=== PATIENT | female | born 1945 | race Caucasian/White ===

== ENCOUNTER 2017-09-22 06:55 | Emergency (ER) | payer MEDICARE, SELFPAY ==
[2017-09-22 07:08] VITALS: BP 182/54; PULSE 64; RESP 15; TEMP 37; O2SAT 100; BMI 32.9
--- NOTE | 2017-09-22 07:48 | DI.CT.S_ITS ---
PROCEDURE: CT HEAD/BRAIN WO CON INDICATIONS: confusion. on coumadin TECHNIQUE: Noncontrast 4.5 mm thick angled axial sections acquired from the foramen magnum to the vertex, with coronal and sagittal reformats. For radiation dose reduction, the following was used: automated exposure control, adjustment of mA and/or kV according to patient size. COMPARISON: [facility], CT, HEAD WITHOUT CONTRAST, 06/21/2017, 12:20. FINDINGS: Image quality: Excellent. CSF spaces: Basal cisterns are patent. No extra-axial fluid collections. The ventricles are symmetric in size and shape. There is mild cerebral volume loss, with resultant ventricular and sulcal prominence. Brain: No intracranial hemorrhage, mass, or mass effect. There are subcortical, periventricular and deep white matter hypodensities consistent with [id number] chronic small vessel ischemic changes. There is intracranial internal carotid artery atherosclerosis. Skull and face: Calvarium and visualized facial bones appear intact, without suspicious lesions. Sinuses: Visualized sinuses and mastoids are clear. IMPRESSION: 1. No acute intracranial abnormality. 2. Mild to moderate chronic white matter small vessel ischemic changes and mild cerebral volume loss. Dictated by: aMck Bravo M.D. on 09/22/2017 at 8:21 Approved by: Mack Bravo M.D. on 09/22/2017 at 8:22
[2017-09-22 07:55] LABS: Add Manual Diff / Slide Review NO; Basophils Percent Auto 0.7 % (0-2); Eosinophils Percent Auto 3.3 % (2-4); Hematocrit 35.2 % (36-46); Lymphocytes Percent Auto 17.1 % (25-40); Mean Corpuscular HGB Conc 34.1 % (30-36); Mean Corpuscular Hemoglobin 30.7 PG (26-34); Mean Corpuscular Volume 90.1 fL (80-100); Monocytes Percent Auto 11.6 % (3-14); Neutrophils Absolute Auto 4300 /uL (3000-5900); Neutrophils Percent Auto 67.3 % (50-75); Platelet Count 143 X10^3/uL (150-400); Red Blood Cell Count 3.91 X10^6/uL (4.0-5.2); White Blood Cell Count 6.3 X10^3/uL (4.5-11.0)
[2017-09-22 07:56] LABS: INR 2.3 (0.9-1.3)
[2017-09-22 07:59] LABS: PTT Partial Thromboplastin Tim 46 SECONDS (26.4-36.2)
[2017-09-22 08:05] LABS: Alanine Aminotransferase 35 IU/L (9-52); Albumin 4.3 g/dL (3.5-5.0); Albumin Globulin Ratio 1.3 (1.0-2.8); Alkaline Phosphatase 77 U/L (38-126); Aspartate Aminotransferase 41 IU/L (14-36); Bilirubin Total 0.5 mg/dL (0.2-1.3); Calcium 9.1 mg/dL (8.4-10.2); Estimated Glomerular Filt Rate 29.5 mL/min (>60); Ethanol (ETOH) < 10 mg/dL; Globulin 3.2 g/dL (1.7-4.1); Glucose 101 mg/dL (80-110); HEMOLYSIS 23 (0-50); Potassium 3.7 mmol/L (3.4-5.1); Sodium 141 mmol/L (137-145); Total Protein 7.5 g/dL (6.3-8.2)
[2017-09-22 08:07] LABS: Salicylate < 1.0 mg/dL (<20)
[2017-09-22 08:08] VITALS: BP 156/44; PULSE 62; RESP 14; O2SAT 97
[2017-09-22 08:12] LABS: Appearance Urine UA CLEAR; Bacteria Urine None Seen; Bilirubin Urine UA NEGATIVE (NEGATIVE); Color Urine UA YELLOW; Glucose Urine UA NEGATIVE (Negative); Ketones Urine UA NEGATIVE (NEGATIVE); Leukocyte Esterase Urine UA NEGATIVE (NEGATIVE); Nitrite Urine UA Negative (Negative); Occult Blood Urine UA NEGATIVE (Negative); Protein Urine UA NEGATIVE (Negative); RBC Urine None Seen (0-5/HPF); Urobilinogen Urine UA 0.2 E.U./dL (0.2); pH Urine UA 6.5 (4.5-8.0)
--- NOTE | 2017-09-22 08:13 | ED.AMS ---
HPI - Altered Mental Status General Chief Complaint: Altered Mental Status Stated Complaint: CONFUSION Time Seen by Provider: 09/22/17 07:09 Source: family and old records reviewed Mode of arrival: ambulatory Limitations: altered mental status History of Present Illness HPI narrative: Patient is a 72-year-old female presents with altered mental status. Her states that she has episodes that last for 3-4 days. They come sporadically. During this time she does not sleep much. She is confused. Last night this started. He said they were on their way to the ER when she became more awake and alert with a cold breathes on the window open in the car. He turned around home. However now she is back to the same. Previously she was doing well. No fever cough nausea vomiting diarrhea or other infectious like symptoms. Has a complicated history she pre of multiple GI bleeds and atrial fibrillation. She currently has a watchman patch on her heart, she is supposed to be off Coumadin with this how ever there have been some complications she is still on Coumadin. states that she has not had any bleeding no. MD complaint: altered mental status Related Data Home Medications Medication Instructions Recorded Confirmed oxybutynin chloride [Ditropan XL] 10 mg PO BID #0 02/03/16 baclofen 20 mg PO BID #10 04/26/16 vitamin B complex [B 1 tab PO QDAY #0 04/26/16 Complex-Vitamin B12] amiodarone 200 mg PO QDAY #0 05/22/16 ferrous sulfate [Iron (ferrous 325 mg PO BID #0 05/22/16 sulfate)] fluticasone 1 spray INTRANASAL BID #0 05/22/16 hydrocodone-acetaminophen [Lawler] 1 PO PRN #0 05/22/16 atorvastatin 40 mg PO HS #0 11/08/16 calcium carbonate-vitamin D3 1 cap PO BID #0 11/08/16 [Calcium 600 with Vitamin D3] carvedilol [Coreg] 12.5 mg PO BID #0 11/08/16 ondansetron HCl [Zofran] 4 mg PO Q4HP PRN #0 11/08/16 pantoprazole [Protonix] 40 mg PO BID #0 11/08/16 potassium chloride 20 meq PO BID #0 11/08/16 prochlorperazine maleate 10 mg PO PRN PRN #0 12/31/16 [Compazine] isosorbide mononitrate 30 mg PO QAM #0 01/27/17 losartan 25 mg PO SEE INSTRUCTIONS #0 01/27/17 omega-3 fatty [id number]-axh-[id number] 1 cap PO BID #0 01/27/17 [Ovega-3] diphenhydramine HCl 25 mg PO Q6HPRN PRN #0 06/21/17 hydrochlorothiazide 25 mg PO BID #0 06/21/17 warfarin [Coumadin] 2 mg PO SEE INSTRUCTIONS #0 06/21/17 levothyroxine [Synthroid] 125 mcg PO QWEEKSU #0 06/25/17 torsemide 20 mg PO QDAYP PRN #0 06/25/17 vitamin E 400 unit PO QDAY #0 07/04/17 warfarin [Coumadin] 1 mg PO QWEEKSU #0 07/04/17 Previous Rx's Medication Instructions Recorded polyethylene glycol 3350 [Miralax] 17 gm PO QDAY 30 Days #0 dose 02/05/16 insulin NPH and regular human 80 units SQ BIDAC #3 ml 01/01/17 [Humulin 70/30 U-100 Insulin] insulin lispro [Humalog U-100 2 - 10 unit SQ TIDAC #1 vial 02/20/17 Insulin] Allergies Allergy/AdvReac Type Severity Reaction Status Date / Time meperidine [From DEMEROL] Allergy Severe NAUSEA/VOMI Verified 09/22/17 07:21 TTING Review of Systems Review of Systems All systems reviewed & are unremarkable except as noted in HPI and below Constitutional Denies fatigue, Denies fever(s), Denies frequent falls and Denies headache(s) ENT Ears, Nose, Mouth, and Throat: Denies headache(s) Cardiovascular Denies chest pain, Denies syncope, Denies irregular heart rhythm, Denies lightheadedness, Denies palpitations, Denies dyspnea, Denies dyspnea on exertion and Denies orthopnea Respiratory Denies cough, Denies dyspnea, Denies dyspnea on exertion and Denies wheezing Gastrointestinal Gastrointestinal: Denies abdominal pain, Denies fecal incontinence, Denies diarrhea and Denies vomiting Genitourinary Denies hematuria, Denies flank pain, Denies urinary incontinence and Denies urinary urgency Integumentary/Breasts Denies pruritus, Denies erythema, Denies rash and Denies wounds Neurologic Reports system reviewed and no additional complaints, except as docu, Denies syncope, Denies frequent falls and Denies headache(s) Endocrine Denies fatigue and Denies palpitations Allergic/Immunologic Denies wheezing Exam Initial Vital Signs Initial Vital Signs: Vital Signs Temperature 98.6 F 09/22/17 07:08 Pulse Rate 64 09/22/17 07:08 Respiratory Rate 15 09/22/17 07:08 Blood Pressure 182/54 H 09/22/17 07:08 Pulse Oximetry 100 09/22/17 07:08 Const General: cooperative, healthy appearing and comfortable [facility] Head: normal to inspection and normocephalic Eyes General: appearance normal, both eyes and all related structures Eyelids: eyelids normal Pupils: PERRL EOM: EOM intact bilaterally Resp Effort & Inspection: normal respiratory effort, able to speak in complete sentences, no respiratory distress and no use of accessory muscles Auscultation: clear to auscultation bilaterally, no rales, no rhonchi and no wheezes Cardio Rate: regular rate Rhythm: regular rhythm Heart Sounds: no click, no gallops, no murmurs and no rubs Pulses: normal peripheral pulses Skin General: no rashes or lesions noted, No jaundice and No petechiae Neuro General: alert, awake and oriented x3 Cranial Nerves: CN's II-XI intact bilaterally Cognition: abnormal cognition (Slightly confused) Speech: speech normal Motor: muscle tone normal throughout and strength 5/5 throughout Coordination: [id number] test normal Extrem General: full ROM, no clubbing, cyanosis or edema, no pedal edema and no calf tenderness Course Orders Ordered: ED Orders 09/22/17 07:10 Complete Blood Count AUTO DIFF Stat Comprehensive Metabolic Panel Stat Ethanol (ETOH) Stat Partial Thromboplastin Time Stat Prolactin Stat Prothrombin Time INR Stat Salicylate Stat Thyroid Stimulating Hormone Stat Troponin I Stat 09/22/17 07:43 Rapid Drug Screen, Urine Stat Urinalysis and Microscopic Stat 09/22/17 07:46 EKG-12 Lead Stat 09/22/17 07:48 CT head/brain wo con Stat 09/22/17 08:05 Lactate (Lactic Acid) Stat Discontinued Medications Sodium Chloride (Normal Saline 0.9%) 1,000 mls @ 150 mls/hr IV CONT REJI Last Infusion: 09/22/17 09:24 Dose: 0 mls/hr Admin: 09/22/17 08:33 Dose: 150 mls/hr Vital Signs - 8 hr 09/22/17 07:08 09/22/17 08:08 09/22/17 08:38 Temperature 98.6 F Pulse Rate 64 62 62 Respiratory Rate 15 14 13 Blood Pressure 182/54 H Blood Pressure [Left Arm] 156/44 H 135/42 H Pulse Oximetry 100 97 97 09/22/17 09:17 09/22/17 09:30 09/22/17 09:50 Temperature Pulse Rate 66 64 Respiratory Rate 15 14 Blood Pressure Blood Pressure [Left Arm] 163/46 H 165/50 H Pulse Oximetry 98 98 MDM - Altered Mental Status Lab Data Result diagrams: 09/22/17 07:10 09/22/17 07:10 Lab Results 09/22/17 09/22/17 09/22/17 Range/Units 07:10 07:10 07:10 WBC 6.3 (4.5-11.0) X10^3/uL RBC 3.91 L (4.0-5.2) X10^6/uL Hgb 12.0 (12.0-16.0) g/dL Hct 35.2 L (36-46) % MCV 90.1 (80-100) fL MCH 30.7 (26-34) PG MCHC 34.1 (30-36) % RDW 15.0 H (11.6-14.8) % Plt Count 143 L (150-400) X10^3/uL Neut % (Auto) 67.3 (50-75) % Lymph % (Auto) 17.1 L (25-40) % Williamson % (Auto) 11.6 (3-14) % Eos % (Auto) 3.3 (2-4) % Baso % (Auto) 0.7 (0-2) % Neut # (Auto) 4300 (1468-6755) /uL PT 25.0 H (10.1-12.7) SECONDS INR 2.3 H (0.9-1.3) APTT 46 H (26.4-36.2) SECONDS Sodium 141 (137-145) mmol/L Potassium 3.7 (3.4-5.1) mmol/L Chloride 98.0 (98-107) mmol/L Carbon Dioxide 31.0 (22-32) mmol/L BUN 85.0 H (7-17) mg/dL Creatinine 1.70 H (0.52-1.04) mg/dL Estimated GFR 29.5 L (>60) mL/min BUN/Creatinine Ratio 50.0 H (6-22) Glucose 101 (80-110) mg/dL Lactate (0.7-2.1) mmol/L Calcium 9.1 (8.4-10.2) mg/dL Total Bilirubin 0.5 (0.2-1.3) mg/dL AST 41 H (14-36) IU/L ALT 35 (9-52) IU/L Alkaline Phosphatase 77 (38-126) U/L Troponin I < 0.012 (0.01-0.034) ng/mL Total Protein 7.5 (6.3-8.2) g/dL Albumin 4.3 (3.5-5.0) g/dL Globulin 3.2 (1.7-4.1) g/dL Albumin/Globulin Ratio 1.3 (1.0-2.8) TSH (0.47-4.68) uIU/mL Prolactin 18.6 (3.0-18.6) ng/mL Urine Color Urine Appearance Urine pH (4.5-8.0) Ur Specific [place] (1.000-1.035) Urine Protein (Negative) Urine Glucose (UA) (Negative) g/dL Urine Ketones (NEGATIVE) Urine Occult Blood (Negative) Urine Nitrate (Negative) Urine Bilirubin (NEGATIVE) Urine Urobilinogen (0.2) E.U./dL Ur Leukocyte Esterase (NEGATIVE) Urine RBC (0-5/HPF) Urine WBC (0-5/HPF) Ur Squamous Epith Cells Urine Bacteria (None) Ur Culture Indicated? Micro UA Comment Salicylates < 1.0 (<20) mg/dL Urine Opiates Screen (Negative) Ur Oxycodone Screen (Negative) Urine Methadone Screen (Negative) Ur Barbiturates Screen (Negative) U Tricyclic Antidepress (Negative) Ur Phencyclidine Scrn (Negative) Ur Amphetamines Screen (Negative) U Methamphetamines Scrn (Negative) Ur MDMA Scrn (Ecstasy) (Negative) U Benzodiazepines Scrn (Negative) Urine Cocaine Screen (Negative) U Marijuana (THC) Screen (Negative) Ethyl Alcohol < 10 mg/dL 09/22/17 09/22/17 09/22/17 Range/Units 07:10 07:43 07:43 WBC (4.5-11.0) X10^3/uL RBC (4.0-5.2) X10^6/uL Hgb (12.0-16.0) g/dL Hct (36-46) % MCV (80-100) fL MCH (26-34) PG MCHC (30-36) % RDW (11.6-14.8) % Plt Count (150-400) X10^3/uL Neut % (Auto) (50-75) % Lymph % (Auto) (25-40) % Williamson % (Auto) (3-14) % Eos % (Auto) (2-4) % Baso % (Auto) (0-2) % Neut # (Auto) (6255-4461) /uL PT (10.1-12.7) SECONDS INR (0.9-1.3) APTT (26.4-36.2) SECONDS Sodium (137-145) mmol/L Potassium (3.4-5.1) mmol/L Chloride (98-107) mmol/L Carbon Dioxide (22-32) mmol/L BUN (7-17) mg/dL Creatinine (0.52-1.04) mg/dL Estimated GFR (>60) mL/min BUN/Creatinine Ratio (6-22) Glucose (80-110) mg/dL Lactate (0.7-2.1) mmol/L Calcium (8.4-10.2) mg/dL Total Bilirubin (0.2-1.3) mg/dL AST (14-36) IU/L ALT (9-52) IU/L Alkaline Phosphatase (38-126) U/L Troponin I (0.01-0.034) ng/mL Total Protein (6.3-8.2) g/dL Albumin (3.5-5.0) g/dL Globulin (1.7-4.1) g/dL Albumin/Globulin Ratio (1.0-2.8) TSH 5.78 H (0.47-4.68) uIU/mL Prolactin (3.0-18.6) ng/mL Urine Color Yellow Urine Appearance Clear Urine pH 6.5 (4.5-8.0) Ur Specific [place] 1.010 (1.000-1.035) Urine Protein Negative (Negative) Urine Glucose (UA) Negative (Negative) g/dL Urine Ketones Negative (NEGATIVE) Urine Occult Blood Negative (Negative) Urine Nitrate Negative (Negative) Urine Bilirubin Negative (NEGATIVE) Urine Urobilinogen 0.2 (0.2) E.U./dL Ur Leukocyte Esterase Negative (NEGATIVE) Urine RBC None seen (0-5/HPF) Urine WBC 1-5/hpf (0-5/HPF) Ur Squamous Epith Cells 1-5 /hpf Urine Bacteria None seen (None) Ur Culture Indicated? Cult not indicated Micro UA Comment Microscopic normal Salicylates (<20) mg/dL Urine Opiates Screen Positive H (Negative) Ur Oxycodone Screen Negative (Negative) Urine Methadone Screen Negative (Negative) Ur Barbiturates Screen Negative (Negative) U Tricyclic Antidepress Negative (Negative) Ur Phencyclidine Scrn Negative (Negative) Ur Amphetamines Screen Negative (Negative) U Methamphetamines Scrn Negative (Negative) Ur MDMA Scrn (Ecstasy) Negative (Negative) U Benzodiazepines Scrn Negative (Negative) Urine Cocaine Screen Negative (Negative) U Marijuana (THC) Screen Negative (Negative) Ethyl Alcohol mg/dL 09/22/17 Range/Units 08:05 WBC (4.5-11.0) X10^3/uL RBC (4.0-5.2) X10^6/uL Hgb (12.0-16.0) g/dL Hct (36-46) % MCV (80-100) fL MCH (26-34) PG MCHC (30-36) % RDW (11.6-14.8) % Plt Count (150-400) X10^3/uL Neut % (Auto) (50-75) % Lymph % (Auto) (25-40) % Williamson % (Auto) (3-14) % Eos % (Auto) (2-4) % Baso % (Auto) (0-2) % Neut # (Auto) (6611-3055) /uL PT (10.1-12.7) SECONDS INR (0.9-1.3) APTT (26.4-36.2) SECONDS Sodium (137-145) mmol/L Potassium (3.4-5.1) mmol/L Chloride (98-107) mmol/L Carbon Dioxide (22-32) mmol/L BUN (7-17) mg/dL Creatinine (0.52-1.04) mg/dL Estimated GFR (>60) mL/min BUN/Creatinine Ratio (6-22) Glucose (80-110) mg/dL Lactate 0.6 L (0.7-2.1) mmol/L Calcium (8.4-10.2) mg/dL Total Bilirubin (0.2-1.3) mg/dL AST (14-36) IU/L ALT (9-52) IU/L Alkaline Phosphatase (38-126) U/L Troponin I (0.01-0.034) ng/mL Total Protein (6.3-8.2) g/dL Albumin (3.5-5.0) g/dL Globulin (1.7-4.1) g/dL Albumin/Globulin Ratio (1.0-2.8) TSH (0.47-4.68) uIU/mL Prolactin (3.0-18.6) ng/mL Urine Color Urine Appearance Urine pH (4.5-8.0) Ur Specific [place] (1.000-1.035) Urine Protein (Negative) Urine Glucose (UA) (Negative) g/dL Urine Ketones (NEGATIVE) Urine Occult Blood (Negative) Urine Nitrate (Negative) Urine Bilirubin (NEGATIVE) Urine Urobilinogen (0.2) E.U./dL Ur Leukocyte Esterase (NEGATIVE) Urine RBC (0-5/HPF) Urine WBC (0-5/HPF) Ur Squamous Epith Cells Urine Bacteria (None) Ur Culture Indicated? Micro UA Comment Salicylates (<20) mg/dL Urine Opiates Screen (Negative) Ur Oxycodone Screen (Negative) Urine Methadone Screen (Negative) Ur Barbiturates Screen (Negative) U Tricyclic Antidepress (Negative) Ur Phencyclidine Scrn (Negative) Ur Amphetamines Screen (Negative) U Methamphetamines Scrn (Negative) Ur MDMA Scrn (Ecstasy) (Negative) U Benzodiazepines Scrn (Negative) Urine Cocaine Screen (Negative) U Marijuana (THC) Screen (Negative) Ethyl Alcohol mg/dL Imaging Data CT scan - head: Radiologist's impression: PROCEDURE: CT HEAD/BRAIN WO CON INDICATIONS: confusion. on coumadin TECHNIQUE: Noncontrast 4.5 mm thick angled axial sections acquired from the foramen magnum to the vertex, with coronal and sagittal reformats. For radiation dose reduction, the following was used: automated exposure control, adjustment of mA and/or kV according to patient size. COMPARISON: [facility], CT, HEAD WITHOUT CONTRAST, 06/21/2017, 12:20. FINDINGS: Image quality: Excellent. CSF spaces: Basal cisterns are patent. No extra-axial fluid collections. The ventricles are symmetric in size and shape. There is mild cerebral volume loss, with resultant ventricular and sulcal prominence. Brain: No intracranial hemorrhage, mass, or mass effect. There are subcortical, periventricular and deep white matter hypodensities consistent with [id number] chronic small vessel ischemic changes. There is intracranial internal carotid artery atherosclerosis. Skull and face: Calvarium and visualized facial bones appear intact, without suspicious lesions. Sinuses: Visualized sinuses and mastoids are clear. IMPRESSION: 1. No acute intracranial abnormality. 2. Mild to moderate chronic white matter small vessel ischemic changes and mild cerebral volume loss. Dictated by: Mack Bravo M.D. on 09/22/2017 at 8:21 ECG Data Attestation: I personally reviewed and interpreted this ECG as follows: Prior ECG tracings: available for review Interpretation: Normal sinus rhythm rate 61 no ischemia normal intervals MDM Narrative Medical decision making narrative: No sign of infection, blood work within normal limits. Discussed this with . Possible related to medication possible related to age. He does not think that she has dementia. When she does not have these episodes she to be quite clear and present. However these episodes are becoming more frequent. feels comfortable going home. No need for admission. She is slightly more dehydrated a BUN of 87 and creatinine of 1.7 today. She is given fluids he is tolerating oral fluids. Discharge Plan Departure Patient Disposition: Home, Self-Care Clinical Impression: Encephalopathy Discharge Date/Time: 09/22/17 10:25 Interventions: ED Discharge Assessment Last Done: 09/22/17 10:20 Instructions: DI for Encephalopathy Activity Restrictions/Additional Instructions: *You have been diagnosed with encephalopathy *What to do: unclear what the exact cause is. May require further testing. Talk with your primary care provider *Take medications as directed *Follow up with your primary care provider in 2-3 days *Return to ER if you should have fever, weakness, worsening confusionany new, worsening or concerning symptoms Prescriptions: No Action oxybutynin chloride [Ditropan XL] 10 MG tablet extended release 24hr 10 mg PO BID Qty: 0 RF: 0 polyethylene glycol 3350 [Miralax] 17 GM powder in packet 17 gm PO QDAY 30 Days Qty: 0 RF: 0 baclofen 20 MG tablet 20 mg PO BID Qty: 10 RF: 0 vitamin B complex [B Complex-Vitamin B12] 1 EACH tablet 1 tab PO QDAY Qty: 0 RF: 0 hydrocodone-acetaminophen [Lawler] 10 MG/325 MG tablet 1 PO PRNQty: 0 RF: 0 fluticasone 16 GM spray,suspension 1 spray Intranasal BID Qty: 0 RF: 0 ferrous sulfate [Iron (ferrous sulfate)] 325 MG tablet 325 mg PO BID Qty: 0 RF: 0 amiodarone 200 MG tablet 200 mg PO QDAY Qty: 0 RF: 0 atorvastatin 40 MG tablet 40 mg PO HS Qty: 0 RF: 0 calcium carbonate-vitamin D3 [Calcium 600 with Vitamin D3] 600 MG/200 IU capsule 1 cap PO BID Qty: 0 RF: 0 potassium chloride 10 MEQ capsule, extended release 20 meq PO BID Qty: 0 RF: 0 pantoprazole [Protonix] 40 MG tablet,delayed release (DR/EC) 40 mg PO BID Qty: 0 RF: 0 carvedilol [Coreg] 12.5 MG tablet 12.5 mg PO BID Qty: 0 RF: 0 ondansetron HCl [Zofran] 4 MG tablet 4 mg PO Q4HP PRNQty: 0 RF: 0 prochlorperazine maleate [Compazine] 10 MG tablet 10 mg PO PRN PRNQty: 0 RF: 0 insulin NPH and regular human [Humulin 70/30 U-100 Insulin] 100 UNIT/1 ML suspension 80 units SQ BIDAC Qty: 3 RF: 0 isosorbide mononitrate 30 MG tablet extended release 24 hr 30 mg PO QAM Qty: 0 RF: 0 losartan 25 MG tablet 25 mg PO SEE INSTRUCTIONS Qty: 0 RF: 0 omega-3 fatty [id number] [Ovega-3] 1 EACH capsule 1 cap PO BID Qty: 0 RF: 0 insulin lispro [Humalog U-100 Insulin] 100 UNIT/1 ML solution 2 - 10 unit SQ TIDAC Qty: 1 RF: 0 warfarin [Coumadin] 2 MG tablet 2 mg PO SEE INSTRUCTIONS Qty: 0 RF: 0 hydrochlorothiazide 25 MG tablet 25 mg PO BID Qty: 0 RF: 0 diphenhydramine HCl 50 MG capsule 25 mg PO Q6HPRN PRNQty: 0 RF: 0 levothyroxine [Synthroid] 125 MCG tablet 125 mcg PO QWEEKSU Qty: 0 RF: 0 torsemide 20 MG tablet 20 mg PO QDAYP PRNQty: 0 RF: 0 warfarin [Coumadin] 2 MG tablet 1 mg PO QWEEKSU Qty: 0 RF: 0 vitamin E 400 UNIT capsule 400 unit PO QDAY Qty: 0 RF: 0
[2017-09-22 08:18] LABS: Troponin I < 0.012 ng/mL (0.01-0.034)
[2017-09-22 08:18] LABS: Urine Amphetamines Negative (Negative); Urine Barbiturates Negative (Negative); Urine Benzodiazepines Negative (Negative); Urine Cocaine Negative (Negative); Urine MDMA Negative (Negative); Urine Methadone Negative (Negative); Urine Methamphetamines Negative (Negative); Urine Morphine/Opi cutoff 2000 Positive (Negative); Urine Oxycodone Negative (Negative); Urine Phencyclidine Negative (Negative); Urine Tetrahydrocannabinol Negative (Negative); Urine Tricyclic Antidepressant Negative (Negative)
[2017-09-22 08:22] LABS: Prolactin 18.6 ng/mL (3.0-18.6)
[2017-09-22 08:26] LABS: Lactate (Lactic Acid) 0.6 mmol/L (0.7-2.1)
[2017-09-22 08:28] LABS: Squamous Epithelial Cell Urine 1-5 /HPF; Urine Comments Microscopic Normal; WBC Urine 1-5/HPF (0-5/HPF)
[2017-09-22 08:29] LABS: Culture Indicated Urine Cult Not Indicated
[2017-09-22] MEDS: SODIUM CHLORIDE 0.9% 1,000 ML 150 ML IV (08:33)
[2017-09-22 08:37] LABS: Thyroid Stimulating Hormone 5.78 uIU/mL (0.47-4.68)
[2017-09-22 08:38] VITALS: BP 135/42; PULSE 62; RESP 13; O2SAT 97
--- NOTE | 2017-09-22 08:42 | ED_ITS ---
HPI - Altered Mental Status General Chief Complaint: Altered Mental Status Stated Complaint: CONFUSION Time Seen by Provider: 09/22/17 07:09 Source: family and old records reviewed Mode of arrival: ambulatory Limitations: altered mental status History of Present Illness HPI narrative: Patient is a 72-year-old female presents with altered mental status. Her states that she has episodes that last for 3-4 days. They come sporadically. During this time she does not sleep much. She is confused. Last night this started. He said they were on their way to the ER when she became more awake and alert with a cold breathes on the window open in the car. He turned around home. However now she is back to the same. Previously she was doing well. No fever cough nausea vomiting diarrhea or other infectious like symptoms. Has a complicated history she pre of multiple GI bleeds and atrial fibrillation. She currently has a watchman patch on her heart, she is supposed to be off Coumadin with this how ever there have been some complications she is still on Coumadin. states that she has not had any bleeding no. MD complaint: altered mental status Related Data Home Medications Medication Instructions Recorded Confirmed oxybutynin chloride [Ditropan XL] 10 mg PO BID #0 02/03/16 baclofen 20 mg PO BID #10 04/26/16 vitamin B complex [B 1 tab PO QDAY #0 04/26/16 Complex-Vitamin B12] amiodarone 200 mg PO QDAY #0 05/22/16 ferrous sulfate [Iron (ferrous 325 mg PO BID #0 05/22/16 sulfate)] fluticasone 1 spray INTRANASAL BID #0 05/22/16 hydrocodone-acetaminophen [[place]] 1 PO PRN #0 05/22/16 atorvastatin 40 mg PO HS #0 11/08/16 calcium carbonate-vitamin D3 1 cap PO BID #0 11/08/16 [Calcium 600 with Vitamin D3] carvedilol [Coreg] 12.5 mg PO BID #0 11/08/16 ondansetron HCl [Zofran] 4 mg PO Q4HP PRN #0 11/08/16 pantoprazole [Protonix] 40 mg PO BID #0 11/08/16 potassium chloride 20 meq PO BID #0 11/08/16 prochlorperazine maleate 10 mg PO PRN PRN #0 12/31/16 [Compazine] isosorbide mononitrate 30 mg PO QAM #0 01/27/17 losartan 25 mg PO SEE INSTRUCTIONS #0 01/27/17 omega-3 fatty [id number] 1 cap PO BID #0 01/27/17 [Ovega-3] diphenhydramine HCl 25 mg PO Q6HPRN PRN #0 06/21/17 hydrochlorothiazide 25 mg PO BID #0 06/21/17 warfarin [Coumadin] 2 mg PO SEE INSTRUCTIONS #0 06/21/17 levothyroxine [Synthroid] 125 mcg PO QWEEKSU #0 06/25/17 torsemide 20 mg PO QDAYP PRN #0 06/25/17 vitamin E 400 unit PO QDAY #0 07/04/17 warfarin [Coumadin] 1 mg PO QWEEKSU #0 07/04/17 Previous Rx's Medication Instructions Recorded polyethylene glycol 3350 [Miralax] 17 gm PO QDAY 30 Days #0 dose 02/05/16 insulin NPH and regular human 80 units SQ BIDAC #3 ml 01/01/17 [Humulin 70/30 U-100 Insulin] insulin lispro [Humalog U-100 2 - 10 unit SQ TIDAC #1 vial 02/20/17 Insulin] Allergies Allergy/AdvReac Type Severity Reaction Status Date / Time meperidine [From DEMEROL] Allergy Severe NAUSEA/VOMI Verified 09/22/17 07:21 TTING Review of Systems Review of Systems All systems reviewed & are unremarkable except as noted in HPI and below Constitutional Denies fatigue, Denies fever(s), Denies frequent falls and Denies headache(s) ENT Ears, Nose, Mouth, and Throat: Denies headache(s) Cardiovascular Denies chest pain, Denies syncope, Denies irregular heart rhythm, Denies lightheadedness, Denies palpitations, Denies dyspnea, Denies dyspnea on exertion and Denies orthopnea Respiratory Denies cough, Denies dyspnea, Denies dyspnea on exertion and Denies wheezing Gastrointestinal Gastrointestinal: Denies abdominal pain, Denies fecal incontinence, Denies diarrhea and Denies vomiting Genitourinary Denies hematuria, Denies flank pain, Denies urinary incontinence and Denies urinary urgency Integumentary/Breasts Denies pruritus, Denies erythema, Denies rash and Denies wounds Neurologic Reports system reviewed and no additional complaints, except as docu, Denies syncope, Denies frequent falls and Denies headache(s) Endocrine Denies fatigue and Denies palpitations Allergic/Immunologic Denies wheezing Exam Initial Vital Signs Initial Vital Signs: Vital Signs Temperature 98.6 F 09/22/17 07:08 Pulse Rate 64 09/22/17 07:08 Respiratory Rate 15 09/22/17 07:08 Blood Pressure 182/54 H 09/22/17 07:08 Pulse Oximetry 100 09/22/17 07:08 Const General: cooperative, healthy appearing and comfortable [facility] Head: normal to inspection and normocephalic Eyes General: appearance normal, both eyes and all related structures Eyelids: eyelids normal Pupils: PERRL EOM: EOM intact bilaterally Resp Effort & Inspection: normal respiratory effort, able to speak in complete sentences, no respiratory distress and no use of accessory muscles Auscultation: clear to auscultation bilaterally, no rales, no rhonchi and no wheezes Cardio Rate: regular rate Rhythm: regular rhythm Heart Sounds: no click, no gallops, no murmurs and no rubs Pulses: normal peripheral pulses Skin General: no rashes or lesions noted, No jaundice and No petechiae Neuro General: alert, awake and oriented x3 Cranial Nerves: CN's II-XI intact bilaterally Cognition: abnormal cognition (Slightly confused) Speech: speech normal Motor: muscle tone normal throughout and strength 5/5 throughout Coordination: [id number] test normal Extrem General: full ROM, no clubbing, cyanosis or edema, no pedal edema and no calf tenderness Course Orders Ordered: ED Orders 09/22/17 07:10 Complete Blood Count AUTO DIFF Stat Comprehensive Metabolic Panel Stat Ethanol (ETOH) Stat Partial Thromboplastin Time Stat Prolactin Stat Prothrombin Time INR Stat Salicylate Stat Thyroid Stimulating Hormone Stat Troponin I Stat 09/22/17 07:43 Rapid Drug Screen, Urine Stat Urinalysis and Microscopic Stat 09/22/17 07:46 EKG-12 Lead Stat 09/22/17 07:48 CT head/brain wo con Stat 09/22/17 08:05 Lactate (Lactic Acid) Stat Discontinued Medications Sodium Chloride (Normal Saline 0.9%) 1,000 mls @ 150 mls/hr IV CONT REJI Last Infusion: 09/22/17 09:24 Dose: 0 mls/hr Admin: 09/22/17 08:33 Dose: 150 mls/hr Vital Signs - 8 hr 09/22/17 07:08 09/22/17 08:08 09/22/17 08:38 Temperature 98.6 F Pulse Rate 64 62 62 Respiratory Rate 15 14 13 Blood Pressure 182/54 H Blood Pressure [Left Arm] 156/44 H 135/42 H Pulse Oximetry 100 97 97 09/22/17 09:17 09/22/17 09:30 09/22/17 09:50 Temperature Pulse Rate 66 64 Respiratory Rate 15 14 Blood Pressure Blood Pressure [Left Arm] 163/46 H 165/50 H Pulse Oximetry 98 98 MDM - Altered Mental Status Lab Data Result diagrams: 09/22/17 07:10 09/22/17 07:10 Lab Results 09/22/17 09/22/17 09/22/17 Range/Units 07:10 07:10 07:10 WBC 6.3 (4.5-11.0) X10^3/uL RBC 3.91 L (4.0-5.2) X10^6/uL Hgb 12.0 (12.0-16.0) g/dL Hct 35.2 L (36-46) % MCV 90.1 (80-100) fL MCH 30.7 (26-34) PG MCHC 34.1 (30-36) % RDW 15.0 H (11.6-14.8) % Plt Count 143 L (150-400) X10^3/uL Neut % (Auto) 67.3 (50-75) % Lymph % (Auto) 17.1 L (25-40) % [place] % (Auto) 11.6 (3-14) % Eos % (Auto) 3.3 (2-4) % Baso % (Auto) 0.7 (0-2) % Neut # (Auto) 4300 (4280-5231) /uL PT 25.0 H (10.1-12.7) SECONDS INR 2.3 H (0.9-1.3) APTT 46 H (26.4-36.2) SECONDS Sodium 141 (137-145) mmol/L Potassium 3.7 (3.4-5.1) mmol/L Chloride 98.0 (98-107) mmol/L Carbon Dioxide 31.0 (22-32) mmol/L BUN 85.0 H (7-17) mg/dL Creatinine 1.70 H (0.52-1.04) mg/dL Estimated GFR 29.5 L (>60) mL/min BUN/Creatinine Ratio 50.0 H (6-22) Glucose 101 (80-110) mg/dL Lactate (0.7-2.1) mmol/L Calcium 9.1 (8.4-10.2) mg/dL Total Bilirubin 0.5 (0.2-1.3) mg/dL AST 41 H (14-36) IU/L ALT 35 (9-52) IU/L Alkaline Phosphatase 77 (38-126) U/L Troponin I < 0.012 (0.01-0.034) ng/mL Total Protein 7.5 (6.3-8.2) g/dL Albumin 4.3 (3.5-5.0) g/dL Globulin 3.2 (1.7-4.1) g/dL Albumin/Globulin Ratio 1.3 (1.0-2.8) TSH (0.47-4.68) uIU/mL Prolactin 18.6 (3.0-18.6) ng/mL Urine Color Urine Appearance Urine pH (4.5-8.0) Ur Specific [place] (1.000-1.035) Urine Protein (Negative) Urine Glucose (UA) (Negative) g/dL Urine Ketones (NEGATIVE) Urine Occult Blood (Negative) Urine Nitrate (Negative) Urine Bilirubin (NEGATIVE) Urine Urobilinogen (0.2) E.U./dL Ur Leukocyte Esterase (NEGATIVE) Urine RBC (0-5/HPF) Urine WBC (0-5/HPF) Ur Squamous Epith Cells Urine Bacteria (None) Ur Culture Indicated? Micro UA Comment Salicylates < 1.0 (<20) mg/dL Urine Opiates Screen (Negative) Ur Oxycodone Screen (Negative) Urine Methadone Screen (Negative) Ur Barbiturates Screen (Negative) U Tricyclic Antidepress (Negative) Ur Phencyclidine Scrn (Negative) Ur Amphetamines Screen (Negative) U Methamphetamines Scrn (Negative) Ur MDMA Scrn (Ecstasy) (Negative) U Benzodiazepines Scrn (Negative) Urine Cocaine Screen (Negative) U Marijuana (THC) Screen (Negative) Ethyl Alcohol < 10 mg/dL 09/22/17 09/22/17 09/22/17 Range/Units 07:10 07:43 07:43 WBC (4.5-11.0) X10^3/uL RBC (4.0-5.2) X10^6/uL Hgb (12.0-16.0) g/dL Hct (36-46) % MCV (80-100) fL MCH (26-34) PG MCHC (30-36) % RDW (11.6-14.8) % Plt Count (150-400) X10^3/uL Neut % (Auto) (50-75) % Lymph % (Auto) (25-40) % [place] % (Auto) (3-14) % Eos % (Auto) (2-4) % Baso % (Auto) (0-2) % Neut # (Auto) (2601-2097) /uL PT (10.1-12.7) SECONDS INR (0.9-1.3) APTT (26.4-36.2) SECONDS Sodium (137-145) mmol/L Potassium (3.4-5.1) mmol/L Chloride (98-107) mmol/L Carbon Dioxide (22-32) mmol/L BUN (7-17) mg/dL Creatinine (0.52-1.04) mg/dL Estimated GFR (>60) mL/min BUN/Creatinine Ratio (6-22) Glucose (80-110) mg/dL Lactate (0.7-2.1) mmol/L Calcium (8.4-10.2) mg/dL Total Bilirubin (0.2-1.3) mg/dL AST (14-36) IU/L ALT (9-52) IU/L Alkaline Phosphatase (38-126) U/L Troponin I (0.01-0.034) ng/mL Total Protein (6.3-8.2) g/dL Albumin (3.5-5.0) g/dL Globulin (1.7-4.1) g/dL Albumin/Globulin Ratio (1.0-2.8) TSH 5.78 H (0.47-4.68) uIU/mL Prolactin (3.0-18.6) ng/mL Urine Color Yellow Urine Appearance Clear Urine pH 6.5 (4.5-8.0) Ur Specific [place] 1.010 (1.000-1.035) Urine Protein Negative (Negative) Urine Glucose (UA) Negative (Negative) g/dL Urine Ketones Negative (NEGATIVE) Urine Occult Blood Negative (Negative) Urine Nitrate Negative (Negative) Urine Bilirubin Negative (NEGATIVE) Urine Urobilinogen 0.2 (0.2) E.U./dL Ur Leukocyte Esterase Negative (NEGATIVE) Urine RBC None seen (0-5/HPF) Urine WBC 1-5/hpf (0-5/HPF) Ur Squamous Epith Cells 1-5 /hpf Urine Bacteria None seen (None) Ur Culture Indicated? Cult not indicated Micro UA Comment Microscopic normal Salicylates (<20) mg/dL Urine Opiates Screen Positive H (Negative) Ur Oxycodone Screen Negative (Negative) Urine Methadone Screen Negative (Negative) Ur Barbiturates Screen Negative (Negative) U Tricyclic Antidepress Negative (Negative) Ur Phencyclidine Scrn Negative (Negative) Ur Amphetamines Screen Negative (Negative) U Methamphetamines Scrn Negative (Negative) Ur MDMA Scrn (Ecstasy) Negative (Negative) U Benzodiazepines Scrn Negative (Negative) Urine Cocaine Screen Negative (Negative) U Marijuana (THC) Screen Negative (Negative) Ethyl Alcohol mg/dL 09/22/17 Range/Units 08:05 WBC (4.5-11.0) X10^3/uL RBC (4.0-5.2) X10^6/uL Hgb (12.0-16.0) g/dL Hct (36-46) % MCV (80-100) fL MCH (26-34) PG MCHC (30-36) % RDW (11.6-14.8) % Plt Count (150-400) X10^3/uL Neut % (Auto) (50-75) % Lymph % (Auto) (25-40) % [place] % (Auto) (3-14) % Eos % (Auto) (2-4) % Baso % (Auto) (0-2) % Neut # (Auto) (3641-6866) /uL PT (10.1-12.7) SECONDS INR (0.9-1.3) APTT (26.4-36.2) SECONDS Sodium (137-145) mmol/L Potassium (3.4-5.1) mmol/L Chloride (98-107) mmol/L Carbon Dioxide (22-32) mmol/L BUN (7-17) mg/dL Creatinine (0.52-1.04) mg/dL Estimated GFR (>60) mL/min BUN/Creatinine Ratio (6-22) Glucose (80-110) mg/dL Lactate 0.6 L (0.7-2.1) mmol/L Calcium (8.4-10.2) mg/dL Total Bilirubin (0.2-1.3) mg/dL AST (14-36) IU/L ALT (9-52) IU/L Alkaline Phosphatase (38-126) U/L Troponin I (0.01-0.034) ng/mL Total Protein (6.3-8.2) g/dL Albumin (3.5-5.0) g/dL Globulin (1.7-4.1) g/dL Albumin/Globulin Ratio (1.0-2.8) TSH (0.47-4.68) uIU/mL Prolactin (3.0-18.6) ng/mL Urine Color Urine Appearance Urine pH (4.5-8.0) Ur Specific [place] (1.000-1.035) Urine Protein (Negative) Urine Glucose (UA) (Negative) g/dL Urine Ketones (NEGATIVE) Urine Occult Blood (Negative) Urine Nitrate (Negative) Urine Bilirubin (NEGATIVE) Urine Urobilinogen (0.2) E.U./dL Ur Leukocyte Esterase (NEGATIVE) Urine RBC (0-5/HPF) Urine WBC (0-5/HPF) Ur Squamous Epith Cells Urine Bacteria (None) Ur Culture Indicated? Micro UA Comment Salicylates (<20) mg/dL Urine Opiates Screen (Negative) Ur Oxycodone Screen (Negative) Urine Methadone Screen (Negative) Ur Barbiturates Screen (Negative) U Tricyclic Antidepress (Negative) Ur Phencyclidine Scrn (Negative) Ur Amphetamines Screen (Negative) U Methamphetamines Scrn (Negative) Ur MDMA Scrn (Ecstasy) (Negative) U Benzodiazepines Scrn (Negative) Urine Cocaine Screen (Negative) U Marijuana (THC) Screen (Negative) Ethyl Alcohol mg/dL Imaging Data CT scan - head: Radiologist's impression: PROCEDURE: CT HEAD/BRAIN WO CON INDICATIONS: confusion. on coumadin TECHNIQUE: Noncontrast 4.5 mm thick angled axial sections acquired from the foramen magnum to the vertex, with coronal and sagittal reformats. For radiation dose reduction, the following was used: automated exposure control, adjustment of mA and/or kV according to patient size. COMPARISON: [facility], CT, HEAD WITHOUT CONTRAST, 06/21/2017, 12:20. FINDINGS: Image quality: Excellent. CSF spaces: Basal cisterns are patent. No extra-axial fluid collections. The ventricles are symmetric in size and shape. There is mild cerebral volume loss , with resultant ventricular and sulcal prominence. Brain: No intracranial hemorrhage, mass, or mass effect. There are subcortical , periventricular and deep white matter hypodensities consistent with mild-to- moderate chronic small vessel ischemic changes. There is intracranial internal carotid artery atherosclerosis. Skull and face: Calvarium and visualized facial bones appear intact, without suspicious lesions. Sinuses: Visualized sinuses and mastoids are clear. IMPRESSION: 1. No acute intracranial abnormality. 2. Mild to moderate chronic white matter small vessel ischemic changes and mild cerebral volume loss. Dictated by: Mack Bravo M.D. on 09/22/2017 at 8:21 ECG Data Attestation: I personally reviewed and interpreted this ECG as follows: Prior ECG tracings: available for review Interpretation: Normal sinus rhythm rate 61 no ischemia normal intervals MDM Narrative Medical decision making narrative: No sign of infection, blood work within normal limits. Discussed this with . Possible related to medication possible related to age. He does not think that she has dementia. When she does not have these episodes she to be quite clear and present. However these episodes are becoming more frequent. feels comfortable going home. No need for admission. She is slightly more dehydrated a BUN of 87 and creatinine of 1.7 today. She is given fluids he is tolerating oral fluids. Discharge Plan Departure Patient Disposition: Home, Self-Care Clinical Impression: Encephalopathy Discharge Date/Time: 09/22/17 10:25 Interventions: ED Discharge Assessment Last Done: 09/22/17 10:20 Instructions: DI for Encephalopathy Activity Restrictions/Additional Instructions: *You have been diagnosed with encephalopathy *What to do: unclear what the exact cause is. May require further testing. Talk with your primary care provider *Take medications as directed *Follow up with your primary care provider in 2-3 days *Return to ER if you should have fever, weakness, worsening confusionany new, worsening or concerning symptoms Prescriptions: No Action oxybutynin chloride [Ditropan XL] 10 MG tablet extended release 24hr 10 mg PO BID Qty: 0 RF: 0 polyethylene glycol 3350 [Miralax] 17 GM powder in packet 17 gm PO QDAY 30 Days Qty: 0 RF: 0 baclofen 20 MG tablet 20 mg PO BID Qty: 10 RF: 0 vitamin B complex [B Complex-Vitamin B12] 1 EACH tablet 1 tab PO QDAY Qty: 0 RF: 0 hydrocodone-acetaminophen [[place]] 10 MG/325 MG tablet 1 PO PRNQty: 0 RF: 0 fluticasone 16 GM spray,suspension 1 spray Intranasal BID Qty: 0 RF: 0 ferrous sulfate [Iron (ferrous sulfate)] 325 MG tablet 325 mg PO BID Qty: 0 RF: 0 amiodarone 200 MG tablet 200 mg PO QDAY Qty: 0 RF: 0 atorvastatin 40 MG tablet 40 mg PO HS Qty: 0 RF: 0 calcium carbonate-vitamin D3 [Calcium 600 with Vitamin D3] 600 MG/200 IU capsule 1 cap PO BID Qty: 0 RF: 0 potassium chloride 10 MEQ capsule, extended release 20 meq PO BID Qty: 0 RF: 0 pantoprazole [Protonix] 40 MG tablet,delayed release (DR/EC) 40 mg PO BID Qty: 0 RF: 0 carvedilol [Coreg] 12.5 MG tablet 12.5 mg PO BID Qty: 0 RF: 0 ondansetron HCl [Zofran] 4 MG tablet 4 mg PO Q4HP PRNQty: 0 RF: 0 prochlorperazine maleate [Compazine] 10 MG tablet 10 mg PO PRN PRNQty: 0 RF: 0 insulin NPH and regular human [Humulin 70/30 U-100 Insulin] 100 UNIT/1 ML suspension 80 units SQ BIDAC Qty: 3 RF: 0 isosorbide mononitrate 30 MG tablet extended release 24 hr 30 mg PO QAM Qty: 0 RF: 0 losartan 25 MG tablet 25 mg PO SEE INSTRUCTIONS Qty: 0 RF: 0 omega-3 fatty [id number] [Ovega-3] 1 EACH capsule 1 cap PO BID Qty: 0 RF: 0 insulin lispro [Humalog U-100 Insulin] 100 UNIT/1 ML solution 2 - 10 unit SQ TIDAC Qty: 1 RF: 0 warfarin [Coumadin] 2 MG tablet 2 mg PO SEE INSTRUCTIONS Qty: 0 RF: 0 hydrochlorothiazide 25 MG tablet 25 mg PO BID Qty: 0 RF: 0 diphenhydramine HCl 50 MG capsule 25 mg PO Q6HPRN PRNQty: 0 RF: 0 levothyroxine [Synthroid] 125 MCG tablet 125 mcg PO QWEEKSU Qty: 0 RF: 0 torsemide 20 MG tablet 20 mg PO QDAYP PRNQty: 0 RF: 0 warfarin [Coumadin] 2 MG tablet 1 mg PO QWEEKSU Qty: 0 RF: 0 vitamin E 400 UNIT capsule 400 unit PO QDAY Qty: 0 RF: 0
[2017-09-22 09:17] VITALS: BP 163/46
[2017-09-22 09:30] VITALS: BP 165/50; PULSE 66; RESP 15; O2SAT 98
[2017-09-22 09:50] VITALS: PULSE 64; RESP 14; O2SAT 98
--- NOTE | 2017-09-22 09:58 | PC.NURSE ---
got pt up to wheelchair with husbands assist, she is more alert and the thought is she is more hydrated now. gave her some ice water with instructions to drink so she can be discharged. unhooked from monitor.
== END 2017-09-22 10:25 | disposition home or self-care (01) ==
PROVIDERS: Emergency Provider Emergency Medicine; Family Provider Internal Medicine; PCP Internal Medicine
DX: G93.40 Encephalopathy, unspecified (principal)
CPT/HCPCS: 36591; 70450; 80053; 80305; 80320; 80329; 81001; 83605; 84146; 84443; 84484; 85025; 85610; 85730; 93005; 96360; 99284; 99285; G0480

== ENCOUNTER 2017-10-16 22:31 | Emergency (ER) | payer MEDICARE, SELFPAY ==
[2017-10-16 22:48] VITALS: BMI 35.6
[2017-10-16 22:50] VITALS: BP 175/62; PULSE 66; RESP 18; TEMP 36.6; O2SAT 100; BMI 35.6
[2017-10-16 23:30] VITALS: BP 161/55; PULSE 68; RESP 23; O2SAT 99
[2017-10-16 23:37] LABS: Add Manual Diff / Slide Review NO; Basophils Percent Auto 0.8 % (0-2); Eosinophils Percent Auto 1.5 % (2-4); Hematocrit 35.8 % (36-46); Hemoglobin 12.1 g/dL (12.0-16.0); Lymphocytes Percent Auto 19.4 % (25-40); Mean Corpuscular HGB Conc 33.9 % (30-36); Mean Corpuscular Volume 91.6 fL (80-100); Monocytes Percent Auto 11.8 % (3-14); Neutrophils Absolute Auto 4300 /uL (3000-5900); Neutrophils Percent Auto 66.5 % (50-75); Platelet Count 170 X10^3/uL (150-400); Red Blood Cell Count 3.91 X10^6/uL (4.0-5.2); Red Cell Distribution Width 15.4 % (11.6-14.8); White Blood Cell Count 6.5 X10^3/uL (4.5-11.0)
[2017-10-16 23:43] LABS: Alanine Aminotransferase 30 IU/L (9-52); Albumin 4.1 g/dL (3.5-5.0); Albumin Globulin Ratio 1.4 (1.0-2.8); Alkaline Phosphatase 73 U/L (38-126); Aspartate Aminotransferase 23 IU/L (14-36); BUN Creatinine Ratio 37.3 (6-22); Bilirubin Total 0.4 mg/dL (0.2-1.3); Blood Urea Nitrogen 41 mg/dL (7-17); Calcium 9.3 mg/dL (8.4-10.2); Carbon Dioxide 32 mmol/L (22-32); Chloride 97 mmol/L (98-107); Estimated Glomerular Filt Rate 48.7 mL/min (>60); Glucose 214 mg/dL (80-110); HEMOLYSIS < 15 (0-50); Sodium 140 mmol/L (137-145); Total Protein 7.1 g/dL (6.3-8.2)
--- NOTE | 2017-10-17 00:35 | ED_ITS ---
HPI - General Adult General Chief complaint: Diabetic Problem Stated complaint: STATES POSSIBLE GLUCOSE PROBLEM Time Seen by Provider: 10/16/17 23:39 Source: patient and family Mode of arrival: ambulatory Limitations: no limitations History of Present Illness HPI narrative: Patient is a 72-year-old female who presents with diabetic problem. She is insulin-dependent diabetic. Glucose on earlier in the day was about 200 which is normal for her. On she says for lunch she had p.m. butter and jelly sandwich she possibly had an orange afterwards. However when her checked her glucose it read high on all 3 monitors. She was given at least 58 units of regular insulin between 730 and 9:30 p.m.. It was still reading high so they came to the ED. It now says 350. This is also checked with his monitor was also says 350. Patient is awake alert talking denies eating anything she was not supposed to. She overall feels fine and looks much better than I have ever seen her in the past. MD complaint: Glucose problem Related Data Home Medications Medication Instructions Recorded Confirmed oxybutynin chloride [Ditropan XL] 10 mg PO BID #0 02/03/16 baclofen 20 mg PO BID #10 04/26/16 vitamin B complex [B 1 tab PO QDAY #0 04/26/16 Complex-Vitamin B12] amiodarone 200 mg PO QDAY #0 05/22/16 ferrous sulfate [Iron (ferrous 325 mg PO BID #0 05/22/16 sulfate)] fluticasone 1 spray INTRANASAL BID #0 05/22/16 hydrocodone-acetaminophen [[place]] 1 PO PRN #0 05/22/16 atorvastatin 40 mg PO HS #0 11/08/16 calcium carbonate-vitamin D3 1 cap PO BID #0 11/08/16 [Calcium 600 with Vitamin D3] carvedilol [Coreg] 12.5 mg PO BID #0 11/08/16 ondansetron HCl [Zofran] 4 mg PO Q4HP PRN #0 11/08/16 pantoprazole [Protonix] 40 mg PO BID #0 11/08/16 potassium chloride 20 meq PO BID #0 11/08/16 prochlorperazine maleate 10 mg PO PRN PRN #0 12/31/16 [Compazine] isosorbide mononitrate 30 mg PO QAM #0 01/27/17 losartan 25 mg PO SEE INSTRUCTIONS #0 01/27/17 omega-3 fatty [id number] 1 cap PO BID #0 01/27/17 [Ovega-3] diphenhydramine HCl 25 mg PO Q6HPRN PRN #0 06/21/17 hydrochlorothiazide 25 mg PO BID #0 06/21/17 warfarin [Coumadin] 2 mg PO SEE INSTRUCTIONS #0 06/21/17 levothyroxine [Synthroid] 125 mcg PO QWEEKSU #0 06/25/17 torsemide 20 mg PO QDAYP PRN #0 06/25/17 vitamin E 400 unit PO QDAY #0 07/04/17 warfarin [Coumadin] 1 mg PO QWEEKSU #0 07/04/17 Previous Rx's Medication Instructions Recorded polyethylene glycol 3350 [Miralax] 17 gm PO QDAY 30 Days #0 dose 02/05/16 insulin NPH and regular human 80 units SQ BIDAC #3 ml 01/01/17 [Humulin 70/30 U-100 Insulin] insulin lispro [Humalog U-100 2 - 10 unit SQ TIDAC #1 vial 02/20/17 Insulin] Allergies Allergy/AdvReac Type Severity Reaction Status Date / Time meperidine [From DEMEROL] Allergy Severe NAUSEA/VOMI Verified 09/22/17 07:21 TTING Review of Systems Review of Systems All systems reviewed & are unremarkable except as noted in HPI and below Constitutional Denies chills, Denies fever(s), Denies lethargy and Denies weakness Cardiovascular Denies chest pain, Denies irregular heart rhythm, Denies lightheadedness, Denies palpitations, Denies dyspnea, Denies dyspnea on exertion and Denies orthopnea Respiratory Denies cough, Denies dyspnea, Denies dyspnea on exertion and Denies wheezing Musculoskeletal Denies back pain, Denies muscle weakness, Denies numbness and Denies tingling Integumentary/Breasts Denies pruritus, Denies erythema, Denies rash and Denies wounds Neurologic Denies numbness, Denies tingling and Denies weakness Endocrine Denies palpitations Allergic/Immunologic Denies wheezing PFSH Medical History Anemia (Acute) Atrial fibrillation (Acute) CHF (congestive heart failure) (Acute) Diabetes (Acute) History of GI bleed (Acute) History of hysterectomy (Acute) Surgical History History of cholecystectomy (Acute) S/P CABG x 3 (Acute) Social History Smoking Status: Never smoker alcohol intake: never substance use type: does not use Exam Initial Vital Signs Initial Vital Signs: Vital Signs Temperature 97.9 F 10/16/17 22:50 Pulse Rate 66 10/16/17 22:50 Respiratory Rate 18 10/16/17 22:50 Blood Pressure 175/62 H 10/16/17 22:50 Pulse Oximetry 100 10/16/17 22:50 Const General: cooperative, healthy appearing and comfortable Resp Effort & Inspection: normal respiratory effort, able to speak in complete sentences, no respiratory distress and no use of accessory muscles Auscultation: clear to auscultation bilaterally, no rales, no rhonchi and no wheezes Cardio Rate: regular rate Rhythm: regular rhythm Heart Sounds: no click, no gallops, no murmurs and no rubs Pulses: normal peripheral pulses GI Inspection: non-distended Palpation: soft, no hepatosplenomegaly, No guarding, No pulsatile mass and No tender Auscultation: normal bowel sounds Skin General: no rashes or lesions noted, No jaundice and No petechiae Neuro General: alert, awake and oriented x3 Cranial Nerves: CN's II-XI intact bilaterally Cognition: normal cognition Speech: speech normal Gait: normal gait Course Orders Ordered: ED Orders 10/16/17 23:19 Complete Blood Count AUTO DIFF Stat Comprehensive Metabolic Panel Stat Reevaluation(s) Reevaluation #1: Eating food sitting in recliner Time: 00:33 Vital Signs - 8 hr 10/16/17 22:50 10/16/17 23:30 Temperature 97.9 F Pulse Rate 66 68 Respiratory Rate 18 23 Blood Pressure 175/62 H Blood Pressure [Left Arm] 161/55 H Pulse Oximetry 100 99 Medical Decision Making MDM Narrative Medical decision making narrative: Patient is monitored in the ED in frequent glucose checks. Her glucose is falling initially 350. However it does fall to 184. At which point she is given off to sandwich and others. She eats it. She remained awake alert appropriate. She is ambulatory in the ED ED. On Accu- Chek 117 and repeat 109. It seems to be stabilizing out. On family and has been extremely comfortable going home on rechecking it once home. I know that patient does have some dementia. I suspect that she ate some thing she knew she was not supposed to under glucose probably was over 600. However they gave a large amount of insulin and seems to be returning back to normal. Lab Data Result diagrams: 10/16/17 23:19 10/16/17 23:19 Lab Results 10/16/17 10/16/17 Range/Units 23:19 23:19 WBC 6.5 (4.5-11.0) X10^3/uL RBC 3.91 L (4.0-5.2) X10^6/uL Hgb 12.1 (12.0-16.0) g/dL Hct 35.8 L (36-46) % MCV 91.6 (80-100) fL MCH 31.0 (26-34) PG MCHC 33.9 (30-36) % RDW 15.4 H (11.6-14.8) % Plt Count 170 (150-400) X10^3/uL Neut % (Auto) 66.5 (50-75) % Lymph % (Auto) 19.4 L (25-40) % [place] % (Auto) 11.8 (3-14) % Eos % (Auto) 1.5 L (2-4) % Baso % (Auto) 0.8 (0-2) % Neut # (Auto) 4300 (6641-8736) /uL Sodium 140 (137-145) mmol/L Potassium 4.0 (3.4-5.1) mmol/L Chloride 97 L (98-107) mmol/L Carbon Dioxide 32 (22-32) mmol/L BUN 41 H (7-17) mg/dL Creatinine 1.10 H (0.52-1.04) mg/dL Estimated GFR 48.7 L (>60) mL/min BUN/Creatinine Ratio 37.3 H (6-22) Glucose 214 H (80-110) mg/dL Calcium 9.3 (8.4-10.2) mg/dL Total Bilirubin 0.4 (0.2-1.3) mg/dL AST 23 (14-36) IU/L ALT 30 (9-52) IU/L Alkaline Phosphatase 73 (38-126) U/L Total Protein 7.1 (6.3-8.2) g/dL Albumin 4.1 (3.5-5.0) g/dL Globulin 3.0 (1.7-4.1) g/dL Albumin/Globulin Ratio 1.4 (1.0-2.8) Discharge Plan Departure Patient Disposition: Home, Self-Care Clinical Impression: Acute hyperglycemia Instructions: DI for Hypoglycemia Activity Restrictions/Additional Instructions: *You have been diagnosed with glucose problem *What to do: Check glucose when you get home, if 100 or lower eat a meal with protein and carbohydrates and recheck glucose 1 hr after that. *Continue to take medications as directed *Follow up with your primary care provider in 2-3 days *Return to ER if you should have any new, worsening or concerning symptoms Prescriptions: No Action oxybutynin chloride [Ditropan XL] 10 MG tablet extended release 24hr 10 mg PO BID Qty: 0 RF: 0 polyethylene glycol 3350 [Miralax] 17 GM powder in packet 17 gm PO QDAY 30 Days Qty: 0 RF: 0 baclofen 20 MG tablet 20 mg PO BID Qty: 10 RF: 0 vitamin B complex [B Complex-Vitamin B12] 1 EACH tablet 1 tab PO QDAY Qty: 0 RF: 0 hydrocodone-acetaminophen [[place]] 10 MG/325 MG tablet 1 PO PRNQty: 0 RF: 0 fluticasone 16 GM spray,suspension 1 spray Intranasal BID Qty: 0 RF: 0 ferrous sulfate [Iron (ferrous sulfate)] 325 MG tablet 325 mg PO BID Qty: 0 RF: 0 amiodarone 200 MG tablet 200 mg PO QDAY Qty: 0 RF: 0 atorvastatin 40 MG tablet 40 mg PO HS Qty: 0 RF: 0 calcium carbonate-vitamin D3 [Calcium 600 with Vitamin D3] 600 MG/200 IU capsule 1 cap PO BID Qty: 0 RF: 0 potassium chloride 10 MEQ capsule, extended release 20 meq PO BID Qty: 0 RF: 0 pantoprazole [Protonix] 40 MG tablet,delayed release (DR/EC) 40 mg PO BID Qty: 0 RF: 0 carvedilol [Coreg] 12.5 MG tablet 12.5 mg PO BID Qty: 0 RF: 0 ondansetron HCl [Zofran] 4 MG tablet 4 mg PO Q4HP PRNQty: 0 RF: 0 prochlorperazine maleate [Compazine] 10 MG tablet 10 mg PO PRN PRNQty: 0 RF: 0 insulin NPH and regular human [Humulin 70/30 U-100 Insulin] 100 UNIT/1 ML suspension 80 units SQ BIDAC Qty: 3 RF: 0 isosorbide mononitrate 30 MG tablet extended release 24 hr 30 mg PO QAM Qty: 0 RF: 0 losartan 25 MG tablet 25 mg PO SEE INSTRUCTIONS Qty: 0 RF: 0 omega-3 fatty [id number]-[id number]-jus [Ovega-3] 1 EACH capsule 1 cap PO BID Qty: 0 RF: 0 insulin lispro [Humalog U-100 Insulin] 100 UNIT/1 ML solution 2 - 10 unit SQ TIDAC Qty: 1 RF: 0 warfarin [Coumadin] 2 MG tablet 2 mg PO SEE INSTRUCTIONS Qty: 0 RF: 0 hydrochlorothiazide 25 MG tablet 25 mg PO BID Qty: 0 RF: 0 diphenhydramine HCl 50 MG capsule 25 mg PO Q6HPRN PRNQty: 0 RF: 0 levothyroxine [Synthroid] 125 MCG tablet 125 mcg PO QWEEKSU Qty: 0 RF: 0 torsemide 20 MG tablet 20 mg PO QDAYP PRNQty: 0 RF: 0 warfarin [Coumadin] 2 MG tablet 1 mg PO QWEEKSU Qty: 0 RF: 0 vitamin E 400 UNIT capsule 400 unit PO QDAY Qty: 0 RF: 0 Referrals: Ad Colunga MD [Primary Care Provider] -
--- NOTE | 2017-10-17 00:55 | PC.NURSE ---
PT states sugar readings have been running high since this morning. Denies any other symptoms and states took 70 units of insulin today. Pt is AAO x 3 and appears in NAD.
[2017-10-17 01:41] VITALS: BP 175/62; PULSE 68; RESP 23; TEMP 36.6; O2SAT 99; BMI 35.6
[2017-10-17 01:46] VITALS: BP 154/60; PULSE 72; RESP 18; O2SAT 100
== END 2017-10-17 01:47 | disposition home or self-care (01) ==
PROVIDERS: Emergency Provider Emergency Medicine; Family Provider Internal Medicine; PCP Internal Medicine
DX: E11.65 Type 2 diabetes mellitus with hyperglycemia (principal); Z79.4 Long term (current) use of insulin
CPT/HCPCS: 36415; 80053; 82962; 85025; 99282; 99283

== ENCOUNTER 2018-04-09 01:39 | Inpatient (IN) | payer MEDICARE, SELFPAY ==
[2018-04-09] VITALS (12 sets, daily range): BP systolic 111–149; BP diastolic 41–98; PULSE 54–67; RESP 12–22; TEMP 36.4–37.2; O2SAT 96–99; BMI 36.8; BMI 36.3
--- NOTE | 2018-04-09 | DI.RAD.S_ITS ---
PROCEDURE: XR CHEST 1V INDICATIONS: elevated white blood cells TECHNIQUE: One view of the chest was acquired. COMPARISON: [facility], , CHEST 1 VIEW, 02/19/2017, 23:23. FINDINGS: Surgical changes and devices: Median sternotomy wires and prosthetic heart valve are seen. Lungs and pleura: There is pulmonary vascular congestion. No significant pleural effusion no gross pneumothorax. Mild pulmonary edema is seen. Biperihilar infiltrate cannot be excluded. Mediastinum: Mediastinal contours appear normal. Heart size is enlarged. Bones and chest wall: No suspicious bony lesions. Overlying soft tissues appear unremarkable. IMPRESSION: Congestive changes and pulmonary edema. Cannot rule out underlying right perihilar infiltrate. No gross pneumothorax. Dictated by: Ronald Davies M.D. on 04/09/2018 at 12:30 Approved by: Ronadl Davies M.D. on 04/09/2018 at 12:30
--- NOTE | 2018-04-09 01:45 | ED_ITS ---
HPI - General Adult General Chief complaint: Altered Mental Status Stated complaint: weakness, can't stand, is in a daze Time Seen by Provider: 04/09/18 01:41 Source: family Mode of arrival: wheelchair Limitations: altered mental status History of Present Illness HPI narrative: 72-year-old female with a history of insulin-dependent diabetes here with her for concerns of weakness and altered mental status. Patient's reports that at 0915 last night she received 60 units of 70 30 insulin 30 units of regular insulin for a blood glucose of 251. Patient then went to bed. Patient's states that they have had a very difficult time controlling the patient's blood sugars. They normally are very elevated. He states that they have a difficult time controlling them because the patient ? grazes ?throughout the day and does not eat specific meals. Patient's also reports that she has been on risperidone provided by her primary doctor. He states that the patient has not slept well the past several weeks. Has been very uneasy. Has had restless legs. Upon arrival patient is blood glucose at bedside was 25. Related Data Home Medications Medication Instructions Recorded Confirmed oxybutynin chloride [Ditropan XL] 10 mg PO BID #0 02/03/16 baclofen 20 mg PO BID #10 04/26/16 vitamin B complex [B 1 tab PO QDAY #0 04/26/16 Complex-Vitamin B12] amiodarone 200 mg PO QDAY #0 05/22/16 ferrous sulfate [Iron (ferrous 325 mg PO BID #0 05/22/16 sulfate)] fluticasone 1 spray INTRANASAL BID #0 05/22/16 hydrocodone-acetaminophen [[place]] 1 PO PRN #0 05/22/16 atorvastatin 40 mg PO HS #0 11/08/16 calcium carbonate-vitamin D3 1 cap PO BID #0 11/08/16 [Calcium 600 with Vitamin D3] carvedilol [Coreg] 12.5 mg PO BID #0 11/08/16 ondansetron HCl [Zofran] 4 mg PO Q4HP PRN #0 11/08/16 pantoprazole [Protonix] 40 mg PO BID #0 11/08/16 potassium chloride 20 meq PO BID #0 11/08/16 prochlorperazine maleate 10 mg PO PRN PRN #0 12/31/16 [Compazine] isosorbide mononitrate 30 mg PO QAM #0 01/27/17 losartan 25 mg PO SEE INSTRUCTIONS #0 01/27/17 omega-3 fatty [id number]-stt-[id number] 1 cap PO BID #0 01/27/17 [Ovega-3] diphenhydramine HCl 25 mg PO Q6HPRN PRN #0 06/21/17 hydrochlorothiazide 25 mg PO BID #0 06/21/17 warfarin [Coumadin] 2 mg PO SEE INSTRUCTIONS #0 06/21/17 levothyroxine [Synthroid] 125 mcg PO QWEEKSU #0 06/25/17 torsemide 20 mg PO QDAYP PRN #0 06/25/17 vitamin E 400 unit PO QDAY #0 07/04/17 warfarin [Coumadin] 1 mg PO QWEEKSU #0 07/04/17 Previous Rx's Medication Instructions Recorded polyethylene glycol 3350 [Miralax] 17 gm PO QDAY 30 Days #0 dose 02/05/16 insulin NPH and regular human 80 units SQ BIDAC #3 ml 01/01/17 [Humulin 70/30 U-100 Insulin] insulin lispro [Humalog U-100 2 - 10 unit SQ TIDAC #1 vial 02/20/17 Insulin] Allergies Allergy/AdvReac Type Severity Reaction Status Date / Time meperidine [From DEMEROL] Allergy Severe NAUSEA/VOMI Verified 09/22/17 07:21 TTING Review of Systems Review of Systems unobtainable due to mental status PFSH Medical History Anemia (Acute) Atrial fibrillation (Acute) CHF (congestive heart failure) (Acute) Diabetes (Acute) History of GI bleed (Acute) History of hysterectomy (Acute) Surgical History History of cholecystectomy (Acute) S/P CABG x 3 (Acute) Social History Smoking Status: Never smoker alcohol intake: never substance use type: does not use Exam Initial Vital Signs Initial Vital Signs: Vital Signs Pulse Rate 62 04/09/18 01:59 Respiratory Rate 12 04/09/18 01:59 Blood Pressure 141/98 H 04/09/18 01:59 Pulse Oximetry 96 04/09/18 01:59 Const General: well developed, well groomed and No acute distress Orientation: awake and confused Limitations: altered mental status HENAL Head: normal to inspection and normocephalic Resp Effort & Inspection: normal respiratory effort Auscultation: clear to auscultation bilaterally Cardio Rate: regular rate Rhythm: regular rhythm Pulses: radial pulses present GI Inspection: non-distended Palpation: soft Skin Lesions: no lesions Rashes: no rashes Neuro General: awake Cognition: abnormal cognition Gait: other (Patient unable to walk) Extrem General: normal to inspection and capillary refill normal Psych Appearance: grossly normal and well kempt Course Orders Ordered: ED Orders 04/09/18 01:46 Complete Blood Count AUTO DIFF Stat Comprehensive Metabolic Panel Stat Ethanol (ETOH) Stat Lipase Stat Partial Thromboplastin Time Stat Prothrombin Time INR Stat 04/09/18 02:19 Ammonia (NH3) Stat Discontinued Medications Dextrose (D50w) 25 gm IV NOW ONE Stop: 04/09/18 01:47 Last Admin: 04/09/18 01:50 Dose: 25 gm Sodium Chloride (Normal Saline 0.9%) 1,000 mls @ 125 mls/hr IV CONT REJI Last Infusion: 04/09/18 04:26 Dose: 125 mls/hr Admin: 04/09/18 04:14 Dose: 125 mls/hr Vital Signs - 8 hr 04/09/18 01:59 04/09/18 02:08 04/09/18 02:16 Pulse Rate 62 62 62 Respiratory Rate 12 12 12 Blood Pressure [Left Arm] 141/98 H Pulse Oximetry 96 96 96 04/09/18 03:30 Pulse Rate 54 L Respiratory Rate 14 Blood Pressure [Left Arm] 111/41 L Pulse Oximetry 96 Medical Decision Making Medical Records Medical records reviewed: Yes I reviewed the patient's medical records. Lab Data Lab results reviewed: Yes I reviewed the patient's lab results. Result diagrams: 04/09/18 01:46 04/09/18 01:46 Lab Results 04/09/18 04/09/18 04/09/18 Range/Units 01:46 01:46 01:46 WBC 11.6 H (4.5-11.0) X10^3/uL RBC 3.84 L (4.0-5.2) X10^6/uL Hgb 11.1 L (12.0-16.0) g/dL Hct 33.8 L (36-46) % MCV 88.0 (80-100) fL MCH 28.9 (26-34) PG MCHC 32.8 (30-36) % RDW 15.4 H (11.6-14.8) % Plt Count 257 (150-400) X10^3/uL Neut % (Auto) 79.2 H (50-75) % Lymph % (Auto) 7.5 L (25-40) % [place] % (Auto) 10.7 (3-14) % Eos % (Auto) 2.0 (2-4) % Baso % (Auto) 0.6 (0-2) % Neut # (Auto) 9200 H (4873-3102) /uL PT 11.9 (10.1-12.7) SECONDS INR 1.0 (0.9-1.3) APTT 35 D (26.4-36.2) SECONDS Sodium 142 (137-145) mmol/L Potassium 3.8 (3.4-5.1) mmol/L Chloride 101 (98-107) mmol/L Carbon Dioxide 25 (22-32) mmol/L BUN 83 H (7-17) mg/dL Creatinine 2.40 H (0.52-1.04) mg/dL Estimated GFR 19.8 L (>60) mL/min BUN/Creatinine Ratio 34.6 H (6-22) Glucose 41 L* (80-110) mg/dL Calcium 9.4 (8.4-10.2) mg/dL Total Bilirubin 0.5 (0.2-1.3) mg/dL AST 30 (14-36) IU/L ALT 31 (9-52) IU/L Alkaline Phosphatase 97 (38-126) U/L Ammonia (9-30) umol/L Total Protein 8.3 H (6.3-8.2) g/dL Albumin 4.9 (3.5-5.0) g/dL Globulin 3.4 (1.7-4.1) g/dL Albumin/Globulin Ratio 1.4 (1.0-2.8) Lipase 40 (23-300) U/L Ethyl Alcohol < 10 mg/dL 04/09/18 Range/Units 02:19 WBC (4.5-11.0) X10^3/uL RBC (4.0-5.2) X10^6/uL Hgb (12.0-16.0) g/dL Hct (36-46) % MCV (80-100) fL MCH (26-34) PG MCHC (30-36) % RDW (11.6-14.8) % Plt Count (150-400) X10^3/uL Neut % (Auto) (50-75) % Lymph % (Auto) (25-40) % [place] % (Auto) (3-14) % Eos % (Auto) (2-4) % Baso % (Auto) (0-2) % Neut # (Auto) (6520-3579) /uL PT (10.1-12.7) SECONDS INR (0.9-1.3) APTT (26.4-36.2) SECONDS Sodium (137-145) mmol/L Potassium (3.4-5.1) mmol/L Chloride (98-107) mmol/L Carbon Dioxide (22-32) mmol/L BUN (7-17) mg/dL Creatinine (0.52-1.04) mg/dL Estimated GFR (>60) mL/min BUN/Creatinine Ratio (6-22) Glucose (80-110) mg/dL Calcium (8.4-10.2) mg/dL Total Bilirubin (0.2-1.3) mg/dL AST (14-36) IU/L ALT (9-52) IU/L Alkaline Phosphatase (38-126) U/L Ammonia 14.0 (9-30) umol/L Total Protein (6.3-8.2) g/dL Albumin (3.5-5.0) g/dL Globulin (1.7-4.1) g/dL Albumin/Globulin Ratio (1.0-2.8) Lipase (23-300) U/L Ethyl Alcohol mg/dL Point of Care Testing Glucose POC 102 Point of care testing: Point of Care Testing Glucose POC 102 MDM Narrative Medical decision making narrative: Patient received orange juice and 25 of D50 here in the emergency department. This did improve her blood glucose to 125. It did improve her symptoms somewhat however she reports still not feeling very well. Patient also with a acute kidney injury today compared with a creatinine earlier this year. Patient is also on risperidone in the setting of the acute kidney injury she potentially could not be metabolized this medication which could be causing the rest of her symptoms. Patient did eat crackers here in the emergency department. I discussed the case with the [facility] hospitalist who accepts the patient for admission. I discussed the admission with the patient and her or bedside expressed understanding and agreement. Discharge Plan Departure Patient Disposition: Admitted As Inpatient Clinical Impression: Hypoglycemia, Altered mental status, Acute kidney injury Discharge Date/Time: 04/09/18 04:25 Interventions: ED Discharge Assessment Last Done: 04/09/18 04:24
[2018-04-09] MEDS: DEXTROSE 50 % IN WATER 25 GM/50 ML SYRINGE IV (01:50)
[2018-04-09 02:12] LABS: Add Manual Diff / Slide Review NO; Basophils Percent Auto 0.6 % (0-2); Hematocrit 33.8 % (36-46); Hemoglobin 11.1 g/dL (12.0-16.0); Lymphocytes Percent Auto 7.5 % (25-40); Mean Corpuscular HGB Conc 32.8 % (30-36); Mean Corpuscular Hemoglobin 28.9 PG (26-34); Monocytes Percent Auto 10.7 % (3-14); Neutrophils Absolute Auto 9200 /uL (3000-5900); Neutrophils Percent Auto 79.2 % (50-75); Platelet Count 257 X10^3/uL (150-400); Red Blood Cell Count 3.84 X10^6/uL (4.0-5.2); Red Cell Distribution Width 15.4 % (11.6-14.8); White Blood Cell Count 11.6 X10^3/uL (4.5-11.0)
[2018-04-09 02:15] LABS: Prothrombin Time 11.9 SECONDS (10.1-12.7)
[2018-04-09 02:18] LABS: PTT Partial Thromboplastin Tim 35 SECONDS (26.4-36.2)
[2018-04-09 02:19] LABS: Alanine Aminotransferase 31 IU/L (9-52); Albumin 4.9 g/dL (3.5-5.0); Albumin Globulin Ratio 1.4 (1.0-2.8); Alkaline Phosphatase 97 U/L (38-126); Aspartate Aminotransferase 30 IU/L (14-36); BUN Creatinine Ratio 34.6 (6-22); Bilirubin Total 0.5 mg/dL (0.2-1.3); Blood Urea Nitrogen 83 mg/dL (7-17); Calcium 9.4 mg/dL (8.4-10.2); Carbon Dioxide 25 mmol/L (22-32); Chloride 101 mmol/L (98-107); Estimated Glomerular Filt Rate 19.8 mL/min (>60); Globulin 3.4 g/dL (1.7-4.1); HEMOLYSIS < 15 (0-50); Lipase 40 U/L (23-300); Potassium 3.8 mmol/L (3.4-5.1); Total Protein 8.3 g/dL (6.3-8.2)
[2018-04-09 02:32] LABS: Ethanol (ETOH) < 10 mg/dL
[2018-04-09 02:33] LABS: Glucose 41 mg/dL (80-110)
[2018-04-09 02:34] LABS: Sodium 142 mmol/L (137-145)
--- NOTE | 2018-04-09 03:24 | PC.NURSE ---
PT states pt weakness increasing and loc decreasing for past couple of weeks since starting risperadone. Pt appears lethargic, is alert and able to obey commands. Pt is diabetic and given orange juice upon arrival after initial CBG of 25 was obtained.
[2018-04-09] MEDS: SODIUM CHLORIDE 0.9% 1,000 ML 125 ML IV (04:14)
--- NOTE | 2018-04-09 05:13 | PM.HP.1 ---
History of Present Illness Chief complaint: weakness, can't stand, is in a daze Narrative: The patient is a 72-year-old female with PMH significant for DM 2T, HTN, CAD (h/o [place], s/p 3v-CABG), AFIB, s/p watchman procedure, CHF, iron deficiency anemia, prior h/o GIB, CKD, depression, h/o breast cancer (in remission, s/p chemotherapy), and overactive bladder. Patient brought to the ED on 04/09/2018 at 1:56 a.m. by spouse out of concern for altered mental status. Initial assessment revealed hypoglycemia with glucose POC of 25. Associated symptoms include generalized progressive weakness. Patient has a 30 year history of DM 2T, currently insulin dependent. Patient is reported to have poor adherence in regard to management of her diabetic disease, per 's report. She has a long-standing pattern of labile blood sugars. Reported readings typically in the 200-300 range. Patient's describes her as a grazer. Typically she does not have hypoglycemic episodes. Patient has been weak for approximately 1 month, however she noted to have profound weakness in the past week. Patient does have occasional UTIs, recently urine with an unpleasant odor. She has not experienced fever or chills. Patient was placed on risperidone 0.5 mg at bedtime 1 month ago. Her believes that initiation of the risperidone has kept patient extremely sedated and he cut down her dose to 0.25 mg 2 weeks ago. Patient reports patient as restless in the past 2 weeks, which he attributes to reduction in the risperdone dose. Denies overt tardive dyskinesia symptoms. She is being prescribed risperdone for treatment of depression. Prior to being placed on risperidone patient is noted to have memory problems. also notes narcoleptic features. Patient is known to have atrial fibrillation with controlled ventricular rate by reports. She is intolerant to anticoagulation agents due to recurrent history of GI bleeds. Instead, she is on ASA and has had left atrial appendage closure to reduce cardioembolic risks. Patient's home BP is mildly elevated, SBP 150s range. In the past several months experiencing progressive upward trend in weight and more recently a degree of peripheral edema. Denies dyspnea at rest or with exertion, CP, palpitations, dizziness, lightheadedness, or syncopal events. Patient History Medical History Anemia (Acute) Atrial fibrillation (Acute) CHF (congestive heart failure) (Acute) Diabetes (Acute) History of GI bleed (Acute) History of hysterectomy (Acute) Surgical History History of cholecystectomy (Acute) S/P CABG x 3 (Acute) Family & Social History Family History: Reviewed 04/09/18 by ALEX Mccormack Tobacco & Substance use: Smoking Status Never smoker alcohol intake never Substance Use Type does not use Meds Home Medications Medication Instructions Recorded Confirmed Type oxybutynin chloride [Ditropan XL] 10 mg PO BID #0 02/03/16 History polyethylene glycol 3350 [Miralax] 17 gm PO QDAY 30 Days #0 dose 02/05/16 Rx baclofen 20 mg PO BID #10 04/26/16 History vitamin B complex [B 1 tab PO QDAY #0 04/26/16 History Complex-Vitamin B12] amiodarone 200 mg PO QDAY #0 05/22/16 History ferrous sulfate [Iron (ferrous 325 mg PO BID #0 05/22/16 History sulfate)] fluticasone 1 spray INTRANASAL BID #0 05/22/16 History hydrocodone-acetaminophen [[place]] 1 PO PRN #0 05/22/16 History atorvastatin 40 mg PO HS #0 11/08/16 History calcium carbonate-vitamin D3 1 cap PO BID #0 11/08/16 History [Calcium 600 with Vitamin D3] carvedilol [Coreg] 12.5 mg PO BID #0 11/08/16 History ondansetron HCl [Zofran] 4 mg PO Q4HP PRN #0 11/08/16 History pantoprazole [Protonix] 40 mg PO BID #0 11/08/16 History potassium chloride 20 meq PO BID #0 11/08/16 History prochlorperazine maleate 10 mg PO PRN PRN #0 12/31/16 History [Compazine] insulin NPH and regular human 80 units SQ BIDAC #3 ml 01/01/17 Rx [Humulin 70/30 U-100 Insulin] isosorbide mononitrate 30 mg PO QAM #0 01/27/17 History losartan 25 mg PO SEE INSTRUCTIONS #0 01/27/17 History omega-3 fatty [id number] 1 cap PO BID #0 01/27/17 History [Ovega-3] insulin lispro [Humalog U-100 2 - 10 unit SQ TIDAC #1 vial 02/20/17 Rx Insulin] diphenhydramine HCl 25 mg PO Q6HPRN PRN #0 06/21/17 History hydrochlorothiazide 25 mg PO BID #0 06/21/17 History warfarin [Coumadin] 2 mg PO SEE INSTRUCTIONS #0 06/21/17 History levothyroxine [Synthroid] 125 mcg PO QWEEKSU #0 06/25/17 History torsemide 20 mg PO QDAYP PRN #0 06/25/17 History vitamin E 400 unit PO QDAY #0 07/04/17 History warfarin [Coumadin] 1 mg PO QWEEKSU #0 07/04/17 History Allergies Allergy/AdvReac Type Severity Reaction Status Date / Time meperidine [From DEMEROL] Allergy Severe NAUSEA/VOMI Verified 09/22/17 07:21 TTING Review of Systems Review of Systems All systems reviewed & are unremarkable except as noted in HPI and below Exam Vital Signs (past 8 hours): - 04/09/18 01:59 04/09/18 02:08 04/09/18 02:16 Pulse Rate 62 62 62 Respiratory Rate 12 12 12 Blood Pressure [Left Arm] 141/98 H Pulse Oximetry 96 96 96 04/09/18 03:30 Pulse Rate 54 L Respiratory Rate 14 Blood Pressure [Left Arm] 111/41 L Pulse Oximetry 96 Oxygen Delivery Method Nasal Cannula Oxygen Flow Rate 2 Narrative Exam Narrative: Constitutional: NAD, Neurologic: somnolent, however arosable, no focal deficits, follows commands Head: NC, AT Eyes: PERRL, EOMI, Ears: external ears normal, no otorrhea Nose: external nose normal, no rhinorrhea or epistaxis Throat: dry MM, oropharynx w/o exudate Neck: no masses, lymphadenopathy, or JVD Chest / Respiratory: equal chest rise, unlabored respiratory effort, no tachypnea Heart / CV: S1S2, no murmur Abdomen / GI: central obesity, NT, ND, + BS, no organomegaly : no suprapubic tenderness Peripheral / Vascular: warm to touch, distal pulses palpable, BLE edema 1-2+, vascular changes Musc: diminished ROM of BLE, strength intact Skin: no ecchymosis or suspicious lesions / ulcers Objective Labs Result Diagrams: 04/09/18 01:46 04/09/18 01:46 Labs: Laboratory Results - last 24 hr 04/09/18 04/09/18 04/09/18 01:46 01:46 01:46 WBC 11.6 H RBC 3.84 L Hgb 11.1 L Hct 33.8 L MCV 88.0 MCH 28.9 MCHC 32.8 RDW 15.4 H Plt Count 257 Neut % (Auto) 79.2 H Lymph % (Auto) 7.5 L [place] % (Auto) 10.7 Eos % (Auto) 2.0 Baso % (Auto) 0.6 Neut # (Auto) 9200 H PT 11.9 INR 1.0 APTT 35 D Sodium 142 Potassium 3.8 Chloride 101 Carbon Dioxide 25 BUN 83 H Creatinine 2.40 H Estimated GFR 19.8 L BUN/Creatinine Ratio 34.6 H Glucose 41 L* Calcium 9.4 Total Bilirubin 0.5 AST 30 ALT 31 Alkaline Phosphatase 97 Ammonia Total Protein 8.3 H Albumin 4.9 Globulin 3.4 Albumin/Globulin Ratio 1.4 Lipase 40 Ethyl Alcohol < 10 04/09/18 02:19 WBC RBC Hgb Hct MCV MCH MCHC RDW Plt Count Neut % (Auto) Lymph % (Auto) Mason % (Auto) Eos % (Auto) Baso % (Auto) Neut # (Auto) PT INR APTT Sodium Potassium Chloride Carbon Dioxide BUN Creatinine Estimated GFR BUN/Creatinine Ratio Glucose Calcium Total Bilirubin AST ALT Alkaline Phosphatase Ammonia 14.0 Total Protein Albumin Globulin Albumin/Globulin Ratio Lipase Ethyl Alcohol Assessment & Plan Plan: Assessment/Plan Narrative: Hypoglycemia - Glucose POC Q2H - Trend glucose level, resume insulin level accordingly - A1C - Diabetic diet - Diabetic education Acute encephalopathy in the form of somnolence, lethargy Multifactorial? SAMRA vs uremia, obesity hypoventilation syndrome, UTI, drug induced toxicity Ammonia level WNL. WBC 11.6, - Blood cx, UA, and CXR - Start empiric therapy w/ levofloxacin (renally dose) - D/C risperdone, not having overt tardive dyskinesia sx, if she is they are mild in the form of ataxia - D/C benadryl and baclofen SAMRA on CKD (baseline sCr 1.5), potentially w/ symptoms of uremia sCr 2.4 on presentation. - UA - D/C nephrotoxic agents, avoid hypotension - hold [employer] HCTZ, torsemide and losartan x24 hrs, re-evaluate renal fx - gentle hydration Sepsis Tachycardic. Leukocytosis. Organ failure - encephalopathy and SAMRA - blood cx, urine cx, CXR, PCT, lactate - Will start on levofloxacin AFIB, rate controlled - on amiodarone and coreg for rate / rhythm control - s/o watchman device procedure, ASA for prevention of cardioembolic events HFpEF, no overt s/s of volume excess - consider echo Hypothyroidism, labile - continue levothyroxine at current dose / regimen - Check TSH, on amiodarone which can predispose to altered TSH levels CAD w/ 3v-CABG, no s/s of angina or sx of ACS - Resume [employer] regimen of ASA, Plavix, statin, BB, imdur Iron deficiency anemia, mild, stable, no active s/s of blood loss - resume [employer] FeSO4 Polypharmacy, at a high risk of [id number] interactions and medication side effects - to follow up outpatient Full code. DPOA is
--- NOTE | 2018-04-09 05:16 | P.HP_ITS ---
History of Present Illness Chief complaint: weakness, can't stand, is in a daze Narrative: The patient is a 72-year-old female with PMH significant for DM 2T, HTN, CAD (h/o [place], s/p 3v-CABG), AFIB, s/p watchman procedure, CHF, iron deficiency anemia, prior h/o GIB, CKD, depression, h/o breast cancer (in remission, s/p chemotherapy), and overactive bladder. Patient brought to the ED on 04/09/2018 at 1:56 a.m. by spouse out of concern for altered mental status. Initial assessment revealed hypoglycemia with glucose POC of 25. Associated symptoms include generalized progressive weakness. Patient has a 30 year history of DM 2T, currently insulin dependent. Patient is reported to have poor adherence in regard to management of her diabetic disease, per 's report. She has a long-standing pattern of labile blood sugars. Reported readings typically in the 200-300 range. Patient 's describes her as a grazer. Typically she does not have hypoglycemic episodes. Patient has been weak for approximately 1 month, however she noted to have profound weakness in the past week. Patient does have occasional UTIs, recently urine with an unpleasant odor. She has not experienced fever or chills. Patient was placed on risperidone 0.5 mg at bedtime 1 month ago. Her believes that initiation of the risperidone has kept patient extremely sedated and he cut down her dose to 0.25 mg 2 weeks ago. Patient reports patient as restless in the past 2 weeks, which he attributes to reduction in the risperdone dose. Denies overt tardive dyskinesia symptoms. She is being prescribed risperdone for treatment of depression. Prior to being placed on risperidone patient is noted to have memory problems. also notes narcoleptic features. Patient is known to have atrial fibrillation with controlled ventricular rate by reports. She is intolerant to anticoagulation agents due to recurrent history of GI bleeds. Instead, she is on ASA and has had left atrial appendage closure to reduce cardioembolic risks. Patient's home BP is mildly elevated, SBP 150s range. In the past several months experiencing progressive upward trend in weight and more recently a degree of peripheral edema. Denies dyspnea at rest or with exertion, CP, palpitations, dizziness, lightheadedness, or syncopal events. Patient History Medical History Anemia (Acute) Atrial fibrillation (Acute) CHF (congestive heart failure) (Acute) Diabetes (Acute) History of GI bleed (Acute) History of hysterectomy (Acute) Surgical History History of cholecystectomy (Acute) S/P CABG x 3 (Acute) Family & Social History Family History: Reviewed 04/09/18 by ALEX Mccormack Tobacco & Substance use: Smoking Status Never smoker alcohol intake never Substance Use Type does not use Meds Home Medications Medication Instructions Recorded Confirmed Type oxybutynin chloride [Ditropan XL] 10 mg PO BID #0 02/03/16 History polyethylene glycol 3350 [Miralax] 17 gm PO QDAY 30 Days #0 dose 02/05/16 Rx baclofen 20 mg PO BID #10 04/26/16 History vitamin B complex [B 1 tab PO QDAY #0 04/26/16 History Complex-Vitamin B12] amiodarone 200 mg PO QDAY #0 05/22/16 History ferrous sulfate [Iron (ferrous 325 mg PO BID #0 05/22/16 History sulfate)] fluticasone 1 spray INTRANASAL BID #0 05/22/16 History hydrocodone-acetaminophen [[place]] 1 PO PRN #0 05/22/16 History atorvastatin 40 mg PO HS #0 11/08/16 History calcium carbonate-vitamin D3 1 cap PO BID #0 11/08/16 History [Calcium 600 with Vitamin D3] carvedilol [Coreg] 12.5 mg PO BID #0 11/08/16 History ondansetron HCl [Zofran] 4 mg PO Q4HP PRN #0 11/08/16 History pantoprazole [Protonix] 40 mg PO BID #0 11/08/16 History potassium chloride 20 meq PO BID #0 11/08/16 History prochlorperazine maleate 10 mg PO PRN PRN #0 12/31/16 History [Compazine] insulin NPH and regular human 80 units SQ BIDAC #3 ml 01/01/17 Rx [Humulin 70/30 U-100 Insulin] isosorbide mononitrate 30 mg PO QAM #0 01/27/17 History losartan 25 mg PO SEE INSTRUCTIONS #0 01/27/17 History omega-3 fatty [place]-fiq-bza 1 cap PO BID #0 01/27/17 History [Ovega-3] insulin lispro [Humalog U-100 2 - 10 unit SQ TIDAC #1 vial 02/20/17 Rx Insulin] diphenhydramine HCl 25 mg PO Q6HPRN PRN #0 06/21/17 History hydrochlorothiazide 25 mg PO BID #0 06/21/17 History warfarin [Coumadin] 2 mg PO SEE INSTRUCTIONS #0 06/21/17 History levothyroxine [Synthroid] 125 mcg PO QWEEKSU #0 06/25/17 History torsemide 20 mg PO QDAYP PRN #0 06/25/17 History vitamin E 400 unit PO QDAY #0 07/04/17 History warfarin [Coumadin] 1 mg PO QWEEKSU #0 07/04/17 History Allergies Allergy/AdvReac Type Severity Reaction Status Date / Time meperidine [From DEMEROL] Allergy Severe NAUSEA/VOMI Verified 09/22/17 07:21 TTING Review of Systems Review of Systems All systems reviewed & are unremarkable except as noted in HPI and below Exam Vital Signs (past 8 hours): - 04/09/18 01:59 04/09/18 02:08 04/09/18 02:16 Pulse Rate 62 62 62 Respiratory Rate 12 12 12 Blood Pressure [Left Arm] 141/98 H Pulse Oximetry 96 96 96 04/09/18 03:30 Pulse Rate 54 L Respiratory Rate 14 Blood Pressure [Left Arm] 111/41 L Pulse Oximetry 96 Oxygen Delivery Method Nasal Cannula Oxygen Flow Rate 2 Narrative Exam Narrative: Constitutional: NAD, Neurologic: somnolent, however arosable, no focal deficits, follows commands Head: NC, AT Eyes: PERRL, EOMI, Ears: external ears normal, no otorrhea Nose: external nose normal, no rhinorrhea or epistaxis Throat: dry MM, oropharynx w/o exudate Neck: no masses, lymphadenopathy, or JVD Chest / Respiratory: equal chest rise, unlabored respiratory effort, no tachypnea Heart / CV: S1S2, no murmur Abdomen / GI: central obesity, NT, ND, + BS, no organomegaly : no suprapubic tenderness Peripheral / Vascular: warm to touch, distal pulses palpable, BLE edema 1-2+, vascular changes Musc: diminished ROM of BLE, strength intact Skin: no ecchymosis or suspicious lesions / ulcers Objective Labs Result Diagrams: 04/09/18 01:46 04/09/18 01:46 Labs: Laboratory Results - last 24 hr 04/09/18 04/09/18 04/09/18 01:46 01:46 01:46 WBC 11.6 H RBC 3.84 L Hgb 11.1 L Hct 33.8 L MCV 88.0 MCH 28.9 MCHC 32.8 RDW 15.4 H Plt Count 257 Neut % (Auto) 79.2 H Lymph % (Auto) 7.5 L [place] % (Auto) 10.7 Eos % (Auto) 2.0 Baso % (Auto) 0.6 Neut # (Auto) 9200 H PT 11.9 INR 1.0 APTT 35 D Sodium 142 Potassium 3.8 Chloride 101 Carbon Dioxide 25 BUN 83 H Creatinine 2.40 H Estimated GFR 19.8 L BUN/Creatinine Ratio 34.6 H Glucose 41 L* Calcium 9.4 Total Bilirubin 0.5 AST 30 ALT 31 Alkaline Phosphatase 97 Ammonia Total Protein 8.3 H Albumin 4.9 Globulin 3.4 Albumin/Globulin Ratio 1.4 Lipase 40 Ethyl Alcohol < 10 04/09/18 02:19 WBC RBC Hgb Hct MCV MCH MCHC RDW Plt Count Neut % (Auto) Lymph % (Auto) [place] % (Auto) Eos % (Auto) Baso % (Auto) Neut # (Auto) PT INR APTT Sodium Potassium Chloride Carbon Dioxide BUN Creatinine Estimated GFR BUN/Creatinine Ratio Glucose Calcium Total Bilirubin AST ALT Alkaline Phosphatase Ammonia 14.0 Total Protein Albumin Globulin Albumin/Globulin Ratio Lipase Ethyl Alcohol Assessment & Plan Plan: Assessment/Plan Narrative: Hypoglycemia - Glucose POC Q2H - Trend glucose level, resume insulin level accordingly - A1C - Diabetic diet - Diabetic education Acute encephalopathy in the form of somnolence, lethargy Multifactorial? SAMRA vs uremia, obesity hypoventilation syndrome, UTI, drug induced toxicity Ammonia level WNL. WBC 11.6, - Blood cx, UA, and CXR - Start empiric therapy w/ levofloxacin (renally dose) - D/C risperdone, not having overt tardive dyskinesia sx, if she is they are mild in the form of ataxia - D/C benadryl and baclofen SAMRA on CKD (baseline sCr 1.5), potentially w/ symptoms of uremia sCr 2.4 on presentation. - UA - D/C nephrotoxic agents, avoid hypotension - hold [employer] HCTZ, torsemide and losartan x24 hrs, re-evaluate renal fx - gentle hydration Sepsis Tachycardic. Leukocytosis. Organ failure - encephalopathy and SAMRA - blood cx, urine cx, CXR, PCT, lactate - Will start on levofloxacin AFIB, rate controlled - on amiodarone and coreg for rate / rhythm control - s/o watchman device procedure, ASA for prevention of cardioembolic events HFpEF, no overt s/s of volume excess - consider echo Hypothyroidism, labile - continue levothyroxine at current dose / regimen - Check TSH, on amiodarone which can predispose to altered TSH levels CAD w/ 3v-CABG, no s/s of angina or sx of ACS - Resume [employer] regimen of ASA, Plavix, statin, BB, imdur Iron deficiency anemia, mild, stable, no active s/s of blood loss - resume [employer] FeSO4 Polypharmacy, at a high risk of [id number] interactions and medication side effects - to follow up outpatient Full code. DPOA is
--- NOTE | 2018-04-09 06:41 | PC.NURSE ---
0411 pt arrived via stretch and was able to ambulate with 1pa. pt A&Ox1, follows commands, able to make needs known. pt had some snacks in the ED, BG 114 @0515. at bedside. pt denied pain. cont telemetry. IVF infusing. call light in reach. safety checks on.
[2018-04-09 08:15] LABS: Lactate 2HR (Lactic Acid Rflx) 0.7 mmol/L (0.7-2.1)
[2018-04-09 08:20] LABS: Hemoglobin A1C% w Est Avg Glu 7.6 % (4.0-6.0)
[2018-04-09 08:22] LABS: B Type Natriuretic Peptide < 100.0 (<100)
[2018-04-09 08:30] LABS: Procalcitonin 0.06 ng/mL (<0.5)
[2018-04-09 08:46] LABS: Thyroid Stimulating Hormone 8.31 uIU/mL (0.47-4.68)
[2018-04-09] MEDS: AMIODARONE 200 MG TABLET PO (09:09)
[2018-04-09] MEDS: PANTOPRAZOLE 40 MG TABLET PO ×2 (09:09→22:09)
[2018-04-09] MEDS: ENOXAPARIN 30 MG/0.3 ML SYRINGE SUBCUT (09:09)
[2018-04-09] MEDS: CARVEDILOL 12.5 MG TABLET PO ×2 (09:09→22:09)
[2018-04-09] MEDS: CLOPIDOGREL 75 MG TABLET PO ×2 (09:09→17:17)
[2018-04-09] MEDS: levoFLOXacin 500 MG/100 ML PIGGYBACK 100 MG IV (09:09)
[2018-04-09] MEDS: ASPIRIN 81 MG TAB PO (09:09)
[2018-04-09] MEDS: FERROUS SULFATE 325 MG TABLET PO ×2 (09:09→22:10)
[2018-04-09] MEDS: ISOSORBIDE MONONITRATE ER 30 MG TABLET PO (09:09)
--- NOTE | 2018-04-09 09:09 | CM.DANOTE ---
DCP: Case received, EMR reviewed and met with patient and in room. Introduced self and role. DCP template completed with information currently available. Patient is a 72 year old female who admitted early this morning to the care of the hospitalist team. PCP: Dr. Colunga. Payer: confirmed: Medicare/[employer]. Patient came to hospital due to weakness and altered mental status. Patient has history of UTIs, as well as A-Fib, Hypoglycemia and Depression. Spoke to in room, Sg. Stated He has been concerned about the amount of Risperdal given. Her care is managed by Dr. Colunga, unknown on clear diagnosis as to why this medication is ordered. stated that if she's not on the medication, she gets anxious. Let him know that medications would be reviewed here at the hospital. Discussed current care needs. stated that he works post partum nurse, and sometimes patient is home alone. Discussed home health, and he said this would be a good idea. He does not want [facility], stated that they have used [facility] before, and liked them. He is also requesting a bath aide. They also have a daughter named Brittani, who lives across the street from them. P: DCP to follow closely. At this time, home health is requested, but will continue to monitor progress while here in hospital. Haylee August RN/[facility] Blower
--- NOTE | 2018-04-09 11:07 | PT.IPTN ---
Current Diagnoses Type 2 diabetes mellitus with hypoglycemia without coma (04/09/18) Physical Therapy Treatment Note M3 PT-IP Subjective Start: 04/09/18 10:26 Freq: NEEDED Status: Active Protocol: Document 04/09/18 11:07 DLM (Rec: 04/09/18 11:13 DLM [id number]) Subjective Physical Therapy Visit Type Type Patient Unavailable Notes Pt sleepy and just back from x -ray. She has been up to bedside commode with nursing earlier today. Will try back later when pt more alert. Spouse is requesting home health services at discharge to help pt with ADL's and therapy.
[2018-04-09 12:26] LABS: Appearance Urine UA CLEAR; Bacteria Urine None Seen; Bilirubin Urine UA NEGATIVE (NEGATIVE); Color Urine UA YELLOW; Glucose Urine UA NEGATIVE (Normal); Ketones Urine UA NEGATIVE (NEGATIVE); Leukocyte Esterase Urine UA NEGATIVE (NEGATIVE); Nitrite Urine UA NEGATIVE (Negative); Occult Blood Urine UA NEGATIVE (Negative); Protein Urine UA NEGATIVE (Negative); RBC Urine None Seen (0-5/HPF); Urobilinogen Urine UA 0.2 E.U./dL (0.2)
[2018-04-09 12:43] LABS: Culture Indicated Urine Cult Not Indicated; Squamous Epithelial Cell Urine 5-10 /HPF; WBC Urine 0-1/HPF (0-5/HPF)
--- NOTE | 2018-04-09 13:55 | PT.IIE ---
Addendum entered and electronically signed by Dana Quiñones PT 04/09/18 16:51: This is to certify that I have reviewed this documentation and POC Original Note: Current Diagnoses Type 2 diabetes mellitus with hypoglycemia without coma (04/09/18) Surgical History (Last Reviewed 04/09/18 @ 06:23 by ALEX Mccormack) History of cholecystectomy (Acute) S/P CABG x 3 (Acute) Medical History (Last Reviewed 04/09/18 @ 06:23 by ALEX Mccormack) Anemia (Acute) Atrial fibrillation (Acute) CHF (congestive heart failure) (Acute) Diabetes (Acute) History of GI bleed (Acute) History of hysterectomy (Acute) Physical Therapy Inpatient Evaluation/Re-Eval M1 PT/OT-IP Prior Functional Status Start: 04/09/18 10:26 Freq: NEEDED Status: Active Protocol: Document 04/09/18 13:55 (Rec: 04/09/18 14:45 [email or web address]) Medical Review Prior Functional Status Medical History Reviewed Yes Communication No deficits noted. Wears glasses. Mobility and Gait Modified independent with fww for very short distances, for example one room to another. < 5mins ambulation tolerances . Activities of Daily Living and IADL's Usually able to shower and toilet independently unless having a bad day. Her helps her dress. Prior Functional Level (Other details) Pt has history of falls. Pt's states he assists with several tasks at home, but is able to leave her home alone when he goes to work. Social History Household Members spouse Living Arrangements House Number of Floors (Floors) One Floor Number of Stairs To Enter/Railing? 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 Spouse works part-time and pt is home alone when he works. Spouse plans to take time off at discharge to care for her. Pt also owns [facility] bed. M2 PT-IP Current Condition Start: 04/09/18 10:26 Freq: NEEDED Status: Active Protocol: Document 04/09/18 13:55 (Rec: 04/09/18 14:45 [email or web address]) Physical Therapy Current Condition Current Condition Evaluation Date 04/09/18 Treatment Diagnosis Encephalopathy and sepsis; Generalized weakness M3 PT-IP Subjective Start: 04/09/18 10:26 Freq: NEEDED Status: Active Protocol: Document 04/09/18 13:55 (Rec: 04/09/18 14:45 [email or web address]) Subjective Physical Therapy Visit Type Type Initial Evaluation Visit Start Time 13:55 Visit Stop Time 14:24 Total Visit Minutes 29 Number of CLOCKSMITH Visits 0 Physical Therapy Visit Comments Patient Comments Pt drowsy and difficult to enriqueta initially. However she is agreeable to mobilize with PT. Her is present and assists with PLOF and home environment details. Patient Goals Caregiver/ wanting pt to d/c home with HH M4 PT-IP Mobility and Gait Start: 04/09/18 10:26 Freq: NEEDED Status: Active Protocol: Document 04/09/18 13:55 (Rec: 04/09/18 14:45 [email or web address]) PT-Bed Mobility Assessment Supine to Sit Supine to Sit Minimal Assistance 1 Person Assistance Head of Bed Elevated Sit to Supine Sit to Supine Contact Guard Assistance Head of Bed Elevated Scooting Scooting to Edge of Bed Standby Assistance Scooting Up and Down in Bed Standby Assistance PT-Transfer Assessment Sit to and From Stand Sit to and from Stand Minimal Assistance 1 Person Assistance Equipment Transfer Assistive Device Gait Belt Front Wheeled Walker Orthotic/Prosthetic Devices or Brace: No Transfers Transfer Destination Bed Transfer Technique Ambulates between surfaces Comments Mobility Comments Resting/Supine/HOB elevated BP 137/66, HR 62. Supine > sit is completed with HOB elevated and minAx1 to assist trunk upright. Sit <> stand is completed minAx1 with fww, min cues for hand placement. Pt ambulates (see below) then returns to bed. Sit > supine is completed with CGA. PT able to scoot up/down/ laterally in bed SBA with slow , coordinated movements. Gait Assessment Gait Gait Assistance Required: Minimum Assistance 1 Person Assist Distance (Feet) 30 Able to Maintain Weight Bearing Status Yes During Gait Assistive Devices Assistive Device Gait Belt Front Wheeled Walker Orthotic/Prosthetic Devices or Brace: No Gait Deviations General Gait Pattern Decreased Stride Length Decreased Feet Clearance Flexed Trunk Factors Limiting Gait Function Factors Limiting Gait Function Decreased Activity Tolerance Decreased Strength Limited Range of Motion Poor Balance Comments Gait Comments Pt ambulates 30 ft in room with minAx1 to assist management of fww. Gait is notable for decreased speed, low foot clearance, decreased stride length bilaterally and forward flexed trunk. Pt also noted to rely heavily with BUE on fww. No LOB noted. PT-Balance Assessment Sitting Balance and Reactions Static Sitting Balance Ability Good Dynamic Sitting Balance Ability Good Standing Balance and Reactions Static Standing Balance Ability Good Dynamic Standing Balance Ability Fair Device Used fww M5 PT-IP Objective Assessments Start: 04/09/18 10:26 Freq: NEEDED Status: Active Protocol: Document 04/09/18 13:55 (Rec: 04/09/18 14:45 [email or web address]) Orientation Orientation/Cognition Level of Alertness Lethargic Orientation Name Birthday Comments Pt drowsy with decreased response time. Gross Range of Motion Lower Extremity ROM Assessment Bilaterally Impaired Impairments Functional hip extension lacking B. Strength Lower Extremity Strength Assessment Bilaterally Impaired Comments Strength Comments BUE strength 4-/5 or greater as noted with functional sit < > stand. M6 PT-IP Treatment Start: 04/09/18 10:26 Freq: NEEDED Status: Active Protocol: Document 04/09/18 13:55 (Rec: 04/09/18 14:45 [email or web address]) Physical Therapy Treatment Education Education Provided Safety M7 PT-IP Assessment and Plan Start: 04/09/18 10:26 Freq: NEEDED Status: Active Protocol: Document 04/09/18 13:55 (Rec: 04/09/18 14:45 [email or web address]) PT Summary Assessment and Plan Potential Rehabilitation Potential Good Status of Condition at Evaluation Evolving Summary Impairments Pain ROM Strength Balance Bed Mobility Transfers Activity Tolerance Assessment Summary Pt with generalized weakness and decreased activity tolerance. She requires 1p assist with all mobilities and was very fatigued during session. I expect pt mobilities will improve. Pt's states he has taken care of his after several past hospital visits and is comfortable with how to assist his . Additional need for caregiver training will be assessed and conducted as needed prior to d/c. At that time, recommend d/c home with assist and HH. Goals Bed Mobility Goal Standby Assistance Transfer Goal Standby Assistance Front Wheeled Walker Four Wheeled Walker Gait Goal Standby Assistance Front Wheel Walker Four Wheel Walker Gait Distance 50 Other Goals Ambulation 50 ft with least restrictive AD (pt has trialed fww, usually using 4ww). Caregiver training as appropriate. Pts will be staying with her and will be in room at least until late morning. Days to Meet Goals 3 Frequency of Treatment Frequency Of Treatment Once a Day Treatment Plan Physical Therapy Treatment Plan Bed Mobility Training Transfer Training Gait Training Therapeutic Exercise Balance Retraining Discharge Planning Hot or Cold Pack Neuromuscular Re-ed Coordination Retraining Manual Therapy Other Recommendations and Next Treatment Progress ambulation. Focus Recommendations To Nursing Amount of Assist Needed 1 Person Assist Discharge Recommendations PT Discharge Recommendations Home with Assistance Home Health Equipment Needed for Home Before fww pending pt status at d/c Discharge
[2018-04-09] MEDS: INSULIN ASPART 100 UNIT/ML INSULN PEN SUBCUT ×2 (17:18→22:11)
[2018-04-09] MEDS: ASPIRIN EC 81 MG TABLET PO (17:18)
[2018-04-09] MEDS: DULOXETINE 30 MG CAPSULE PO (17:18)
[2018-04-09] MEDS: LOSARTAN 25 MG TABLET PO (17:18)
[2018-04-09] MEDS: OXYBUTYNIN 5 MG TABLET PO (22:09)
[2018-04-09] MEDS: ATORVASTATIN 20 MG TABLET 40 MG PO (22:09)
[2018-04-09] MEDS: CALCIUM CARB/VIT D3 500/200 TABLET 1 EACH PO (22:10)
[2018-04-09] MEDS: POTASSIUM CHLORIDE 10 MEQ TAB PO (22:10)
[2018-04-09] MEDS: INSULIN NPH/REG 70-30 100 UNIT/ML 3ML VIAL 64 UNIT SUBCUT (22:17)
[2018-04-10] MEDS: ACETAMINOPHEN 325 MG TABLET 650 MG PO (00:20)
[2018-04-10 02:51] VITALS: O2SAT 96
[2018-04-10 04:20] VITALS: BP 121/45; PULSE 55; RESP 16; TEMP 37; O2SAT 95
[2018-04-10 05:49] LABS: Add Manual Diff / Slide Review NO; Basophils Percent Auto 0.7 % (0-2); Eosinophils Percent Auto 2.6 % (2-4); Hematocrit 27.8 % (36-46); Hemoglobin 9.5 g/dL (12.0-16.0); Lymphocytes Percent Auto 17.8 % (25-40); Mean Corpuscular HGB Conc 34.1 % (30-36); Mean Corpuscular Hemoglobin 30.1 PG (26-34); Mean Corpuscular Volume 88.3 fL (80-100); Monocytes Percent Auto 16.6 % (3-14); Neutrophils Absolute Auto 3900 /uL (1500-7000); Neutrophils Percent Auto 62.3 % (50-75); Platelet Count 188 X10^3/uL (150-400); Red Blood Cell Count 3.15 X10^6/uL (4.0-5.2); Red Cell Distribution Width 15.5 % (11.6-14.8); White Blood Cell Count 6.2 X10^3/uL (4.5-11.0)
[2018-04-10 05:57] LABS: Alanine Aminotransferase 32 IU/L (9-52); Albumin 3.9 g/dL (3.5-5.0); Albumin Globulin Ratio 1.4 (1.0-2.8); Alkaline Phosphatase 79 U/L (38-126); Aspartate Aminotransferase 25 IU/L (14-36); BUN Creatinine Ratio 42.6 (6-22); Bilirubin Total 0.4 mg/dL (0.2-1.3); Blood Urea Nitrogen 81 mg/dL (7-17); Carbon Dioxide 26 mmol/L (22-32); Chloride 102 mmol/L (98-107); Estimated Glomerular Filt Rate 25.9 mL/min (>60); Globulin 2.8 g/dL (1.7-4.1); Glucose 216 mg/dL (80-110); HEMOLYSIS < 15 (0-50); Magnesium 2.8 mg/dL (1.6-2.3); Phosphorous 3.8 mg/dL (2.8-4.1); Potassium 4.2 mmol/L (3.4-5.1); Sodium 142 mmol/L (137-145); Total Protein 6.7 g/dL (6.3-8.2)
[2018-04-10] MEDS: LEVOTHYROXINE 125 MCG TABLET 250 MCG PO (05:57)
[2018-04-10 07:40] VITALS: BP 142/51; PULSE 56; RESP 18; TEMP 36.5; O2SAT 97
[2018-04-10] MEDS: FERROUS SULFATE 325 MG TABLET PO (08:29)
[2018-04-10] MEDS: levoFLOXacin 250 MG/50 ML PIGGYBACK 100 MG IV (08:29)
[2018-04-10] MEDS: ENOXAPARIN 30 MG/0.3 ML SYRINGE SUBCUT (08:29)
[2018-04-10] MEDS: CALCIUM CARB/VIT D3 500/200 TABLET 1 EACH PO (08:29)
[2018-04-10] MEDS: VITAMIN B COMPLEX 1 CAPSULE 1 CAP PO (08:29)
[2018-04-10] MEDS: POTASSIUM CHLORIDE 10 MEQ TAB PO (08:29)
[2018-04-10] MEDS: CLOPIDOGREL 75 MG TABLET PO (08:29)
[2018-04-10] MEDS: PANTOPRAZOLE 40 MG TABLET PO (08:29)
[2018-04-10] MEDS: OXYBUTYNIN 5 MG TABLET PO (08:29)
[2018-04-10] MEDS: INSULIN NPH/REG 70-30 100 UNIT/ML 3ML VIAL 64 UNIT SUBCUT (08:30)
[2018-04-10] MEDS: VITAMIN E 400 UNIT CAPSULE PO (08:30)
[2018-04-10] MEDS: FLUTICASONE 120 SPRAY/16 GM SPRAY.SUSP NASAL (08:30)
[2018-04-10] MEDS: INSULIN ASPART 100 UNIT/ML INSULN PEN SUBCUT ×2 (08:32→12:10)
[2018-04-10] MEDS: ASPIRIN 81 MG TAB PO (08:39)
--- NOTE | 2018-04-10 09:40 | PT.IPTN ---
Current Diagnoses Type 2 diabetes mellitus with hypoglycemia without coma (04/09/18) Physical Therapy Treatment Note M2 PT-IP Current Condition Start: 04/09/18 10:26 Freq: NEEDED Status: Active Protocol: Document 04/09/18 13:55 (Rec: 04/09/18 14:45 [email or web address]) Physical Therapy Current Condition Current Condition Evaluation Date 04/09/18 Treatment Diagnosis Encephalopathy and sepsis; Generalized weakness M3 PT-IP Subjective Start: 04/09/18 10:26 Freq: NEEDED Status: Active Protocol: Document 04/10/18 14:29 [facility] (Rec: 04/10/18 14:33 [facility] [email or web address]) Subjective Physical Therapy Visit Type Type Treatment Note Visit Start Time 09:10 Visit Stop Time 09:40 Total Visit Minutes 30 Physical Therapy Visit Comments Patient Comments Pt agreeable to mobilize. present and wanting to discuss HH. Therapy Pain Assessment Pain Present Pain Present Denied Pain M4 PT-IP Mobility and Gait Start: 04/09/18 10:26 Freq: NEEDED Status: Active Protocol: Document 04/10/18 14:29 [facility] (Rec: 04/10/18 14:33 [facility] [email or web address]) PT-Transfer Assessment Sit to and From Stand Sit to and from Stand Contact Guard Assistance Use of Upper Extremities Equipment Transfer Assistive Device Gait Belt Front Wheeled Walker Orthotic/Prosthetic Devices or Brace: No Gait Assessment Gait Gait Assistance Required: Contact Guard Assist Distance (Feet) 50 Assistive Devices Assistive Device Gait Belt Front Wheeled Walker Orthotic/Prosthetic Devices or Brace: No Gait Deviations General Gait Pattern Decreased Stride Length Decreased Feet Clearance Flexed Trunk Factors Limiting Gait Function Factors Limiting Gait Function Decreased Activity Tolerance Decreased Strength Limited Range of Motion Poor Balance Comments Gait Comments Pt able to amb about 50ft with FWW and CGA and did not require assistance for FWW management today. M5 PT-IP Objective Assessments Start: 04/09/18 10:26 Freq: NEEDED Status: Active Protocol: Document 04/09/18 13:55 (Rec: 04/09/18 14:45 [email or web address]) Orientation Orientation/Cognition Level of Alertness Lethargic Orientation Name Birthday Comments Pt drowsy with decreased response time. Gross Range of Motion Lower Extremity ROM Assessment Bilaterally Impaired Impairments Functional hip extension lacking B. Strength Lower Extremity Strength Assessment Bilaterally Impaired Comments Strength Comments BUE strength 4-/5 or greater as noted with functional sit < > stand. M6 PT-IP Treatment Start: 04/09/18 10:26 Freq: NEEDED Status: Active Protocol: Document 04/10/18 14:29 [facility] (Rec: 04/10/18 14:33 [facility] [email or web address]) Physical Therapy Treatment Other Treatments Other Treatment Performed Discussing with importance of HH and that HH does not have to be very difficult exercise and that they will tailor a program based on her abilities at the time. Discussed and home concerns and only concern is bathing. M7 PT-IP Assessment and Plan Start: 04/09/18 10:26 Freq: NEEDED Status: Active Protocol: Document 04/10/18 14:29 [facility] (Rec: 04/10/18 14:33 [facility] [email or web address]) PT Summary Assessment and Plan Summary Impairments Pain ROM Strength Balance Bed Mobility Transfers Activity Tolerance Assessment Summary Pt improved with gait and sit to stand today and requires edu re: importance of HH PT and they can tailor exercises as needed. Goals Bed Mobility Goal Standby Assistance Transfer Goal Standby Assistance Front Wheeled Walker Four Wheeled Walker Gait Goal Standby Assistance Front Wheel Walker Four Wheel Walker Gait Distance 50 Other Goals Ambulation 50 ft with least restrictive AD (pt has trialed fww, usually using 4ww). Caregiver training as appropriate. Pts will be staying with her and will be in room at least until late morning. Days to Meet Goals 3 Frequency of Treatment Frequency Of Treatment Once a Day Treatment Plan Physical Therapy Treatment Plan Bed Mobility Training Transfer Training Gait Training Therapeutic Exercise Balance Retraining Discharge Planning Hot or Cold Pack Neuromuscular Re-ed Coordination Retraining Manual Therapy Other Recommendations and Next Treatment Work on 4WW amb Focus Recommendations To Nursing Amount of Assist Needed 1 Person Assist Discharge Recommendations PT Discharge Recommendations Home with Assistance Home Health Equipment Needed for Home Before fww pending pt status at d/c Discharge
[2018-04-10 10:04] VITALS: O2SAT 99
[2018-04-10 11:55] VITALS: BP 139/44; PULSE 56; RESP 20; TEMP 36.6; O2SAT 99
--- NOTE | 2018-04-10 13:50 | P.DS_ITS ---
History of Present Illness Date Patient Seen: 04/10/18 Time Patient Seen: 13:41 Chief complaint: weakness, can't stand, is in a daze Narrative: Chief complaint: weakness, can't stand, is in a daze Narrative: The patient is a 72-year-old female with PMH significant for DM 2T, HTN, CAD (h/o IN, s/p 3v-CABG), AFIB, s/p watchman procedure, CHF, iron deficiency anemia, prior h/o GIB, CKD, depression, h/o breast cancer (in remission, s/p chemotherapy), and overactive bladder. Patient brought to the ED on 04/09/2018 at 1:56 a.m. by spouse out of concern for altered mental status. Initial assessment revealed hypoglycemia with glucose POC of 25. Associated symptoms include generalized progressive weakness. Patient has a 30 year history of DM 2T, currently insulin dependent. Patient is reported to have poor adherence in regard to management of her diabetic disease, per 's report. She has a long-standing pattern of labile blood sugars. Reported readings typically in the 200-300 range. Patient 's describes her as a grazer. Typically she does not have hypoglycemic episodes. Patient has been weak for approximately 1 month, however she noted to have profound weakness in the past week. Patient does have occasional UTIs, recently urine with an unpleasant odor. She has not experienced fever or chills. Patient was placed on risperidone 0.5 mg at bedtime 1 month ago. Her believes that initiation of the risperidone has kept patient extremely sedated and he cut down her dose to 0.25 mg 2 weeks ago. Patient reports patient as restless in the past 2 weeks, which he attributes to reduction in the risperdone dose. Denies overt tardive dyskinesia symptoms. She is being prescribed risperdone for treatment of depression. Prior to being placed on risperidone patient is noted to have memory problems. also notes narcoleptic features. Patient is known to have atrial fibrillation with controlled ventricular rate by reports. She is intolerant to anticoagulation agents due to recurrent history of GI bleeds. Instead, she is on ASA and has had left atrial appendage closure to reduce cardioembolic risks. Patient's home BP is mildly elevated, SBP 150s range. In the past several months experiencing progressive upward trend in weight and more recently a degree of peripheral edema. Denies dyspnea at rest or with exertion, CP, palpitations, dizziness, lightheadedness, or syncopal events. Discharge Providers Date of admission: 04/09/18 04:31 Primary care physician: Ad Colunga MD Consults: 04/09/18 09:45 Consult to Occupational Therapy Evaluate & Treat Comment: Physician Instructions: Evaluate and treat Consult to Physical Therapy Evaluate & Treat Comment: Physician Instructions: Evaluate and Treat Discharge provider: Edvin Constantino DO Discharge Date: 04/10/18 Summary Discharge Diagnosis: ACUTE HYPOGLYCEMIA; RESOLVED DM2; INSULIN DEPENDENT PER HX; OUTPATIENT MANAGEMENT POSS PNA; DC ON ABX POSS ACUTE ON CHRONIC SYST HF; DC ON BUMEX AND METOLAZONE WELL FLUID RESTRICTION LEUKOCYTOSIS; RESOLVED MORBID OBESITY; LIFESTYLE CHANGES RECOMMENDED ATRIAL FIB; RATE IS CONTROLLED POSS CHF PER HX; Hospital Course: PATIENT ADMITTED AFTER AN HYPOGLYCEMIC REACTION WHICH WE SUSPECT IS LIKELY RELATED TO OVER-MEDICATION WHICH HAPPENED PER MISTAKE PATIENT BG IS STABLE AT THIS TIME SHE HAS SOME CONGESTION NOTED ON XRAY WITH PNA NOT BEING ABLE TO BE EXCLUDED PATIENT WAS TREATED WITH ABX SHE HAD AN ELEVATED WBC SHE WAS ALSO GIVEN BUMEX AND METOLAZONE INSTRUCTED TO KEEP FLUID INTAKE TO NORE THAN 1500CC/ DAILY INCLUDING ALL FLUIDS SPOKE TO AT BEDSIDE AND INSTRUCTIONS GIVEN WELL CONCERNS AND QUESTIONS ADDRESSED HIS UNDERSTANDING Status at Discharge Cognitive/behavioral status at discharge: STABLE TO HOME WITH Functional status at discharge: independent ambulation Overall status at discharge: patient is back to baseline Time Spent with Patient Greater than 30 minutes Exam Vital Signs (past 8 hours): - 04/10/18 07:40 04/10/18 10:04 04/10/18 11:55 Temperature 97.7 F 97.9 F Pulse Rate 56 L 56 L Respiratory Rate 18 20 Blood Pressure 142/51 H 139/44 L Pulse Oximetry 97 99 99 Oxygen Delivery Method Room Air Oxygen Flow Rate 0 Narrative Exam Narrative: NO ACUTE DISTRESS. PATIENT IS ALERT ORIENTED X3. VITAL SIGNS STABLE HEAD ATRAUMATIC NORMOCEPHALIC NECK : SUPPLE WITHOUT ADENOPATHY NO CAROTID BRUITS EYE: EOMI, PERRLA, NORMAL CONJUNCTIVA; NO JAUNDICE CHEST: REGULAR RATE. NO RUBS. PMI IS NON DISPLACED. NO MURMURS; NORMAL S1- S2 PULMONARY: DECREASED BS OVER THE BASES. MILD BIBASILAR CRACKLES NOTED; NO INCREASED DULLNESS TO PERCUSSION; NO RALES/RHONCHI ABDOMEN: SOFT. NON TENDER. NON DISTENDED. BOWEL SOUNDS ARE PRESENT IN ALL 4 QUADRANTS. NO MASS. EXTREMITIES: 2+ EDEMA.. NO CYANOSIS CLUBBING NOTED. NEURO: CRANIAL NERVES 2-12 GROSSLY INTACT. NO FOCAL NEUROLOGICAL DEFICIT NOTED. MSK: NORMAL RANGE OF MOTION FOR AGE. NO JOINT EFFUSION. SKIN: NORMAL FOR ETHNICITY; NO ECCHYMOSIS. NO LESION. GOOD TURGOR.; NO RASHES : NORMAL EXTERNAL GENITALIA. PSYCH : APPROPRIATE MOOD AND AFFECT. ALERT AWAKE ORIENTED X3 Objective Labs Result Diagrams: 04/10/18 05:20 04/10/18 05:20 Labs: Laboratory Results - last 24 hr 04/10/18 04/10/18 05:20 05:20 WBC 6.2 RBC 3.15 L Hgb 9.5 L Hct 27.8 L MCV 88.3 MCH 30.1 MCHC 34.1 RDW 15.5 H Plt Count 188 Neut % (Auto) 62.3 Lymph % (Auto) 17.8 L [place] % (Auto) 16.6 H Eos % (Auto) 2.6 Baso % (Auto) 0.7 Neut # (Auto) 3900 Sodium 142 Potassium 4.2 Chloride 102 Carbon Dioxide 26 BUN 81 H Creatinine 1.90 H Estimated GFR 25.9 L BUN/Creatinine Ratio 42.6 H Glucose 216 H D Calcium 9.0 Phosphorus 3.8 Magnesium 2.8 H Total Bilirubin 0.4 AST 25 ALT 32 Alkaline Phosphatase 79 Total Protein 6.7 Albumin 3.9 Globulin 2.8 Albumin/Globulin Ratio 1.4 Discharge Plan Discharge Plan Patient Disposition: Home Health Service Discharge comment: ME HOME ACT MARY CARDIAC / DIABETIC DIET PATIENT TO RESTRICT FLUID INTAKES TO 1500CC/DAILY MAX F/U WITH PCP 3-10 DAYS FALL PRECAUTIONS AT ALL TIMES Discharge Med Rec/Prescriptions Prescriptions: New ropinirole [Requip] 0.5 mg tablet 0.5 mg PO TID Qty: 30 RF: 0 amoxicillin-pot clavulanate [Augmentin] 875-125 mg tablet 1 tab PO BID Qty: 14 RF: 0 azithromycin 500 mg tablet 500 mg PO DAILY 5 Days RF: 0 metolazone 2.5 mg tablet 2.5 mg PO DAILY Qty: 30 RF: 0 bumetanide 0.5 mg tablet 0.5 mg PO DAILY Qty: 60 RF: 0 Continue baclofen 20 MG tablet 20 mg PO BID Qty: 10 RF: 0 vitamin B complex [B Complex-Vitamin B12] 1 EACH tablet 1 tab PO DAILY Qty: 0 RF: 0 hydrocodone-acetaminophen [[place]] 10 MG/325 MG tablet 1 tab PO Q6H PRN (Reason: pain) Qty: 0 RF: 0 fluticasone 16 GM spray,suspension 1 spray Intranasal BID Qty: 0 RF: 0 amiodarone 200 MG tablet 200 mg PO DAILY Qty: 0 RF: 0 atorvastatin 40 MG tablet 40 mg PO HS Qty: 0 RF: 0 calcium carbonate-vitamin D3 [Calcium 600 with Vitamin D3] 600 MG/200 IU capsule 1 cap PO BID Qty: 0 RF: 0 potassium chloride 10 MEQ capsule, extended release 10 meq PO BID Qty: 0 RF: 0 pantoprazole [Protonix] 40 MG tablet,delayed release (DR/EC) 40 mg PO BID Qty: 0 RF: 0 carvedilol [Coreg] 12.5 MG tablet 12.5 mg PO BID Qty: 0 RF: 0 ondansetron HCl [Zofran] 4 MG tablet 4 mg PO Q8H PRN (Reason: Nausea) Qty: 0 RF: 0 isosorbide mononitrate 30 MG tablet extended release 24 hr 30 mg PO QAM Qty: 0 RF: 0 losartan 25 MG tablet 25 mg PO QPM Qty: 0 RF: 0 diphenhydramine HCl 50 MG capsule 25 mg PO Q6HPRN PRN (Reason: Itching) Qty: 0 RF: 0 torsemide 20 MG tablet 20 mg PO QDAYP PRN (Reason: Edema) Qty: 0 RF: 0 vitamin E 400 UNIT capsule 400 unit PO DAILY Qty: 0 RF: 0 clobetasol 0.05 % cream 1 applic Topical DIRECTED RF: 0 clopidogrel 75 mg tablet 75 mg PO QPM RF: 0 levothyroxine 125 mcg tablet 250 mcg PO DAILY RF: 0 insulin NPH and regular human [Novolin 70/30 U-100 Insulin] 100 unit/mL (70-30 ) Suspension 64 units subcut BID RF: 0 aspirin 81 mg Tablet,Delayed Release (Dr/Ec) 81 mg PO QPM RF: 0 insulin regular human [Novolin R Regular U-100 Insuln] 100 unit/mL Solution 1 dose subcut BID PRN (Reason: sliding scale) RF: 0 nitroglycerin [Nitrostat] 0.4 mg Tablet, Sublingual 0.4 mg SUBLINGUAL PRN PRN (Reason: Chest Pain) RF: 0 duloxetine 30 mg capsule,delayed release(DR/EC) 30 mg PO QPM RF: 0 [employer]-3 Fish Oil 500 mg capsule 500 mg PO BID RF: 0 polyethylene glycol 3350 [Miralax] 17 gram Powder In Packet 17 g PO DAILY PRN (Reason: stool softener) RF: 0 oxybutynin chloride 5 mg tablet 5 mg PO BID RF: 0 Discontinued hydrochlorothiazide 25 MG tablet 25 mg PO BID Qty: 0 RF: 0 risperidone 0.5 mg tablet 0.25 mg PO DAILY RF: 0 Follow up/Referrals: Ad Colunga MD [Primary Care Provider] - (please call & schedule a hospital follow up appointment with your primary car physcian for 3-10 days from discharge ) Provider Discharge Instructions Diet: Carb-consistent/Diabetic, Low-fat and Low-cholesterol Skin/Wound/Dressing Care Report to your healthcare provider any signs of infection, such as:: chills, fever, night sweats, increased pain, unusual drainage and unusual redness Visit Report/Discharge Packet Visit Report Forms: Stroke Signs & Symptoms Discharge Data Primary Care Provider: Ad Colunga Attending Provider: Trevor Combs Admit Date/Time: 04/09/18 04:31
--- NOTE | 2018-04-10 13:53 | OT.IP.TRT ---
Current Diagnoses Type 2 diabetes mellitus with hypoglycemia without coma (04/09/18) Occupational Therapy Treatment Note M3 OT- IP Subjective and Pain Start: 04/10/18 13:50 Freq: Status: Active Protocol: Document 04/10/18 13:50 [facility] (Rec: 04/10/18 13:53 [facility] [id number]) OT- Subjective Occupational Therapy Visit Type Type Patient Refusal Notes Pt 's states going home today and not wanting to have OT eval. Pt's states has all AEd at home. Therefore discharge OT eval orders.
[2018-04-10] MEDS: BUMETANIDE 1 MG/4 ML VIAL IV (14:24)
[2018-04-10] MEDS: metOLazone 2.5 MG TABLET PO (14:24)
--- NOTE | 2018-04-10 14:53 | CM.DPC ---
Referral faxed to [facility]
--- NOTE | 2018-04-10 15:07 | CM.DPC ---
DCP: continued: Pt now with a d/c to home order. EMR reviewed, noted that CM Martha yesterday had identified HH need and with pt's spouse identifying [facility]. Met with pt and her to followup on this (had obtained a Face/Face form signed by DR. Kiera Del Rio in prep). Art stated that we might want HH but I thought I was very clear yesterday that we do not want this until I have had a change to discuss all the issues with PCP Dr. Colunga. Art notes they have managed pt's diabetes without difficulty for some time but since the use of risperdal his 's ability to think and manage things has changed [facility] has updated [facility] re this. Pt home now with her .
== END 2018-04-10 15:20 | disposition home health service (06) | DRG 917 ==
LOC: ED 04:19 → AC 04:31
PROVIDERS: Hospitalist; Admitting Provider Nurse Practitioner Gerontology; Emergency Provider Emergency Medicine; Family Provider Internal Medicine; PCP Internal Medicine; Visit Provider Nurse Practitioner Gerontology
DX: T38.3X1A Poisoning by insulin and oral hypoglycemic [antidiabetic] drugs, accidental (unintentional), initial encounter (principal); G92 Toxic encephalopathy; J18.9 Pneumonia, unspecified organism; I50.23 Acute on chronic systolic (congestive) heart failure; N17.9 Acute kidney failure, unspecified; G93.49 Other encephalopathy; E11.649 Type 2 diabetes mellitus with hypoglycemia without coma; E11.9 Type 2 diabetes mellitus without complications; I11.0 Hypertensive heart disease with heart failure; I25.10 Atherosclerotic heart disease of native coronary artery without angina pectoris; Z95.1 Presence of aortocoronary bypass graft; I48.91 Unspecified atrial fibrillation; Z79.01 Long term (current) use of anticoagulants; E03.9 Hypothyroidism, unspecified; Z68.36 Body mass index [BMI] 36.0-36.9, adult; E66.01 Morbid (severe) obesity due to excess calories
CPT/HCPCS: 36415; 36591; 71045; 80053; 80320; 81001; 82140; 82962; 83036; 83605; 83690; 83735; 83880; 84100; 84145; 84443; 85025; 85610; 85730; 87040; 94760; 94762; 96374; 97116; 97161; 97530; 97535; 99283; 99284; J1650; J1956

== ENCOUNTER 2018-04-14 09:24 | Inpatient (IN) | payer MEDICARE, SELFPAY ==
[2018-04-09 04:10] VITALS: BMI 36.3
[2018-04-14] VITALS (13 sets, daily range): BP systolic 104–144; BP diastolic 31–85; PULSE 59–66; RESP 12–20; TEMP 36.6–37.7; O2SAT 93–100; BMI 37.9
--- NOTE | 2018-04-14 09:31 | DI.RAD.S_ITS ---
PROCEDURE: XR CHEST 1V INDICATIONS: altered mental status TECHNIQUE: One view of the chest was acquired. COMPARISON: [facility], , XR CHEST 1V, 04/09/2018, 10:48. FINDINGS: Surgical changes and devices: Postoperative changes are present related to prior median sternotomy. Lungs and pleura: There are low lung volumes. However, the aeration of the lungs appears improved in the interim. The pulmonary vasculature is mildly increased. Slight increased attenuation at the right lung base and along the inferior margin of the right upper lobe near the minor fissure is evident. No lobar consolidation is evident. There is no effusion or pneumothorax. Mediastinum: Mediastinal contours appear normal. Heart size is borderline enlarged. There is aortic atherosclerosis. Bones and chest wall: No suspicious bony lesions. Overlying soft tissues appear unremarkable. IMPRESSION: 1. Subtle area of increased attenuation at the right lung base may represent atelectasis. Superimposed pneumonia is difficult to exclude. 2. Borderline cardiomegaly. No overt heart failure. Dictated by: Hayden Houser M.D. on 04/14/2018 at 10:32 Approved by: Hayden Houser M.D. on 04/14/2018 at 10:35
--- NOTE | 2018-04-14 10:03 | PC.NURSE ---
restart, pt with right breast mastectomy and spouse requested, no bp, no iv, no labs drawn , right arm.
[2018-04-14 10:04] LABS: Add Manual Diff / Slide Review NO; Basophils Percent Auto 0.2 % (0-2); Hematocrit 28.9 % (36-46); Hemoglobin 9.6 g/dL (12.0-16.0); Mean Corpuscular HGB Conc 33.3 % (30-36); Mean Corpuscular Hemoglobin 29.7 PG (26-34); Mean Corpuscular Volume 89.3 fL (80-100); Monocytes Percent Auto 7.9 % (3-14); Neutrophils Absolute Auto 8900 /uL (1500-7000); Neutrophils Percent Auto 83.9 % (50-75); Platelet Count 206 X10^3/uL (150-400); Red Blood Cell Count 3.23 X10^6/uL (4.0-5.2); White Blood Cell Count 10.6 X10^3/uL (4.5-11.0)
[2018-04-14 10:07] LABS: INR 1.1 (0.9-1.3); Prothrombin Time 12.5 SECONDS (10.1-12.7)
[2018-04-14 10:10] LABS: PTT Partial Thromboplastin Tim 28 SECONDS (26.4-36.2)
[2018-04-14 10:13] LABS: Acetaminophen < 10 ug/mL (10-30); Alanine Aminotransferase 36 IU/L (9-52); Albumin 4.2 g/dL (3.5-5.0); Albumin Globulin Ratio 1.5 (1.0-2.8); Alkaline Phosphatase 79 U/L (38-126); Aspartate Aminotransferase 35 IU/L (14-36); BUN Creatinine Ratio 30.3 (6-22); Bilirubin Total 0.6 mg/dL (0.2-1.3); Blood Urea Nitrogen 100 mg/dL (7-17); Calcium 8.7 mg/dL (8.4-10.2); Carbon Dioxide 24 mmol/L (22-32); Chloride 100 mmol/L (98-107); Estimated Glomerular Filt Rate 13.7 mL/min (>60); Ethanol (ETOH) < 10 mg/dL; Globulin 2.8 g/dL (1.7-4.1); Glucose 127 mg/dL (80-110); HEMOLYSIS < 15 (0-50); Potassium 4.7 mmol/L (3.4-5.1); Sodium 140 mmol/L (137-145)
[2018-04-14 10:14] LABS: Creatine Kinase 173 U/L (30-135); Salicylate < 1.0 mg/dL (<20)
[2018-04-14 10:15] LABS: Lactate (Lactic Acid) 0.8 mmol/L (0.7-2.1)
[2018-04-14] MEDS: SODIUM CHLORIDE 0.9% 1,000 ML 150 ML IV ×2 (10:16→14:53)
[2018-04-14 10:23] LABS: Troponin I 0.013 ng/mL (0.01-0.034)
[2018-04-14 10:28] LABS: Prolactin 31.9 ng/mL (3.0-18.6)
[2018-04-14 10:49] LABS: CKMB % Relative Index 3.2 % (1.5-5.0); Creatine Kinase MB 5.54 ng/mL (<2.37)
--- NOTE | 2018-04-14 10:56 | ED.WEAKNESS ---
HPI - Weakness General Chief complaint: Weakness Stated complaint: Increased weakness Time Seen by Provider: 04/14/18 09:25 Source: patient, family, EMS and old records reviewed Mode of arrival: EMS History of Present Illness HPI Narrative: Patient is a 72-year-old female presenting with increasing weakness on confusion. She was discharged 4 days ago for persistent hypoglycemia. Her who is her primary caregiver says that she has been actually sleepy overall weak and lethargic. She sometimes complains of leg pain. Just overall difficult to arouse. Patient does wake up is a extremely poor historian. thinks that the risperidone may be contributing to this. Her glucose is within normal limits today. His Upon discharge she was supposed to start new medications 4 days ago however the has not yet started any of them he wanted to clear it with his PCP. MD Complaint: generalized weakness Related Data Home Medications Medication Instructions Recorded Confirmed baclofen 20 mg PO BID #10 04/26/16 04/14/18 vitamin B complex [B 1 tab PO DAILY #0 04/26/16 04/14/18 Complex-Vitamin B12] amiodarone 200 mg PO DAILY #0 05/22/16 04/14/18 fluticasone 1 spray INTRANASAL BID #0 05/22/16 04/14/18 hydrocodone-acetaminophen [[place]] 1 tab PO Q6H PRN #0 05/22/16 04/14/18 atorvastatin 40 mg PO BEDTIME #0 11/08/16 04/14/18 calcium carbonate-vitamin D3 1 cap PO BID #0 11/08/16 04/14/18 [Calcium 600 with Vitamin D3] carvedilol [Coreg] 12.5 mg PO BID #0 11/08/16 04/14/18 ondansetron HCl [Zofran] 4 mg PO Q8H PRN #0 11/08/16 04/14/18 pantoprazole [Protonix] 40 mg PO BID #0 11/08/16 04/14/18 potassium chloride 10 meq PO BID #0 11/08/16 04/14/18 isosorbide mononitrate 30 mg PO QAM #0 01/27/17 04/14/18 losartan 25 mg PO QPM #0 01/27/17 04/14/18 diphenhydramine HCl 25 mg PO Q6HPRN PRN #0 06/21/17 04/14/18 torsemide 40 mg PO QDAYP PRN #0 06/25/17 04/14/18 vitamin E 400 unit PO DAILY #0 07/04/17 04/14/18 Rhodes-3 Fish Oil 500 mg PO BID 04/09/18 04/14/18 aspirin 81 mg PO QPM 04/09/18 04/14/18 clobetasol 1 applic TOPICAL DIRECTED 04/09/18 04/14/18 clopidogrel 75 mg PO QPM 04/09/18 04/14/18 duloxetine 30 mg PO QPM 04/09/18 04/14/18 insulin NPH and regular human 64 units SUBCUT BID 04/09/18 04/14/18 [Novolin 70/30 U-100 Insulin] insulin regular human [Novolin R 1 dose SUBCUT BID PRN 04/09/18 04/14/18 Regular U-100 Insuln] levothyroxine 250 mcg PO DAILY 04/09/18 04/14/18 nitroglycerin [Nitrostat] 0.4 mg SUBLINGUAL PRN PRN 04/09/18 04/14/18 oxybutynin chloride 5 mg PO BID 04/09/18 04/14/18 polyethylene glycol 3350 [Miralax] 17 g PO DAILY PRN 04/09/18 04/14/18 ferrous sulfate [iron] 325 mg PO BID 04/14/18 04/14/18 hydrochlorothiazide 25 mg PO BID 04/14/18 04/14/18 Previous Rx's Medication Instructions Recorded amoxicillin-pot clavulanate 1 tab PO BID #14 tab 04/10/18 [Augmentin] azithromycin 500 mg PO DAILY 5 Days tab 04/10/18 bumetanide 0.5 mg PO DAILY #60 tab 04/10/18 metolazone 2.5 mg PO DAILY #30 tab 04/10/18 ropinirole [Requip] 0.5 mg PO TID #30 tab 04/10/18 Allergies Allergy/AdvReac Type Severity Reaction Status Date / Time meperidine [From DEMEROL] Allergy Severe NAUSEA/VOMI Verified 09/22/17 07:21 TTING Review of Systems Review of Systems Poor historian most history is from unobtainable due to mental status [facility] Medical History Anemia (Acute) Atrial fibrillation (Acute) CHF (congestive heart failure) (Acute) Diabetes (Acute) History of GI bleed (Acute) History of hysterectomy (Acute) Surgical History History of cholecystectomy (Acute) S/P CABG x 3 (Acute) Family History: Reviewed 04/14/18 by Rimma Herbert MD Social History household members: spouse Smoking Status: Former smoker alcohol intake: never substance use type: does not use Exam Initial Vital Signs Initial Vital Signs: Vital Signs Temperature 99.8 F H 04/14/18 09:17 Pulse Rate 60 04/14/18 09:17 Respiratory Rate 16 04/14/18 09:17 Blood Pressure 111/85 04/14/18 09:17 Pulse Oximetry 98 04/14/18 09:17 Gen.: Difficult to arouse female but does respond to painful stimuli falls back asleep quickly HEENT: Head is atraumatic face is symmetric PHUC, EOMI Neck: Neck is supple no JVD no meningeal signs trachea midline Lungs: Clear bilaterally no wheezes rales or rhonchi Cardiac: Regular rate no murmur Abdomen: Soft nontender nondistended no guarding no rebound Extremities: Moving all extremities no edema peripheral pulses intact no deformity Neurologic: Responsive to pain but difficult to arouse can follow some commands no focal deficits is moves toes and arms Scores GCS [place] coma scale eye opening: To pressure Stone coma scale verbal response: Confused [place] coma scale motor response: Obey commands [place] coma scale total score: 12 Course Orders Ordered: ED Orders 04/14/18 09:29 Urine Culture Stat Urine Drug Screen, Rapid Stat 04/14/18 09:31 XR chest 1V Stat EKG-12 Lead Stat 04/14/18 09:40 Acetaminophen Stat Complete Blood Count AUTO DIFF Stat Comprehensive Metabolic Panel Stat Ethanol (ETOH) Stat Lactate (Lactic Acid) Stat Partial Thromboplastin Time Stat Prolactin Stat Prothrombin Time INR Stat Salicylate Stat Thyroid Stimulating Hormone Stat Troponin & CK Cardiac Panel Stat 04/14/18 09:45 Cortisol Random Stat Free T4 Free Thyroxine Stat 04/14/18 10:15 Ammonia (NH3) Stat Blood Culture Stat 04/14/18 11:56 CT head/brain wo con Stat 04/14/18 14:49 Consult to Dietitian, Adult Routine 04/14/18 15:22 Education, smoking cessation ONGOING 04/14/18 15:30 Consult to Discharge Planning Routine Consult to Occupational Therapy Evaluate & Treat Consult to Physical Therapy Evaluate & Treat 04/15/18 05:00 B Type Natriuretic Peptide Routine Complete Blood Count AUTO DIFF Routine Comprehensive Metabolic Panel Routine Acetaminophen (Tylenol) 650 mg PO Q6HR REJI Hydrocodone Bitart/Acetaminophen ([place] 5/325) 1 tab PO Q4HR PRN PRN Reason: Pain, Moderate (4-6) Amiodarone HCl (Cordarone) 200 mg PO DAILY [facility] Aspirin (Aspirin Ec) 81 mg PO DAILY [facility] Atorvastatin Calcium (Lipitor) 40 mg PO BEDTIME REJI Bisacodyl (Dulcolax) 10 mg IN DAILY PRN PRN Reason: Constipation Carvedilol (Coreg) 12.5 mg PO BID [facility] Clopidogrel Bisulfate (Plavix) 75 mg PO DAILY [facility] Dextrose (D50w) 25 gm IV PRN PRN; Protocol PRN Reason: Hypoglycemia Docusate Sodium (Colace) 100 mg PO BID [facility] Fluticasone Propionate (Flonase) 1 spray NASAL BID [facility] Haloperidol (Haldol) 2 mg IV Q2HR PRN PRN Reason: Agitation Heparin Sodium (Porcine) (Heparin) 5,000 unit SUBCUT BID REJI Hydromorphone HCl (Dilaudid) 0.5 mg IV Q6HR PRN PRN Reason: Pain, Moderate (4-6) Sodium Chloride (Normal Saline 0.9%) 1,000 mls @ 150 mls/hr IV CONT REJI Last Admin: 04/14/18 14:53 Dose: 150 mls/hr Infusion: 04/14/18 14:53 Dose: 150 mls/hr Infusion: 04/14/18 13:49 Dose: 150 mls/hr Admin: 04/14/18 10:16 Dose: 150 mls/hr Insulin Aspart (Novolog Flexpen) 0 unit SUBCUT ACHS REJI; Protocol Insulin Human Isoph/Insulin Regular (Humulin 70-30 Kwikpen) 20 unit SUBCUT BIDAC REJI Levothyroxine Sodium (Synthroid) 250 mcg PO 0600 REJI Liothyronine Sodium (Cytomel) 5 mcg PO DAILY [facility] Nitroglycerin (Nitrostat) 0.4 mg SL [id number] PRN PRN Reason: Chest Pain Ondansetron HCl (Zofran) 4 mg IV Q8HR PRN PRN Reason: Nausea And Vomiting Polyethylene Glycol (Miralax) 17 gm PO BID REJI Sennosides (Senna) 17.2 mg PO BEDTIME REJI Sodium Biphosphate/Sodium Phosphate (Fleet Enema) 1 each IN PRN PRN PRN Reason: Constipation Vital Signs - 8 hr 04/14/18 10:30 04/14/18 11:00 04/14/18 11:22 Temperature Pulse Rate 59 L 64 62 Respiratory Rate 14 12 13 Blood Pressure Blood Pressure [Left Arm] 120/39 L 104/32 L 107/31 L Pulse Oximetry 95 95 93 04/14/18 12:45 04/14/18 13:04 04/14/18 13:30 Temperature Pulse Rate 66 63 64 Respiratory Rate 15 13 14 Blood Pressure Blood Pressure [Left Arm] 144/45 H 140/54 L 132/62 Pulse Oximetry 95 04/14/18 13:47 04/14/18 15:22 04/14/18 15:44 Temperature 97.8 F Pulse Rate 61 65 Respiratory Rate 18 15 Blood Pressure 137/72 Blood Pressure [Left Arm] 118/53 L Pulse Oximetry 95 100 96 MDM - Weakness Lab Data Attestation: I reviewed the patient's lab results. Result diagrams: 04/14/18 09:40 04/14/18 09:40 Lab Results 04/14/18 04/14/18 04/14/18 Range/Units 09:40 09:40 09:40 WBC 10.6 (4.5-11.0) X10^3/uL RBC 3.23 L (4.0-5.2) X10^6/uL Hgb 9.6 L (12.0-16.0) g/dL Hct 28.9 L (36-46) % MCV 89.3 (80-100) fL MCH 29.7 (26-34) PG MCHC 33.3 (30-36) % RDW 16.0 H (11.6-14.8) % Plt Count 206 (150-400) X10^3/uL Neut % (Auto) 83.9 H (50-75) % Lymph % (Auto) 7.0 L (25-40) % [place] % (Auto) 7.9 (3-14) % Eos % (Auto) 1.0 L (2-4) % Baso % (Auto) 0.2 (0-2) % Neut # (Auto) 8900 H (0629-0678) /uL PT 12.5 (10.1-12.7) SECONDS INR 1.1 (0.9-1.3) APTT 28 D (26.4-36.2) SECONDS Sodium (137-145) mmol/L Potassium (3.4-5.1) mmol/L Chloride (98-107) mmol/L Carbon Dioxide (22-32) mmol/L BUN (7-17) mg/dL Creatinine (0.52-1.04) mg/dL Estimated GFR (>60) mL/min BUN/Creatinine Ratio (6-22) Glucose (80-110) mg/dL Lactate (0.7-2.1) mmol/L Calcium (8.4-10.2) mg/dL Total Bilirubin (0.2-1.3) mg/dL AST (14-36) IU/L ALT (9-52) IU/L Alkaline Phosphatase (38-126) U/L Ammonia (9-30) umol/L Total Creatine Kinase 173 H (30-135) U/L CK-MB (CK-2) 5.54 H (<2.37) ng/mL CK-MB (CK-2) Rel Index 3.2 (1.5-5.0) % Troponin I 0.013 (0.01-0.034) ng/mL Total Protein (6.3-8.2) g/dL Albumin (3.5-5.0) g/dL Globulin (1.7-4.1) g/dL Albumin/Globulin Ratio (1.0-2.8) TSH (0.47-4.68) uIU/mL Free T4 (0.78-2.19) ng/dL Prolactin (3.0-18.6) ng/mL Random Cortisol ug/dL Salicylates (<20) mg/dL Acetaminophen (10-30) ug/mL Ethyl Alcohol mg/dL 04/14/18 04/14/18 04/14/18 Range/Units 09:40 09:40 09:40 WBC (4.5-11.0) X10^3/uL RBC (4.0-5.2) X10^6/uL Hgb (12.0-16.0) g/dL Hct (36-46) % MCV (80-100) fL MCH (26-34) PG MCHC (30-36) % RDW (11.6-14.8) % Plt Count (150-400) X10^3/uL Neut % (Auto) (50-75) % Lymph % (Auto) (25-40) % [place] % (Auto) (3-14) % Eos % (Auto) (2-4) % Baso % (Auto) (0-2) % Neut # (Auto) (4159-5284) /uL PT (10.1-12.7) SECONDS INR (0.9-1.3) APTT (26.4-36.2) SECONDS Sodium 140 (137-145) mmol/L Potassium 4.7 (3.4-5.1) mmol/L Chloride 100 (98-107) mmol/L Carbon Dioxide 24 (22-32) mmol/L BUN 100 H (7-17) mg/dL Creatinine 3.30 H (0.52-1.04) mg/dL Estimated GFR 13.7 L (>60) mL/min BUN/Creatinine Ratio 30.3 H (6-22) Glucose 127 H (80-110) mg/dL Lactate 0.8 (0.7-2.1) mmol/L Calcium 8.7 (8.4-10.2) mg/dL Total Bilirubin 0.6 (0.2-1.3) mg/dL AST 35 (14-36) IU/L ALT 36 (9-52) IU/L Alkaline Phosphatase 79 (38-126) U/L Ammonia (9-30) umol/L Total Creatine Kinase (30-135) U/L CK-MB (CK-2) (<2.37) ng/mL CK-MB (CK-2) Rel Index (1.5-5.0) % Troponin I (0.01-0.034) ng/mL Total Protein 7.0 (6.3-8.2) g/dL Albumin 4.2 (3.5-5.0) g/dL Globulin 2.8 (1.7-4.1) g/dL Albumin/Globulin Ratio 1.5 (1.0-2.8) TSH 10.10 H D (0.47-4.68) uIU/mL Free T4 (0.78-2.19) ng/dL Prolactin 31.9 H (3.0-18.6) ng/mL Random Cortisol ug/dL Salicylates < 1.0 (<20) mg/dL Acetaminophen < 10 L (10-30) ug/mL Ethyl Alcohol < 10 mg/dL 04/14/18 04/14/18 04/14/18 Range/Units 09:45 09:45 10:15 WBC (4.5-11.0) X10^3/uL RBC (4.0-5.2) X10^6/uL Hgb (12.0-16.0) g/dL Hct (36-46) % MCV (80-100) fL MCH (26-34) PG MCHC (30-36) % RDW (11.6-14.8) % Plt Count (150-400) X10^3/uL Neut % (Auto) (50-75) % Lymph % (Auto) (25-40) % [place] % (Auto) (3-14) % Eos % (Auto) (2-4) % Baso % (Auto) (0-2) % Neut # (Auto) (4218-1270) /uL PT (10.1-12.7) SECONDS INR (0.9-1.3) APTT (26.4-36.2) SECONDS Sodium (137-145) mmol/L Potassium (3.4-5.1) mmol/L Chloride (98-107) mmol/L Carbon Dioxide (22-32) mmol/L BUN (7-17) mg/dL Creatinine (0.52-1.04) mg/dL Estimated GFR (>60) mL/min BUN/Creatinine Ratio (6-22) Glucose (80-110) mg/dL Lactate (0.7-2.1) mmol/L Calcium (8.4-10.2) mg/dL Total Bilirubin (0.2-1.3) mg/dL AST (14-36) IU/L ALT (9-52) IU/L Alkaline Phosphatase (38-126) U/L Ammonia < 9.0 L (9-30) umol/L Total Creatine Kinase (30-135) U/L CK-MB (CK-2) (<2.37) ng/mL CK-MB (CK-2) Rel Index (1.5-5.0) % Troponin I (0.01-0.034) ng/mL Total Protein (6.3-8.2) g/dL Albumin (3.5-5.0) g/dL Globulin (1.7-4.1) g/dL Albumin/Globulin Ratio (1.0-2.8) TSH (0.47-4.68) uIU/mL Free T4 1.25 (0.78-2.19) ng/dL Prolactin (3.0-18.6) ng/mL Random Cortisol 33.4 ug/dL Salicylates (<20) mg/dL Acetaminophen (10-30) ug/mL Ethyl Alcohol mg/dL Point of Care Testing Glucose POC 150 Imaging Data Chest x-ray: Radiologist's impression: PROCEDURE: XR CHEST 1V INDICATIONS: altered mental status TECHNIQUE: One view of the chest was acquired. COMPARISON: [facility], , XR CHEST 1V, 04/09/2018, 10:48. FINDINGS: Surgical changes and devices: Postoperative changes are present related to prior median sternotomy. Lungs and pleura: There are low lung volumes. However, the aeration of the lungs appears improved in the interim. The pulmonary vasculature is mildly increased. Slight increased attenuation at the right lung base and along the inferior margin of the right upper lobe near the minor fissure is evident. No lobar consolidation is evident. There is no effusion or pneumothorax. Mediastinum: Mediastinal contours appear normal. Heart size is borderline enlarged. There is aortic atherosclerosis. Bones and chest wall: No suspicious bony lesions. Overlying soft tissues appear unremarkable. IMPRESSION: 1. Subtle area of increased attenuation at the right lung base may represent atelectasis. Superimposed pneumonia is difficult to exclude. 2. Borderline cardiomegaly. No overt heart failure. Dictated by: Hayden Houser M.D. on 04/14/2018 at 10:32 CT scan - head: Radiologist's impression: PROCEDURE: CT HEAD/BRAIN WO CON INDICATIONS: decreased mental status TECHNIQUE: Noncontrast 4.5 mm thick angled axial sections acquired from the foramen magnum to the vertex, with coronal and sagittal reformats. For radiation dose reduction, the following was used: automated exposure control, adjustment of mA and/or kV according to patient size. COMPARISON: [facility], CT, CT HEAD/BRAIN WO YUKI, 09/22/2017, 7:55. FINDINGS: Image quality: Artifact is present on multiple sequences, limiting areas of fine detail evaluation. CSF spaces: Basal cisterns are patent. No extra-axial fluid collections. The ventricles are symmetric in size and shape. Brain: No intracranial bleeds or masses. There is cerebral volume loss for age, with resultant ventricular and sulcal prominence. There are periventricular and deep white matter chronic small vessel ischemic changes. There is intracranial internal carotid artery atherosclerosis. Skull and face: Calvarium and visualized facial bones appear intact, without suspicious lesions. Sinuses: Visualized sinuses and mastoids are clear. IMPRESSION: 1. No acute intracranial process. 2. Moderate atrophy and chronic microvascular ischemic changes. Dictated by: Areille Olsen M.D. on 04/14/2018 at 12:20 ECG Data Attestation: I personally reviewed and interpreted this ECG as follows: Prior ECG tracings: available for review Interpretation: Normal sinus rhythm rate [address] changes IN interval 157 similar to previous EKG MDM Narrative Medical decision making narrative: ABG was attempted 2-3 times by Respiratory an unsuccessful. Patient is arousable but to painful stimuli not able to give good history. Creatinine is elevated today at 3.3 previously 2.4. Her TSH is also elevated but not enough to have myxedema coma. Possible medication induced encephalopathy. No sign of infection. Dr. Herbert accepts patient Discharge Plan Departure Patient Disposition: Admitted As Inpatient Clinical Impression: Acute metabolic encephalopathy Discharge Date/Time: 04/14/18 13:40 Interventions: ED Discharge Assessment Last Done: 04/14/18 13:38 Admit Date/Time: 04/14/18 12:17 Admit Provider: Rimma Herbert
[2018-04-14 10:59] LABS: Ammonia (NH3) < 9.0 umol/L (9-30)
--- NOTE | 2018-04-14 11:02 | ED_ITS ---
HPI - Weakness General Chief complaint: Weakness Stated complaint: Increased weakness Time Seen by Provider: 04/14/18 09:25 Source: patient, family, EMS and old records reviewed Mode of arrival: EMS History of Present Illness HPI Narrative: Patient is a 72-year-old female presenting with increasing weakness on confusion. She was discharged 4 days ago for persistent hypoglycemia. Her who is her primary caregiver says that she has been actually sleepy overall weak and lethargic. She sometimes complains of leg pain. Just overall difficult to arouse. Patient does wake up is a extremely poor historian. thinks that the risperidone may be contributing to this. Her glucose is within normal limits today. His Upon discharge she was supposed to start new medications 4 days ago however the has not yet started any of them he wanted to clear it with his PCP. MD Complaint: generalized weakness Related Data Home Medications Medication Instructions Recorded Confirmed baclofen 20 mg PO BID #10 04/26/16 04/14/18 vitamin B complex [B 1 tab PO DAILY #0 04/26/16 04/14/18 Complex-Vitamin B12] amiodarone 200 mg PO DAILY #0 05/22/16 04/14/18 fluticasone 1 spray INTRANASAL BID #0 05/22/16 04/14/18 hydrocodone-acetaminophen [Raymond] 1 tab PO Q6H PRN #0 05/22/16 04/14/18 atorvastatin 40 mg PO BEDTIME #0 11/08/16 04/14/18 calcium carbonate-vitamin D3 1 cap PO BID #0 11/08/16 04/14/18 [Calcium 600 with Vitamin D3] carvedilol [Coreg] 12.5 mg PO BID #0 11/08/16 04/14/18 ondansetron HCl [Zofran] 4 mg PO Q8H PRN #0 11/08/16 04/14/18 pantoprazole [Protonix] 40 mg PO BID #0 11/08/16 04/14/18 potassium chloride 10 meq PO BID #0 11/08/16 04/14/18 isosorbide mononitrate 30 mg PO QAM #0 01/27/17 04/14/18 losartan 25 mg PO QPM #0 01/27/17 04/14/18 diphenhydramine HCl 25 mg PO Q6HPRN PRN #0 06/21/17 04/14/18 torsemide 40 mg PO QDAYP PRN #0 06/25/17 04/14/18 vitamin E 400 unit PO DAILY #0 07/04/17 04/14/18 [place]-3 Fish Oil 500 mg PO BID 04/09/18 04/14/18 aspirin 81 mg PO QPM 04/09/18 04/14/18 clobetasol 1 applic TOPICAL DIRECTED 04/09/18 04/14/18 clopidogrel 75 mg PO QPM 04/09/18 04/14/18 duloxetine 30 mg PO QPM 04/09/18 04/14/18 insulin NPH and regular human 64 units SUBCUT BID 04/09/18 04/14/18 [Novolin 70/30 U-100 Insulin] insulin regular human [Novolin R 1 dose SUBCUT BID PRN 04/09/18 04/14/18 Regular U-100 Insuln] levothyroxine 250 mcg PO DAILY 04/09/18 04/14/18 nitroglycerin [Nitrostat] 0.4 mg SUBLINGUAL PRN PRN 04/09/18 04/14/18 oxybutynin chloride 5 mg PO BID 04/09/18 04/14/18 polyethylene glycol 3350 [Miralax] 17 g PO DAILY PRN 04/09/18 04/14/18 ferrous sulfate [iron] 325 mg PO BID 04/14/18 04/14/18 hydrochlorothiazide 25 mg PO BID 04/14/18 04/14/18 Previous Rx's Medication Instructions Recorded amoxicillin-pot clavulanate 1 tab PO BID #14 tab 04/10/18 [Augmentin] azithromycin 500 mg PO DAILY 5 Days tab 04/10/18 bumetanide 0.5 mg PO DAILY #60 tab 04/10/18 metolazone 2.5 mg PO DAILY #30 tab 04/10/18 ropinirole [Requip] 0.5 mg PO TID #30 tab 04/10/18 Allergies Allergy/AdvReac Type Severity Reaction Status Date / Time meperidine [From DEMEROL] Allergy Severe NAUSEA/VOMI Verified 09/22/17 07:21 TTING Review of Systems Review of Systems Poor historian most history is from unobtainable due to mental status [facility] Medical History Anemia (Acute) Atrial fibrillation (Acute) CHF (congestive heart failure) (Acute) Diabetes (Acute) History of GI bleed (Acute) History of hysterectomy (Acute) Surgical History History of cholecystectomy (Acute) S/P CABG x 3 (Acute) Family History: Reviewed 04/14/18 by Rimma Herbert MD Social History household members: spouse Smoking Status: Former smoker alcohol intake: never substance use type: does not use Exam Initial Vital Signs Initial Vital Signs: Vital Signs Temperature 99.8 F H 04/14/18 09:17 Pulse Rate 60 04/14/18 09:17 Respiratory Rate 16 04/14/18 09:17 Blood Pressure 111/85 04/14/18 09:17 Pulse Oximetry 98 04/14/18 09:17 Gen.: Difficult to arouse female but does respond to painful stimuli falls back asleep quickly HEENT: Head is atraumatic face is symmetric PHUC, EOMI Neck: Neck is supple no JVD no meningeal signs trachea midline Lungs: Clear bilaterally no wheezes rales or rhonchi Cardiac: Regular rate no murmur Abdomen: Soft nontender nondistended no guarding no rebound Extremities: Moving all extremities no edema peripheral pulses intact no deformity Neurologic: Responsive to pain but difficult to arouse can follow some commands no focal deficits is moves toes and arms Scores GCS Pike coma scale eye opening: To pressure Stone coma scale verbal response: Confused Pike coma scale motor response: Obey commands Pike coma scale total score: 12 Course Orders Ordered: ED Orders 04/14/18 09:29 Urine Culture Stat Urine Drug Screen, Rapid Stat 04/14/18 09:31 XR chest 1V Stat EKG-12 Lead Stat 04/14/18 09:40 Acetaminophen Stat Complete Blood Count AUTO DIFF Stat Comprehensive Metabolic Panel Stat Ethanol (ETOH) Stat Lactate (Lactic Acid) Stat Partial Thromboplastin Time Stat Prolactin Stat Prothrombin Time INR Stat Salicylate Stat Thyroid Stimulating Hormone Stat Troponin & CK Cardiac Panel Stat 04/14/18 09:45 Cortisol Random Stat Free T4 Free Thyroxine Stat 04/14/18 10:15 Ammonia (NH3) Stat Blood Culture Stat 04/14/18 11:56 CT head/brain wo con Stat 04/14/18 14:49 Consult to Dietitian, Adult Routine 04/14/18 15:22 Education, smoking cessation ONGOING 04/14/18 15:30 Consult to Discharge Planning Routine Consult to Occupational Therapy Evaluate & Treat Consult to Physical Therapy Evaluate & Treat 04/15/18 05:00 B Type Natriuretic Peptide Routine Complete Blood Count AUTO DIFF Routine Comprehensive Metabolic Panel Routine Acetaminophen (Tylenol) 650 mg PO Q6HR REJI Hydrocodone Bitart/Acetaminophen (Raymond 5/325) 1 tab PO Q4HR PRN PRN Reason: Pain, Moderate (4-6) Amiodarone HCl (Cordarone) 200 mg PO DAILY [facility] Aspirin (Aspirin Ec) 81 mg PO DAILY [facility] Atorvastatin Calcium (Lipitor) 40 mg PO BEDTIME REJI Bisacodyl (Dulcolax) [address] DAILY PRN PRN Reason: Constipation Carvedilol (Coreg) 12.5 mg PO BID [facility] Clopidogrel Bisulfate (Plavix) 75 mg PO DAILY [facility] Dextrose (D50w) 25 gm IV PRN PRN; Protocol PRN Reason: Hypoglycemia Docusate Sodium (Colace) 100 mg PO BID [facility] Fluticasone Propionate (Flonase) 1 spray NASAL BID [facility] Haloperidol (Haldol) 2 mg IV Q2HR PRN PRN Reason: Agitation Heparin Sodium (Porcine) (Heparin) 5,000 unit SUBCUT BID REJI Hydromorphone HCl (Dilaudid) 0.5 mg IV Q6HR PRN PRN Reason: Pain, Moderate (4-6) Sodium Chloride (Normal Saline 0.9%) 1,000 mls @ 150 mls/hr IV CONT REJI Last Admin: 04/14/18 14:53 Dose: 150 mls/hr Infusion: 04/14/18 14:53 Dose: 150 mls/hr Infusion: 04/14/18 13:49 Dose: 150 mls/hr Admin: 04/14/18 10:16 Dose: 150 mls/hr Insulin Aspart (Novolog Flexpen) 0 unit SUBCUT ACHS REJI; Protocol Insulin Human Isoph/Insulin Regular (Humulin 70-30 Kwikpen) 20 unit SUBCUT BIDAC REJI Levothyroxine Sodium (Synthroid) 250 mcg PO 0600 RE[facility]I Liothyronine Sodium (Cytomel) 5 mcg PO DAILY [facility] Nitroglycerin (Nitrostat) 0.4 mg SL [id number] PRN PRN Reason: Chest Pain Ondansetron HCl (Zofran) 4 mg IV Q8HR PRN PRN Reason: Nausea And Vomiting Polyethylene Glycol (Miralax) 17 gm PO BID REJI Sennosides (Senna) 17.2 mg PO BEDTIME REJI Sodium Biphosphate/Sodium Phosphate (Fleet Enema) [address] PRN PRN PRN Reason: Constipation Vital Signs - 8 hr 04/14/18 10:30 04/14/18 11:00 04/14/18 11:22 Temperature Pulse Rate 59 L 64 62 Respiratory Rate 14 12 13 Blood Pressure Blood Pressure [Left Arm] 120/39 L 104/32 L 107/31 L Pulse Oximetry 95 95 93 04/14/18 12:45 04/14/18 13:04 04/14/18 13:30 Temperature Pulse Rate 66 63 64 Respiratory Rate 15 13 14 Blood Pressure Blood Pressure [Left Arm] 144/45 H 140/54 L 132/62 Pulse Oximetry 95 04/14/18 13:47 04/14/18 15:22 04/14/18 15:44 Temperature 97.8 F Pulse Rate 61 65 Respiratory Rate 18 15 Blood Pressure 137/72 Blood Pressure [Left Arm] 118/53 L Pulse Oximetry 95 100 96 MDM - Weakness Lab Data Attestation: I reviewed the patient's lab results. Result diagrams: 04/14/18 09:40 04/14/18 09:40 Lab Results 04/14/18 04/14/18 04/14/18 Range/Units 09:40 09:40 09:40 WBC 10.6 (4.5-11.0) X10^3/uL RBC 3.23 L (4.0-5.2) X10^6/uL Hgb 9.6 L (12.0-16.0) g/dL Hct 28.9 L (36-46) % MCV 89.3 (80-100) fL MCH 29.7 (26-34) PG MCHC 33.3 (30-36) % RDW 16.0 H (11.6-14.8) % Plt Count 206 (150-400) X10^3/uL Neut % (Auto) 83.9 H (50-75) % Lymph % (Auto) 7.0 L (25-40) % Riley % (Auto) 7.9 (3-14) % Eos % (Auto) 1.0 L (2-4) % Baso % (Auto) 0.2 (0-2) % Neut # (Auto) 8900 H (4486-7787) /uL PT 12.5 (10.1-12.7) SECONDS INR 1.1 (0.9-1.3) APTT 28 D (26.4-36.2) SECONDS Sodium (137-145) mmol/L Potassium (3.4-5.1) mmol/L Chloride (98-107) mmol/L Carbon Dioxide (22-32) mmol/L BUN (7-17) mg/dL Creatinine (0.52-1.04) mg/dL Estimated GFR (>60) mL/min BUN/Creatinine Ratio (6-22) Glucose (80-110) mg/dL Lactate (0.7-2.1) mmol/L Calcium (8.4-10.2) mg/dL Total Bilirubin (0.2-1.3) mg/dL AST (14-36) IU/L ALT (9-52) IU/L Alkaline Phosphatase (38-126) U/L Ammonia (9-30) umol/L Total Creatine Kinase 173 H (30-135) U/L CK-MB (CK-2) 5.54 H (<2.37) ng/mL CK-MB (CK-2) Rel Index 3.2 (1.5-5.0) % Troponin I 0.013 (0.01-0.034) ng/mL Total Protein (6.3-8.2) g/dL Albumin (3.5-5.0) g/dL Globulin (1.7-4.1) g/dL Albumin/Globulin Ratio (1.0-2.8) TSH (0.47-4.68) uIU/mL Free T4 (0.78-2.19) ng/dL Prolactin (3.0-18.6) ng/mL Random Cortisol ug/dL Salicylates (<20) mg/dL Acetaminophen (10-30) ug/mL Ethyl Alcohol mg/dL 04/14/18 04/14/18 04/14/18 Range/Units 09:40 09:40 09:40 WBC (4.5-11.0) X10^3/uL RBC (4.0-5.2) X10^6/uL Hgb (12.0-16.0) g/dL Hct (36-46) % MCV (80-100) fL MCH (26-34) PG MCHC (30-36) % RDW (11.6-14.8) % Plt Count (150-400) X10^3/uL Neut % (Auto) (50-75) % Lymph % (Auto) (25-40) % Riley % (Auto) (3-14) % Eos % (Auto) (2-4) % Baso % (Auto) (0-2) % Neut # (Auto) (8055-0572) /uL PT (10.1-12.7) SECONDS INR (0.9-1.3) APTT (26.4-36.2) SECONDS Sodium 140 (137-145) mmol/L Potassium 4.7 (3.4-5.1) mmol/L Chloride 100 (98-107) mmol/L Carbon Dioxide 24 (22-32) mmol/L BUN 100 H (7-17) mg/dL Creatinine 3.30 H (0.52-1.04) mg/dL Estimated GFR 13.7 L (>60) mL/min BUN/Creatinine Ratio 30.3 H (6-22) Glucose 127 H (80-110) mg/dL Lactate 0.8 (0.7-2.1) mmol/L Calcium 8.7 (8.4-10.2) mg/dL Total Bilirubin 0.6 (0.2-1.3) mg/dL AST 35 (14-36) IU/L ALT 36 (9-52) IU/L Alkaline Phosphatase 79 (38-126) U/L Ammonia (9-30) umol/L Total Creatine Kinase (30-135) U/L CK-MB (CK-2) (<2.37) ng/mL CK-MB (CK-2) Rel Index (1.5-5.0) % Troponin I (0.01-0.034) ng/mL Total Protein 7.0 (6.3-8.2) g/dL Albumin 4.2 (3.5-5.0) g/dL Globulin 2.8 (1.7-4.1) g/dL Albumin/Globulin Ratio 1.5 (1.0-2.8) TSH 10.10 H D (0.47-4.68) uIU/mL Free T4 (0.78-2.19) ng/dL Prolactin 31.9 H (3.0-18.6) ng/mL Random Cortisol ug/dL Salicylates < 1.0 (<20) mg/dL Acetaminophen < 10 L (10-30) ug/mL Ethyl Alcohol < 10 mg/dL 04/14/18 04/14/18 04/14/18 Range/Units 09:45 09:45 10:15 WBC (4.5-11.0) X10^3/uL RBC (4.0-5.2) X10^6/uL Hgb (12.0-16.0) g/dL Hct (36-46) % MCV (80-100) fL MCH (26-34) PG MCHC (30-36) % RDW (11.6-14.8) % Plt Count (150-400) X10^3/uL Neut % (Auto) (50-75) % Lymph % (Auto) (25-40) % Riley % (Auto) (3-14) % Eos % (Auto) (2-4) % Baso % (Auto) (0-2) % Neut # (Auto) (6644-5417) /uL PT (10.1-12.7) SECONDS INR (0.9-1.3) APTT (26.4-36.2) SECONDS Sodium (137-145) mmol/L Potassium (3.4-5.1) mmol/L Chloride (98-107) mmol/L Carbon Dioxide (22-32) mmol/L BUN (7-17) mg/dL Creatinine (0.52-1.04) mg/dL Estimated GFR (>60) mL/min BUN/Creatinine Ratio (6-22) Glucose (80-110) mg/dL Lactate (0.7-2.1) mmol/L Calcium (8.4-10.2) mg/dL Total Bilirubin (0.2-1.3) mg/dL AST (14-36) IU/L ALT (9-52) IU/L Alkaline Phosphatase (38-126) U/L Ammonia < 9.0 L (9-30) umol/L Total Creatine Kinase (30-135) U/L CK-MB (CK-2) (<2.37) ng/mL CK-MB (CK-2) Rel Index (1.5-5.0) % Troponin I (0.01-0.034) ng/mL Total Protein (6.3-8.2) g/dL Albumin (3.5-5.0) g/dL Globulin (1.7-4.1) g/dL Albumin/Globulin Ratio (1.0-2.8) TSH (0.47-4.68) uIU/mL Free T4 1.25 (0.78-2.19) ng/dL Prolactin (3.0-18.6) ng/mL Random Cortisol 33.4 ug/dL Salicylates (<20) mg/dL Acetaminophen (10-30) ug/mL Ethyl Alcohol mg/dL Point of Care Testing Glucose POC 150 Imaging Data Chest x-ray: Radiologist's impression: PROCEDURE: XR CHEST 1V INDICATIONS: altered mental status TECHNIQUE: One view of the chest was acquired. COMPARISON: [facility], , XR CHEST 1V, 04/09/2018, 10:48. FINDINGS: Surgical changes and devices: Postoperative changes are present related to prior median sternotomy. Lungs and pleura: There are low lung volumes. However, the aeration of the lungs appears improved in the interim. The pulmonary vasculature is mildly increased. Slight increased attenuation at the right lung base and along the inferior margin of the right upper lobe near the minor fissure is evident. No lobar consolidation is evident. There is no effusion or pneumothorax. Mediastinum: Mediastinal contours appear normal. Heart size is borderline enlarged. There is aortic atherosclerosis. Bones and chest wall: No suspicious bony lesions. Overlying soft tissues appear unremarkable. IMPRESSION: 1. Subtle area of increased attenuation at the right lung base may represent atelectasis. Superimposed pneumonia is difficult to exclude. 2. Borderline cardiomegaly. No overt heart failure. Dictated by: Hayden Houser M.D. on 04/14/2018 at 10:32 CT scan - head: Radiologist's impression: PROCEDURE: CT HEAD/BRAIN WO CON INDICATIONS: decreased mental status TECHNIQUE: Noncontrast 4.5 mm thick angled axial sections acquired from the foramen magnum to the vertex, with coronal and sagittal reformats. For radiation dose reduction, the following was used: automated exposure control, adjustment of mA and/or kV according to patient size. COMPARISON: [facility], CT, CT HEAD/BRAIN WO YUKI, 09/22/2017, 7:55. FINDINGS: Image quality: Artifact is present on multiple sequences, limiting areas of fine detail evaluation. CSF spaces: Basal cisterns are patent. No extra-axial fluid collections. The ventricles are symmetric in size and shape. Brain: No intracranial bleeds or masses. There is cerebral volume loss for age , with resultant ventricular and sulcal prominence. There are periventricular and deep white matter chronic small vessel ischemic changes. There is intracranial internal carotid artery atherosclerosis. Skull and face: Calvarium and visualized facial bones appear intact, without suspicious lesions. Sinuses: Visualized sinuses and mastoids are clear. IMPRESSION: 1. No acute intracranial process. 2. Moderate atrophy and chronic microvascular ischemic changes. Dictated by: Arielle Olsen M.D. on 04/14/2018 at 12:20 ECG Data Attestation: I personally reviewed and interpreted this ECG as follows: Prior ECG tracings: available for review Interpretation: Normal sinus rhythm rate [address] CT interval 157 similar to previous EKG MDM Narrative Medical decision making narrative: ABG was attempted 2-3 times by Respiratory an unsuccessful. Patient is arousable but to painful stimuli not able to give good history. Creatinine is elevated today at 3.3 previously 2.4. Her TSH is also elevated but not enough to have myxedema coma. Possible medication induced encephalopathy. No sign of infection. Dr. Herbert accepts patient Discharge Plan Departure Patient Disposition: Admitted As Inpatient Clinical Impression: Acute metabolic encephalopathy Discharge Date/Time: 04/14/18 13:40 Interventions: ED Discharge Assessment Last Done: 04/14/18 13:38 Admit Date/Time: 04/14/18 12:17 Admit Provider: Rimma Herbert
--- NOTE | 2018-04-14 11:56 | DI.CT.S_ITS ---
PROCEDURE: CT HEAD/BRAIN WO CON INDICATIONS: decreased mental status TECHNIQUE: Noncontrast 4.5 mm thick angled axial sections acquired from the foramen magnum to the vertex, with coronal and sagittal reformats. For radiation dose reduction, the following was used: automated exposure control, adjustment of mA and/or kV according to patient size. COMPARISON: [facility], CT, CT HEAD/BRAIN WO CON, 09/22/2017, 7:55. FINDINGS: Image quality: Artifact is present on multiple sequences, limiting areas of fine detail evaluation. CSF spaces: Basal cisterns are patent. No extra-axial fluid collections. The ventricles are symmetric in size and shape. Brain: No intracranial bleeds or masses. There is cerebral volume loss for age, with resultant ventricular and sulcal prominence. There are periventricular and deep white matter chronic small vessel ischemic changes. There is intracranial internal carotid artery atherosclerosis. Skull and face: Calvarium and visualized facial bones appear intact, without suspicious lesions. Sinuses: Visualized sinuses and mastoids are clear. IMPRESSION: 1. No acute intracranial process. 2. Moderate atrophy and chronic microvascular ischemic changes. Dictated by: Arielle Olsen M.D. on 04/14/2018 at 12:20 Approved by: Arielle Olsen M.D. on 04/14/2018 at 12:21
[2018-04-14 12:13] LABS: Free T4, Direct Thyroxine 1.25 ng/dL (0.78-2.19)
[2018-04-14 12:28] LABS: Cortisol Random 33.4 ug/dL
--- NOTE | 2018-04-14 15:16 | PC.NURSE ---
Admit: Arrived to room 206 at 1355. Transferred to bed via slider board. Patient drowsy, lethargic. Awakens to touch/voice. Oriented to self, able to follow commands, not currently oriented to date/place/situation. RAFAELA, 3mm. at bedside and answered admission questions. Patient very weak, 2 person assist in bed. Incontinent, brief changed upon arrival. See skin assessment for details. CBG check at admit was 138. VSS. SpO2 on RA 96%. Lungs CTAS, dim bases. HRR. Oriented to room and call light, will need repeat education. Call light in reach, fall precautions in place.
--- NOTE | 2018-04-14 16:15 | P.HP_ITS ---
History of Present Illness Date Patient Seen: 04/14/18 Chief complaint: Increased weakness Narrative: The patient is a 72-year-old female who was discharged from the hospital 4 days prior to this admission following an episode of hypoglycemia. Patient's provides a history and reports that she was started on risperidone about 2 weeks ago. Initially 0.5 mg and then decreased to .25 mg. He states that since starting on the risperidone he has noticed that she has been more confused. She had decreased mental status on admission 4 days ago. She was found to be markedly hypoglycemic with a blood sugar of 25. The patient states that he gave her her usual insulin and believes that she gave herself inadvertently a 2nd dose of insulin. She was discharged home 4 days ago. Patient according to her became more and more lethargic and less responsive. She was taking her usual medications. She did not get metolazone or Bumex as prescribed. She continued to take her hydrochlorothiazide that she was previously on. In addition the patient was on losartan as well. Upon arrival to the hospital today the patient was markedly unresponsive. She was essentially obtunded and minimally arousable. She was found to be in acute renal failure with a creatinine of 3.3. Last creatinine was 2.4. Of note the patient has been taking baclofen 20 mg twice daily. It is recommended that her baclofen dose be decreased to about 2.5 per day given her worsening renal insufficiency. The patient is admitted to the hospital at this time for further evaluation. She is a bit more alert however she quickly falls back to sleep. She is unable to answer any questions. Her has provided most of the history as have review of her prior medical records. Review of systems and family history is unobtainable as the patient is obtunded and unable to provide this information. Patient History Medical History Anemia (Acute) Atrial fibrillation (Acute) CHF (congestive heart failure) (Acute) Diabetes (Acute) History of GI bleed (Acute) History of hysterectomy (Acute) Surgical History History of cholecystectomy (Acute) S/P CABG x 3 (Acute) Family & Social History Family History: Reviewed 04/14/18 by Rimma Herbert MD Social History: household members spouse Prior Living Arrangements House Safety & Behavioral: Feels Safe in Current Yes Environment Been Physically Hurt or No Threatened By a Person Suicidal Ideation Description None Suicide Plan Description No Plan Tobacco & Substance use: Tobacco type cigarettes Smoking Status Former smoker alcohol intake never Substance Use Type does not use Meds Home Medications Medication Instructions Recorded Confirmed Type baclofen 20 mg PO BID #10 04/26/16 04/14/18 History vitamin B complex [B 1 tab PO DAILY #0 04/26/16 04/14/18 History Complex-Vitamin B12] amiodarone 200 mg PO DAILY #0 05/22/16 04/14/18 History fluticasone 1 spray INTRANASAL BID #0 05/22/16 04/14/18 History hydrocodone-acetaminophen [[place]] 1 tab PO Q6H PRN #0 05/22/16 04/14/18 History atorvastatin 40 mg PO BEDTIME #0 11/08/16 04/14/18 History calcium carbonate-vitamin D3 1 cap PO BID #0 11/08/16 04/14/18 History [Calcium 600 with Vitamin D3] carvedilol [Coreg] 12.5 mg PO BID #0 11/08/16 04/14/18 History ondansetron HCl [Zofran] 4 mg PO Q8H PRN #0 11/08/16 04/14/18 History pantoprazole [Protonix] 40 mg PO BID #0 11/08/16 04/14/18 History potassium chloride 10 meq PO BID #0 11/08/16 04/14/18 History isosorbide mononitrate 30 mg PO QAM #0 01/27/17 04/14/18 History losartan 25 mg PO QPM #0 01/27/17 04/14/18 History diphenhydramine HCl 25 mg PO Q6HPRN PRN #0 06/21/17 04/14/18 History torsemide 40 mg PO QDAYP PRN #0 06/25/17 04/14/18 History vitamin E 400 unit PO DAILY #0 07/04/17 04/14/18 History [place]-3 Fish Oil 500 mg PO BID 04/09/18 04/14/18 History aspirin 81 mg PO QPM 04/09/18 04/14/18 History clobetasol 1 applic TOPICAL DIRECTED 04/09/18 04/14/18 History clopidogrel 75 mg PO QPM 04/09/18 04/14/18 History duloxetine 30 mg PO QPM 04/09/18 04/14/18 History insulin NPH and regular human 64 units SUBCUT BID 04/09/18 04/14/18 History [Novolin 70/30 U-100 Insulin] insulin regular human [Novolin R 1 dose SUBCUT BID PRN 04/09/18 04/14/18 History Regular U-100 Insuln] levothyroxine 250 mcg PO DAILY 04/09/18 04/14/18 History nitroglycerin [Nitrostat] 0.4 mg SUBLINGUAL PRN PRN 04/09/18 04/14/18 History oxybutynin chloride 5 mg PO BID 04/09/18 04/14/18 History polyethylene glycol 3350 [Miralax] 17 g PO DAILY PRN 04/09/18 04/14/18 History amoxicillin-pot clavulanate 1 tab PO BID #14 tab 04/10/18 04/14/18 Rx [Augmentin] azithromycin 500 mg PO DAILY 5 Days tab 04/10/18 04/14/18 Rx bumetanide 0.5 mg PO DAILY #60 tab 04/10/18 04/14/18 Rx metolazone 2.5 mg PO DAILY #30 tab 04/10/18 04/14/18 Rx ropinirole [Requip] 0.5 mg PO TID #30 tab 04/10/18 04/14/18 Rx ferrous sulfate [iron] 325 mg PO BID 04/14/18 04/14/18 History hydrochlorothiazide 25 mg PO BID 04/14/18 04/14/18 History Allergies Allergy/AdvReac Type Severity Reaction Status Date / Time meperidine [From DEMEROL] Allergy Severe NAUSEA/VOMI Verified 09/22/17 07:21 TTING Review of Systems Review of Systems unobtainable due to mental status Exam Vital Signs (past 8 hours): - 04/14/18 09:17 04/14/18 11:22 04/14/18 13:04 Temperature 99.8 F H Pulse Rate 61 62 63 Respiratory Rate 18 13 13 Blood Pressure 111/85 Blood Pressure [Left Arm] 107/31 L 140/54 L Pulse Oximetry 95 93 04/14/18 13:47 04/14/18 15:44 Temperature Pulse Rate 61 Respiratory Rate 18 Blood Pressure Blood Pressure [Left Arm] 118/53 L Pulse Oximetry 95 96 Oxygen Delivery Method Room Air Oxygen Flow Rate 0 Narrative Exam Narrative: Minimally arousable female. She will arouse to stimuli but quickly falls back to sleep. HEENT: Normocephalic atraumatic, sclerae anicteric, oropharynx reveals dry mucous membranes Lungs: Decreased but clear to auscultation Cardiac exam: Regular rate and rhythm normal S1 and S2 with a 2/6 systolic ejection murmur Abdomen: Obese soft and nontender no hepatosplenomegaly noted Extremities: Trace edema Neuro exam: The patient is minimally responsive. She will open her eyes and quickly falls back to sleep. She does withdraw to painful stimuli in her upper and lower extremities Objective Labs Result Diagrams: 04/14/18 09:40 04/14/18 09:40 Labs: Laboratory Results - last 24 hr 04/14/18 04/14/18 04/14/18 09:40 09:40 09:40 WBC 10.6 RBC 3.23 L Hgb 9.6 L Hct 28.9 L MCV 89.3 MCH 29.7 MCHC 33.3 RDW 16.0 H Plt Count 206 Neut % (Auto) 83.9 H Lymph % (Auto) 7.0 L Mclennan % (Auto) 7.9 Eos % (Auto) 1.0 L Baso % (Auto) 0.2 Neut # (Auto) 8900 H PT 12.5 INR 1.1 APTT 28 D Sodium Potassium Chloride Carbon Dioxide BUN Creatinine Estimated GFR BUN/Creatinine Ratio Glucose Lactate Calcium Total Bilirubin AST ALT Alkaline Phosphatase Ammonia Total Creatine Kinase 173 H CK-MB (CK-2) 5.54 H CK-MB (CK-2) Rel Index 3.2 Troponin I 0.013 Total Protein Albumin Globulin Albumin/Globulin Ratio TSH Free T4 Prolactin Random Cortisol Salicylates Acetaminophen Ethyl Alcohol 04/14/18 04/14/18 04/14/18 09:40 09:40 09:40 WBC RBC Hgb Hct MCV MCH MCHC RDW Plt Count Neut % (Auto) Lymph % (Auto) Mclennan % (Auto) Eos % (Auto) Baso % (Auto) Neut # (Auto) PT INR APTT Sodium 140 Potassium 4.7 Chloride 100 Carbon Dioxide 24 BUN 100 H Creatinine 3.30 H Estimated GFR 13.7 L BUN/Creatinine Ratio 30.3 H Glucose 127 H Lactate 0.8 Calcium 8.7 Total Bilirubin 0.6 AST 35 ALT 36 Alkaline Phosphatase 79 Ammonia Total Creatine Kinase CK-MB (CK-2) CK-MB (CK-2) Rel Index Troponin I Total Protein 7.0 Albumin 4.2 Globulin 2.8 Albumin/Globulin Ratio 1.5 TSH 10.10 H D Free T4 Prolactin 31.9 H Random Cortisol Salicylates < 1.0 Acetaminophen < 10 L Ethyl Alcohol < 10 04/14/18 04/14/18 04/14/18 09:45 09:45 10:15 WBC RBC Hgb Hct MCV MCH MCHC RDW Plt Count Neut % (Auto) Lymph % (Auto) Mclennan % (Auto) Eos % (Auto) Baso % (Auto) Neut # (Auto) PT INR APTT Sodium Potassium Chloride Carbon Dioxide BUN Creatinine Estimated GFR BUN/Creatinine Ratio Glucose Lactate Calcium Total Bilirubin AST ALT Alkaline Phosphatase Ammonia < 9.0 L Total Creatine Kinase CK-MB (CK-2) CK-MB (CK-2) Rel Index Troponin I Total Protein Albumin Globulin Albumin/Globulin Ratio TSH Free T4 1.25 Prolactin Random Cortisol 33.4 Salicylates Acetaminophen Ethyl Alcohol Assessment & Plan (1) Acute metabolic encephalopathy: Problem details: Patient has obtundation which I suspect is related to medications in the setting of worsening renal insufficiency. Specifically baclofen is noted to cause confusion and is recommended to have a lower dose given her creatinine clearance. Will hold the baclofen at this time Current visit: Yes Status: Acute (2) Acute renal failure: Problem details: Will continue with IV hydration. Will hold her diuretics. Will hold her losartan. Will recheck labs in the morning. Current visit: No Status: Acute (3) Dehydration: Problem details: IV hydration as above Current visit: No Status: Acute (4) Diabetes: Problem details: Will continue insulin at half her usual home dose Current visit: No Status: Acute (5) Chronic anemia: Problem details: Will continue to follow. Patient has been chronically on iron. Current visit: No Status: Acute (6) Hypothyroidism: Problem details: Will continue her on her usual levothyroxine. Will add Cytomel given her elevated TSH. Current visit: Yes Status: Acute (7) Morbid obesity: Problem details: Nutrition consult. Current visit: Yes Status: Acute (8) Chronic congestive heart failure with left ventricular diastolic dysfunction : Problem details: Will hold patient's GEREMIAS inhibitor and diuretics at this time. Will check her BNP and resume medications once her creatinine and renal function has improved Current visit: Yes Status: Acute Plan: Assessment/Plan Narrative: Patient has had a Watchman procedure given her inability to tolerate anticoagulation. Will continue her on her usual Plavix and aspirin. No evidence of bleeding at this time. Hold her Protonix and resume when she is able to take p.o.. The patient is a full code and will note that in her record accordingly. Quality VTE Deep Vein Thrombosis/Pulmonary Embolism Present on Admission: No
[2018-04-14] MEDS: INSULIN 70-30 KwikPen 100 UNIT/ML INSULN.PEN 20 UNIT SUBCUT (19:05)
[2018-04-14] MEDS: INSULIN ASPART 100 UNIT/ML INSULN PEN SUBCUT (19:06)
[2018-04-14] MEDS: ACETAMINOPHEN 325 MG TABLET 650 MG PO (19:06)
[2018-04-14] MEDS: ATORVASTATIN 20 MG TABLET 40 MG PO (20:49)
[2018-04-14] MEDS: CARVEDILOL 12.5 MG TABLET PO (20:50)
[2018-04-14] MEDS: SENNOSIDES 8.6 MG TABLET 17.2 MG PO (20:50)
[2018-04-14] MEDS: FLUTICASONE 120 SPRAY/16 GM SPRAY.SUSP NASAL (20:50)
[2018-04-14] MEDS: DOCUSATE 100 MG CAPSULE PO (20:50)
[2018-04-14] MEDS: POLYETHYLENE GLYCOL 3350 17 GM POWD.PACK PO (20:51)
[2018-04-14] MEDS: HEPARIN 5,000 UNIT/ML VIAL 5000 UNIT SUBCUT (20:51)
[2018-04-15] VITALS (9 sets, daily range): BP systolic 129–166; BP diastolic 47–61; PULSE 53–65; RESP 15–18; TEMP 36–37.7; O2SAT 95–100
[2018-04-15] MEDS: ACETAMINOPHEN 325 MG TABLET 650 MG PO ×3 (00:02→17:16)
[2018-04-15 00:59] LABS: Urine Amphetamines Negative (Negative); Urine Barbiturates Negative (Negative); Urine Benzodiazepines Negative (Negative); Urine Cocaine Negative (Negative); Urine MDMA Negative (Negative); Urine Methadone Negative (Negative); Urine Methamphetamines Negative (Negative); Urine Morphine/Opi cutoff 2000 Positive (Negative); Urine Oxycodone Negative (Negative); Urine Phencyclidine Negative (Negative); Urine THC Negative (Negative); Urine Tricyclic Antidepressant Negative (Negative)
[2018-04-15] MEDS: SODIUM CHLORIDE 0.9% 1,000 ML 150 ML IV (03:40)
[2018-04-15] MEDS: LEVOTHYROXINE 125 MCG TABLET 250 MCG PO (05:56)
[2018-04-15 06:04] LABS: Add Manual Diff / Slide Review NO; Basophils Percent Auto 0.9 % (0-2); Eosinophils Percent Auto 2.2 % (2-4); Hematocrit 27.2 % (36-46); Lymphocytes Percent Auto 13.6 % (25-40); Mean Corpuscular Hemoglobin 29.7 PG (26-34); Mean Corpuscular Volume 90.1 fL (80-100); Monocytes Percent Auto 12.5 % (3-14); Neutrophils Absolute Auto 4900 /uL (1500-7000); Neutrophils Percent Auto 70.8 % (50-75); Platelet Count 160 X10^3/uL (150-400); Red Blood Cell Count 3.02 X10^6/uL (4.0-5.2); Red Cell Distribution Width 16.4 % (11.6-14.8); White Blood Cell Count 6.9 X10^3/uL (4.5-11.0)
[2018-04-15 06:15] LABS: Alanine Aminotransferase 35 IU/L (9-52); Albumin 3.5 g/dL (3.5-5.0); Albumin Globulin Ratio 1.3 (1.0-2.8); Alkaline Phosphatase 72 U/L (38-126); Aspartate Aminotransferase 39 IU/L (14-36); BUN Creatinine Ratio 35.9 (6-22); Bilirubin Total 0.4 mg/dL (0.2-1.3); Blood Urea Nitrogen 79 mg/dL (7-17); Calcium 8.3 mg/dL (8.4-10.2); Carbon Dioxide 26 mmol/L (22-32); Chloride 107 mmol/L (98-107); Estimated Glomerular Filt Rate 21.9 mL/min (>60); Globulin 2.6 g/dL (1.7-4.1); Glucose 148 mg/dL (80-110); HEMOLYSIS < 15 (0-50); Potassium 4.5 mmol/L (3.4-5.1); Sodium 145 mmol/L (137-145); Total Protein 6.1 g/dL (6.3-8.2)
--- NOTE | 2018-04-15 11:40 | OT.IP.EVAL ---
Current Diagnoses Anemia, unspecified (04/14/18) Hypothyroidism, unspecified (04/14/18) Type 2 diabetes mellitus without complications (04/14/18) Morbid (severe) obesity due to excess calories (04/14/18) Dehydration (04/14/18) Metabolic encephalopathy (04/14/18) Chronic diastolic (congestive) heart failure (04/14/18) Acute kidney failure, unspecified (04/14/18) Past Medical History (Last Reviewed 04/14/18 @ 16:20 by Rimma Herbert MD) Anemia (Acute) Atrial fibrillation (Acute) CHF (congestive heart failure) (Acute) Diabetes (Acute) History of GI bleed (Acute) History of hysterectomy (Acute) Surgical History (Last Reviewed 04/14/18 @ 16:20 by Rimma Herbert MD) History of cholecystectomy (Acute) S/P CABG x 3 (Acute) Occupational Therapy Inpatient Evaluation/Re-Eval M1 PT/OT-IP Prior Functional Status Start: 04/15/18 11:47 Freq: NEEDED Status: Active Protocol: Document 04/15/18 11:40 MONSERRAT (Rec: 04/15/18 16:04 [facility] [id number]) Medical Review Prior Functional Status Medical History Reviewed Yes Diet/Fluid Consistency Regular NPO Communication Pt has been lethargic and confused for the past week based on pt's report. Mobility and Gait Pt was able to ambulate 30 feet on 04/09/18 with FWW during last hospital stay. Activities of Daily Living and IADL's Pt is an independent ambulator with her 4WW at home before her onset of progressive weakness 2 months ago. Pt's reports she was able to ambulate at home from chair to commode, feed her dogs and do some light meal prep. She uses power chair for community mobility. Her states he had to assist for most ADLs and all IADLs lately due to her weakness and constant lethargic status who could fall asleep anytime during the day. Prior Functional Level (Other details) Pt sleeps in her power lift recliner at home. Social History Household Members spouse Living Arrangements House Number of Floors (Floors) One Floor Number of Stairs To Enter/Railing? ramp to enter Home Environment Standard Height Toilet Walk in Shower Ramp Home Equipment Front Wheel Walker Four Wheel Walker Quad Cane Straight Cane Power Wheelchair/Scooter Raised Toilet Seat Without Armrests Shower Seat with Backrest Grab Bars Near Toilet Grab Bars In Shower Employment Status Retired Additional Social History Comment works 30 hrs/week; daughter can stay with pt while at work or calls in sick if daughter unavailable M2 OT-IP Current Condition Start: 04/15/18 15:41 Freq: Status: Active Protocol: Document 04/15/18 11:40 PJM (Rec: 04/15/18 16:04 PJ [id number]) Occupational Therapy Current Condition Current Condition Evaluation Date 04/15/18 Treatment Diagnosis metabolic encephalopathy (likely medication related) acute renal failure Diagnosis Onset Date 04/14/18 Post Operative Precautions Other Precautions lethargy, fall risk, bed/chair alarm Weight Bearing Status Weight Bearing Status Full Weight Bearing M3 OT- IP Subjective and Pain Start: 04/15/18 15:41 Freq: Status: Active Protocol: Document 04/15/18 11:40 PJM (Rec: 04/15/18 16:04 PJ [id number]) OT- Subjective Occupational Therapy Visit Type Type Initial Evaluation Visit Start Time 10:55 Visit Stop Time 11:40 Total Visit Minutes 45 Notes observing today's session; co-eval with P.T. due to pt's decreased activity tolerance Occupational Therapy Visit Comments Patient/Caregiver Goals to go home and see her dog OT Pain Assessment Pain When Pain Assessed After Treatment Pain Present Pain Present Denied Pain M4 OT- IP ADL's Start: 04/15/18 15:41 Freq: Status: Active Protocol: Document 04/15/18 11:40 PJM (Rec: 04/15/18 16:04 PJ [id number]) OT [id number] Comments OT Self-Feeding Comments pt NPO at present OT ADL-Grooming General Evaluation Grooming Ability Contact Guard Assistance Minimal Assistance Areas Needing Assistance Retrieving/Set-up of Grooming Items Face Washing Comments OT Grooming Comments pt needs verbal cues due to poor thoroughness OT ADL-Oral Care Comments Oral Care Comments pt declined any oral care; states she has no teeth OT ADL-Dressing General Eval Upper Body Dressing Ability Moderate Assistance Lower Body Dressing Ability Moderate Assistance Total Assistance Areas Needing Assistance Underpants/Brief Socks Comments OT Dressing Comments pt needed mod assist with gown change due to IV and unfamiliar garment pt total assist with socks; mod assist with brief change to get them started over feet OT ADL-Toileting General Evaluation Toileting Ability Moderate Assistance Areas Needing Assistance Manage Clothing Perform Perineal Hygiene Comments OT Toileting Comments pt needed brief change due to incontinence of large amount of urine OT ADL-Bathing Comments OT Bathing Comments to be assessed as activity tolerance improves M5 OT- IP IADL's Start: 04/15/18 15:41 Freq: Status: Active Protocol: Document 04/15/18 11:40 PJM (Rec: 04/15/18 16:04 PJ [id number]) OT-Instrumental Activities of Daily Living Deficits IADL Deficits Identified Deficits Home Safety Awareness Awareness of Need for Assistance at Home Decreased Awareness Ability to Problem Solve Emergency Unable to Problem Solve Situations Medication Management Medication Management Caregiver Administers Medication Management Comments administers meds Money Management Money Management Caregiver Provides Assistance Money Management Comments manages finances Meal Preparation Meal Preparation Caregiver Provides Assist Meal Preparation Comments does all meal prep at present Conversion Worker Conversion Worker Caregiver Provides Assist Conversion Worker Comments does all IADLS Driving Driving Caregiver Provides Assist M6 OT- IP Functional Cognition Start: 04/15/18 15:41 Freq: Status: Active Protocol: Document 04/15/18 11:40 PJM (Rec: 04/15/18 16:04 PJ [id number]) Cognitive Factors Limiting Selfcare Function Cognitive Ability Level of Alertness Drowsy Lethargic Patient Orientation Name Month Place Attention Span Ability Capable of Focused Attention Unable to Sustain Attention Ability to Follow Commands Able to Follow One Step Commands Memory Description Short Term Impaired Safety Awareness Underestimates Need for Assistance Problem Solving Ability Unable to Identify Errors Needs Assist to Identify Solutions Executive Function Ability Unable to Make Plans Unable to Organize Plans Unable to Remember Details Cognitive Comments Cognitive Assessment Comments Pt presents with flat affect and slowed speed of processing ; poor initiation and thoroughness with self care tasks. OT- Vision and Hearing OT- Hearing Assessment OT- Hearing Assessment WFL OT- Vision Assessment Visual Acuity Glasses All The Time Vision Assessment Comments pt denies any recent vision changes M7 OT- IP Mobility and Balance Start: 04/15/18 15:41 Freq: Status: Active Protocol: Document 04/15/18 11:40 PJM (Rec: 04/15/18 16:04 [facility] [id number]) OT- Bed Mobility Assessment Rolling Type of Rolling Roll to Left Level of Assistance Minimal Assistance 1 Person Assistance Head of Bed Elevated Bedrails Supine to Sit Supine to Sit Assist Minimal Assistance 1 Person Assistance Scooting Scooting to Edge of Bed Contact Guard Assistance OT-Transfer Assessment Sit to and From Stand Sit to and from Stand Contact Guard Assistance 1 Person Assistance Transfers Transfer Ability Contact Guard Assistance 1 Person Assistance Technique Transfer Destination Chair Transfer Technique Stand Step Pivot Devices Transfer Assistive Devices Gait Belt Front Wheeled Walker OT- Gait Assessment Gait Gait Assistance Required: Contact Guard Assist Distance (Feet) 10 Assistive Devices Assistive Device Gait Belt Front Wheeled Walker Comments Gait Ability Comments Pt walked to sink, stood 3-4 min then sat to rest on BSC before walking back to chair. OT- Balance Assessment Sitting Balance and Reactions Static Sitting Balance Ability Good Dynamic Sitting Balance Ability Fair Standing Balance and Reactions Static Standing Balance Ability Good Dynamic Standing Balance Ability Fair Comments Other Balance Tests/Deviations/Treatment with FWW : M8 OT- IP Objective Assessments Start: 04/15/18 15:41 Freq: Status: Active Protocol: Document 04/15/18 11:40 PJM (Rec: 04/15/18 16:04 PJM [id number]) OT Gross Range of Motion Upper Extremity Range of Motion Assessment Within Functional Limits OT Strength Upper Extremity Strength Assessment Within Functional Limits Hand Fuel Cell Engineer Strength Hand Dominance Right OT- Coordination Assessment Comments Coordination Comments BUE WFL OT-Muscle Tone Assessment Muscle Tone WNL Yes OT Sensation Assessment Comments Summary Comments Pt denies sensory deficits in BUE's M9 OT- IP Assessment and Plan Start: 04/15/18 15:41 Freq: Status: Active Protocol: Document 04/15/18 11:40 PJM (Rec: 04/15/18 16:04 PJM [id number]) OT Summary Assessment and Plan Potential Analytic Complexity at Evaluation Low Summary OT Impairments Strength Balance Functional Cognition Functional Mobility Grooming Dressing Toileting Bathing Toilet Transfers Shower Transfers Assessment Summary Low complexity OT assessment completed with emphasis on self care skills. Pt currently has performance deficits in level of alertness, speed of processing, initiation, and sustained attention. She appears oversedated. Pt also has decreased activity tolerance, decreased independence in all functional mobility/transfers, standing grooming, dressing, bathing and toileting. Pt will benefit from OT services here to address the goals below. Recommend SNF at present as pt has had a significant decline in functional abilites in over past several weeks with repeat hospital admission after only 4 days at home. Pt would prefer home d/c if possible to be near her dog. Will provide further recommendations as medication adjustments made and pt progresses. Goals Grooming Goal Standby Assistance Dressing Goal Minimal Assistance Toileting Goal Minimal Assistance Bathing Goal Minimal Assistance Toilet Transfer Goal Contact Guard Assistance Shower Transfer Goal Contact Guard Assistance Patient/Caregiver Education Goal Demonstrate Energy Conservation and Pacing Caregiver Independent Assisting Patient OT-Other Goals Grooming to be done standing at sink for 5+ min with no LOB and good thoroughness. Days to Meet Goals 5 Frequency of Treatment Frequency Of Treatment Once a Day Treatment Plan OT Treatment Plan ADL Training Functional Mobility Patient/Family Education Discharge Planning Discharge Recommendations OT Discharge Recommendations SNF Rehab vs home with HH OT/PT pending progress
[2018-04-15] MEDS: AMIODARONE 200 MG TABLET PO (11:51)
[2018-04-15] MEDS: ASPIRIN EC 81 MG TABLET PO (11:51)
[2018-04-15] MEDS: CARVEDILOL 12.5 MG TABLET PO ×2 (11:51→20:44)
[2018-04-15] MEDS: DOCUSATE 100 MG CAPSULE PO ×2 (11:55→20:36)
[2018-04-15] MEDS: CLOPIDOGREL 75 MG TABLET PO (11:55)
[2018-04-15] MEDS: HEPARIN 5,000 UNIT/ML VIAL 5000 UNIT SUBCUT ×2 (11:56→20:35)
[2018-04-15] MEDS: LIOTHYRONINE 5 MCG TABLET PO (11:56)
--- NOTE | 2018-04-15 12:48 | PT.IIE ---
Current Diagnoses Anemia, unspecified (04/14/18) Hypothyroidism, unspecified (04/14/18) Type 2 diabetes mellitus without complications (04/14/18) Morbid (severe) obesity due to excess calories (04/14/18) Dehydration (04/14/18) Metabolic encephalopathy (04/14/18) Chronic diastolic (congestive) heart failure (04/14/18) Acute kidney failure, unspecified (04/14/18) Surgical History (Last Reviewed 04/14/18 @ 16:20 by Rimma Herbert MD) History of cholecystectomy (Acute) S/P CABG x 3 (Acute) Medical History (Last Reviewed 04/14/18 @ 16:20 by Rimma Herbert MD) Anemia (Acute) Atrial fibrillation (Acute) CHF (congestive heart failure) (Acute) Diabetes (Acute) History of GI bleed (Acute) History of hysterectomy (Acute) Physical Therapy Inpatient Evaluation/Re-Eval M1 PT/OT-IP Prior Functional Status Start: 04/15/18 11:47 Freq: NEEDED Status: Active Protocol: Document 04/15/18 11:00 (Rec: 04/15/18 12:37 [id number]) Medical Review Prior Functional Status Medical History Reviewed Yes Diet/Fluid Consistency NPO Communication Pt has been lethargic and confused for the past week based on pt's report. Pt was unable to recall date and year. Mobility and Gait Pt was able to amb 30 feet with FWW last week before d/c to home. Activities of Daily Living and IADL's Pt is an independent ambulator with her 4WW at home before her onset of progressive weakness since 2 months ago. Pt's reports she was able to amb at home from chair to commode, feeding her dogs and slight cooking normally. She uses power chair for community mobility. Her states he had to assist for most ADLs and all IADLs lately due to her weakness and constant lethargic status who could fall asleep anytime during the day. Prior Functional Level (Other details) Pt sleeps in her reclining chair everyday due to her restless leg syndrome. Social History Household Members spouse Living Arrangements House Number of Floors (Floors) One Floor Number of Stairs To Enter/Railing? Ramp to enter for power w/c access Home Environment High Toilet Walk in Shower Ramp Home Equipment Four Wheel Walker Straight Cane Power Wheelchair/Scooter Bedside Commode Raised Toilet Seat w/Armrests Shower Seat with Backrest Lift [facility] Bed Grab Bars Near Toilet Grab Bars In Shower Employment Status Retired Additional Social History Comment Pt lives with her in a one story house with many safety features for fall prevention. Pt currently works 30 hours a week and he is able to assist patient as a CG when he is at home. Pt also has 2 dogs who prefers to be d/c to home because of them. However, pt has been requiring extensive assistance from her for most ADLs such as toileting, changing diapers, hair brushing since her onset of progressive weakness. M2 PT-IP Current Condition Start: 04/15/18 11:47 Freq: NEEDED Status: Active Protocol: Document 04/15/18 11:00 (Rec: 04/15/18 12:37 [id number]) Physical Therapy Current Condition Current Condition Evaluation Date 04/15/18 Treatment Diagnosis acute metabolic encephalopathy , difficulty in walking, increased weakness Onset Date 04/10/18 Weight Bearing Status Weight Bearing Status Full Weight Bearing M3 PT-IP Subjective Start: 04/15/18 11:47 Freq: NEEDED Status: Active Protocol: Document 04/15/18 11:00 (Rec: 04/15/18 12:37 [id number]) Subjective Physical Therapy Visit Type Type Initial Evaluation Visit Start Time 11:00 Visit Stop Time 11:45 Total Visit Minutes 45 Notes Pt readmitted to yesterday due to increased weakness, confusion and difficulty in overall mobility at home per report after she was d /c from last Friday. He suspects increased barclofen medication could be the cause. Number of OFFSET PRINTER Visits 0 Physical Therapy Visit Comments Patient Comments Pt reports She has been very lethargic and confused lately and she will fall asleep during ambulation. However, she did stand at bedside last night multuple times because the urge from sleepless leg syndrome. Patient Goals states he wants pt to be d/c to home; amb 50 feet with FWW independently; toilet transfer with FWW independently; slight cooking; maintain static standing >5 mins. Therapy Pain Assessment Pain Present Pain Present Denied Pain M4 PT-IP Mobility and Gait Start: 04/15/18 11:47 Freq: NEEDED Status: Active Protocol: Document 04/15/18 11:00 HH (Rec: 04/15/18 12:37 HH [id number]) PT-Bed Mobility Assessment Supine to Sit Supine to Sit Contact Guard Assistance 1 Person Assistance Head of Bed Elevated Bedrails Sit to Supine Sit to Supine Contact Guard Assistance 1 Person Assistance Head of Bed Elevated Bedrails Scooting Scooting to Edge of Bed Contact Guard Assistance Scooting Up and Down in Bed Contact Guard Assistance PT-Transfer Assessment Sit to and From Stand Sit to and from Stand Contact Guard Assistance 1 Person Assistance Use of Upper Extremities Equipment Transfer Assistive Device Bed Rail Gait Belt Front Wheeled Walker Transfers Transfer Destination Bed Chair Bedside Commode Transfer Technique Stand Step Pivot Transfer Ability Level of Assist Standby Assistance Contact Guard Assistance 1 Person Assistance Use of Upper Extremities Comments Mobility Comments supine BP 126/56 HR 53 post transfer BP 166/60 HR 53 Pt performs supine to sit from EOB 40 degrees with CGA and bedrails for push off; maintain static sitting x 5 mins without UE support; sit to stand CGA with FWW x 5; stand step pivot transfer from bed to bedside chair, commode transfer. Pt demonstrates safe transfer techniques with proper approach, turn and hand placements. Gait Assessment Gait Gait Assistance Required: Contact Guard Assist Distance (Feet) 10 Assistive Devices Assistive Device Gait Belt Front Wheeled Walker Gait Deviations General Gait Pattern Decreased Stride Length Decreased Feet Clearance Flexed Trunk Factors Limiting Gait Function Factors Limiting Gait Function Decreased Activity Tolerance Decreased Strength Limited Range of Motion Comments Gait Comments Pt amb 5 feet from bedside chair to sink and back to chair with CGA x 1p. Pt presents increased thoracic flexion and decreased feet clearance and stride length during amb. However, pt does not show any acute distress and signs of LOB. She dose presents tendency to fall asleep during mobility who requires constant cues to keep her alerted. Pt goes back to sleep once she sat down on bedside chair. call light within reach. PT-Balance Assessment Sitting Balance and Reactions Static Sitting Balance Ability Normal Dynamic Sitting Balance Ability Good Standing Balance and Reactions Static Standing Balance Ability Good Dynamic Standing Balance Ability Good M5 PT-IP Objective Assessments Start: 04/15/18 11:47 Freq: NEEDED Status: Active Protocol: Document 04/15/18 11:00 HH (Rec: 04/15/18 12:37 [id number]) Orientation Orientation/Cognition Level of Alertness Confusional State Orientation Month Safety Awareness Decreased Safety Awareness Memory Description Short Term Impaired Comments Pt is able to follow simple command but she requires constant cues to keep her alerted. Gross Range of Motion Upper Extremity ROM Assessment Within Functional Limits Lower Extremity ROM Assessment Within Functional Limits Strength Upper Extremity Strength Assessment Within Functional Limits Lower Extremity Strength Assessment Within Functional Limits Comments Strength Comments CGA for overall transfer mobility and amb Coordination Assessment Gross Coordination Gross Coordination WNL Sensation Assessment Sensation Gross Sensation WNL M6 PT-IP Treatment Start: 04/15/18 11:47 Freq: NEEDED Status: Active Protocol: Document 04/15/18 11:00 HH (Rec: 04/15/18 12:37 HH [id number]) Physical Therapy Treatment Exercises Exercises Gluteal Sets Quad Sets Education Education Provided Safety M7 PT-IP Assessment and Plan Start: 04/15/18 11:47 Freq: NEEDED Status: Active Protocol: Document 04/15/18 11:00 HH (Rec: 04/15/18 12:37 [id number]) PT Summary Assessment and Plan Potential Rehabilitation Potential Good Status of Condition at Evaluation Evolving Summary Impairments Strength Balance Bed Mobility Transfers Gait Activity Tolerance Assessment Summary Pt is a 72 yo patient who was d/c from last Friday but presents increased confusion, weakness over the weekend possibly due to increase dosage of barclofen. Pt was readmitted yesterday and she is currently under medication mangement to see if pt progress. Pt was asleep with her at bedside upon assessment. Pt was able to respond and follow simple command with constant cues. Pt requires overall CGA for transfers and gait training without signs of LOB and acute distress. Pt also seemed to adapt to her 's assistance for ADLs and IADLs who constantly asked for help during eval session. Pt does present she has WFLs strength and mobility for reaching activities and dressing. In my professional opinion, Pt will be benefited to d/c to SNF in order to increase her overall ambulation distance, reduce her needs for assistance for ADLs and IADLs before d/c to home. (pt's also works 30 hours a week) However, Pt reports pt and him prefer to be d/c to home because of her dogs. Pt will need to reach all her goals for ADLs and amb distance prior to d/c home. Will recommend SNF again at the afternoon PT session when pt is awake again. Goals Bed Mobility Goal Standby Assistance Transfer Goal Standby Assistance Gait Goal Standby Assistance Gait Distance 100 Days to Meet Goals 3 Frequency of Treatment Frequency Of Treatment Twice a Day Treatment Plan Physical Therapy Treatment Plan Bed Mobility Training Transfer Training Gait Training Therapeutic Exercise Balance Retraining Other Recommendations and Next Treatment recommend d/c to SNF to pt Focus during mobility amb as suzan with FWW toilet transfer hip hinge to pull pants up Recommendations To Nursing Amount of Assist Needed 1 Person Assist Discharge Recommendations PT Discharge Recommendations Home Home Health SNF Rehab
--- NOTE | 2018-04-15 14:32 | CM.DANOTE ---
DCP/Assessment: Reviewed chart. Patient is a 72yr old female admitted to .. with increased weakness. Inpatient status confirmed with [facility]. PCP is Dr. Colunga. Primary payor is 1)Medicare 2)[facility]. Patient recently discharged from .. within the last 30dys. At time of last d/c patient went home with spouse. At that time spouse requested to coordinate HH through [facility] with PCP. Met with patient and spouse/Art at bedside explained role. Spouse reports that they never did get HH but reports that he did not want any agency coming immediately (within 48hrs) of patient's discharge. Patient with PT/OT evaluations pending. Spouse believes that patient's current confusion and weakness is related to new medications. Spouse spoke with Dr. Herbert this AM and she is planning to discontinue some of the medications and/or adjust. Patient groggy at time of visit. Spouse open to discuss d/c planning. Spouse aware that SNF may be recommended at time of d/c. Spouse open to the idea of a short SNF stay if needed but would prefer patient go home. Contracted SNF/HH list provided to spouse for review. Spouse reports that at baseline patient uses a walker all the time. Patient also has motorized scooter when she goes out. Lately patient has been primarily in bed and not using either. Discussed HH with spouse as well. He reports that if HH recommended that he would like [facility]. Spouse remains concerned about if HH recommended that they will come too soon from the time the patient leaves the hospital (within 48hrs) notified spouse that this is Medicare requirement. Ultimately, spouse would love for patient to come home and be able to go to outpatient therapy at [facility]. However, he is aware that this is unrealistic at this time. Notified spouse that CM steaming machine operator Georgie Maldonado would be following up. Name/number placed on white board. P: Anticipate SNF when medically stable if patient qualifies. SNF list provided and spouse open to option. Will need to f/u once patient less groggy and therapy evaluations completed. MADDY Martinez Discharge Planning/Care Management CM Discharge Assessment Start: 04/15/18 14:26 Freq: Status: Active Protocol: Document 04/15/18 14:26 KJS (Rec: 04/15/18 14:32 KJS [id number]) Discharge Planning Assessment Assigned Trailhead Maintenance Worker MADDY Martinez Contact Information Sg Jacobsen (spouse) cell# [phone] Advance Directives? No Advance Directives on File No History Provided By Patient Family Member Medical Record Has Patient been admitted in last 30 Yes days? Prior Living Arrangements House Household Members spouse Type of transporation used prior to Relies on Others admit Independent with ADL's No Is patient alert and oriented? No Needs Assistance With Grooming Meal Prep Managing Medications Home Chores / Shopping Caregiver for Another No DME Already Rented / Owned FWW / Walker Cane Other Comment electric scooter Patient/Family Preference [facility] Home with Home Health OP PT Therapy Barriers to Discharge No Discharge Plan [facility] Transportation Arrangement Spouse to provide transportation if patient discharges home when medically stable. Referrals Initiated Other Additional Comment Pending on how patient does in the hospital. If patient plan is home with home health Not yet, will discuss at team : Has signed face to face form been completed? Inpatient Status as of 04/14/18 Medicare Choice List Provided Yes Whiteboard Updated in Patient Room with Yes name and ext. # of Trailhead Maintenance Worker Comment TAMIKA/Georgie phone# [phone] Review Status In Process Please Provide Date Initial DC 04/15/18 Assessment Was Performed Next Review Type Continued Stay Review
--- NOTE | 2018-04-15 14:40 | PT.IPTN ---
Current Diagnoses Anemia, unspecified (04/14/18) Hypothyroidism, unspecified (04/14/18) Type 2 diabetes mellitus without complications (04/14/18) Morbid (severe) obesity due to excess calories (04/14/18) Dehydration (04/14/18) Metabolic encephalopathy (04/14/18) Chronic diastolic (congestive) heart failure (04/14/18) Acute kidney failure, unspecified (04/14/18) Physical Therapy Treatment Note M2 PT-IP Current Condition Start: 04/15/18 11:47 Freq: NEEDED Status: Active Protocol: Document 04/15/18 11:00 HH (Rec: 04/15/18 12:37 HH [id number]) Physical Therapy Current Condition Current Condition Evaluation Date 04/15/18 Treatment Diagnosis acute metabolic encephalopathy , difficulty in walking, increased weakness Onset Date 04/10/18 Weight Bearing Status Weight Bearing Status Full Weight Bearing M3 PT-IP Subjective Start: 04/15/18 11:47 Freq: NEEDED Status: Active Protocol: Document 04/15/18 14:40 AB (Rec: 04/15/18 15:35 AB [id number]) Subjective Physical Therapy Visit Type Type Treatment Note Visit Start Time 14:40 Visit Stop Time 15:03 Total Visit Minutes 23 Number of TRACE EVIDENCE TECHNICIAN Visits 0 Physical Therapy Visit Comments Patient Comments pt willing to ambulate; spouse present during tx session M4 PT-IP Mobility and Gait Start: 04/15/18 11:47 Freq: NEEDED Status: Active Protocol: Document 04/15/18 14:40 AB (Rec: 04/15/18 15:36 AB [id number]) PT-Transfer Assessment Sit to and From Stand Sit to and from Stand Moderate Assistance 1 Person Assistance Use of Upper Extremities Equipment Transfer Assistive Device Gait Belt Front Wheeled Walker Orthotic/Prosthetic Devices or Brace: No Gait Assessment Gait Gait Assistance Required: Standby Assistance Contact Guard Assist Distance (Feet) 80 Able to Maintain Weight Bearing Status Yes During Gait Assistive Devices Assistive Device Gait Belt Front Wheeled Walker Orthotic/Prosthetic Devices or Brace: No Gait Deviations General Gait Pattern Decreased Stride Length Decreased Feet Clearance Factors Limiting Gait Function Factors Limiting Gait Function Decreased Activity Tolerance Decreased Strength Difficulty Following Directions Limited Range of Motion Poor Balance Poor Safety Awareness M5 PT-IP Objective Assessments Start: 04/15/18 11:47 Freq: NEEDED Status: Active Protocol: Document 04/15/18 11:00 (Rec: 04/15/18 12:37 [id number]) Orientation Orientation/Cognition Level of Alertness Confusional State Orientation Month Safety Awareness Decreased Safety Awareness Memory Description Short Term Impaired Comments Pt is able to follow simple command but she requires constant cues to keep her alerted. Gross Range of Motion Upper Extremity ROM Assessment Within Functional Limits Lower Extremity ROM Assessment Within Functional Limits Strength Upper Extremity Strength Assessment Within Functional Limits Lower Extremity Strength Assessment Within Functional Limits Comments Strength Comments CGA for overall transfer mobility and amb Coordination Assessment Gross Coordination Gross Coordination WNL Sensation Assessment Sensation Gross Sensation WNL M6 PT-IP Treatment Start: 04/15/18 11:47 Freq: NEEDED Status: Active Protocol: Document 04/15/18 11:00 HH (Rec: 04/15/18 12:37 [id number]) Physical Therapy Treatment Exercises Exercises Gluteal Sets Quad Sets Education Education Provided Safety M7 PT-IP Assessment and Plan Start: 04/15/18 11:47 Freq: NEEDED Status: Active Protocol: Document 04/15/18 14:40 AB (Rec: 04/15/18 15:35 AB [id number]) PT Summary Assessment and Plan Potential Rehabilitation Potential Fair Summary Impairments Pain Strength Balance Cognition Bed Mobility Transfers Gait Activity Tolerance Progress Towards Goals Slow Progress due to Medical Issues Assessment Summary pt requiring CGA to SBA with ambulation using FWW but continues to appear somnolent but able to follow directions. pt was able to ambulate farther this afternoon. d/c plan depending on progress. spouse expresses desire for pt to go home when appropriate but also open to SNF if needed . will continue to assess Goals Bed Mobility Goal Standby Assistance Transfer Goal Standby Assistance Four Wheeled Walker Gait Goal Standby Assistance Four Wheel Walker Gait Distance 100 Days to Meet Goals 5 Frequency of Treatment Frequency Of Treatment Twice a Day Treatment Plan Physical Therapy Treatment Plan Bed Mobility Training Transfer Training Gait Training Therapeutic Exercise Balance Retraining Other Recommendations and Next Treatment ambulation using 4WW when Focus appropriate Recommendations To Nursing Amount of Assist Needed 1 Person Assist Discharge Recommendations PT Discharge Recommendations Home with 24/7 Assist Home Health SNF Rehab Other Discharge Recommendations SNF vs home with 24/7 and homehealth PT Equipment Needed for Home Before FWW if not safe with 4WW Discharge
--- NOTE | 2018-04-15 15:58 | P.PN_ITS ---
Subjective Date Patient Seen: 04/15/18 Interval history: Patient is still very sedated. Her is at the bedside. Patient is sitting in a chair but minimally arousable. She is ticklish and will move when her feet are touched. She has not been eating. Exam Vital Signs (past 8 hours): - 04/15/18 11:45 04/15/18 15:29 Temperature 97.7 F 97.9 F Pulse Rate 53 L 57 L Respiratory Rate 16 17 Blood Pressure 166/60 H 138/47 L Pulse Oximetry 100 99 Oxygen Delivery Method Room Air Oxygen Flow Rate 0 Narrative Exam Narrative: Obese female, lethargic but arousable Lungs: decreased breath sounds with scattered crackles CV: RRR nl Sl S2 2/6 ELVIS ABd: obese/ soft/ non tender/non distended Ext: 2+ edema Objective Labs Result Diagrams: 04/15/18 05:47 04/15/18 05:47 Labs: Laboratory Results - last 24 hr 04/14/18 04/15/18 04/15/18 23:15 05:47 05:47 WBC 6.9 RBC 3.02 L Hgb 9.0 L Hct 27.2 L MCV 90.1 MCH 29.7 MCHC 33.0 RDW 16.4 H Plt Count 160 Neut % (Auto) 70.8 Lymph % (Auto) 13.6 L [place] % (Auto) 12.5 Eos % (Auto) 2.2 Baso % (Auto) 0.9 Neut # (Auto) 4900 Sodium 145 Potassium 4.5 Chloride 107 Carbon Dioxide 26 BUN 79 H Creatinine 2.20 H Estimated GFR 21.9 L BUN/Creatinine Ratio 35.9 H Glucose 148 H Calcium 8.3 L Total Bilirubin 0.4 AST 39 H ALT 35 Alkaline Phosphatase 72 B-Natriuretic Peptide 176.0 H Total Protein 6.1 L Albumin 3.5 Globulin 2.6 Albumin/Globulin Ratio 1.3 Urine Opiates Screen Positive H Ur Oxycodone Screen Negative Urine Methadone Screen Negative Ur Barbiturates Screen Negative U Tricyclic Antidepress Negative Ur Phencyclidine Scrn Negative Ur Amphetamines Screen Negative U Methamphetamines Scrn Negative Ur MDMA Scrn (Ecstasy) Negative U Benzodiazepines Scrn Negative Urine Cocaine Screen Negative U Marijuana (THC) Screen Negative Assessment & Plan (1) Morbid obesity: Problem details: Nutrition consult. Current visit: Yes Status: Acute (2) Hypothyroidism: Problem details: Will continue her on her usual levothyroxine. Will add Cytomel given her elevated TSH. Current visit: Yes Status: Acute (3) Acute metabolic encephalopathy: Problem details: Patient has obtundation which I suspect is related to medications in the setting of worsening renal insufficiency. Specifically baclofen is noted to cause confusion and is recommended to have a lower dose given her creatinine clearance. Will hold the baclofen at this time Current visit: Yes Status: Acute (4) Acute renal failure: Problem details: Will continue with IV hydration. Will hold her diuretics. Will hold her losartan. Will recheck labs in the morning. Decrease IV hydration, and follow up labs in AM Current visit: No Status: Acute (5) Diabetes: Problem details: Will hold 70/30 continue sliding scale Current visit: No Status: Acute Quality VTE Deep Vein Thrombosis/Pulmonary Embolism Present on Admission: No
[2018-04-15] MEDS: SODIUM CHLORIDE 0.9% 1,000 ML 84 ML IV (17:14)
[2018-04-15] MEDS: ATORVASTATIN 20 MG TABLET 40 MG PO (20:35)
[2018-04-15] MEDS: FLUTICASONE 120 SPRAY/16 GM SPRAY.SUSP NASAL (20:35)
[2018-04-15] MEDS: POLYETHYLENE GLYCOL 3350 17 GM POWD.PACK PO (20:36)
[2018-04-15] MEDS: SENNOSIDES 8.6 MG TABLET 17.2 MG PO (20:37)
[2018-04-15] MEDS: INSULIN ASPART 100 UNIT/ML INSULN PEN SUBCUT (20:45)
[2018-04-16] VITALS (12 sets, daily range): BP systolic 131–168; BP diastolic 49–59; PULSE 58–63; RESP 16–18; TEMP 36.6–37.5; O2SAT 94–98
[2018-04-16] MEDS: ACETAMINOPHEN 325 MG TABLET 650 MG PO ×2 (00:19→05:34)
[2018-04-16] MEDS: SODIUM CHLORIDE 0.9% 1,000 ML 84 ML IV (05:05)
[2018-04-16] MEDS: LEVOTHYROXINE 125 MCG TABLET 250 MCG PO (05:34)
[2018-04-16 06:00] LABS: Add Manual Diff / Slide Review NO; Basophils Percent Auto 0.8 % (0-2); Eosinophils Percent Auto 2.8 % (2-4); Hematocrit 27.7 % (36-46); Hemoglobin 9.1 g/dL (12.0-16.0); Lymphocytes Percent Auto 19.8 % (25-40); Mean Corpuscular Hemoglobin 29.7 PG (26-34); Mean Corpuscular Volume 90.1 fL (80-100); Monocytes Percent Auto 12.4 % (3-14); Neutrophils Absolute Auto 3200 /uL (1500-7000); Neutrophils Percent Auto 64.2 % (50-75); Platelet Count 157 X10^3/uL (150-400); Red Blood Cell Count 3.07 X10^6/uL (4.0-5.2); Red Cell Distribution Width 15.6 % (11.6-14.8)
[2018-04-16 06:07] LABS: Alanine Aminotransferase 32 IU/L (9-52); Albumin 3.4 g/dL (3.5-5.0); Albumin Globulin Ratio 1.4 (1.0-2.8); Alkaline Phosphatase 71 U/L (38-126); Aspartate Aminotransferase 32 IU/L (14-36); BUN Creatinine Ratio 32.9 (6-22); Bilirubin Total 0.3 mg/dL (0.2-1.3); Blood Urea Nitrogen 46 mg/dL (7-17); Calcium 8.1 mg/dL (8.4-10.2); Carbon Dioxide 23 mmol/L (22-32); Chloride 110 mmol/L (98-107); Estimated Glomerular Filt Rate 36.9 mL/min (>60); Globulin 2.5 g/dL (1.7-4.1); Glucose 220 mg/dL (80-110); HEMOLYSIS < 15 (0-50); Potassium 4.4 mmol/L (3.4-5.1); Sodium 143 mmol/L (137-145); Total Protein 5.9 g/dL (6.3-8.2)
[2018-04-16] MEDS: POLYETHYLENE GLYCOL 3350 17 GM POWD.PACK PO ×2 (09:20→20:27)
[2018-04-16] MEDS: DOCUSATE 100 MG CAPSULE PO ×2 (09:20→20:28)
[2018-04-16] MEDS: LIOTHYRONINE 5 MCG TABLET PO (09:20)
[2018-04-16] MEDS: FLUTICASONE 120 SPRAY/16 GM SPRAY.SUSP NASAL ×2 (09:20→20:27)
[2018-04-16] MEDS: CARVEDILOL 12.5 MG TABLET PO ×2 (09:21→20:28)
[2018-04-16] MEDS: ASPIRIN EC 81 MG TABLET PO (09:23)
[2018-04-16] MEDS: HEPARIN 5,000 UNIT/ML VIAL 5000 UNIT SUBCUT ×2 (09:23→20:28)
[2018-04-16] MEDS: CLOPIDOGREL 75 MG TABLET PO (09:23)
[2018-04-16] MEDS: INSULIN ASPART 100 UNIT/ML INSULN PEN SUBCUT ×4 (09:24→20:26)
[2018-04-16] MEDS: AMIODARONE 200 MG TABLET PO (09:24)
[2018-04-16] MEDS: BISACODYL 10 MG SUPP PR (09:33)
[2018-04-16] MEDS: ROPINIROLE 0.25 MG TABLET 0.5 MG PO ×3 (09:46→20:27)
[2018-04-16] MEDS: DULOXETINE 30 MG CAPSULE PO (09:46)
[2018-04-16] MEDS: AMOXICILLIN/CLAV 875/125 MG 1 TAB PO ×2 (09:46→20:27)
--- NOTE | 2018-04-16 10:28 | PT.IPTN ---
Current Diagnoses Anemia, unspecified (04/14/18) Hypothyroidism, unspecified (04/14/18) Type 2 diabetes mellitus without complications (04/14/18) Morbid (severe) obesity due to excess calories (04/14/18) Dehydration (04/14/18) Metabolic encephalopathy (04/14/18) Chronic diastolic (congestive) heart failure (04/14/18) Acute kidney failure, unspecified (04/14/18) Physical Therapy Treatment Note M2 PT-IP Current Condition Start: 04/15/18 11:47 Freq: NEEDED Status: Active Protocol: Document 04/15/18 11:00 HH (Rec: 04/15/18 12:37 HH [id number]) Physical Therapy Current Condition Current Condition Evaluation Date 04/15/18 Treatment Diagnosis acute metabolic encephalopathy , difficulty in walking, increased weakness Onset Date 04/10/18 Weight Bearing Status Weight Bearing Status Full Weight Bearing M3 PT-IP Subjective Start: 04/15/18 11:47 Freq: NEEDED Status: Active Protocol: Document 04/16/18 10:15 SA (Rec: 04/16/18 10:28 SA [id number]) Subjective Physical Therapy Visit Type Type Treatment Note Visit Start Time 09:45 Visit Stop Time 10:09 Total Visit Minutes 24 Notes Pt appears more alert today, asks to use bathroom. Number of OB SCRUB TECH Visits 1 Physical Therapy Visit Comments Patient Comments Pt very reliant on for support and asks him to help her with bed mobility. He declined and offered her encourgement to try and move herself. Therapy Pain Assessment Pain When Pain Assessed During Mobility Pain Present Pain Present Denied Pain M4 PT-IP Mobility and Gait Start: 04/15/18 11:47 Freq: NEEDED Status: Active Protocol: Document 04/16/18 10:15 SA (Rec: 04/16/18 10:28 SA [id number]) PT-Bed Mobility Assessment Rolling Type of Rolling Roll to Right Level of Assist Contact Guard Assistance Supine to Sit Supine to Sit Contact Guard Assistance 1 Person Assistance Head of Bed Elevated Bedrails Scooting Scooting to Edge of Bed Minimal Assistance Scooting Up and Down in Bed Minimal Assistance PT-Transfer Assessment Sit to and From Stand Sit to and from Stand Contact Guard Assistance 1 Person Assistance Use of Upper Extremities Equipment Transfer Assistive Device Gait Belt Front Wheeled Walker Orthotic/Prosthetic Devices or Brace: No Transfers Transfer Destination Chair Toilet Transfer Technique Stand Step Pivot Transfer Ability Level of Assist Contact Guard Assistance 1 Person Assistance Use of Upper Extremities Comments Mobility Comments Pt completed stand pivot tx to /from toilet with CGA and min cues, was able to manage brief with cues but refused to attempt personal hygiene. Pt self limiting with mobility tasks. left room during treatment to encourage pateint to perform tasks with less assistance rather than asking him for help. Gait Assessment Gait Gait Assistance Required: Standby Assistance Contact Guard Assist Distance (Feet) 75 Able to Maintain Weight Bearing Status Yes During Gait Assistive Devices Assistive Device Gait Belt Front Wheeled Walker Orthotic/Prosthetic Devices or Brace: No Gait Deviations General Gait Pattern Decreased Stride Length Decreased Feet Clearance Factors Limiting Gait Function Factors Limiting Gait Function Decreased Activity Tolerance Decreased Strength Difficulty Following Directions Limited Range of Motion Poor Balance Poor Safety Awareness Comments Gait Comments Pt amb 8 feet from EOB to toilet in bathroom and back with FWW and CGA, then again out in the [place] with FWW/CGA and cues for posture and BLE foot elevation. Cues for safety and to encourage pt to progress. Stair Climbing Assessment Comments Stair Climbing Comments PT states they have ramp at home. M5 PT-IP Objective Assessments Start: 04/15/18 11:47 Freq: NEEDED Status: Active Protocol: Document 04/15/18 11:00 HH (Rec: 04/15/18 12:37 HH [id number]) Orientation Orientation/Cognition Level of Alertness Confusional State Orientation Month Safety Awareness Decreased Safety Awareness Memory Description Short Term Impaired Comments Pt is able to follow simple command but she requires constant cues to keep her alerted. Gross Range of Motion Upper Extremity ROM Assessment Within Functional Limits Lower Extremity ROM Assessment Within Functional Limits Strength Upper Extremity Strength Assessment Within Functional Limits Lower Extremity Strength Assessment Within Functional Limits Comments Strength Comments CGA for overall transfer mobility and amb Coordination Assessment Gross Coordination Gross Coordination WNL Sensation Assessment Sensation Gross Sensation WNL M6 PT-IP Treatment Start: 04/15/18 11:47 Freq: NEEDED Status: Active Protocol: Document 04/16/18 10:15 SA (Rec: 04/16/18 10:28 SA [id number]) Physical Therapy Treatment Exercises Exercises Ankle Pumps Supine Hip Abduction Seated Knee Flexion/Extension Education Education Provided Safety M7 PT-IP Assessment and Plan Start: 04/15/18 11:47 Freq: NEEDED Status: Active Protocol: Document 04/16/18 10:15 (Rec: 04/16/18 10:28 [id number]) PT Summary Assessment and Plan Potential Rehabilitation Potential Good Status of Condition at Evaluation Stable Summary Assessment Summary Pt with increased alertness today but demonstrates self limiting behaviors. Education provided on importance of daily activity. Frequency of Treatment Frequency Of Treatment Twice a Day Recommendations To Nursing Amount of Assist Needed 1 Person Assist Discharge Recommendations PT Discharge Recommendations Home with 24/7 Assist Home Health SNF Rehab Other Discharge Recommendations SNF vs home with 24/7 and homehealth PT Equipment Needed for Home Before FWW if not safe with 4WW Discharge
--- NOTE | 2018-04-16 10:37 | OT.IP.TRT ---
Current Diagnoses Anemia, unspecified (04/14/18) Hypothyroidism, unspecified (04/14/18) Type 2 diabetes mellitus without complications (04/14/18) Morbid (severe) obesity due to excess calories (04/14/18) Dehydration (04/14/18) Metabolic encephalopathy (04/14/18) Chronic diastolic (congestive) heart failure (04/14/18) Acute kidney failure, unspecified (04/14/18) Occupational Therapy Treatment Note M2 OT-IP Current Condition Start: 04/15/18 15:41 Freq: Status: Active Protocol: Document 04/15/18 11:40 PJM (Rec: 04/15/18 16:04 PJM [id number]) Occupational Therapy Current Condition Current Condition Evaluation Date 04/15/18 Treatment Diagnosis metabolic encephalopathy ( likely medication related) acute renal failure Diagnosis Onset Date 04/14/18 Post Operative Precautions Other Precautions lethargy, fall risk, bed/chair alarm Weight Bearing Status Weight Bearing Status Full Weight Bearing M3 OT- IP Subjective and Pain Start: 04/15/18 15:41 Freq: Status: Active Protocol: Document 04/16/18 10:37 PJM (Rec: 04/16/18 14:44 PJM [id number]) OT- Subjective Occupational Therapy Visit Type Type Treatment Note Visit Start Time 10:00 Visit Stop Time 10:37 Total Visit Minutes 37 Occupational Therapy Visit Comments Patient Comments Can you put my feet up? My helps me with all this at home. Patient/Caregiver Goals To go home to see her dog OT Pain Assessment Pain When Pain Assessed After Treatment Pain Present Pain Present Denied Pain M4 OT- IP ADL's Start: 04/15/18 15:41 Freq: Status: Active Protocol: Document 04/16/18 10:37 PJM (Rec: 04/16/18 14:44 PJM [id number]) OT ADL-Grooming Comments OT Grooming Comments Pt declined this session stating I already did all that. Pt declined to wash hands at sink afer using bathroom with P.T. so hand animal trapper provided. OT ADL-Dressing General Eval Lower Body Dressing Ability Moderate Assistance Areas Needing Assistance Socks Assistive Devices Dressing Assistive Devices Risk Control Representative Sock Aid Comments OT Dressing Comments Began education with pt/ re: use of brushing machine operator to doff socks and hard sock aid to don socks. These 2 pieces of equipment were provided at 's request. Provided education re: dressing stick and plans to make one for pt. OT ADL-Toileting Devices Toileting Assistive Devices Toilet Paper Aid Comments OT Toileting Comments Provided education and resources for obtaining various types of toilet paper aids as pt cannot reach for isidro care. to order obtain one for pt. OT ADL-Bathing Comments OT Bathing Comments long bath sponge provided to pt M6 OT- IP Functional Cognition Start: 04/15/18 15:41 Freq: Status: Active Protocol: Document 04/16/18 10:37 PJM (Rec: 04/16/18 14:44 PJM [id number]) Cognitive Factors Limiting Selfcare Function Cognitive Ability Level of Alertness Drowsy Attention Span Ability Capable of Focused Attention Ability to Follow Commands Able to Follow One Step Commands Memory Description Short Term Impaired Safety Awareness Underestimates Need for Assistance Problem Solving Ability Needs Assist to Identify Solutions Cognitive Comments Cognitive Assessment Comments Pt more alert today, but with flat affect noted. Pt needs much encouragement to initiate/ engage in self care tasks and tends to just ask for assistance instead of attempting task herself. M7 OT- IP Mobility and Balance Start: 04/15/18 15:41 Freq: Status: Active Protocol: Document 04/16/18 10:37 PJM (Rec: 04/16/18 14:44 PJM [id number]) OT-Transfer Assessment Comments Mobility Comments Pt declined up to sink due to fatigue from just completing P.T. OT- Gait Assessment Comments Gait Ability Comments see P.T. notes OT- Balance Assessment Sitting Balance and Reactions Static Sitting Balance Ability Good Dynamic Sitting Balance Ability Fair Comments Other Balance Tests/Deviations/Treatment Pt able to bend forward to : pull up on cuff of socks with mod verbal cues M9 OT- IP Assessment and Plan Start: 04/15/18 15:41 Freq: Status: Active Protocol: Document 04/16/18 10:37 PJM (Rec: 04/16/18 14:44 PJM [id number]) OT Summary Assessment and Plan Summary Progress Towards Goals Slow Progress due to Activity Tolerance Slow Progress due to Cognition Assessment Summary Pt more alert today with increased participation in self care tasks after much encouragement. very supportive and encouraging pt to be more independent. Pt has potential to be more independent with lower body dressing and toileting with use of adaptive equipment. Pt/ still prefer home d/c with HH OT/PT. Pt will need assist during all waking hours as she is not yet independent with ambulation or toileting. states he can take time off work or daughter can stay with pt while works. Goals Grooming Goal Standby Assistance Dressing Goal Minimal Assistance Toileting Goal Minimal Assistance Bathing Goal Minimal Assistance Toilet Transfer Goal Contact Guard Assistance Shower Transfer Goal Contact Guard Assistance Patient/Caregiver Education Goal Demonstrate Energy Conservation and Pacing Caregiver Independent Assisting Patient OT-Other Goals Grooming to be done standing at sink for 5+ min with no LOB and good thoroughness. Days to Meet Goals 5 Frequency of Treatment Frequency Of Treatment Once a Day Treatment Plan OT Treatment Plan ADL Training Functional Mobility Patient/Family Education Discharge Planning Discharge Recommendations OT Discharge Recommendations Home with 18/11 Assist Home Health Other Discharge Recommendations pt/ prefer home d/c Home Equipment Needs brushing machine operator, sock aid and long bath sponge provided; to obtain toilet paper aid for pt
--- NOTE | 2018-04-16 15:12 | PT.IPTN ---
Current Diagnoses Anemia, unspecified (04/14/18) Hypothyroidism, unspecified (04/14/18) Type 2 diabetes mellitus without complications (04/14/18) Morbid (severe) obesity due to excess calories (04/14/18) Dehydration (04/14/18) Metabolic encephalopathy (04/14/18) Chronic diastolic (congestive) heart failure (04/14/18) Acute kidney failure, unspecified (04/14/18) Physical Therapy Treatment Note M2 PT-IP Current Condition Start: 04/15/18 11:47 Freq: NEEDED Status: Active Protocol: Document 04/15/18 11:00 (Rec: 04/15/18 12:37 [id number]) Physical Therapy Current Condition Current Condition Evaluation Date 04/15/18 Treatment Diagnosis acute metabolic encephalopathy , difficulty in walking, increased weakness Onset Date 04/10/18 Weight Bearing Status Weight Bearing Status Full Weight Bearing M3 PT-IP Subjective Start: 04/15/18 11:47 Freq: NEEDED Status: Active Protocol: Document 04/16/18 15:03 (Rec: 04/16/18 15:11 [id number]) Subjective Physical Therapy Visit Type Type Treatment Note Visit Start Time 13:43 Visit Stop Time 14:07 Total Visit Minutes 24 Notes Pt seated up in chair, agreeable to PT, not present. Number of SHEET METAL FORMER Visits 2 Physical Therapy Visit Comments Patient Comments Pt states she is very tired but willing to get up. Therapy Pain Assessment Pain When Pain Assessed During Mobility Pain Present Pain Present Denied Pain M4 PT-IP Mobility and Gait Start: 04/15/18 11:47 Freq: NEEDED Status: Active Protocol: Document 04/16/18 15:03 (Rec: 04/16/18 15:11 [id number]) PT-Transfer Assessment Sit to and From Stand Sit to and from Stand Contact Guard Assistance Minimal Assistance 1 Person Assistance Equipment Transfer Assistive Device Gait Belt Front Wheeled Walker Orthotic/Prosthetic Devices or Brace: No Transfers Transfer Destination Chair Transfer Technique Stand Step Pivot Transfer Ability Level of Assist Contact Guard Assistance 1 Person Assistance Use of Upper Extremities Comments Mobility Comments Pt with difficulty standing from bedside chair. Completed sit to stands 5x with Mod cues for technique and CGA-Min A. Pt states she has a lift chair at home that she uses mostly. Gait Assessment Gait Gait Assistance Required: Standby Assistance Contact Guard Assist Distance (Feet) 150 Able to Maintain Weight Bearing Status Yes During Gait Assistive Devices Assistive Device Gait Belt Front Wheeled Walker Orthotic/Prosthetic Devices or Brace: No Gait Deviations General Gait Pattern Decreased Stride Length Decreased Feet Clearance Factors Limiting Gait Function Factors Limiting Gait Function Decreased Activity Tolerance Decreased Strength Difficulty Following Directions Limited Range of Motion Poor Balance Poor Safety Awareness Comments Gait Comments Pt compelted 2 separate walks in hallway 75-80 feet each with Mod cues for upright posture and safe use of FWW, CGA. M5 PT-IP Objective Assessments Start: 04/15/18 11:47 Freq: NEEDED Status: Active Protocol: Document 04/15/18 11:00 HH (Rec: 04/15/18 12:37 HH [id number]) Orientation Orientation/Cognition Level of Alertness Confusional State Orientation Month Safety Awareness Decreased Safety Awareness Memory Description Short Term Impaired Comments Pt is able to follow simple command but she requires constant cues to keep her alerted. Gross Range of Motion Upper Extremity ROM Assessment Within Functional Limits Lower Extremity ROM Assessment Within Functional Limits Strength Upper Extremity Strength Assessment Within Functional Limits Lower Extremity Strength Assessment Within Functional Limits Comments Strength Comments CGA for overall transfer mobility and amb Coordination Assessment Gross Coordination Gross Coordination WNL Sensation Assessment Sensation Gross Sensation WNL M6 PT-IP Treatment Start: 04/15/18 11:47 Freq: NEEDED Status: Active Protocol: Document 04/16/18 15:03 SA (Rec: 04/16/18 15:11 [id number]) Physical Therapy Treatment Exercises Exercises Ankle Pumps Supine Hip Abduction Seated Knee Flexion/Extension Education Education Provided Safety Other Treatments Other Treatment Performed Pt needs cues to care for herself rather than relying on staff for example asking you to put tissue in trash when she is capable of leaning over and doing this herself. Repeated cues for performing tasks herself. M7 PT-IP Assessment and Plan Start: 04/15/18 11:47 Freq: NEEDED Status: Active Protocol: Document 04/16/18 15:03 SA (Rec: 04/16/18 15:11 [id number]) PT Summary Assessment and Plan Potential Rehabilitation Potential Good Status of Condition at Evaluation Stable Summary Progress Towards Goals Progressing Toward Goals Assessment Summary Pt needs encouragement for optimal participation, progressing well with transfer and gait ability. Frequency of Treatment Frequency Of Treatment Twice a Day Recommendations To Nursing Amount of Assist Needed 1 Person Assist Discharge Recommendations PT Discharge Recommendations Home with 24/7 Assist Home Health SNF Rehab Other Discharge Recommendations SNF vs home with 24/7 and homehealth PT Equipment Needed for Home Before FWW if not safe with 4WW Discharge
[2018-04-16] MEDS: INSULIN 70-30 KwikPen 100 UNIT/ML INSULN.PEN 30 UNIT SUBCUT (16:35)
[2018-04-16] MEDS: INSULIN 70-30 KwikPen 100 UNIT/ML INSULN.PEN 34 UNIT SUBCUT (18:44)
[2018-04-16] MEDS: SODIUM CHLORIDE 0.9% FLUSH 10 ML IV (20:26)
[2018-04-16] MEDS: SENNOSIDES 8.6 MG TABLET 17.2 MG PO (20:27)
[2018-04-16] MEDS: ATORVASTATIN 20 MG TABLET 40 MG PO (20:27)
[2018-04-17] VITALS (10 sets, daily range): BP systolic 142–178; BP diastolic 56–71; PULSE 56–69; RESP 16–20; TEMP 36.6–37.2; O2SAT 99–100
[2018-04-17] MEDS: LEVOTHYROXINE 125 MCG TABLET 250 MCG PO (06:33)
[2018-04-17] MEDS: LIOTHYRONINE 5 MCG TABLET PO (06:33)
[2018-04-17 06:52] LABS: Add Manual Diff / Slide Review NO; Basophils Percent Auto 0.7 % (0-2); Eosinophils Percent Auto 3.2 % (2-4); Hematocrit 32.1 % (36-46); Hemoglobin 10.6 g/dL (12.0-16.0); Lymphocytes Percent Auto 16.8 % (25-40); Mean Corpuscular HGB Conc 33.1 % (30-36); Mean Corpuscular Hemoglobin 29.8 PG (26-34); Monocytes Percent Auto 11.6 % (3-14); Neutrophils Absolute Auto 4900 /uL (1500-7000); Neutrophils Percent Auto 67.7 % (50-75); Platelet Count 186 X10^3/uL (150-400); Red Blood Cell Count 3.57 X10^6/uL (4.0-5.2); Red Cell Distribution Width 16.1 % (11.6-14.8); White Blood Cell Count 7.3 X10^3/uL (4.5-11.0)
[2018-04-17 06:59] LABS: BUN Creatinine Ratio 21.7 (6-22); Blood Urea Nitrogen 26 mg/dL (7-17); Carbon Dioxide 26 mmol/L (22-32); Chloride 109 mmol/L (98-107); Glucose 125 mg/dL (80-110); HEMOLYSIS < 15 (0-50); Potassium 4.1 mmol/L (3.4-5.1); Sodium 144 mmol/L (137-145)
[2018-04-17 07:12] LABS: B Type Natriuretic Peptide 391 (<100)
[2018-04-17] MEDS: FLUTICASONE 120 SPRAY/16 GM SPRAY.SUSP NASAL ×2 (08:32→20:16)
[2018-04-17] MEDS: HEPARIN 5,000 UNIT/ML VIAL 5000 UNIT SUBCUT ×2 (08:33→20:18)
[2018-04-17] MEDS: INSULIN ASPART 100 UNIT/ML INSULN PEN SUBCUT ×2 (08:34→17:02)
[2018-04-17] MEDS: INSULIN 70-30 KwikPen 100 UNIT/ML INSULN.PEN 64 UNIT SUBCUT ×2 (08:36→20:21)
[2018-04-17] MEDS: CARVEDILOL 12.5 MG TABLET PO ×2 (08:37→20:19)
[2018-04-17] MEDS: AMOXICILLIN/CLAV 875/125 MG 1 TAB PO ×2 (08:37→20:18)
[2018-04-17] MEDS: DOCUSATE 100 MG CAPSULE PO ×2 (08:38→20:19)
[2018-04-17] MEDS: ROPINIROLE 0.25 MG TABLET 0.5 MG PO ×3 (08:38→20:20)
[2018-04-17] MEDS: DULOXETINE 30 MG CAPSULE PO (08:38)
[2018-04-17] MEDS: CLOPIDOGREL 75 MG TABLET PO (08:38)
[2018-04-17] MEDS: ASPIRIN EC 81 MG TABLET PO (08:38)
[2018-04-17] MEDS: SODIUM CHLORIDE 0.9% FLUSH 10 ML IV ×2 (08:39→20:18)
[2018-04-17] MEDS: AMIODARONE 200 MG TABLET PO (08:53)
--- NOTE | 2018-04-17 09:35 | OT.IP.TRT ---
Current Diagnoses Anemia, unspecified (04/14/18) Hypothyroidism, unspecified (04/14/18) Type 2 diabetes mellitus without complications (04/14/18) Morbid (severe) obesity due to excess calories (04/14/18) Dehydration (04/14/18) Metabolic encephalopathy (04/14/18) Chronic diastolic (congestive) heart failure (04/14/18) Acute kidney failure, unspecified (04/14/18) Occupational Therapy Treatment Note M2 OT-IP Current Condition Start: 04/15/18 15:41 Freq: Status: Active Protocol: Document 04/15/18 11:40 PJM (Rec: 04/15/18 16:04 PJM [id number]) Occupational Therapy Current Condition Current Condition Evaluation Date 04/15/18 Treatment Diagnosis metabolic encephalopathy ( likely medication related) acute renal failure Diagnosis Onset Date 04/14/18 Post Operative Precautions Other Precautions lethargy, fall risk, bed/chair alarm Weight Bearing Status Weight Bearing Status Full Weight Bearing M3 OT- IP Subjective and Pain Start: 04/15/18 15:41 Freq: Status: Active Protocol: Document 04/17/18 09:35 PJM (Rec: 04/17/18 14:38 PJM [id number]) OT- Subjective Occupational Therapy Visit Type Type Treatment Note Visit Start Time 09:07 Visit Stop Time 09:35 Total Visit Minutes 28 Notes Pt's here at start of session but went home to set up generators as power is out at their home on [address] [facility] [address]. Occupational Therapy Visit Comments Patient Comments I haven't slept for 24 hrs. Patient/Caregiver Goals to go home today and sleep OT Pain Assessment Pain When Pain Assessed After Treatment Pain Present Pain Present Denied Pain M4 OT- IP ADL's Start: 04/15/18 15:41 Freq: Status: Active Protocol: Document 04/17/18 09:35 PJM (Rec: 04/17/18 14:38 PJM [id number]) OT ADL-Grooming General Evaluation Grooming Ability Standby Assistance Areas Needing Assistance Face Washing Comments OT Grooming Comments standing at sink, declines to brush hair My does that for me because I have bad shoulders. OT ADL-Oral Care Comments Oral Care Comments Pt declined I don't have any teeth. OT ADL-Dressing General Eval Lower Body Dressing Ability Minimal Assistance Areas Needing Assistance Socks Shoes Assistive Devices Dressing Assistive Devices Bottle Packer Sock Aid Comments OT Dressing Comments Practiced use of casino operations supervisor to doff socks and sock aid to don them. Pt needs encouragement to try new equipment. OT ADL-Toileting General Evaluation Toileting Ability Moderate Assistance Areas Needing Assistance Perform Perineal Hygiene Comments OT Toileting Comments Pt can complete hygiene after urination with SBA seated. Pt needs total assist with isidro care after BM. is obtaining toilet paper aid for pt. M6 OT- IP Functional Cognition Start: 04/15/18 15:41 Freq: Status: Active Protocol: Document 04/17/18 09:35 PJM (Rec: 04/17/18 14:38 PJ [id number]) Cognitive Factors Limiting Selfcare Function Cognitive Ability Level of Alertness Alert Patient Orientation Name Place Situation Attention Span Ability Capable of Focused Attention Ability to Follow Commands Able to Follow One Step Commands Cognitive Comments Cognitive Assessment Comments Pt more alert with brighter affect than yesterday. She appears to recall events from yesterday. OT- Vision and Hearing OT- Vision Assessment Visual Acuity Glasses All The Time M7 OT- IP Mobility and Balance Start: 04/15/18 15:41 Freq: Status: Active Protocol: Document 04/17/18 09:35 PJM (Rec: 04/17/18 14:38 PJ [id number]) OT- Bed Mobility Assessment Rolling Type of Rolling Roll to Left Level of Assistance Contact Guard Assistance 1 Person Assistance Head of Bed Elevated Supine to Sit Supine to Sit Assist Standby Assistance 1 Person Assistance Sit to Supine Sit to Supine Assist Standby Assistance 1 Person Assistance Head of Bed Elevated Scooting Scooting to Edge of Bed Standby Assistance 1 Person Assistance OT-Transfer Assessment Sit to and From Stand Sit to and from Stand Contact Guard Assistance 1 Person Assistance Transfers Transfer Ability Standby Assistance 1 Person Assistance Technique Transfer Destination Chair Toilet Transfer Technique Stand Step Pivot Devices Transfer Assistive Devices Gait Belt Front Wheeled Walker Comments Mobility Comments Pt needs min verbal cues to keep FWW close; she tends to leave it behind in small spaces OT- Gait Assessment Gait Gait Assistance Required: Contact Guard Assist Distance (Feet) 25 Assistive Devices Assistive Device Gait Belt Front Wheeled Walker Comments Gait Ability Comments No LOB noted with FWW this session OT- Balance Assessment Sitting Balance and Reactions Static Sitting Balance Ability Good Dynamic Sitting Balance Ability Good Standing Balance and Reactions Static Standing Balance Ability Good Dynamic Standing Balance Ability Good Comments Other Balance Tests/Deviations/Treatment during grooming at sink and : lower body clothing management for toileting M8 OT- IP Objective Assessments Start: 04/15/18 15:41 Freq: Status: Active Protocol: Document 04/15/18 11:40 PJM (Rec: 04/15/18 16:04 PJM [id number]) OT Gross Range of Motion Upper Extremity Range of Motion Assessment Within Functional Limits OT Strength Upper Extremity Strength Assessment Within Functional Limits Hand Twenty One Dealer Strength Hand Dominance Right OT- Coordination Assessment Comments Coordination Comments BUE WFL OT-Muscle Tone Assessment Muscle Tone WNL Yes OT Sensation Assessment Comments Summary Comments Pt denies sensory deficits in BUE's M9 OT- IP Assessment and Plan Start: 04/15/18 15:41 Freq: Status: Active Protocol: Document 04/17/18 09:35 PJM (Rec: 04/17/18 14:38 PJM [id number]) OT Summary Assessment and Plan Potential Rehabilitation Potential Good Summary Assessment Summary Pt even more alert today with brighter affect, but still needs encouragement to increase participation in self care tasks and increase functional mobility as noted above. Capable and daughter will provide 24 hr assist to pt at d/c. Recommend HH OT services to increase independence, safety, endurance in self care tasks in home setting and progress to light ADLS such as meal preparation. Goals Grooming Goal Independent Dressing Goal Minimal Assistance Toileting Goal Minimal Assistance Bathing Goal Minimal Assistance Toilet Transfer Goal Independent Shower Transfer Goal Contact Guard Assistance Patient/Caregiver Education Goal Demonstrate Energy Conservation and Pacing Caregiver Independent Assisting Patient Days to Meet Goals 5 Frequency of Treatment Frequency Of Treatment Once a Day Treatment Plan OT Treatment Plan ADL Training Functional Mobility Patient/Family Education Discharge Planning Discharge Recommendations OT Discharge Recommendations Home with 24/7 Assist Home Health Home Equipment Needs casino operations supervisor, sock aid and long bath sponge provided; to obtain toilet paper aid for pt
[2018-04-17] MEDS: HYDROCODONE/ACET 10/325 TABLET 1 TAB PO (10:45)
[2018-04-17] MEDS: ISOSORBIDE MONONITRATE 20 MG TABLET 30 MG PO (10:57)
--- NOTE | 2018-04-17 12:20 | PT.IPTN ---
Current Diagnoses Anemia, unspecified (04/14/18) Hypothyroidism, unspecified (04/14/18) Type 2 diabetes mellitus without complications (04/14/18) Morbid (severe) obesity due to excess calories (04/14/18) Dehydration (04/14/18) Metabolic encephalopathy (04/14/18) Chronic diastolic (congestive) heart failure (04/14/18) Acute kidney failure, unspecified (04/14/18) Physical Therapy Treatment Note M2 PT-IP Current Condition Start: 04/15/18 11:47 Freq: NEEDED Status: Active Protocol: Document 04/15/18 11:00 HH (Rec: 04/15/18 12:37 HH [id number]) Physical Therapy Current Condition Current Condition Evaluation Date 04/15/18 Treatment Diagnosis acute metabolic encephalopathy , difficulty in walking, increased weakness Onset Date 04/10/18 Weight Bearing Status Weight Bearing Status Full Weight Bearing M3 PT-IP Subjective Start: 04/15/18 11:47 Freq: NEEDED Status: Active Protocol: Document 04/17/18 10:40 GGD (Rec: 04/17/18 12:20 GGD [email or web address]) Subjective Physical Therapy Visit Type Type Treatment Note Visit Start Time 10:10 Visit Stop Time 10:40 Total Visit Minutes 30 Number of [employer] 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 M4 PT-IP Mobility and Gait Start: 04/15/18 11:47 Freq: NEEDED Status: Active Protocol: Document 04/17/18 10:40 GGD (Rec: 04/17/18 12:20 GGD [id number]) PT-Bed Mobility Assessment Supine to Sit Supine to Sit Contact Guard Assistance 1 Person Assistance Head of Bed Elevated Bedrails Sit to Supine Sit to Supine Contact Guard Assistance Scooting Scooting to Edge of Bed Standby Assistance PT-Transfer Assessment Sit to and From Stand Sit to and from Stand Contact Guard Assistance 1 Person Assistance Use of Upper Extremities Equipment Transfer Assistive Device Gait Belt Front Wheeled Walker Orthotic/Prosthetic Devices or Brace: No Transfers Transfer Destination Bed Toilet Transfer Ability Level of Assist Contact Guard Assistance 1 Person Assistance Use of Upper Extremities Gait Assessment Gait Gait Assistance Required: Standby Assistance Distance (Feet) 120 Able to Maintain Weight Bearing Status Yes During Gait Assistive Devices Assistive Device Gait Belt Front Wheeled Walker Orthotic/Prosthetic Devices or Brace: No Gait Deviations General Gait Pattern Decreased Stride Length Decreased Feet Clearance Factors Limiting Gait Function Factors Limiting Gait Function Decreased Activity Tolerance Decreased Strength M5 PT-IP Objective Assessments Start: 04/15/18 11:47 Freq: NEEDED Status: Active Protocol: Document 04/15/18 11:00 HH (Rec: 04/15/18 12:37 HH [id number]) Orientation Orientation/Cognition Level of Alertness Confusional State Orientation Month Safety Awareness Decreased Safety Awareness Memory Description Short Term Impaired Comments Pt is able to follow simple command but she requires constant cues to keep her alerted. Gross Range of Motion Upper Extremity ROM Assessment Within Functional Limits Lower Extremity ROM Assessment Within Functional Limits Strength Upper Extremity Strength Assessment Within Functional Limits Lower Extremity Strength Assessment Within Functional Limits Comments Strength Comments CGA for overall transfer mobility and amb Coordination Assessment Gross Coordination Gross Coordination WNL Sensation Assessment Sensation Gross Sensation WNL M6 PT-IP Treatment Start: 04/15/18 11:47 Freq: NEEDED Status: Active Protocol: Document 04/16/18 15:03 SA (Rec: 04/16/18 15:11 SA [id number]) Physical Therapy Treatment Exercises Exercises Ankle Pumps Supine Hip Abduction Seated Knee Flexion/Extension Education Education Provided Safety Other Treatments Other Treatment Performed Pt needs cues to care for herself rather than relying on staff for example asking you to put tissue in trash when she is capable of leaning over and doing this herself. Repeated cues for performing tasks herself. M7 PT-IP Assessment and Plan Start: 04/15/18 11:47 Freq: NEEDED Status: Active Protocol: Document 04/17/18 10:40 GGD (Rec: 04/17/18 12:20 GGD [email or web address]) PT Summary Assessment and Plan Summary Assessment Summary Pt able to progress gait and bed mobility. She did fatigue with activity. She was able do self care for toileting. Frequency of Treatment Frequency Of Treatment Twice a Day Treatment Plan Physical Therapy Treatment Plan Bed Mobility Training Transfer Training Gait Training Therapeutic Exercise Balance Retraining Other Recommendations and Next Treatment ambulation using 4WW when Focus appropriate Recommendations To Nursing Amount of Assist Needed 1 Person Assist Discharge Recommendations PT Discharge Recommendations Home with 18/11 Assist Home Health
--- NOTE | 2018-04-17 12:36 | PC.NURSE ---
AM shift pt AOx4, pleasant, and receptive to care. +1-2 pitting edema BLE. VS WNL. Mixed incontinence, up 1PA FWW to BR for a void and BM. No pain medications ordered, Dr. Szymanski ordered 10mg [place] for back pain, administered at 1044, pain decreased from 6/10 to 3/10. CBG were 135 (2units administered), and 116 (no units). Possible DC today. pt reported weakness with ambulation after PT worked with her, but is still wanting to go home today if possible. restarted pt's Isosorbide Mononitrate this AM. at bedside and active in pt care. Dietary came by to chat with pt and , but stepped away for a bit, dietary said she will be back.
--- NOTE | 2018-04-17 13:57 | DIET.PN ---
Met w/pt and spouse. Report problem with high bg was not giving enough insulin when admitted - needs more of a mid-high algorithm - and getting diet that was very high in carbs with cookies, ice cream, etc. Assisted pt in ordering next 2 meals. REquested very high carb items - mac & cheese for dinner; strata for breakfast and wanting to order several other high carb foods. DX: hypoglycemia HX: DM, CHF, morbid obesity Cbgs: Admit (04/14): 25, increasing to 130-170's (04/16); upper 200s, highest-431 Today: 95-109 with higher SSI Diet: CCD large (4 CHO servs/60g per meal) Assessment: Knowledge of carb control for DM appears limited. They do avoid sugar sweetened foods, but ordering a lot of pasta, breads, etc. Intervention; Provided brief ed on carbs in foods; using our menus for carb counting and carb goal according to current diet order. Suggested that 4 carb servings/meal is on high side, considering level of activity. Encouraged more protein foods/less carbs. Plan: May benefit from more formal DM ed; do not appear receptive at this time.
--- NOTE | 2018-04-17 15:10 | PT.IPTN ---
Current Diagnoses Anemia, unspecified (04/14/18) Hypothyroidism, unspecified (04/14/18) Type 2 diabetes mellitus without complications (04/14/18) Morbid (severe) obesity due to excess calories (04/14/18) Dehydration (04/14/18) Metabolic encephalopathy (04/14/18) Chronic diastolic (congestive) heart failure (04/14/18) Acute kidney failure, unspecified (04/14/18) Physical Therapy Treatment Note M2 PT-IP Current Condition Start: 04/15/18 11:47 Freq: NEEDED Status: Active Protocol: Document 04/15/18 11:00 HH (Rec: 04/15/18 12:37 HH [id number]) Physical Therapy Current Condition Current Condition Evaluation Date 04/15/18 Treatment Diagnosis acute metabolic encephalopathy , difficulty in walking, increased weakness Onset Date 04/10/18 Weight Bearing Status Weight Bearing Status Full Weight Bearing M3 PT-IP Subjective Start: 04/15/18 11:47 Freq: NEEDED Status: Active Protocol: Document 04/17/18 15:10 GGD (Rec: 04/17/18 16:08 GGD [id number]) Subjective Physical Therapy Visit Type Type Treatment Note Visit Start Time 14:45 Visit Stop Time 15:10 Total Visit Minutes 25 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 M4 PT-IP Mobility and Gait Start: 04/15/18 11:47 Freq: NEEDED Status: Active Protocol: Document 04/17/18 15:10 GGD (Rec: 04/17/18 16:08 GGD [id number]) PT-Bed Mobility Assessment Supine to Sit Supine to Sit Contact Guard Assistance 1 Person Assistance Head of Bed Elevated Bedrails Sit to Supine Sit to Supine Contact Guard Assistance Scooting Scooting to Edge of Bed Standby Assistance PT-Transfer Assessment Sit to and From Stand Sit to and from Stand Contact Guard Assistance 1 Person Assistance Use of Upper Extremities Equipment Transfer Assistive Device Gait Belt Front Wheeled Walker Orthotic/Prosthetic Devices or Brace: No Transfers Transfer Destination Bed Toilet Transfer Ability Level of Assist Contact Guard Assistance 1 Person Assistance Use of Upper Extremities Gait Assessment Gait Gait Assistance Required: Standby Assistance Distance (Feet) 120 Able to Maintain Weight Bearing Status Yes During Gait Assistive Devices Assistive Device Gait Belt Front Wheeled Walker Orthotic/Prosthetic Devices or Brace: No Gait Deviations General Gait Pattern Decreased Stride Length Decreased Feet Clearance Factors Limiting Gait Function Factors Limiting Gait Function Decreased Activity Tolerance Decreased Strength M5 PT-IP Objective Assessments Start: 04/15/18 11:47 Freq: NEEDED Status: Active Protocol: Document 04/15/18 11:00 HH (Rec: 04/15/18 12:37 HH [id number]) Orientation Orientation/Cognition Level of Alertness Confusional State Orientation Month Safety Awareness Decreased Safety Awareness Memory Description Short Term Impaired Comments Pt is able to follow simple command but she requires constant cues to keep her alerted. Gross Range of Motion Upper Extremity ROM Assessment Within Functional Limits Lower Extremity ROM Assessment Within Functional Limits Strength Upper Extremity Strength Assessment Within Functional Limits Lower Extremity Strength Assessment Within Functional Limits Comments Strength Comments CGA for overall transfer mobility and amb Coordination Assessment Gross Coordination Gross Coordination WNL Sensation Assessment Sensation Gross Sensation WNL M6 PT-IP Treatment Start: 04/15/18 11:47 Freq: NEEDED Status: Active Protocol: Document 04/16/18 15:03 SA (Rec: 04/16/18 15:11 SA [id number]) Physical Therapy Treatment Exercises Exercises Ankle Pumps Supine Hip Abduction Seated Knee Flexion/Extension Education Education Provided Safety Other Treatments Other Treatment Performed Pt needs cues to care for herself rather than relying on staff for example asking you to put tissue in trash when she is capable of leaning over and doing this herself. Repeated cues for performing tasks herself. M7 PT-IP Assessment and Plan Start: 04/15/18 11:47 Freq: NEEDED Status: Active Protocol: Document 04/17/18 15:10 GGD (Rec: 04/17/18 16:08 GGD [id number]) PT Summary Assessment and Plan Summary Assessment Summary Pt needing less assist with bed mobility. She did need assist to don shoes. She fatigued with gait, but no LOB . Frequency of Treatment Frequency Of Treatment Twice a Day Treatment Plan Physical Therapy Treatment Plan Bed Mobility Training Transfer Training Gait Training Therapeutic Exercise Balance Retraining Other Recommendations and Next Treatment ambulation using 4WW when Focus appropriate Recommendations To Nursing Amount of Assist Needed 1 Person Assist Discharge Recommendations PT Discharge Recommendations Home with 24/7 Assist Home Health
--- NOTE | 2018-04-17 16:16 | CM.DANOTE ---
DCP: continued: Case received, discussed in Team Rounds and plan for home with [facility]HS discussed. Therapy team as well as Dr. Szymanski, who had spoken with pt and her prior to rounds agreed plan appropriate. Dr. Szymanski planned to watch pt for a while today as she restarted a medication and then planned to send pt home late this afternoon. Met then with pt and her . Both said they were looking forward to getting home. Agreed with HH plan and identified: [facility] from the agency choice list. Referral called to [facility] who did accept and said they expected to see pt sometime this weekend. Face/Face completed and orders obtained. At this time Dr. Szymanski is still planning a d/c today but pt may still be here tomorrow. DCPlanner will be following prn. Clinical/FF and orders are faxed to [facility] now.
--- NOTE | 2018-04-17 16:31 | PM.PN.1 ---
Subjective Date Patient Seen: 04/17/18 Interval history: Vicenta Jacobsen a 72-year-old female with a past medical history significant for diabetes mellitus type 2, insulin using, hypertension, CHF, anemia and atrial fibrillation who was admitted for acute metabolic encephalopathy secondary to multifactorial acute kidney injury. The patient is resting in bed comfortably and in no acute distress. She has returned to her baseline cognition. She reports that she is somewhat weaker than she was yesterday. She continues to work with physical therapy and is ambulating with a 4 wheeled walker. She endorses mild shortness of breath that comes and goes. She denies headache, chest pain, abdominal pain, nausea, vomiting, fever, chills, flank pain, dysuria, diarrhea or constipation. She has a healthy appetite. She is voiding and eliminating without difficulty. Exam Vital Signs (past 8 hours): - 04/17/18 11:20 04/17/18 11:35 04/17/18 15:47 Temperature 98.0 F 98.8 F Pulse Rate 68 58 L Respiratory Rate 18 18 Blood Pressure 170/58 H 170/58 H 149/71 H Pulse Oximetry 100 99 Oxygen Delivery Method Room Air Oxygen Flow Rate 0 Narrative Exam Narrative: General: Elderly female lying in bed in no acute distress, well-developed, well-nourished, appropriately interactive. HEENT: Normocephalic, atraumatic. External ears without defect. Pupils equal, round, and reactive to light and accommodation. Anicteric sclerae, moist conjunctivae, and no lid lag. Oropharynx free of erythema and cobble stoning with moist mucosa. Neck: Supple with full range of motion. No jugular venous distension. No bruits. No lymphadenopathy or thyromegaly. Cardiovascular: Regular rate and rhythm without murmurs, rubs, or gallops appreciated Pulmonary: Clear to auscultation bilaterally with scattered crackles. No wheezes, or rhonchi. Normal respiratory effort with no use of accessory muscles. Abdomen: Bowel tones present. Soft, obese, nontender, nondistended. No hepatosplenomegaly or masses appreciated. Extremities: No clubbing or cyanosis. Mild pitting edema lower extremities bilaterally at ankle. Skin: Normal temperature, turgor, and texture; no rash, ulcers, or subcutaneous nodules appreciated. Neurological: Cranial nerves grossly intact. Psychiatric: Normal mood and affect. Alert and oriented to person, place, and time. Objective Labs Result Diagrams: 04/17/18 06:41 04/17/18 06:41 Labs: Laboratory Results - last 24 hr 04/17/18 04/17/18 06:41 06:41 WBC 7.3 RBC 3.57 L Hgb 10.6 L Hct 32.1 L MCV 90.0 MCH 29.8 MCHC 33.1 RDW 16.1 H Plt Count 186 Neut % (Auto) 67.7 Lymph % (Auto) 16.8 L [place] % (Auto) 11.6 Eos % (Auto) 3.2 Baso % (Auto) 0.7 Neut # (Auto) 4900 Sodium 144 Potassium 4.1 Chloride 109 H Carbon Dioxide 26 BUN 26 H Creatinine 1.20 H Estimated GFR 44.0 L BUN/Creatinine Ratio 21.7 Glucose 125 H Calcium 9.0 B-Natriuretic Peptide 391 H Assessment & Plan Plan: Assessment/Plan Narrative: 1. Acute metabolic encephalopathy, present on admission. Resolved. -Likely secondary to acute kidney injury. 2. Acute kidney injury, present on admission. Resolving. -Likely multifactorial secondary to medications including baclofen, losartan, hydrochlorothiazide, and torsemide, as well as, poor p.o. intake of fluids. -continue to monitor renal function daily. -avoid nephrotoxic agents 3. Diabetes mellitus type 2, insulin using, present on admission. Stable. -Restarted home insulin regimen of 70/30 64 units b.i.d. discussed insulin regimen with patient and her spouse and provided education. -Continue to monitor blood glucose ACHS. 4. Hypothyroidism, chronic, present on admission. Stable. -Continue home levothyroxine and Cytomel. 5. Recent pneumonia treated as an outpatient, present on admission. Resolving. -Continue course of amoxicillin x 7 days. 6. History of atrial fibrillation, CHF and coronary artery disease. Stable. -Continue current cardiac medications. Restarted isosorbide mononitrate and hydrochlorothiazide. DVT prophylaxis: SubQ heparin. Disposition: Depending on improvement and mobility with physical therapy and stability of kidney function with restarting medications will likely discharge home with home health in the next 1-2 days. Quality VTE Deep Vein Thrombosis/Pulmonary Embolism Present on Admission: No
--- NOTE | 2018-04-17 16:39 | PC.NURSE ---
Addendum entered by Cecilia Alcazar R.N. 04/17/18 21:59: Pt's evening blood glucose 125. States will accept 32 units of 70/30 insulin and not 64 as ordered. This was given. HS meds without difficulty. One assist to bathroom to toilet. Milk at hs per request. Original Note: Pt awake, alert and oriented x 3 resting quietly in bed. Informs this adjusto writer operator desires to discharge to home, but states weaker today when up with P.T. than yesterday. Also admits to shortness of breath with activity. Dr. Szymanski was made aware of these things and in to see patient and pt's spouse. Decision made by physician and pt and spouse to keep pt overnight while home meds continue to be restarted and P.T. can evaluate again in a.m.
--- NOTE | 2018-04-17 16:54 | PT.IPTN ---
Current Diagnoses Anemia, unspecified (04/14/18) Hypothyroidism, unspecified (04/14/18) Type 2 diabetes mellitus without complications (04/14/18) Morbid (severe) obesity due to excess calories (04/14/18) Dehydration (04/14/18) Metabolic encephalopathy (04/14/18) Chronic diastolic (congestive) heart failure (04/14/18) Acute kidney failure, unspecified (04/14/18) Physical Therapy Treatment Note M2 PT-IP Current Condition Start: 04/15/18 11:47 Freq: NEEDED Status: Active Protocol: Document 04/15/18 11:00 HH (Rec: 04/15/18 12:37 HH [id number]) Physical Therapy Current Condition Current Condition Evaluation Date 04/15/18 Treatment Diagnosis acute metabolic encephalopathy , difficulty in walking, increased weakness Onset Date 04/10/18 Weight Bearing Status Weight Bearing Status Full Weight Bearing M3 PT-IP Subjective Start: 04/15/18 11:47 Freq: NEEDED Status: Active Protocol: Document 04/17/18 16:18 LJ (Rec: 04/17/18 16:53 LJ [id number]) Subjective Physical Therapy Visit Type Type Treatment Note Visit Start Time 16:18 Visit Stop Time 16:44 Total Visit Minutes 26 Physical Therapy Visit Comments Patient Comments willing to ambulate around the room. Therapy Pain Assessment Pain When Pain Assessed During Mobility Pain Present Pain Present Pain Reported M4 PT-IP Mobility and Gait Start: 04/15/18 11:47 Freq: NEEDED Status: Active Protocol: Document 04/17/18 16:18 LJ (Rec: 04/17/18 16:53 LJ [id number]) PT-Bed Mobility Assessment Sit to Supine Sit to Supine Minimal Assistance Scooting Scooting to Edge of Bed Standby Assistance PT-Transfer Assessment Sit to and From Stand Sit to and from Stand Contact Guard Assistance 1 Person Assistance Use of Upper Extremities Equipment Transfer Assistive Device Gait Belt Front Wheeled Walker Orthotic/Prosthetic Devices or Brace: No Transfers Transfer Destination Bed Transfer Technique Forward/Backward Scoot Transfer Ability Level of Assist Contact Guard Assistance 1 Person Assistance Use of Upper Extremities Comments Mobility Comments Pt CGA for sit<>stand. Mod assist for LLE in return to bed. made 2 attempts before able to stand. Gait Assessment Gait Gait Assistance Required: Contact Guard Assist Distance (Feet) 20 Able to Maintain Weight Bearing Status Yes During Gait Assistive Devices Assistive Device Gait Belt Front Wheeled Walker Orthotic/Prosthetic Devices or Brace: No Gait Deviations General Gait Pattern Decreased Stride Length Decreased Feet Clearance Factors Limiting Gait Function Factors Limiting Gait Function Decreased Activity Tolerance Decreased Strength Comments Gait Comments Pt wanted to ambulate in room only. CGA with cues for increasing flexion of RLE for foot clearance. Currently drags right foot in ER. M5 PT-IP Objective Assessments Start: 04/15/18 11:47 Freq: NEEDED Status: Active Protocol: Document 04/15/18 11:00 HH (Rec: 04/15/18 12:37 HH [id number]) Orientation Orientation/Cognition Level of Alertness Confusional State Orientation Month Safety Awareness Decreased Safety Awareness Memory Description Short Term Impaired Comments Pt is able to follow simple command but she requires constant cues to keep her alerted. Gross Range of Motion Upper Extremity ROM Assessment Within Functional Limits Lower Extremity ROM Assessment Within Functional Limits Strength Upper Extremity Strength Assessment Within Functional Limits Lower Extremity Strength Assessment Within Functional Limits Comments Strength Comments CGA for overall transfer mobility and amb Coordination Assessment Gross Coordination Gross Coordination WNL Sensation Assessment Sensation Gross Sensation WNL M6 PT-IP Treatment Start: 04/15/18 11:47 Freq: NEEDED Status: Active Protocol: Document 04/17/18 16:18 LJ (Rec: 04/17/18 16:53 LJ [id number]) Physical Therapy Treatment Exercises Exercises Ankle Pumps Gluteal Sets Seated Knee Flexion/Extension Other Treatments Other Treatment Performed Ice and warm blanket provided. M7 PT-IP Assessment and Plan Start: 04/15/18 11:47 Freq: NEEDED Status: Active Protocol: Document 04/17/18 16:18 ANDREW (Rec: 04/17/18 16:53 [id number]) PT Summary Assessment and Plan Summary Assessment Summary Pt slow in ambulation stating she has low blood pressure and doesn't want to chance it. Ambulated from chair, around room to other side of bed. Needed assist for lifting RLE into bed. Pt positions herself in bed with cues. Frequency of Treatment Frequency Of Treatment Twice a Day Treatment Plan Physical Therapy Treatment Plan Bed Mobility Training Transfer Training Gait Training Therapeutic Exercise Balance Retraining Other Recommendations and Next Treatment ambulation using 4WW when Focus appropriate Recommendations To Nursing Amount of Assist Needed 1 Person Assist Discharge Recommendations PT Discharge Recommendations Home with 18/11 Assist Home Health
[2018-04-17] MEDS: ATORVASTATIN 20 MG TABLET 40 MG PO (20:18)
[2018-04-17] MEDS: hydroCHLOROthiazide 25 MG TABLET PO (20:19)
[2018-04-17] MEDS: SENNOSIDES 8.6 MG TABLET 17.2 MG PO (20:20)
[2018-04-18 00:40] VITALS: O2SAT 97
[2018-04-18 00:50] VITALS: BP 169/77; PULSE 70; RESP 19; TEMP 36.5; O2SAT 98
[2018-04-18 03:41] VITALS: BP 140/56; PULSE 63; RESP 16; TEMP 36.8; O2SAT 99
[2018-04-18] MEDS: LEVOTHYROXINE 125 MCG TABLET 250 MCG PO (06:19)
[2018-04-18] MEDS: ISOSORBIDE MONONITRATE 20 MG TABLET 30 MG PO (06:19)
[2018-04-18] MEDS: LIOTHYRONINE 5 MCG TABLET PO (06:20)
--- NOTE | 2018-04-18 06:30 | PM.DS.1 ---
History of Present Illness Chief complaint: Increased weakness Discharge Providers Date of admission: 04/14/18 12:17 Primary care physician: Ad Colunga MD Consults: 04/14/18 14:49 Consult to Dietitian, Adult Routine Comment: Reason For Exam: diabetic, issues with hyper and hypoglycemia 04/14/18 15:30 Consult to Discharge Planning Routine Comment: Consult to Occupational Therapy Evaluate & Treat Comment: Physician Instructions: Evaluate and treat Consult to Physical Therapy Evaluate & Treat Comment: Physician Instructions: Evaluate and Treat 04/17/18 16:14 Consult to Home Health Routine Comment: Will d/c later tonight or tomorrow. Reason For Exam: home health RN/PT at d/c. Discharge provider: Anne Szymanski DO Discharge Date: 04/18/18 Summary Discharge Diagnosis: 1. Acute metabolic encephalopathy, present on admission. Resolved. 2. Acute kidney injury, with chronic kidney disease stage 3 present on admission. Resolved. 3. Diabetes mellitus type 2, insulin using, present on admission. Stable. 4. Hypothyroidism, chronic, present on admission. Stable. 5. Recent pneumonia treated as an outpatient, present on admission. Resolved. 6. History of atrial fibrillation, CHF and coronary artery disease. Stable. Hospital Course: Vicenta Jacobsen a 72-year-old female with a past medical history significant for diabetes mellitus type 2, insulin using, hypertension, CHF, anemia and atrial fibrillation who was admitted for acute metabolic encephalopathy secondary to multifactorial acute kidney injury. The patient was recently seen as an outpatient for URI symptoms and treated for pneumonia with amoxicillin and azithromycin. She then became dehydrated due to poor oral intake and is on many medications that are renally metabolized which in turn caused acute kidney injury in the setting of chronic kidney disease stage 3. She was IV fluid hydrated and her acute kidney injury resolved over the course of her hospitalization. Several of her medications were stopped initially including: Baclofen, hydrochlorothiazide, isosorbide mononitrate, losartan, and torsemide. Her isosorbide mononitrate and hydrochlorothiazide were restarted at half her normal dose for hypertension and history of CHF. Her losartan has been held until she follows up with her PCP. It was recommended that she stop baclofen altogether and her torsemide was restarted at half the normal dose and only as needed for symptoms of CHF. During her hospitalization she has worked with physical therapy and slowly is improving in mobility and strength. The patient was discharged home with home health for physical therapy, occupational therapy, and possible nursing needs. She was discharged in stable condition. Status at Discharge Functional status at discharge: uses cane/walker Overall status at discharge: patient is back to baseline Exam Vital Signs (past 8 hours): - 04/18/18 00:40 04/18/18 00:50 04/18/18 03:41 Temperature 97.7 F 98.2 F Pulse Rate 70 63 Respiratory Rate 19 16 Blood Pressure 169/77 H 140/56 L Pulse Oximetry 97 98 99 Oxygen Delivery Method Room Air Oxygen Flow Rate 0 Narrative Exam Narrative: General: Elderly female sitting in bedside chair in no acute distress, well-developed, well-nourished, appropriately interactive. HEENT: Normocephalic, atraumatic. External ears without defect. Pupils equal, round, and reactive to light and accommodation. Anicteric sclerae, moist conjunctivae, and no lid lag. Oropharynx free of erythema and cobble stoning with moist mucosa. Neck: Supple with full range of motion. No jugular venous distension. No bruits. No lymphadenopathy or thyromegaly. Cardiovascular: Regular rate and rhythm without murmurs, rubs, or gallops appreciated. Pulmonary: Clear to auscultation bilaterally with scattered crackles. No wheezes, or rhonchi. Normal respiratory effort with no use of accessory muscles. Abdomen: Bowel tones present. Soft, obese, nontender, nondistended. No hepatosplenomegaly or masses appreciated. Extremities: No clubbing or cyanosis. Mild pitting edema lower extremities bilaterally at ankle that is improved. Skin: Normal temperature, turgor, and texture; no rash, ulcers, or subcutaneous nodules appreciated. Neurological: Cranial nerves grossly intact. Psychiatric: Normal mood and affect. Alert and oriented to person, place, and time. Objective Labs Result Diagrams: 04/17/18 06:41 04/18/18 06:25 Labs: Laboratory Results - last 24 hr 04/17/18 04/17/18 06:41 06:41 WBC 7.3 RBC 3.57 L Hgb 10.6 L Hct 32.1 L MCV 90.0 MCH 29.8 MCHC 33.1 RDW 16.1 H Plt Count 186 Neut % (Auto) 67.7 Lymph % (Auto) 16.8 L [place] % (Auto) 11.6 Eos % (Auto) 3.2 Baso % (Auto) 0.7 Neut # (Auto) 4900 Sodium 144 Potassium 4.1 Chloride 109 H Carbon Dioxide 26 BUN 26 H Creatinine 1.20 H Estimated GFR 44.0 L BUN/Creatinine Ratio 21.7 Glucose 125 H Calcium 9.0 B-Natriuretic Peptide 391 H Discharge Plan Discharge Plan Patient Disposition: Home Health Service Transfer to: [facility] Discharge comment: Follow-up with PCP, Dr. Elmore, within the next 1-2 weeks for follow-up blood work to check your renal function and to decide whether or not to restart your losartan and increase your hydrochlorothiazide to twice daily. You may also want to discuss a muscle relaxer in place of baclofen. You will need a follow-up chest x-ray in 6 weeks to make sure that your pneumonia has resolved. Discharge Med Rec/Prescriptions Prescriptions: Continue vitamin B complex [B Complex-Vitamin B12] 1 EACH tablet 1 tab PO DAILY Qty: 0 RF: 0 hydrocodone-acetaminophen [[place]] 10 MG/325 MG tablet 1 tab PO Q6H PRN (Reason: pain) Qty: 0 RF: 0 fluticasone 16 GM spray,suspension 1 spray Intranasal BID Qty: 0 RF: 0 amiodarone 200 MG tablet 200 mg PO DAILY Qty: 0 RF: 0 atorvastatin 40 MG tablet 40 mg PO BEDTIME Qty: 0 RF: 0 calcium carbonate-vitamin D3 [Calcium 600 with Vitamin D3] 600 MG/200 IU capsule 1 cap PO BID Qty: 0 RF: 0 potassium chloride 10 MEQ capsule, extended release 10 meq PO BID Qty: 0 RF: 0 pantoprazole [Protonix] 40 MG tablet,delayed release (DR/EC) 40 mg PO BID Qty: 0 RF: 0 carvedilol [Coreg] 12.5 MG tablet 12.5 mg PO BID Qty: 0 RF: 0 ondansetron HCl [Zofran] 4 MG tablet 4 mg PO Q8H PRN (Reason: Nausea) Qty: 0 RF: 0 isosorbide mononitrate 30 MG tablet extended release 24 hr 30 mg PO QAM Qty: 0 RF: 0 diphenhydramine HCl 50 MG capsule 25 mg PO Q6HPRN PRN (Reason: Itching) Qty: 0 RF: 0 vitamin E 400 UNIT capsule 400 unit PO DAILY Qty: 0 RF: 0 clobetasol 0.05 % cream 1 applic Topical DIRECTED RF: 0 clopidogrel 75 mg tablet 75 mg PO QPM RF: 0 levothyroxine 125 mcg tablet 250 mcg PO DAILY RF: 0 insulin NPH and regular human [Novolin 70/30 U-100 Insulin] 100 unit/mL (70-30) Suspension 64 units subcut BID RF: 0 aspirin 81 mg Tablet,Delayed Release (Dr/Ec) 81 mg PO QPM RF: 0 insulin regular human [Novolin R Regular U-100 Insuln] 100 unit/mL Solution 1 dose subcut BID PRN (Reason: sliding scale) RF: 0 nitroglycerin [Nitrostat] 0.4 mg Tablet, Sublingual 0.4 mg SUBLINGUAL PRN PRN (Reason: Chest Pain) RF: 0 duloxetine 30 mg capsule,delayed release(DR/EC) 30 mg PO QPM RF: 0 [facility]-3 Fish Oil 500 mg capsule 500 mg PO BID RF: 0 polyethylene glycol 3350 [Miralax] 17 gram Powder In Packet 17 g PO DAILY PRN (Reason: stool softener) RF: 0 oxybutynin chloride 5 mg tablet 5 mg PO BID RF: 0 ropinirole [Requip] 0.5 mg tablet 0.5 mg PO TID Qty: 30 RF: 0 ferrous sulfate [iron] 325 mg (65 mg iron) Tablet 325 mg PO BID RF: 0 nystatin 100,000 unit/gram Powder 1 applic TOPICAL BID RF: 0 Changed torsemide 20 MG tablet 20 mg PO QDAYP PRN (Reason: Edema) Qty: 0 RF: 0 hydrochlorothiazide 25 mg tablet 25 mg PO DAILY Qty: 0 RF: 0 Discontinued baclofen 20 MG tablet 20 mg PO BID Qty: 10 RF: 0 losartan 25 MG tablet 25 mg PO QPM Qty: 0 RF: 0 amoxicillin-pot clavulanate [Augmentin] 875-125 mg tablet 1 tab PO BID Qty: 14 RF: 0 metolazone 2.5 mg tablet 2.5 mg PO DAILY Qty: 30 RF: 0 bumetanide 0.5 mg tablet 0.5 mg PO DAILY Qty: 60 RF: 0 Follow up/Referrals: Ad Colunga MD [Primary Care Provider] - 04/24/18 8:00 am Provider Discharge Instructions Diet: Carb-consistent/Diabetic, Low-sodium and Low-protein/Renal Activity: Activity as tolerated with forward wheeled walker. Skin/Wound/Dressing Care Report to your healthcare provider any signs of infection, such as:: chills, fever Visit Report/Discharge Packet Instructions: What Can I Do About Kidney Disease? Discharge Data Primary Care Provider: Ad Colunga Attending Provider: Rimma Herbert Admit Date/Time: 04/14/18 12:17 Quality VTE Deep Vein Thrombosis/Pulmonary Embolism Present on Admission: No
[2018-04-18 07:00] VITALS: BP 178/68; PULSE 63; RESP 16; TEMP 36.9; O2SAT 99
[2018-04-18 07:27] LABS: Alanine Aminotransferase 43 IU/L (9-52); Albumin Globulin Ratio 1.4 (1.0-2.8); Alkaline Phosphatase 76 U/L (38-126); Aspartate Aminotransferase 45 IU/L (14-36); Bilirubin Total 0.5 mg/dL (0.2-1.3); Blood Urea Nitrogen 18 mg/dL (7-17); Calcium 9.2 mg/dL (8.4-10.2); Carbon Dioxide 25 mmol/L (22-32); Chloride 104 mmol/L (98-107); Globulin 2.8 g/dL (1.7-4.1); Glucose 147 mg/dL (80-110); HEMOLYSIS < 15 (0-50); Potassium 4.5 mmol/L (3.4-5.1); Sodium 143 mmol/L (137-145); Total Protein 6.8 g/dL (6.3-8.2)
[2018-04-18] MEDS: AMOXICILLIN/CLAV 875/125 MG 1 TAB PO (08:41)
[2018-04-18] MEDS: CLOPIDOGREL 75 MG TABLET PO (08:41)
[2018-04-18] MEDS: ASPIRIN EC 81 MG TABLET PO (08:41)
[2018-04-18] MEDS: ROPINIROLE 0.25 MG TABLET 0.5 MG PO (08:41)
[2018-04-18 08:42] VITALS: BP 178/68; PULSE 63
[2018-04-18] MEDS: CARVEDILOL 12.5 MG TABLET PO (08:42)
[2018-04-18] MEDS: DOCUSATE 100 MG CAPSULE PO (08:43)
[2018-04-18] MEDS: HEPARIN 5,000 UNIT/ML VIAL 5000 UNIT SUBCUT (08:43)
[2018-04-18] MEDS: hydroCHLOROthiazide 25 MG TABLET PO (08:43)
[2018-04-18] MEDS: FLUTICASONE 120 SPRAY/16 GM SPRAY.SUSP NASAL (08:44)
[2018-04-18] MEDS: INSULIN ASPART 100 UNIT/ML INSULN PEN SUBCUT ×2 (08:45→12:06)
[2018-04-18] MEDS: INSULIN 70-30 KwikPen 100 UNIT/ML INSULN.PEN 64 UNIT SUBCUT (08:46)
[2018-04-18] MEDS: SODIUM CHLORIDE 0.9% FLUSH 10 ML IV (08:51)
[2018-04-18] MEDS: DULOXETINE 30 MG CAPSULE PO (08:51)
[2018-04-18] MEDS: TORSEMIDE 10 MG TABLET 20 MG PO (09:01)
--- NOTE | 2018-04-18 10:09 | PC.NURSE ---
Addendum entered by Cornelio Dunham R.N. 04/18/18 14:29: D/c instructions completed and discussed with Pt and . Both understand instructions.Iv d/c'd intact Original Note: Pt a&o asking about going home. attentive at bedside. Pt offers no overt c/o presently. Meds adjusted d.t. Vital signs. M.D. aware.
--- NOTE | 2018-04-18 10:35 | PT.IPTN ---
Current Diagnoses Anemia, unspecified (04/14/18) Hypothyroidism, unspecified (04/14/18) Type 2 diabetes mellitus without complications (04/14/18) Morbid (severe) obesity due to excess calories (04/14/18) Dehydration (04/14/18) Metabolic encephalopathy (04/14/18) Chronic diastolic (congestive) heart failure (04/14/18) Acute kidney failure, unspecified (04/14/18) Physical Therapy Treatment Note M2 PT-IP Current Condition Start: 04/15/18 11:47 Freq: NEEDED Status: Active Protocol: Document 04/15/18 11:00 HH (Rec: 04/15/18 12:37 HH [id number]) Physical Therapy Current Condition Current Condition Evaluation Date 04/15/18 Treatment Diagnosis acute metabolic encephalopathy , difficulty in walking, increased weakness Onset Date 04/10/18 Weight Bearing Status Weight Bearing Status Full Weight Bearing M3 PT-IP Subjective Start: 04/15/18 11:47 Freq: NEEDED Status: Active Protocol: Document 04/18/18 12:08 GGD (Rec: 04/18/18 12:12 GGD [id number]) Subjective Physical Therapy Visit Type Type Treatment Note Visit Start Time 10:10 Visit Stop Time 10:35 Total Visit Minutes 25 Number of BILINGUAL RECRUITER Visits 5 Physical Therapy Visit Comments Patient Comments Pt hopes to go home today. M4 PT-IP Mobility and Gait Start: 04/15/18 11:47 Freq: NEEDED Status: Active Protocol: Document 04/18/18 12:08 GGD (Rec: 04/18/18 12:12 GGD [id number]) PT-Bed Mobility Assessment Supine to Sit Supine to Sit Contact Guard Assistance 1 Person Assistance Head of Bed Elevated Bedrails Sit to Supine Sit to Supine Standby Assistance Scooting Scooting to Edge of Bed Standby Assistance PT-Transfer Assessment Sit to and From Stand Sit to and from Stand Contact Guard Assistance 1 Person Assistance Use of Upper Extremities Equipment Transfer Assistive Device Gait Belt Front Wheeled Walker Orthotic/Prosthetic Devices or Brace: No Transfers Transfer Destination Bed Transfer Ability Level of Assist Contact Guard Assistance 1 Person Assistance Use of Upper Extremities Gait Assessment Gait Gait Assistance Required: Standby Assistance Distance (Feet) 150 Able to Maintain Weight Bearing Status Yes During Gait Assistive Devices Assistive Device Gait Belt Front Wheeled Walker Orthotic/Prosthetic Devices or Brace: No Gait Deviations General Gait Pattern Decreased Stride Length Decreased Feet Clearance Factors Limiting Gait Function Factors Limiting Gait Function Decreased Activity Tolerance Decreased Strength M5 PT-IP Objective Assessments Start: 04/15/18 11:47 Freq: NEEDED Status: Active Protocol: Document 04/15/18 11:00 HH (Rec: 04/15/18 12:37 HH [id number]) Orientation Orientation/Cognition Level of Alertness Confusional State Orientation Month Safety Awareness Decreased Safety Awareness Memory Description Short Term Impaired Comments Pt is able to follow simple command but she requires constant cues to keep her alerted. Gross Range of Motion Upper Extremity ROM Assessment Within Functional Limits Lower Extremity ROM Assessment Within Functional Limits Strength Upper Extremity Strength Assessment Within Functional Limits Lower Extremity Strength Assessment Within Functional Limits Comments Strength Comments CGA for overall transfer mobility and amb Coordination Assessment Gross Coordination Gross Coordination WNL Sensation Assessment Sensation Gross Sensation WNL M6 PT-IP Treatment Start: 04/15/18 11:47 Freq: NEEDED Status: Active Protocol: Document 04/17/18 16:18 LJ (Rec: 04/17/18 16:53 LJ [id number]) Physical Therapy Treatment Exercises Exercises Ankle Pumps Gluteal Sets Seated Knee Flexion/Extension Other Treatments Other Treatment Performed Ice and warm blanket provided. M7 PT-IP Assessment and Plan Start: 04/15/18 11:47 Freq: NEEDED Status: Active Protocol: Document 04/18/18 12:08 GGD (Rec: 04/18/18 12:12 GGD [id number]) PT Summary Assessment and Plan Summary Assessment Summary Pt improving with mobility. She was able to progress her gait distance and stability. She did need assist with bed mobility, but normally sleeps in chair. She safe for home D/ C when medically stable. Frequency of Treatment Frequency Of Treatment Twice a Day Treatment Plan Physical Therapy Treatment Plan Bed Mobility Training Transfer Training Gait Training Therapeutic Exercise Balance Retraining Recommendations To Nursing Amount of Assist Needed 1 Person Assist Discharge Recommendations PT Discharge Recommendations Home with 18/11 Assist Home Health
[2018-04-18 11:00] VITALS: BP 145/68; PULSE 83; RESP 20; TEMP 36.6; O2SAT 95
[2018-04-18] MEDS: HYDROCODONE/ACET 10/325 TABLET 1 TAB PO (11:13)
[2018-04-18] MEDS: AMIODARONE 200 MG TABLET PO (11:15)
--- NOTE | 2018-04-18 13:44 | CM.DPC ---
DCP Cont: Patient is to be discharged home today. Went ahead and reached out to Eula at [facility]. Faxed over discharge summary and face to face, along with orders. They will attempt to see her on the if possible, otherwise, will be the . Faxed over information. P: Patient is to be discharged home with home health services today. Haylee August RN/Assistant Strength Coach
== END 2018-04-18 14:05 | disposition home health service (06) | DRG 91 ==
LOC: ED 11:52 → AC 12:18
PROVIDERS: Internal Medicine; Admitting Provider Internal Medicine; Emergency Provider Emergency Medicine; Family Provider Internal Medicine; PCP Internal Medicine; Visit Provider Internal Medicine
DX: G92 Toxic encephalopathy (principal); R40.2122 Coma scale, eyes open, to pain, at arrival to emergency department; J18.9 Pneumonia, unspecified organism; N17.9 Acute kidney failure, unspecified; I50.32 Chronic diastolic (congestive) heart failure; E86.0 Dehydration; R40.2362 Coma scale, best motor response, obeys commands, at arrival to emergency department; R40.2242 Coma scale, best verbal response, confused conversation, at arrival to emergency department; T42.8X5A Adverse effect of antiparkinsonism drugs and other central muscle-tone depressants, initial encounter; Z95.1 Presence of aortocoronary bypass graft; Z87.891 Personal history of nicotine dependence; E11.9 Type 2 diabetes mellitus without complications; Z79.4 Long term (current) use of insulin; E66.01 Morbid (severe) obesity due to excess calories; Z68.36 Body mass index [BMI] 36.0-36.9, adult; I48.91 Unspecified atrial fibrillation
CPT/HCPCS: 36415; 36591; 70450; 71045; 80048; 80053; 80305; 80320; 80329; 82140; 82533; 82550; 82553; 82962; 83605; 83880; 84146; 84439; 84443; 84484; 85025; 85610; 85730; 87040; 87086; 93005; 96360; 96361; 97116; 97162; 97165; 97530; 97535; 99283; 99285; G0480; J1644; J1815

== ENCOUNTER → 2018-10-02 16:50 | Outpatient (CLI) | payer MEDICARE, SELFPAY ==
[2018-04-14 14:38] VITALS: BMI 37.9
--- NOTE | 2018-10-09 15:45 | PM.PFT.1 ---
Pulmonary Function Test Referral & Results Date Patient Seen: 10/02/18 Requesting provider: Ad Colunga Results: The spirometry demonstrates an FVC of 2.52 L which is 81% of predicted. The FEV1 was measured at 2.08 L which is 89% of predicted. The FEV1/FVC ratio was 82 which is 109% of predicted. Following the administration of bronchodilator there was no appreciable change. Lung volumes show an SVC of 2.46 L which is 82% of predicted. The diffusing capacity was measured at 15.02 which is 55% of predicted. No hemoglobin value was provided, so no correction for potential anemia could be made, if appropriate. The maximum voluntary ventilation was reduced Interpretation: This study demonstrates perhaps very mild obstructive lung disease based on slight or minimal reduction in FEV1. No evidence of benefit following bronchodilator There is also a slight or minimal reduction in lung volumes suggesting minimal restrictive lung disease There is more significant reduction in diffusing capacity suggesting more significant disease at capillary other level Correlation suggested
== END ==
PROVIDERS: Family Provider Internal Medicine; PCP Internal Medicine; Visit Provider Internal Medicine
DX: I50.32 Chronic diastolic (congestive) heart failure (principal); Z79.899 Other long term (current) drug therapy
CPT/HCPCS: 94060; 94726; 94729

== ENCOUNTER → 2020-08-23 15:49 | Outpatient (CLI) | payer MEDICARE, SELFPAY ==
[2018-04-14 14:38] VITALS: BMI 37.9
== END ==
PROVIDERS: Family Provider Internal Medicine; PCP Internal Medicine; Referring Provider Podiatrist; Visit Provider Internal Medicine
DX: E11.621 Type 2 diabetes mellitus with foot ulcer (principal); L97.521 Non-pressure chronic ulcer of other part of left foot limited to breakdown of skin; E11.51 Type 2 diabetes mellitus with diabetic peripheral angiopathy without gangrene; E11.40 Type 2 diabetes mellitus with diabetic neuropathy, unspecified; R60.0 Localized edema; Z87.891 Personal history of nicotine dependence
CPT/HCPCS: 99204; 99213

== ENCOUNTER → 2020-08-28 11:12 | Outpatient (CLI) | payer MEDICARE, SELFPAY ==
[2018-04-14 14:38] VITALS: BMI 37.9
== END ==
PROVIDERS: Family Provider Internal Medicine; PCP Internal Medicine; Referring Provider Internal Medicine; Visit Provider Family Medicine
DX: E11.621 Type 2 diabetes mellitus with foot ulcer (principal); L97.521 Non-pressure chronic ulcer of other part of left foot limited to breakdown of skin
CPT/HCPCS: 99212

== ENCOUNTER → 2020-09-04 09:19 | Outpatient (CLI) | payer MEDICARE, SELFPAY ==
[2018-04-14 14:38] VITALS: BMI 37.9
== END ==
PROVIDERS: Family Provider Internal Medicine; PCP Internal Medicine; Referring Provider Internal Medicine; Visit Provider Family Medicine
DX: E11.621 Type 2 diabetes mellitus with foot ulcer (principal); L97.521 Non-pressure chronic ulcer of other part of left foot limited to breakdown of skin; E11.51 Type 2 diabetes mellitus with diabetic peripheral angiopathy without gangrene; E11.40 Type 2 diabetes mellitus with diabetic neuropathy, unspecified
CPT/HCPCS: 93923; 99213

== ENCOUNTER → 2020-09-11 09:46 | Outpatient (CLI) | payer MEDICARE, SELFPAY ==
[2018-04-14 14:38] VITALS: BMI 37.9
== END ==
PROVIDERS: Family Provider Internal Medicine; PCP Internal Medicine; Referring Provider Internal Medicine; Visit Provider Family Medicine
DX: E11.621 Type 2 diabetes mellitus with foot ulcer (principal); L97.521 Non-pressure chronic ulcer of other part of left foot limited to breakdown of skin; E11.40 Type 2 diabetes mellitus with diabetic neuropathy, unspecified; E11.51 Type 2 diabetes mellitus with diabetic peripheral angiopathy without gangrene
CPT/HCPCS: 99213

== ENCOUNTER → 2020-09-18 09:37 | Outpatient (CLI) | payer MEDICARE, SELFPAY ==
[2018-04-14 14:38] VITALS: BMI 37.9
== END ==
PROVIDERS: Family Provider Internal Medicine; PCP Internal Medicine; Referring Provider Internal Medicine; Visit Provider Family Medicine
DX: E11.621 Type 2 diabetes mellitus with foot ulcer (principal); L97.521 Non-pressure chronic ulcer of other part of left foot limited to breakdown of skin; E11.51 Type 2 diabetes mellitus with diabetic peripheral angiopathy without gangrene; E11.40 Type 2 diabetes mellitus with diabetic neuropathy, unspecified
CPT/HCPCS: 99213

== ENCOUNTER → 2020-10-02 11:03 | Outpatient (CLI) | payer MEDICARE, SELFPAY ==
[2018-04-14 14:38] VITALS: BMI 37.9
== END ==
PROVIDERS: Family Provider Internal Medicine; PCP Internal Medicine; Referring Provider Internal Medicine; Visit Provider Family Medicine
DX: E11.621 Type 2 diabetes mellitus with foot ulcer (principal); L97.521 Non-pressure chronic ulcer of other part of left foot limited to breakdown of skin; E11.51 Type 2 diabetes mellitus with diabetic peripheral angiopathy without gangrene; E11.40 Type 2 diabetes mellitus with diabetic neuropathy, unspecified
CPT/HCPCS: 99213

== ENCOUNTER → 2020-10-16 09:42 | Outpatient (CLI) | payer MEDICARE, SELFPAY ==
[2018-04-14 14:38] VITALS: BMI 37.9
== END ==
PROVIDERS: Family Provider Internal Medicine; PCP Internal Medicine; Referring Provider Internal Medicine; Visit Provider Family Medicine
DX: E11.621 Type 2 diabetes mellitus with foot ulcer (principal); L97.521 Non-pressure chronic ulcer of other part of left foot limited to breakdown of skin
CPT/HCPCS: 99213

== ENCOUNTER → 2020-11-07 14:02 | Outpatient (CLI) | payer MEDICARE, SELFPAY ==
[2018-04-14 14:38] VITALS: BMI 37.9
== END ==
PROVIDERS: Family Provider Internal Medicine; PCP Internal Medicine; Referring Provider Internal Medicine; Visit Provider Family Medicine
DX: E11.40 Type 2 diabetes mellitus with diabetic neuropathy, unspecified (principal); E11.51 Type 2 diabetes mellitus with diabetic peripheral angiopathy without gangrene; Z95.820 Peripheral vascular angioplasty status with implants and grafts
CPT/HCPCS: 99213

== ENCOUNTER 2021-05-09 12:23 | Inpatient (IN) | payer OTHER, SELFPAY ==
[2018-04-14 14:38] VITALS: BMI 37.9
[2021-05-09] VITALS (20 sets, daily range): BP systolic 117–200; BP diastolic 58–86; PULSE 69–80; RESP 18–25; TEMP 36.3–37.7; O2SAT 92–99; BMI 36.3
--- NOTE | 2021-05-09 12:48 | DI.RAD.S_ITS ---
PROCEDURE: XR CHEST 1V INDICATIONS: altered mental status TECHNIQUE: One view of the chest was acquired. COMPARISON: [facility], CR, XR CHEST 1V, 04/14/2018, 9:54. FINDINGS: Surgical changes and devices: Redemonstrated sternotomy wires. Lungs and pleura: Reduced lung volumes with prominence of the bronchovascular markings. No consolidation, pleural effusions or pneumothorax. Mediastinum: Mediastinal contours appear normal. Enlargement of cardiac silhouette, partially exaggerated by technique. Bones and chest wall: No suspicious bony lesions. Overlying soft tissues appear unremarkable. IMPRESSION: No acute cardiopulmonary abnormality. Dictated by: Jah Godinez M.D. on 05/09/2021 at 13:07 Approved by: Jah Godinez M.D. on 05/09/2021 at 13:08
[2021-05-09 12:58] LABS: Add Manual Diff / Slide Review NO; Basophils Absolute Auto 100 /uL (0-100); Basophils Percent Auto 0.9 % (0-2); Eosinophils Absolute Auto 300 /uL (0-450); Eosinophils Percent Auto 3.8 % (2-4); Hematocrit 34.1 % (36-46); Hemoglobin 11.4 g/dL (12.0-16.0); Lymphocytes Absolute Auto 800 /uL (1100-4500); Lymphocytes Percent Auto 9.8 % (25-40); Mean Corpuscular HGB Conc 33.4 % (30-36); Mean Corpuscular Hemoglobin 31.1 PG (26-34); Mean Corpuscular Volume 93.1 fL (80-100); Monocytes Absolute Auto 400 /uL (0-900); Monocytes Percent Auto 5.6 % (3-14); Neutrophils Absolute Auto 6200 /uL (1500-7000); Neutrophils Percent Auto 79.9 % (50-75); Platelet Count 174 X10^3/uL (150-400); Red Blood Cell Count 3.67 X10^6/uL (4.0-5.2); Red Cell Distribution Width 13.8 % (11.6-14.8); White Blood Cell Count 7.8 X10^3/uL (4.5-11.0)
[2021-05-09 13:03] LABS: Alanine Aminotransferase 18 IU/L (<35); Albumin 3.6 g/dL (3.5-5.0); Albumin Globulin Ratio 1.3 (1.0-2.8); Alkaline Phosphatase 82 U/L (38-126); Aspartate Aminotransferase 44 IU/L (14-36); BUN Creatinine Ratio 26.7 (6-22); Bilirubin Total 0.4 mg/dL (0.2-1.3); Blood Urea Nitrogen 64 mg/dL (7-17); Calcium 8.5 mg/dL (8.4-10.2); Carbon Dioxide 15 mmol/L (22-32); Chloride 114 mmol/L (98-107); Estimated Glomerular Filt Rate 19.6 mL/min (>60); Globulin 2.8 g/dL (1.7-4.1); Glucose 203 mg/dL (80-110); HEMOLYSIS < 15 (0-50); Potassium 4.3 mmol/L (3.4-5.1); Sodium 141 mmol/L (137-145); Total Protein 6.4 g/dL (6.3-8.2)
--- NOTE | 2021-05-09 13:06 | DI.CT.S_ITS ---
PROCEDURE: CT HEAD/BRAIN WO CON INDICATIONS: Seizure TECHNIQUE: Noncontrast 4.5 mm thick angled axial sections acquired from the foramen magnum to the vertex, with coronal and sagittal reformats. For radiation dose reduction, the following was used: automated exposure control, adjustment of mA and/or kV according to patient size. COMPARISON: [facility], CT, CT HEAD/BRAIN WO CON, 04/14/2018, 11:48. FINDINGS: Image quality: Excellent. CSF spaces: Basal cisterns are patent. No extra-axial fluid collections. The ventricles are symmetric in size and shape. Brain: No intracranial bleeds or masses. There is cerebral volume loss for age, with resultant ventricular and sulcal prominence. Small lacunar infarct in the left caudate head. Left posterior temporal lobe cortical loss with adjacent ex vacuo dilatation of the lateral ventricle. Encephalomalacia involving the medial right occipital lobe. Findings are superimposed on [id number] periventricular and deep white matter chronic small vessel ischemic changes. There is intracranial internal carotid artery atherosclerosis. Skull and face: Calvarium and visualized facial bones appear intact, without suspicious lesions. Sinuses: Visualized sinuses and mastoids are clear. IMPRESSION: 1. No hemorrhage or mass to explain seizure. 2. Several areas of chronic ischemic changes in the deep davis and cortical davis matter, new since the prior study. Dictated by: Eilzabeth Lebron M.D. on 05/09/2021 at 13:51 Approved by: Elizabeth Lebron M.D. on 05/09/2021 at 13:56
[2021-05-09 13:20] LABS: Ammonia (NH3) 11 umol/L (9-30)
[2021-05-09] MEDS: ONDANSETRON 4 MG/2 ML INJ IV (13:38)
[2021-05-09 13:40] LABS: Appearance Urine UA CLOUDY; Bilirubin Urine UA NEGATIVE (NEGATIVE); Color Urine UA YELLOW; Glucose Urine UA NEGATIVE (Negative); Ketones Urine UA NEGATIVE (NEGATIVE); Leukocyte Esterase Urine UA 3+ (NEGATIVE); Nitrite Urine UA NEGATIVE (Negative); Occult Blood Urine UA 3+ (Negative); Protein Urine UA 3+ (Negative); Urobilinogen Urine UA 0.2 E.U./dL (0.2); pH Urine UA 7.5 (4.5-8.0)
--- NOTE | 2021-05-09 13:40 | ED_ITS ---
HPI - Seizure General Chief Complaint: Seizure Stated Complaint: Tonic clonic seizure Time Seen by Provider: 05/09/21 13:00 Source: patient and EMS Mode of arrival: EMS Limitations: altered mental status History of Present Illness HPI Narrative: Patient brought in by ambulance for possible witnessed tonic clonic seizure by . No known injuries. Patient at this time is oriented to self and date of and where she was born. In no distress at this time. Patient does smell of foul urine. Blood sugar by EMS 130. Patient denies any pain at this time. Moving all 4 extremities without difficulty and spontaneously. Is cooperative. Rectal temp 98.6 Related Data Home Medications Medication Instructions Recorded Confirmed vitamin B complex (B 1 tab PO DAILY #0 04/26/16 05/09/21 Complex-Vitamin B12) fluticasone propionate 50 1 spray INTRANASAL BID #0 05/22/16 05/09/21 mcg/actuation nasal spray,suspension hydrocodone 10 mg-acetaminophen 1 tab PO Q6H PRN #0 05/22/16 05/09/21 325 mg tablet ([place]) atorvastatin 40 mg tablet 40 mg PO BEDTIME #0 11/08/16 05/09/21 calcium carbonate 600 mg-vitamin 1 cap PO BID #0 11/08/16 05/09/21 D3 10 mcg (400 unit) capsule (Calcium 600 with Vitamin D3) ondansetron HCl 4 mg tablet 4 mg PO Q8H PRN #0 11/08/16 05/09/21 (Zofran) pantoprazole 40 mg tablet,delayed 40 mg PO BID #0 11/08/16 05/09/21 release (Protonix) potassium chloride 10 mEq 10 meq PO BID #0 11/08/16 05/09/21 capsule,extended release isosorbide mononitrate 30 mg 30 mg PO QAM #0 01/27/17 05/09/21 tablet,extended release 24 hr vitamin E 400 unit capsule 400 unit PO DAILY #0 07/04/17 05/09/21 [place]-3 Fish Oil 500 mg PO BID 04/09/18 05/09/21 clopidogrel 75 mg tablet 75 mg PO QPM 04/09/18 05/09/21 insulin human U-100 NPH-regulr 40 units SUBCUT BID 04/09/18 05/11/21 70-30 mix 100 unit/mL subcutaneous susp (Novolin 70/30 U-100 Insulin) insulin regular human 100 unit/mL 1 dose SUBCUT BID PRN 04/09/18 05/11/21 injection solution (Novolin R Regular U-100 Insulin) levothyroxine 125 mcg tablet 250 mcg PO DAILY 04/09/18 05/09/21 nitroglycerin 0.4 mg sublingual 0.4 mg SUBLINGUAL PRN PRN 04/09/18 05/09/21 tablet (Nitrostat) oxybutynin chloride 5 mg tablet 5 mg PO BID 04/09/18 05/09/21 polyethylene glycol 3350 17 gram 17 g PO DAILY PRN 04/09/18 05/09/21 oral powder packet (Miralax) ferrous sulfate 325 mg (65 mg 325 mg PO BID 04/14/18 05/09/21 iron) tablet (iron) nystatin 100,000 unit/gram topical 1 applic TOPICAL BID PRN 04/14/18 05/09/21 powder aspirin 81 mg tablet,delayed 81 mg PO DAILY 05/09/21 05/09/21 release carvedilol 25 mg tablet 37.5 mg PO BID 05/09/21 05/09/21 clotrimazole 1 % topical cream 1 applic TOPICAL BID PRN 05/09/21 05/09/21 docusate sodium 100 mg tablet 100 mg PO BID PRN 05/09/21 05/09/21 hydrochlorothiazide 25 mg tablet 25 mg PO BID 05/09/21 05/09/21 escitalopram oxalate 5 mg tablet 5 mg PO DAILY 05/10/21 05/10/21 Previous Rx's Medication Instructions Recorded ropinirole 0.5 mg tablet (Requip) 0.5 mg PO TID #30 tab 04/10/18 torsemide 20 mg tablet 20 mg PO QDAYP PRN #0 tab 04/18/18 levofloxacin 250 mg tablet 250 mg PO DAILY #7 tab 05/12/21 losartan 50 mg tablet 50 mg PO DAILY #30 tab 05/12/21 Allergies Allergy/AdvReac Type Severity Reaction Status Date / Time meperidine [From DEMEROL] Allergy Severe NAUSEA/VOMI Verified 09/22/17 07:21 TTING Review of Systems Review of Systems Narrative: GENERAL: Denies chills, fatigue, malaise, fever, sweats. HEENT: Denies sinus pain, ear pain, sore throat RESPIRATORY: Denies dyspnea, cough CARDIOVASCULAR: Denies chest pain, palpitations GASTROINTESTINAL: Denies nausea, vomiting, abdominal pain : Denies dysuria, frequency, hematuria MUSCULOSKELETAL: denies muscle or bony pain SKIN: Denies rash, skin lesions NEUROLOGIC: Denies weakness, numbness, positive possible seizure ROS Unobtainable: All systems reviewed & are unremarkable except as noted in HPI and below Patient History Medical History (Updated 05/10/21 @ 00:27 by ALEX Hidalgo) Anemia Atrial fibrillation CHF (congestive heart failure) Diabetes History of GI bleed Surgical History (Updated 05/10/21 @ 00:27 by ALEX Hidalgo) History of cholecystectomy History of hysterectomy History of mastectomy S/P CABG x 3 Family History Mother No problems noted. Social History household members: spouse Smoking Status: Former smoker alcohol intake: never substance use type: does not use Smoking Status: Former smoker Substance Use Type: does not use Exam Narrative Exam Narrative: GENERAL: in no distress, not toxic not dyspneic HEAD: Normocephalic. EYES: Pupils equal round No scleral icterus. ENT: Mucous membranes moist. NECK: Trachea midline. CARDIOVASCULAR: Regular rate and rhythm without murmurs RESPIRATORY: Clear to auscultation. Breath sounds equal bilaterally. No wheezes, rales, or rhonchi. GASTROINTESTINAL: Abdomen soft, non-tender EXTREMITIES: No gross deformities. BACK: No flank tenderness. NEURO: Patient is awake alert or to self and date of only. No slurred speech. 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 SKIN: Warm and dry PSYCH: Not anxious, is cooperative Initial Vital Signs Initial Vital Signs: Vital Signs Temperature 97.4 F L 05/09/21 12:23 Pulse Rate 73 05/09/21 12:23 Respiratory Rate 18 05/09/21 12:23 Blood Pressure 159/68 H 05/09/21 12:23 Pulse Oximetry 96 05/09/21 12:23 Course Course Course Narrative: No new issues during course of stay. No seizures. Orders Ordered: Discontinued Medications Acetaminophen (Acetaminophen 325 Mg Tablet) 650 mg PO Q6HR PRN PRN Reason: Fever/Mild Pain (1-3) Hydrocodone Bitart/Acetaminophen (Hydrocodone/Acet 5/325 Tablet) 1 tab PO Q6HR PRN PRN Reason: Pain, Moderate (4-6) Aspirin (Aspirin Ec 81 Mg Tablet) 81 mg PO DAILY [facility] Last Admin: 05/12/21 08:32 Dose: 81 mg Documented by: Admin: 05/11/21 08:45 Dose: 81 mg Documented by: Admin: 05/10/21 08:49 Dose: 81 mg Documented by: Admin: 05/09/21 18:30 Dose: 81 mg Documented by: MARC Atorvastatin Calcium (Atorvastatin 20 Mg Tablet) 40 mg PO BEDTIME [facility] Last Admin: 05/11/21 21:51 Dose: 40 mg Documented by: Admin: 05/10/21 21:41 Dose: 40 mg Documented by: Admin: 05/09/21 21:00 Dose: 40 mg Documented by: MARC Carvedilol (Carvedilol 12.5 Mg Tablet) 37.5 mg PO BID [facility] Last Admin: 05/12/21 08:33 Dose: 37.5 mg Documented by: Admin: 05/11/21 21:51 Dose: 37.5 mg Documented by: Admin: 05/11/21 08:46 Dose: 37.5 mg Documented by: Admin: 05/10/21 21:40 Dose: 37.5 mg Documented by: Admin: 05/10/21 08:49 Dose: 37.5 mg Documented by: Admin: 05/09/21 20:59 Dose: 37.5 mg Documented by: MARC Clopidogrel Bisulfate (Clopidogrel 75 Mg Tablet) 75 mg PO QPM [facility] Last Admin: 05/11/21 17:22 Dose: 75 mg Documented by: Admin: 05/10/21 16:35 Dose: 75 mg Documented by: ZULEYKA Dextrose (Dextrose 50 % In Water 25 Gm/50 Ml Syringe) 25 gm IV PRN PRN PRN Reason: Hypoglycemia Ferrous Sulfate (Ferrous Sulfate 325 Mg Tablet) 325 mg PO BID [facility] Last Admin: 05/12/21 08:34 Dose: 325 mg Documented by: Admin: 05/11/21 21:52 Dose: 325 mg Documented by: Admin: 05/11/21 08:45 Dose: 325 mg Documented by: Admin: 05/10/21 21:41 Dose: 325 mg Documented by: Admin: 05/10/21 08:50 Dose: 325 mg Documented by: Admin: 05/09/21 21:00 Dose: 325 mg Documented by: MARC Heparin Sodium (Porcine) (Heparin 5,000 Unit/Ml Vial) 5,000 unit SUBCUT BID [facility] Last Admin: 05/12/21 08:34 Dose: 5,000 unit Documented by: Admin: 05/11/21 21:50 Dose: 5,000 unit Documented by: Admin: 05/11/21 08:50 Dose: 5,000 unit Documented by: Admin: 05/10/21 21:41 Dose: 5,000 unit Documented by: Admin: 05/10/21 08:45 Dose: 5,000 unit Documented by: Admin: 05/09/21 21:00 Dose: 5,000 unit Documented by: MARC Ceftriaxone Sodium 2,000 mg/ (Sodium Chloride) 100 mls @ 200 mls/hr IV NOW ONE Stop: 05/09/21 14:59 Last Infusion: 05/09/21 15:46 Dose: 0 mls/hr Documented by: Admin: 05/09/21 15:14 Dose: 200 mls/hr Documented by: NICOLE Sodium Chloride (Normal Saline 0.9%) 500 mls @ 1,000 mls/hr IV BOLUS ONE Stop: 05/09/21 15:49 Last Infusion: 05/09/21 16:31 Dose: 0 mls/hr Documented by: Admin: 05/09/21 15:51 Dose: 1,000 mls/hr Documented by: NICOLE Ceftriaxone Sodium 1,000 mg/ (Sodium Chloride) 100 mls @ 200 mls/hr IV Q24H [facility] Last Infusion: 05/11/21 16:19 Dose: 0 mls/hr Documented by: Admin: 05/11/21 14:05 Dose: 100 mls/hr Documented by: Infusion: 05/10/21 15:32 Dose: 0 mls/hr Documented by: Admin: 05/10/21 14:05 Dose: 100 mls/hr Documented by: ZULEYKA Insulin Glargine (Insulin Glargine 100 Unit/Ml 3ml Pen) 64 unit SUBCUT 0800,2100 [facility] Last Admin: 05/10/21 22:25 Dose: Not Given Documented by: Admin: 05/10/21 09:56 Dose: 40 unit Documented by: ZULEYKA Cosigned by: LAKEISHA Insulin Glargine (Insulin Glargine 100 Unit/Ml 3ml Pen) 40 unit SUBCUT 0800,2100 [facility] Last Admin: 05/12/21 08:31 Dose: 40 unit Documented by: JONATHAN Cosigned by: ANEL Admin: 05/11/21 21:50 Dose: 40 unit Documented by: MARYBEL Cosigned by: PAWEL Admin: 05/11/21 08:38 Dose: 40 unit Documented by: ZULEYKA Cosigned by: LAKEISHA Admin: 05/10/21 21:42 Dose: 40 unit Documented by: MAGALIS Cosigned by: ENRIQUETA Insulin Human Lispro (Insulin Lispro 100 Unit/Ml 3ml Vial) 0 unit SUBCUT [facility]; Protocol Last Admin: 05/12/21 12:04 Dose: 1 unit Documented by: JONATHAN Cosigned by: HOWARD Admin: 05/12/21 08:30 Dose: 1 unit Documented by: JONATHAN Cosigned by: ANEL Admin: 05/11/21 21:49 Dose: 1 unit Documented by: MARYBEL Cosigned by: PAWEL Admin: 05/11/21 17:20 Dose: 2 unit Documented by: ZULEYKA Cosigned by: LAKEISHA Admin: 05/11/21 12:02 Dose: 2 unit Documented by: ZULEYKA Pintoigned by: LAKEISHA Admin: 05/11/21 08:39 Dose: 2 unit Documented by: ZULEYKA Cosigned by: LAKEISHA Admin: 05/10/21 21:41 Dose: 2 unit Documented by: MAGALIS Cosigned by: ENRIQUETA Admin: 05/10/21 17:34 Dose: 3 unit Documented by: ZULEYKA Cosigned by: LAKEISHA Admin: 05/10/21 12:03 Dose: 4 unit Documented by: ZULEYKA Jara by: LAKEISHA Admin: 05/10/21 08:44 Dose: 1 unit Documented by: ZULEYKA Cosmadeleine by: LEANNE Admin: 05/09/21 21:01 Dose: 1 unit Documented by: MARC Cosigned by: ENRIQUETA Isosorbide Mononitrate (Isosorbide Mononitrate Er 30 Mg Tablet) 30 mg PO DAILY@0700 [facility] Last Admin: 05/12/21 06:38 Dose: Not Given Documented by: Admin: 05/11/21 06:16 Dose: 30 mg Documented by: Admin: 05/10/21 06:14 Dose: 30 mg Documented by: MARC Labetalol HCl (Labetalol 20 Mg/4 Ml Syringe) 5 mg IV NOW ONE Stop: 05/11/21 02:39 Last Admin: 05/11/21 03:52 Dose: Not Given Documented by: MAGALIS Levothyroxine Sodium (Levothyroxine 125 Mcg Tablet) 250 mcg PO DAILY@0600 [facility] Levothyroxine Sodium (Levothyroxine 150 Mcg Tablet) 150 mcg PO DAILY@0600 [facility] Last Admin: 05/12/21 08:33 Dose: 150 mcg Documented by: Admin: 05/12/21 06:38 Dose: Not Given Documented by: Admin: 05/11/21 06:16 Dose: 150 mcg Documented by: Admin: 05/10/21 06:14 Dose: 150 mcg Documented by: MARC Losartan Potassium (Losartan 25 Mg Tablet) 25 mg PO DAILY [facility] Last Admin: 05/12/21 08:33 Dose: 25 mg Documented by: Admin: 05/11/21 08:45 Dose: 25 mg Documented by: Admin: 05/10/21 08:49 Dose: 25 mg Documented by: ZULEYKA Naloxone HCl (Naloxone 0.4 Mg/Ml Vial) 0.2 mg IV Q2MIN PRN PRN Reason: Opiate Reversal Ondansetron HCl (Ondansetron 4 Mg/2 Ml Inj) 4 mg IV NOW ONE Stop: 05/09/21 13:38 Last Admin: 05/09/21 13:38 Dose: 4 mg Documented by: VISHNU Ondansetron HCl (Ondansetron 4 Mg/2 Ml Inj) 4 mg IV Q8HR PRN PRN Reason: Nausea And Vomiting Oxybutynin (Oxybutynin 5 Mg Tablet) 5 mg PO BID [facility] Last Admin: 05/12/21 08:33 Dose: 5 mg Documented by: Admin: 05/11/21 21:52 Dose: 5 mg Documented by: Admin: 05/11/21 08:45 Dose: 5 mg Documented by: Admin: 05/10/21 21:40 Dose: 5 mg Documented by: Admin: 05/10/21 08:49 Dose: 5 mg Documented by: Admin: 05/09/21 20:59 Dose: 5 mg Documented by: MARC Pantoprazole Sodium (Pantoprazole Dr 40 Mg Tablet) 40 mg PO BID [facility] Last Admin: 05/12/21 08:33 Dose: 40 mg Documented by: Admin: 05/11/21 21:52 Dose: 40 mg Documented by: Admin: 05/11/21 08:45 Dose: 40 mg Documented by: Admin: 05/10/21 21:40 Dose: 40 mg Documented by: Admin: 05/10/21 08:49 Dose: 40 mg Documented by: Admin: 05/09/21 21:00 Dose: 40 mg Documented by: MARC Sennosides (Sennosides 8.6 Mg Tablet) 17.2 mg PO BID [facility] Last Admin: 05/11/21 18:23 Dose: Not Given Documented by: ZULEYKA Sennosides (Sennosides 8.6 Mg Tablet) 17.2 mg PO BID [facility] Last Admin: 05/12/21 08:32 Dose: 17.2 mg Documented by: Admin: 05/11/21 21:53 Dose: 17.2 mg Documented by: MARYBEL Reevaluation(s) Reevaluation #1: No new issues. Laboratory studies and imaging reviewed. No changes with patient. Time: 14:56 Reevaluation #2: Spoke with at bedside. He describes a shaking episode that he witnessed with her arms drawn up. She was responsive afterwards. He agrees for admit. Patient is not at baseline. He states patient has been seen by her shake cutter and temperature logging operator and at this time no intervention indicated with her health. At baseline she is alert and talkative and oriented. This is not her baseline. Patient is full code Time: 15:26 Consultations Consultation #1: Spoke with Dr. Herbert, hospitalist, will admit Time: 15:26 Vital Signs Vital signs: Vital Signs - 8 hr 05/09/21 12:23 05/09/21 12:41 05/09/21 13:00 Temperature 97.4 F L Pulse Rate 73 69 69 Respiratory Rate 18 22 Blood Pressure 159/68 H Pulse Oximetry 96 96 92 05/09/21 13:01 05/09/21 13:23 05/09/21 13:30 Temperature 99.8 F H Pulse Rate 75 80 Respiratory Rate 24 22 Blood Pressure 140/62 Pulse Oximetry 96 96 05/09/21 13:36 05/09/21 14:00 05/09/21 14:30 Temperature Pulse Rate 76 74 74 Respiratory Rate 25 H 25 H Blood Pressure 161/68 H 161/68 H Pulse Oximetry 96 94 93 05/09/21 14:54 05/09/21 15:00 Temperature Pulse Rate 74 75 Respiratory Rate 24 23 Blood Pressure 142/58 H Pulse Oximetry 95 94 MDM - Seizure Differential Diagnosis Differential diagnosis: Likely febrile convulsion, generalized seizure, new onset seizure and other (Urosepsis/UTI/dementia) Lab Data Result diagrams: 05/11/21 04:36 05/11/21 04:36 Labs: Lab Results 05/09/21 05/09/21 05/09/21 Range/Units 12:41 12:41 12:41 WBC 7.8 (4.5-11.0) X10^3/uL RBC 3.67 L (4.0-5.2) X10^6/uL Hgb 11.4 L (12.0-16.0) g/dL Hct 34.1 L (36-46) % MCV 93.1 (80-100) fL MCH 31.1 (26-34) PG MCHC 33.4 (30-36) % RDW 13.8 (11.6-14.8) % Plt Count 174 (150-400) X10^3/uL Neut % (Auto) 79.9 H (50-75) % Lymph % (Auto) 9.8 L (25-40) % [place] % (Auto) 5.6 (3-14) % Eos % (Auto) 3.8 (2-4) % Baso % (Auto) 0.9 (0-2) % Neut # (Auto) 6200 (1520-1985) /uL Lymph # (Auto) 800 L (9255-0139) /uL [place] # (Auto) 400 (0-900) /uL Eos # (Auto) 300 (0-450) /uL Baso # (Auto) 100 (0-100) /uL Sodium 141 (137-145) mmol/L Potassium 4.3 (3.4-5.1) mmol/L Chloride 114 H (98-107) mmol/L Carbon Dioxide 15 L (22-32) mmol/L BUN 64 H (7-17) mg/dL Creatinine 2.40 H (0.52-1.04) mg/dL Estimated GFR 19.6 L (>60) mL/min BUN/Creatinine Ratio 26.7 H (6-22) Glucose 203 H (80-110) mg/dL Hemoglobin A1c (4.0-6.0) % Calcium 8.5 (8.4-10.2) mg/dL Phosphorus 5.7 H (2.8-4.1) mg/dL Magnesium 1.9 (1.6-2.3) mg/dL Total Bilirubin 0.4 (0.2-1.3) mg/dL AST 44 H (14-36) IU/L ALT 18 (<35) IU/L Alkaline Phosphatase 82 (38-126) U/L Ammonia (9-30) umol/L Total Protein 6.4 (6.3-8.2) g/dL Albumin 3.6 (3.5-5.0) g/dL Globulin 2.8 (1.7-4.1) g/dL Albumin/Globulin Ratio 1.3 (1.0-2.8) Procalcitonin (<0.5) ng/mL TSH (0.47-4.68) uIU/mL Free T4 (0.78-2.19) ng/dL Prolactin (3.0-18.6) ng/mL Urine Color Urine Appearance Urine pH (4.5-8.0) Ur Specific [place] (1.000-1.035) Urine Protein (Negative) Urine Glucose (UA) (Negative) g/dL Urine Ketones (NEGATIVE) Urine Occult Blood (Negative) Urine Nitrate (Negative) Urine Bilirubin (NEGATIVE) Urine Urobilinogen (0.2) E.U./dL Ur Leukocyte Esterase (NEGATIVE) Urine RBC (0-5/HPF) Urine WBC (0-5/HPF) Ur Squamous Epith Cells (0-5/HPF) Ur Renal Epithelial Cell (0-1/HPF) Urine Bacteria (None) Ur Culture Indicated? U Opiates 300ng/mL cut (Negative) Ur Oxycodone Screen (Negative) Urine Methadone Screen (Negative) Ur Barbiturates Screen (Negative) U Tricyclic Antidepress (Negative) Ur Phencyclidine Scrn (Negative) Ur Amphetamines Screen (Negative) U Methamphetamines Scrn (Negative) Ur MDMA Scrn (Ecstasy) (Negative) U Benzodiazepines Scrn (Negative) Urine Cocaine Screen (Negative) U Marijuana (THC) Screen (Negative) Ethyl Alcohol ( - 10) mg/dL A. baumannii (PCR) (Not Detect) Chlamy pneumoniae PCR (Not Detect) Adenovirus (PCR) (Not Detect) B. pertussis DNA (PCR) (Not Detecte) B.parapertussis DNA PCR (Not Detecte) [place] albicans (PCR) (Not Detect) C. glabrata (PCR) (Not Detect) C. krusei (PCR) (Not Detect) C. parapsilosis (PCR) (Not Detect) C. tropicalis (PCR) (Not Detect) Coronavirus OC43 (PCR) (Not Detect) Coronavirus HKU1 (PCR) (Not Detect) Coronavirus 229E (PCR) (Not Detect) SARS-CoV-2 (PCR) (Not Detecte) Coronavirus NL63 (PCR) (Not Detect) Enterobacteriac sp PCR (Not Detect) E. cloacae complex PCR (Not Detect) Enterococcus sp PCR (Not Detect) E. coli (PCR) (Not Detect) H. influenzae (PCR) (Not Detect) Human Metapneumovir PCR (Not Detect) Influenza Type A (PCR) (Not Detect) Influenza Type B (PCR) (Not Detect) Klebsiella oxytoca PCR (Not Detect) Klebsiella pneumoniae (Not Detect) List. monocytogenes PCR (Not Detect) M. pneumoniae (PCR) (Not Detect) N. meningitidis (PCR) (Not Detect) Parainfluenza 1 (PCR) (Not Detect) Parainfluenza 2 (PCR) (Not Detect) Parainfluenza 3 (PCR) (Not Detect) Parainfluenza 4 (PCR) (Not Detect) Proteus species (PCR) (Not Detect) RSV (PCR) (Not Detect) Entero/Rhino (PCR) (Not Detect) Serratia marcescens PCR (Not Detect) Staphylococcus sp PCR (Not Detect) Staph aureus (PCR) (Not Detect) mecA-Methicil Res Gene Streptococcus sp PCR (Not Detect) Group A Strep (PCR) (Not Detect) Strep agalactiae (PCR) (Not Detect) Strep pneumoniae (PCR) (Not Detect) P. aeruginosa (PCR) (Not Detect) [place]/B-Vanco Res Genes KPC-Carbap Res Gene PCR (Not Detect) 05/09/21 05/09/21 05/09/21 Range/Units 12:41 12:41 12:41 WBC (4.5-11.0) X10^3/uL RBC (4.0-5.2) X10^6/uL Hgb (12.0-16.0) g/dL Hct (36-46) % MCV (80-100) fL MCH (26-34) PG MCHC (30-36) % RDW (11.6-14.8) % Plt Count (150-400) X10^3/uL Neut % (Auto) (50-75) % Lymph % (Auto) (25-40) % [place] % (Auto) (3-14) % Eos % (Auto) (2-4) % Baso % (Auto) (0-2) % Neut # (Auto) (5090-8575) /uL Lymph # (Auto) (8252-6584) /uL [place] # (Auto) (0-900) /uL Eos # (Auto) (0-450) /uL Baso # (Auto) (0-100) /uL Sodium (137-145) mmol/L Potassium (3.4-5.1) mmol/L Chloride (98-107) mmol/L Carbon Dioxide (22-32) mmol/L BUN (7-17) mg/dL Creatinine (0.52-1.04) mg/dL Estimated GFR (>60) mL/min BUN/Creatinine Ratio (6-22) Glucose (80-110) mg/dL Hemoglobin A1c 5.7 (4.0-6.0) % Calcium (8.4-10.2) mg/dL Phosphorus (2.8-4.1) mg/dL Magnesium (1.6-2.3) mg/dL Total Bilirubin (0.2-1.3) mg/dL AST (14-36) IU/L ALT (<35) IU/L Alkaline Phosphatase (38-126) U/L Ammonia (9-30) umol/L Total Protein (6.3-8.2) g/dL Albumin (3.5-5.0) g/dL Globulin (1.7-4.1) g/dL Albumin/Globulin Ratio (1.0-2.8) Procalcitonin (<0.5) ng/mL TSH < 0.015 L (0.47-4.68) uIU/mL Free T4 1.81 (0.78-2.19) ng/dL Prolactin (3.0-18.6) ng/mL Urine Color Urine Appearance Urine pH (4.5-8.0) Ur Specific [place] (1.000-1.035) Urine Protein (Negative) Urine Glucose (UA) (Negative) g/dL Urine Ketones (NEGATIVE) Urine Occult Blood (Negative) Urine Nitrate (Negative) Urine Bilirubin (NEGATIVE) Urine Urobilinogen (0.2) E.U./dL Ur Leukocyte Esterase (NEGATIVE) Urine RBC (0-5/HPF) Urine WBC (0-5/HPF) Ur Squamous Epith Cells (0-5/HPF) Ur Renal Epithelial Cell (0-1/HPF) Urine Bacteria (None) Ur Culture Indicated? U Opiates 300ng/mL cut (Negative) Ur Oxycodone Screen (Negative) Urine Methadone Screen (Negative) Ur Barbiturates Screen (Negative) U Tricyclic Antidepress (Negative) Ur Phencyclidine Scrn (Negative) Ur Amphetamines Screen (Negative) U Methamphetamines Scrn (Negative) Ur MDMA Scrn (Ecstasy) (Negative) U Benzodiazepines Scrn (Negative) Urine Cocaine Screen (Negative) U Marijuana (THC) Screen (Negative) Ethyl Alcohol ( - 10) mg/dL A. baumannii (PCR) (Not Detect) Chlamy pneumoniae PCR (Not Detect) Adenovirus (PCR) (Not Detect) B. pertussis DNA (PCR) (Not Detecte) B.parapertussis DNA PCR (Not Detecte) Montse albicans (PCR) (Not Detect) C. glabrata (PCR) (Not Detect) C. krusei (PCR) (Not Detect) C. parapsilosis (PCR) (Not Detect) C. tropicalis (PCR) (Not Detect) Coronavirus OC43 (PCR) (Not Detect) Coronavirus HKU1 (PCR) (Not Detect) Coronavirus 229E (PCR) (Not Detect) SARS-CoV-2 (PCR) (Not Detecte) Coronavirus NL63 (PCR) (Not Detect) Enterobacteriac sp PCR (Not Detect) E. cloacae complex PCR (Not Detect) Enterococcus sp PCR (Not Detect) E. coli (PCR) (Not Detect) H. influenzae (PCR) (Not Detect) Human Metapneumovir PCR (Not Detect) Influenza Type A (PCR) (Not Detect) Influenza Type B (PCR) (Not Detect) Klebsiella oxytoca PCR (Not Detect) Klebsiella pneumoniae (Not Detect) List. monocytogenes PCR (Not Detect) M. pneumoniae (PCR) (Not Detect) N. meningitidis (PCR) (Not Detect) Parainfluenza 1 (PCR) (Not Detect) Parainfluenza 2 (PCR) (Not Detect) Parainfluenza 3 (PCR) (Not Detect) Parainfluenza 4 (PCR) (Not Detect) Proteus species (PCR) (Not Detect) RSV (PCR) (Not Detect) Entero/Rhino (PCR) (Not Detect) Serratia marcescens PCR (Not Detect) Staphylococcus sp PCR (Not Detect) Staph aureus (PCR) (Not Detect) mecA-Methicil Res Gene Streptococcus sp PCR (Not Detect) Group A Strep (PCR) (Not Detect) Strep agalactiae (PCR) (Not Detect) Strep pneumoniae (PCR) (Not Detect) P. aeruginosa (PCR) (Not Detect) [place]/B-Vanco Res Genes KPC-Carbap Res Gene PCR (Not Detect) 05/09/21 05/09/21 05/09/21 Range/Units 12:55 13:00 13:00 WBC (4.5-11.0) X10^3/uL RBC (4.0-5.2) X10^6/uL Hgb (12.0-16.0) g/dL Hct (36-46) % MCV (80-100) fL MCH (26-34) PG MCHC (30-36) % RDW (11.6-14.8) % Plt Count (150-400) X10^3/uL Neut % (Auto) (50-75) % Lymph % (Auto) (25-40) % [place] % (Auto) (3-14) % Eos % (Auto) (2-4) % Baso % (Auto) (0-2) % Neut # (Auto) (6710-8189) /uL Lymph # (Auto) (0250-2340) /uL [place] # (Auto) (0-900) /uL Eos # (Auto) (0-450) /uL Baso # (Auto) (0-100) /uL Sodium (137-145) mmol/L Potassium (3.4-5.1) mmol/L Chloride (98-107) mmol/L Carbon Dioxide (22-32) mmol/L BUN (7-17) mg/dL Creatinine (0.52-1.04) mg/dL Estimated GFR (>60) mL/min BUN/Creatinine Ratio (6-22) Glucose (80-110) mg/dL Hemoglobin A1c (4.0-6.0) % Calcium (8.4-10.2) mg/dL Phosphorus (2.8-4.1) mg/dL Magnesium (1.6-2.3) mg/dL Total Bilirubin (0.2-1.3) mg/dL AST (14-36) IU/L ALT (<35) IU/L Alkaline Phosphatase (38-126) U/L Ammonia 11 (9-30) umol/L Total Protein (6.3-8.2) g/dL Albumin (3.5-5.0) g/dL Globulin (1.7-4.1) g/dL Albumin/Globulin Ratio (1.0-2.8) Procalcitonin (<0.5) ng/mL TSH (0.47-4.68) uIU/mL Free T4 (0.78-2.19) ng/dL Prolactin (3.0-18.6) ng/mL Urine Color Yellow Urine Appearance Cloudy Urine pH 7.5 (4.5-8.0) Ur Specific [place] 1.020 (1.000-1.035) Urine Protein 3+ H (Negative) Urine Glucose (UA) Negative (Negative) g/dL Urine Ketones Negative (NEGATIVE) Urine Occult Blood 3+ H (Negative) Urine Nitrate Negative (Negative) Urine Bilirubin Negative (NEGATIVE) Urine Urobilinogen 0.2 (0.2) E.U./dL Ur Leukocyte Esterase 3+ H (NEGATIVE) Urine RBC 10-30/hpf H (0-5/HPF) Urine WBC >100/hpf H (0-5/HPF) Ur Squamous Epith Cells 0-1 /hpf (0-5/HPF) Ur Renal Epithelial Cell 0-1/hpf (0-1/HPF) Urine Bacteria Many (>30) H (None) Ur Culture Indicated? Culture not indicate U Opiates 300ng/mL cut Positive H (Negative) Ur Oxycodone Screen Negative (Negative) Urine Methadone Screen Negative (Negative) Ur Barbiturates Screen Negative (Negative) U Tricyclic Antidepress Negative (Negative) Ur Phencyclidine Scrn Negative (Negative) Ur Amphetamines Screen Negative (Negative) U Methamphetamines Scrn Negative (Negative) Ur MDMA Scrn (Ecstasy) Negative (Negative) U Benzodiazepines Scrn Negative (Negative) Urine Cocaine Screen Negative (Negative) U Marijuana (THC) Screen Negative (Negative) Ethyl Alcohol ( - 10) mg/dL A. baumannii (PCR) (Not Detect) Chlamy pneumoniae PCR (Not Detect) Adenovirus (PCR) (Not Detect) B. pertussis DNA (PCR) (Not Detecte) B.parapertussis DNA PCR (Not Detecte) Montse albicans (PCR) (Not Detect) C. glabrata (PCR) (Not Detect) C. krusei (PCR) (Not Detect) C. parapsilosis (PCR) (Not Detect) C. tropicalis (PCR) (Not Detect) Coronavirus OC43 (PCR) (Not Detect) Coronavirus HKU1 (PCR) (Not Detect) Coronavirus 229E (PCR) (Not Detect) SARS-CoV-2 (PCR) (Not Detecte) Coronavirus NL63 (PCR) (Not Detect) Enterobacteriac sp PCR (Not Detect) E. cloacae complex PCR (Not Detect) Enterococcus sp PCR (Not Detect) E. coli (PCR) (Not Detect) H. influenzae (PCR) (Not Detect) Human Metapneumovir PCR (Not Detect) Influenza Type A (PCR) (Not Detect) Influenza Type B (PCR) (Not Detect) Klebsiella oxytoca PCR (Not Detect) Klebsiella pneumoniae (Not Detect) List. monocytogenes PCR (Not Detect) M. pneumoniae (PCR) (Not Detect) N. meningitidis (PCR) (Not Detect) Parainfluenza 1 (PCR) (Not Detect) Parainfluenza 2 (PCR) (Not Detect) Parainfluenza 3 (PCR) (Not Detect) Parainfluenza 4 (PCR) (Not Detect) Proteus species (PCR) (Not Detect) RSV (PCR) (Not Detect) Entero/Rhino (PCR) (Not Detect) Serratia marcescens PCR (Not Detect) Staphylococcus sp PCR (Not Detect) Staph aureus (PCR) (Not Detect) mecA-Methicil Res Gene Streptococcus sp PCR (Not Detect) Group A Strep (PCR) (Not Detect) Strep agalactiae (PCR) (Not Detect) Strep pneumoniae (PCR) (Not Detect) P. aeruginosa (PCR) (Not Detect) Nahum/B-Vanco Res Genes KPC-Carbap Res Gene PCR (Not Detect) 05/09/21 05/09/21 05/09/21 Range/Units 13:00 13:00 13:20 WBC (4.5-11.0) X10^3/uL RBC (4.0-5.2) X10^6/uL Hgb (12.0-16.0) g/dL Hct (36-46) % MCV (80-100) fL MCH (26-34) PG MCHC (30-36) % RDW (11.6-14.8) % Plt Count (150-400) X10^3/uL Neut % (Auto) (50-75) % Lymph % (Auto) (25-40) % [place] % (Auto) (3-14) % Eos % (Auto) (2-4) % Baso % (Auto) (0-2) % Neut # (Auto) (5678-4984) /uL Lymph # (Auto) (5252-8903) /uL Weston # (Auto) (0-900) /uL Eos # (Auto) (0-450) /uL Baso # (Auto) (0-100) /uL Sodium (137-145) mmol/L Potassium (3.4-5.1) mmol/L Chloride (98-107) mmol/L Carbon Dioxide (22-32) mmol/L BUN (7-17) mg/dL Creatinine (0.52-1.04) mg/dL Estimated GFR (>60) mL/min BUN/Creatinine Ratio (6-22) Glucose (80-110) mg/dL Hemoglobin A1c (4.0-6.0) % Calcium (8.4-10.2) mg/dL Phosphorus (2.8-4.1) mg/dL Magnesium (1.6-2.3) mg/dL Total Bilirubin (0.2-1.3) mg/dL AST (14-36) IU/L ALT (<35) IU/L Alkaline Phosphatase (38-126) U/L Ammonia (9-30) umol/L Total Protein (6.3-8.2) g/dL Albumin (3.5-5.0) g/dL Globulin (1.7-4.1) g/dL Albumin/Globulin Ratio (1.0-2.8) Procalcitonin 0.08 (<0.5) ng/mL TSH (0.47-4.68) uIU/mL Free T4 (0.78-2.19) ng/dL Prolactin 16.1 (3.0-18.6) ng/mL Urine Color Urine Appearance Urine pH (4.5-8.0) Ur Specific [place] (1.000-1.035) Urine Protein (Negative) Urine Glucose (UA) (Negative) g/dL Urine Ketones (NEGATIVE) Urine Occult Blood (Negative) Urine Nitrate (Negative) Urine Bilirubin (NEGATIVE) Urine Urobilinogen (0.2) E.U./dL Ur Leukocyte Esterase (NEGATIVE) Urine RBC (0-5/HPF) Urine WBC (0-5/HPF) Ur Squamous Epith Cells (0-5/HPF) Ur Renal Epithelial Cell (0-1/HPF) Urine Bacteria (None) Ur Culture Indicated? U Opiates 300ng/mL cut (Negative) Ur Oxycodone Screen (Negative) Urine Methadone Screen (Negative) Ur Barbiturates Screen (Negative) U Tricyclic Antidepress (Negative) Ur Phencyclidine Scrn (Negative) Ur Amphetamines Screen (Negative) U Methamphetamines Scrn (Negative) Ur MDMA Scrn (Ecstasy) (Negative) U Benzodiazepines Scrn (Negative) Urine Cocaine Screen (Negative) U Marijuana (THC) Screen (Negative) Ethyl Alcohol ( - 10) mg/dL A. baumannii (PCR) (Not Detect) Chlamy pneumoniae PCR Not detected (Not Detect) Adenovirus (PCR) Not detected (Not Detect) B. pertussis DNA (PCR) Not detected (Not Detecte) B.parapertussis DNA PCR Not detected (Not Detecte) Montse albicans (PCR) (Not Detect) C. glabrata (PCR) (Not Detect) C. krusei (PCR) (Not Detect) C. parapsilosis (PCR) (Not Detect) C. tropicalis (PCR) (Not Detect) Coronavirus OC43 (PCR) Not detected (Not Detect) Coronavirus HKU1 (PCR) Not detected (Not Detect) Coronavirus 229E (PCR) Not detected (Not Detect) SARS-CoV-2 (PCR) Not detected (Not Detecte) Coronavirus NL63 (PCR) Not detected (Not Detect) Enterobacteriac sp PCR (Not Detect) E. cloacae complex PCR (Not Detect) Enterococcus sp PCR (Not Detect) E. coli (PCR) (Not Detect) H. influenzae (PCR) (Not Detect) Human Metapneumovir PCR Not detected (Not Detect) Influenza Type A (PCR) Not detected (Not Detect) Influenza Type B (PCR) Not detected (Not Detect) Klebsiella oxytoca PCR (Not Detect) Klebsiella pneumoniae (Not Detect) List. monocytogenes PCR (Not Detect) M. pneumoniae (PCR) Not detected (Not Detect) N. meningitidis (PCR) (Not Detect) Parainfluenza 1 (PCR) Not detected (Not Detect) Parainfluenza 2 (PCR) Not detected (Not Detect) Parainfluenza 3 (PCR) Not detected (Not Detect) Parainfluenza 4 (PCR) Not detected (Not Detect) Proteus species (PCR) (Not Detect) RSV (PCR) Not detected (Not Detect) Entero/Rhino (PCR) Not detected (Not Detect) Serratia marcescens PCR (Not Detect) Staphylococcus sp PCR (Not Detect) Staph aureus (PCR) (Not Detect) mecA-Methicil Res Gene Streptococcus sp PCR (Not Detect) Group A Strep (PCR) (Not Detect) Strep agalactiae (PCR) (Not Detect) Strep pneumoniae (PCR) (Not Detect) P. aeruginosa (PCR) (Not Detect) Nahum/B-Vanco Res Genes KPC-Carbap Res Gene PCR (Not Detect) 05/09/21 05/09/21 Range/Units 13:20 13:20 WBC (4.5-11.0) X10^3/uL RBC (4.0-5.2) X10^6/uL Hgb (12.0-16.0) g/dL Hct (36-46) % MCV (80-100) fL MCH (26-34) PG MCHC (30-36) % RDW (11.6-14.8) % Plt Count (150-400) X10^3/uL Neut % (Auto) (50-75) % Lymph % (Auto) (25-40) % Weston % (Auto) (3-14) % Eos % (Auto) (2-4) % Baso % (Auto) (0-2) % Neut # (Auto) (9097-6788) /uL Lymph # (Auto) (2076-4758) /uL Weston # (Auto) (0-900) /uL Eos # (Auto) (0-450) /uL Baso # (Auto) (0-100) /uL Sodium (137-145) mmol/L Potassium (3.4-5.1) mmol/L Chloride (98-107) mmol/L Carbon Dioxide (22-32) mmol/L BUN (7-17) mg/dL Creatinine (0.52-1.04) mg/dL Estimated GFR (>60) mL/min BUN/Creatinine Ratio (6-22) Glucose (80-110) mg/dL Hemoglobin A1c (4.0-6.0) % Calcium (8.4-10.2) mg/dL Phosphorus (2.8-4.1) mg/dL Magnesium (1.6-2.3) mg/dL Total Bilirubin (0.2-1.3) mg/dL AST (14-36) IU/L ALT (<35) IU/L Alkaline Phosphatase (38-126) U/L Ammonia (9-30) umol/L Total Protein (6.3-8.2) g/dL Albumin (3.5-5.0) g/dL Globulin (1.7-4.1) g/dL Albumin/Globulin Ratio (1.0-2.8) Procalcitonin (<0.5) ng/mL TSH (0.47-4.68) uIU/mL Free T4 (0.78-2.19) ng/dL Prolactin (3.0-18.6) ng/mL Urine Color Urine Appearance Urine pH (4.5-8.0) Ur Specific [place] (1.000-1.035) Urine Protein (Negative) Urine Glucose (UA) (Negative) g/dL Urine Ketones (NEGATIVE) Urine Occult Blood (Negative) Urine Nitrate (Negative) Urine Bilirubin (NEGATIVE) Urine Urobilinogen (0.2) E.U./dL Ur Leukocyte Esterase (NEGATIVE) Urine RBC (0-5/HPF) Urine WBC (0-5/HPF) Ur Squamous Epith Cells (0-5/HPF) Ur Renal Epithelial Cell (0-1/HPF) Urine Bacteria (None) Ur Culture Indicated? U Opiates 300ng/mL cut (Negative) Ur Oxycodone Screen (Negative) Urine Methadone Screen (Negative) Ur Barbiturates Screen (Negative) U Tricyclic Antidepress (Negative) Ur Phencyclidine Scrn (Negative) Ur Amphetamines Screen (Negative) U Methamphetamines Scrn (Negative) Ur MDMA Scrn (Ecstasy) (Negative) U Benzodiazepines Scrn (Negative) Urine Cocaine Screen (Negative) U Marijuana (THC) Screen (Negative) Ethyl Alcohol < 10 ( - 10) mg/dL A. baumannii (PCR) Not detected (Not Detect) Chlamy pneumoniae PCR (Not Detect) Adenovirus (PCR) (Not Detect) B. pertussis DNA (PCR) (Not Detecte) B.parapertussis DNA PCR (Not Detecte) Montse albicans (PCR) Not detected (Not Detect) C. glabrata (PCR) Not detected (Not Detect) C. krusei (PCR) Not detected (Not Detect) C. parapsilosis (PCR) Not detected (Not Detect) C. tropicalis (PCR) Not detected (Not Detect) Coronavirus OC43 (PCR) (Not Detect) Coronavirus HKU1 (PCR) (Not Detect) Coronavirus 229E (PCR) (Not Detect) SARS-CoV-2 (PCR) (Not Detecte) Coronavirus NL63 (PCR) (Not Detect) Enterobacteriac sp PCR Detected H (Not Detect) E. cloacae complex PCR Not detected (Not Detect) Enterococcus sp PCR Not detected (Not Detect) E. coli (PCR) Detected H (Not Detect) H. influenzae (PCR) Not detected (Not Detect) Human Metapneumovir PCR (Not Detect) Influenza Type A (PCR) (Not Detect) Influenza Type B (PCR) (Not Detect) Klebsiella oxytoca PCR Not detected (Not Detect) Klebsiella pneumoniae Not detected (Not Detect) List. monocytogenes PCR Not detected (Not Detect) M. pneumoniae (PCR) (Not Detect) N. meningitidis (PCR) Not detected (Not Detect) Parainfluenza 1 (PCR) (Not Detect) Parainfluenza 2 (PCR) (Not Detect) Parainfluenza 3 (PCR) (Not Detect) Parainfluenza 4 (PCR) (Not Detect) Proteus species (PCR) Not detected (Not Detect) RSV (PCR) (Not Detect) Entero/Rhino (PCR) (Not Detect) Serratia marcescens PCR Not detected (Not Detect) Staphylococcus sp PCR Not detected (Not Detect) Staph aureus (PCR) Not detected (Not Detect) mecA-Methicil Res Gene Not Reportable Streptococcus sp PCR Not detected (Not Detect) Group A Strep (PCR) Not detected (Not Detect) Strep agalactiae (PCR) Not detected (Not Detect) Strep pneumoniae (PCR) Not detected (Not Detect) P. aeruginosa (PCR) Not detected (Not Detect) Nahum/B-Vanco Res Genes Not Reportable KPC-Carbap Res Gene PCR Not detected (Not Detect) Point of Care Testing Glucose POC 138 Imaging Data Chest x-ray: Radiologist's Impression: [address] [address] XRay Report Signed Patient: Vicenta Jacobsen MR#: [id number] : 1945 Acct:[id number] Age/Sex: 75 / F Date of Service: 05/09/21 Loc: ED Accession Number: [id number] ?? Procedure: XR chest 1V Ordering Provider: Joe Gonzalez MD PROCEDURE:? XR CHEST 1V ? INDICATIONS:? altered mental status ? TECHNIQUE:? One view of the chest was acquired.? ? COMPARISON:? [facility], CR, XR CHEST 1V, 04/14/2018, 9:54. ? FINDINGS:? ? Surgical changes and devices:? Redemonstrated sternotomy wires.? ? Lungs and pleura:? Reduced lung volumes with prominence of the bronchovascular markings.? No consolidation, pleural effusions or pneumothorax.? ? Mediastinum:? Mediastinal contours appear normal.? Enlargement of cardiac silhouette, partially exaggerated by technique.? ? Bones and chest wall:? No suspicious bony lesions.? Overlying soft tissues appear unremarkable.? ? IMPRESSION:? No acute cardiopulmonary abnormality. ? ? Dictated by: Jah Godinez M.D. on 05/09/2021 at 13:07 ? ? Approved by: Jah Godinez M.D. on 05/09/2021 at 13:08 ? CT scan - head: Radiologist's Impression: [address] [address] [address] Scan Report Signed Patient: Vicenta Jacobsen MR#: [id number] : 1945 Acct:[id number] Age/Sex: 75 / F Date of Service: 05/09/21 Loc: ED Accession Number: [id number] ?? Procedure: CT head/brain wo con Ordering Provider: Joe Gonzalez MD PROCEDURE:? CT HEAD/BRAIN WO CON ? INDICATIONS:? Seizure ? TECHNIQUE:? Noncontrast 4.5 mm thick angled axial sections acquired from the foramen magnum to the vertex, with coronal and sagittal reformats.? For radiation dose reduction, the following was used:? automated exposure control, adjustment of mA and/or kV according to patient size.? ? COMPARISON:? [facility], CT, CT HEAD/BRAIN WO CON, 04/14/2018, 11:48. ? FINDINGS:? Image quality:? Excellent.? ? CSF spaces:? Basal cisterns are patent.? No extra-axial fluid collections.? The ventricles are symmetric in size and shape.? ? Brain:? No intracranial bleeds or masses.? There is cerebral volume loss for age, with resultant ventricular and sulcal prominence.? Small lacunar infarct in the left caudate head.? Left posterior temporal lobe cortical loss with adjacent ex vacuo dilatation of the lateral ventricle.? Encephalomalacia involving the medial right occipital lobe.? Findings are superimposed on [id number] periventricular and deep white matter chronic small vessel ischemic changes.? There is intracranial internal carotid artery atherosclerosis.? ? Skull and face:? Calvarium and visualized facial bones appear intact, without suspicious lesions.? ? Sinuses:? Visualized sinuses and mastoids are clear.? ? IMPRESSION:? 1. No hemorrhage or mass to explain seizure. 2. Several areas of chronic ischemic changes in the deep davis and cortical davis matter, new since the prior study.? ? ? Dictated by: Elizabeth Lebron M.D. on 05/09/2021 at 13:51 ? ? Approved by: Elizabeth Lebron M.D. on 05/09/2021 at 13:56 ? ECG Data Interpretation: Sinus rhythm rate [address] elevation or depression MDM Narrative Medical decision making narrative: Appropriate for admission. Patient is not at baseline. Likely source UTI. Appropriate for admission for observation and IV antibiotics. Discharge Plan Departure Patient Disposition: Admitted As Inpatient Clinical Impression: Altered mental status, UTI (urinary tract infection) Admit Date/Time: 05/09/21 15:25 Admit Provider: Rimma Herbert
[2021-05-09 13:43] LABS: Ur Creatinine Normal (Normal); Ur Specific Gravity Normal (Normal); Urine pH Normal (Normal)
[2021-05-09 13:44] LABS: UR Morphine/Opiate cutoff 300 Positive (Negative); Urine Amphetamines Negative (Negative); Urine Barbiturates Negative (Negative); Urine Benzodiazepines Negative (Negative); Urine Cocaine Negative (Negative); Urine MDMA Negative (Negative); Urine Methadone Negative (Negative); Urine Methamphetamines Negative (Negative); Urine Oxycodone Negative (Negative); Urine Phencyclidine Negative (Negative); Urine Tetrahydrocannabinol Negative (Negative); Urine Tricyclic Antidepressant Negative (Negative)
[2021-05-09 13:56] LABS: RBC Urine 10-30/HPF (0-5/HPF); Renal Epithelial Cells Urine 0-1/HPF (0-1/HPF); Squamous Epithelial Cell Urine 0-1 /HPF (0-5/HPF); WBC Urine >100/HPF (0-5/HPF)
[2021-05-09 13:57] LABS: Bacteria Urine Many (>30)
[2021-05-09 13:59] LABS: Ethanol (ETOH) < 10 mg/dL
[2021-05-09 14:16] LABS: Prolactin 16.1 ng/mL (3.0-18.6)
[2021-05-09 14:20] LABS: Adenovirus Not Detected (Not Detect); B. parapertussis Not Detected (Not Detecte); Bordetella pertussis Not Detected (Not Detecte); Chlamydophila pneumoniae Not Detected (Not Detect); Coronavirus 229E Not Detected (Not Detect); Coronavirus HKU1 Not Detected (Not Detect); Coronavirus NL 63 Not Detected (Not Detect); Coronavirus OC43 Not Detected (Not Detect); Human Metapneumovirus Not Detected (Not Detect); Human Rhinovirus/Enterovirus Not Detected (Not Detect); Influenza A Not Detected (Not Detect); Influenza B Not Detected (Not Detect); Mycoplasma pneumoniae Not Detected (Not Detect); Parainfluenza Virus 1 Not Detected (Not Detect); Parainfluenza Virus 2 Not Detected (Not Detect); Parainfluenza Virus 3 Not Detected (Not Detect); Parainfluenza Virus 4 Not Detected (Not Detect); Respiratory Syncytial Virus Not Detected (Not Detect); SARS- CoV-2 Not Detected (Not Detecte)
[2021-05-09] MEDS: cefTRIAXone 2,000 MG in SODIUM CHLORIDE 0.9% 100 ML 200 ML IV (15:14)
[2021-05-09] MEDS: SODIUM CHLORIDE 0.9% 500 ML 1000 ML IV (15:51)
--- NOTE | 2021-05-09 17:28 | PC.NURSE ---
Day shift: Pt on AC unit at approx 1700 from ED. SHILA Jarred performed a bed bath at isidro area. Pt w/ strong odor of urine on admit. Spouise in room for support and admit information. Pt alert to self and name at this time. BP elevated and was elevated in ED. Afebrile. Has pressure injury rt side coccyx area. Hx breast CA and BP's on left arm only. Reports back pain on admit and Pt is asleep at this time (1733). Pt incontinent of urine at this time. Per report and Pt's spouse, she does not like to get out of her chair at home. Call light in reach and bed alarm is on. High fall risk. Used a transfer board on admit. Pt's spouse reports she has been very weak lately. Pos for UTI.
--- NOTE | 2021-05-09 17:36 | PC.NURSE ---
Day shift: No MD orders at this time (0107).
[2021-05-09] MEDS: ASPIRIN EC 81 MG TABLET PO (18:30)
--- NOTE | 2021-05-09 18:42 | P.HP_ITS ---
History of Present Illness History of Present Illness Date Patient Seen: 05/09/21 Time Patient Seen: 18:43 Chief complaint: Witnessed seizure, UTI, newly started on lexapro Narrative: Vicenta Jacobsen is a 75-year-old female with an extensive history consisting of chr onic kidney disease, iron deficiency, paroxysmal atrial fibrillation, history of broached cancer, diabetes, coronary artery disease with stents, hypothyroidism and obstructive sleep apnea presented with what was believed to be a seizure that happened at noon on 04/28 2. Her Sg, provides much of the history is the patient is very lethargic and not wanting to speak much. He states that she has been getting progressively weaker over the past day. He when out and then apparently that he stated that she has been unable to get up to urinate and has been sitting quite a bit in a recliner chair during the day only getting up twice a day to urinate. She did complain of feeling pain and he said her urine was quite cloudy. stated she was started on a new antidepressant, now confirmed to be lexapro 5 mg daily and states it has very much helped her moods. Her states she sees Dr. Figueroa, Cardiology in [place] and Dr. Stark, blood bank laboratory technologist. He stated she was admitted in 2018, sustained an acute kidney injury almost necessitating dialysis and taking baclofen was the culprit. He stated she was removed off all nephrotoxic medications and her renal function has improved. Chest x-ray ordered in the ED was negative for any acute cardiopulmonary process, head CT indicated new areas of chronic ischemic changes in the deep davis and cortical davis matter that appeared since being scanned in the past. Patient is afebrile, blood pressure 117/63 though it was ranging from 145-200 systolic prior to her arrival the floor. Heart rate 69, respiratory rate 19, oxygen saturation 99% on room air, she weighs 102 kg with a BMI of 36.3. WBC was 7.8 RBC 3.67 hemoglobin 11.4 hematocrit 34.1 platelet count 174, sodium 141, potassium 4.3, chloride 114, bicarb 15, BUN 64, creatinine 2.40 which is higher than her normal baseline, GFR is 19.6, glucose 203, hemoglobin A1c is 5.7, phosphorus is 5.7, magnesium 1.9, AST 44, ALT 18, TSH is 0.015, prolactin was normal, urine was positive multitude of bacteria likely contamination and is not indicated for culture, COVID 19 and viral PCR are all negative. Patient History Medical History (Updated 05/10/21 @ 00:27 by ALEX Hidalgo) Anemia Atrial fibrillation CHF (congestive heart failure) Diabetes History of GI bleed Surgical History (Updated 05/10/21 @ 00:27 by ALEX Hidalgo) History of cholecystectomy History of hysterectomy History of mastectomy S/P CABG x 3 Family & Social History Family History Mother No problems noted. Social History: household members spouse Safety & Behavioral: Feels Safe in Current Yes Environment Been Physically Hurt or No Threatened By a Person Tobacco & Substance use: Tobacco type cigarettes Smoking Status Former smoker alcohol intake never Substance Use Type does not use Meds Home Medications and Allergies Home Medications Medication Instructions Recorded Confirmed Type vitamin B complex (B 1 tab PO DAILY #0 04/26/16 05/09/21 History Complex-Vitamin B12) fluticasone propionate 50 1 spray INTRANASAL BID #0 05/22/16 05/09/21 History mcg/actuation nasal spray,suspension hydrocodone 10 mg-acetaminophen 1 tab PO Q6H PRN #0 05/22/16 05/09/21 History 325 mg tablet ([place]) atorvastatin 40 mg tablet 40 mg PO BEDTIME #0 11/08/16 05/09/21 History calcium carbonate 600 mg-vitamin 1 cap PO BID #0 11/08/16 05/09/21 History D3 10 mcg (400 unit) capsule (Calcium 600 with Vitamin D3) ondansetron HCl 4 mg tablet 4 mg PO Q8H PRN #0 11/08/16 05/09/21 History (Zofran) pantoprazole 40 mg tablet,delayed 40 mg PO BID #0 11/08/16 05/09/21 History release (Protonix) potassium chloride 10 mEq 10 meq PO BID #0 11/08/16 05/09/21 History capsule,extended release isosorbide mononitrate 30 mg 30 mg PO QAM #0 01/27/17 05/09/21 History tablet,extended release 24 hr diphenhydramine HCl 50 mg capsule 25 mg PO Q6HPRN PRN #0 06/21/17 05/09/21 History vitamin E 400 unit capsule 400 unit PO DAILY #0 07/04/17 05/09/21 History [place]-3 Fish Oil 500 mg PO BID 04/09/18 05/09/21 History clopidogrel 75 mg tablet 75 mg PO QPM 04/09/18 05/09/21 History insulin human U-100 NPH-regulr 64 units SUBCUT BID 04/09/18 04/14/18 History 70-30 mix 100 unit/mL subcutaneous susp (Novolin 70/30 U-100 Insulin) insulin regular human 100 unit/mL 1 dose SUBCUT BID PRN 04/09/18 04/14/18 History injection solution (Novolin R Regular U-100 Insulin) levothyroxine 125 mcg tablet 250 mcg PO DAILY 04/09/18 05/09/21 History nitroglycerin 0.4 mg sublingual 0.4 mg SUBLINGUAL PRN PRN 04/09/18 05/09/21 History tablet (Nitrostat) oxybutynin chloride 5 mg tablet 5 mg PO BID 04/09/18 05/09/21 History polyethylene glycol 3350 17 gram 17 g PO DAILY PRN 04/09/18 05/09/21 History oral powder packet (Miralax) ropinirole 0.5 mg tablet (Requip) 0.5 mg PO TID #30 tab 04/10/18 05/09/21 Rx ferrous sulfate 325 mg (65 mg 325 mg PO BID 04/14/18 05/09/21 History iron) tablet (iron) nystatin 100,000 unit/gram topical 1 applic TOPICAL BID PRN 04/14/18 05/09/21 History powder torsemide 20 mg tablet 20 mg PO QDAYP PRN #0 tab 04/18/18 05/09/21 Rx aspirin 81 mg tablet,delayed 81 mg PO DAILY 05/09/21 05/09/21 History release carvedilol 25 mg tablet 37.5 mg PO BID 05/09/21 05/09/21 History clotrimazole 1 % topical cream 1 applic TOPICAL BID PRN 05/09/21 05/09/21 History docusate sodium 100 mg tablet 100 mg PO BID PRN 05/09/21 05/09/21 History hydrochlorothiazide 25 mg tablet 25 mg PO BID 05/09/21 05/09/21 History losartan 25 mg tablet 25 mg PO DAILY 05/09/21 05/09/21 History escitalopram oxalate 5 mg tablet 5 mg PO DAILY 05/10/21 05/10/21 History Allergies Allergy/AdvReac Type Severity Reaction Status Date / Time meperidine [From DEMEROL] Allergy Severe NAUSEA/VOMI Verified 09/22/17 07:21 TTING Review of Systems Review of Systems ROS: Yes unobtainable due to mental status Exam Vital Signs (past 8 hours): - 05/09/21 12:23 05/09/21 12:41 05/09/21 13:00 Temperature 97.4 F L Pulse Rate 73 69 69 Respiratory Rate 18 22 Blood Pressure 159/68 H Pulse Oximetry 96 96 92 05/09/21 13:01 05/09/21 13:23 05/09/21 13:30 Temperature 99.8 F H Pulse Rate 75 80 Respiratory Rate 24 22 Blood Pressure 140/62 Pulse Oximetry 96 96 05/09/21 13:36 05/09/21 14:00 05/09/21 14:30 Temperature Pulse Rate 76 74 74 Respiratory Rate 25 H 25 H Blood Pressure 161/68 H 161/68 H Pulse Oximetry 96 94 93 05/09/21 14:54 05/09/21 15:00 05/09/21 15:30 Temperature Pulse Rate 74 75 75 Respiratory Rate 24 23 Blood Pressure 142/58 H Pulse Oximetry 95 94 94 05/09/21 15:31 05/09/21 16:00 05/09/21 16:01 Temperature Pulse Rate 76 74 74 Respiratory Rate 22 23 22 Blood Pressure 151/64 H 164/71 H Pulse Oximetry 94 96 96 05/09/21 16:30 05/09/21 16:31 05/09/21 17:00 Temperature 98.6 F Pulse Rate 75 75 71 Respiratory Rate 19 20 20 Blood Pressure 145/63 H 188/86 H Pulse Oximetry 96 96 97 Oxygen Delivery Method Room Air Oxygen Flow Rate 0 Narrative Exam Narrative: Gen: Alert, oriented, obese 75 y.o. female, not engaged, lethargic HEENT: normocephalic, atraumatic, conjunctiva clear, sclera non-icteric, oral mucosa pink and moist Neck: supple, full ROM, no JVD, trachea is midline Resp: Lungs CTA, non-labored breathing CV: RRR, no murmur or rubs Abd: soft, non-tender, normoactive BTs Skin: Stage 2 sacral decubitus, worse on right side which is also excoriated, dry and intact Neuro: Alert and oriented X 4 w/no focal deficits. Speaks in 1 word sentences Extremities: Generalized non-pitting edema, has mild erythema bilaterally, weak, is not currently ambulatory, negative Misael?s sign Psyche: normal mood and affect. Objective Labs Result Diagrams: 05/09/21 12:41 05/09/21 12:41 Labs: Laboratory Results - last 24 hr 05/09/21 05/09/21 05/09/21 12:41 12:41 12:55 WBC 7.8 RBC 3.67 L Hgb 11.4 L Hct 34.1 L MCV 93.1 MCH 31.1 MCHC 33.4 RDW 13.8 Plt Count 174 Neut % (Auto) 79.9 H Lymph % (Auto) 9.8 L [place] % (Auto) 5.6 Eos % (Auto) 3.8 Baso % (Auto) 0.9 Neut # (Auto) 6200 Lymph # (Auto) 800 L [place] # (Auto) 400 Eos # (Auto) 300 Baso # (Auto) 100 Sodium 141 Potassium 4.3 Chloride 114 H Carbon Dioxide 15 L BUN 64 H Creatinine 2.40 H Estimated GFR 19.6 L BUN/Creatinine Ratio 26.7 H Glucose 203 H Calcium 8.5 Total Bilirubin 0.4 AST 44 H ALT 18 Alkaline Phosphatase 82 Ammonia 11 Total Protein 6.4 Albumin 3.6 Globulin 2.8 Albumin/Globulin Ratio 1.3 Prolactin Urine Color Urine Appearance Urine pH Ur Specific [place] Urine Protein Urine Glucose (UA) Urine Ketones Urine Occult Blood Urine Nitrate Urine Bilirubin Urine Urobilinogen Ur Leukocyte Esterase Urine RBC Urine WBC Ur Squamous Epith Cells Ur Renal Epithelial Cell Urine Bacteria Ur Culture Indicated? U Opiates 300ng/mL cut Ur Oxycodone Screen Urine Methadone Screen Ur Barbiturates Screen U Tricyclic Antidepress Ur Phencyclidine Scrn Ur Amphetamines Screen U Methamphetamines Scrn Ur MDMA Scrn (Ecstasy) U Benzodiazepines Scrn Urine Cocaine Screen U Marijuana (THC) Screen Ethyl Alcohol Chlamy pneumoniae PCR Adenovirus (PCR) B. pertussis DNA (PCR) B.parapertussis DNA PCR Coronavirus OC43 (PCR) Coronavirus HKU1 (PCR) Coronavirus 229E (PCR) SARS-CoV-2 (PCR) Coronavirus NL63 (PCR) Human Metapneumovir PCR Influenza Type A (PCR) Influenza Type B (PCR) M. pneumoniae (PCR) Parainfluenza 1 (PCR) Parainfluenza 2 (PCR) Parainfluenza 3 (PCR) Parainfluenza 4 (PCR) RSV (PCR) Entero/Rhino (PCR) 05/09/21 05/09/21 05/09/21 13:00 13:00 13:00 WBC RBC Hgb Hct MCV MCH MCHC RDW Plt Count Neut % (Auto) Lymph % (Auto) [place] % (Auto) Eos % (Auto) Baso % (Auto) Neut # (Auto) Lymph # (Auto) [place] # (Auto) Eos # (Auto) Baso # (Auto) Sodium Potassium Chloride Carbon Dioxide BUN Creatinine Estimated GFR BUN/Creatinine Ratio Glucose Calcium Total Bilirubin AST ALT Alkaline Phosphatase Ammonia Total Protein Albumin Globulin Albumin/Globulin Ratio Prolactin Urine Color Yellow Urine Appearance Cloudy Urine pH 7.5 Ur Specific [place] 1.020 Urine Protein 3+ H Urine Glucose (UA) Negative Urine Ketones Negative Urine Occult Blood 3+ H Urine Nitrate Negative Urine Bilirubin Negative Urine Urobilinogen 0.2 Ur Leukocyte Esterase 3+ H Urine RBC 10-30/hpf H Urine WBC >100/hpf H Ur Squamous Epith Cells 0-1 /hpf Ur Renal Epithelial Cell 0-1/hpf Urine Bacteria Many (>30) H Ur Culture Indicated? Culture not indicate U Opiates 300ng/mL cut Positive H Ur Oxycodone Screen Negative Urine Methadone Screen Negative Ur Barbiturates Screen Negative U Tricyclic Antidepress Negative Ur Phencyclidine Scrn Negative Ur Amphetamines Screen Negative U Methamphetamines Scrn Negative Ur MDMA Scrn (Ecstasy) Negative U Benzodiazepines Scrn Negative Urine Cocaine Screen Negative U Marijuana (THC) Screen Negative Ethyl Alcohol Chlamy pneumoniae PCR Not detected Adenovirus (PCR) Not detected B. pertussis DNA (PCR) Not detected B.parapertussis DNA PCR Not detected Coronavirus OC43 (PCR) Not detected Coronavirus HKU1 (PCR) Not detected Coronavirus 229E (PCR) Not detected SARS-CoV-2 (PCR) Not detected Coronavirus NL63 (PCR) Not detected Human Metapneumovir PCR Not detected Influenza Type A (PCR) Not detected Influenza Type B (PCR) Not detected M. pneumoniae (PCR) Not detected Parainfluenza 1 (PCR) Not detected Parainfluenza 2 (PCR) Not detected Parainfluenza 3 (PCR) Not detected Parainfluenza 4 (PCR) Not detected RSV (PCR) Not detected Entero/Rhino (PCR) Not detected 05/09/21 05/09/21 13:20 13:20 WBC RBC Hgb Hct MCV MCH MCHC RDW Plt Count Neut % (Auto) Lymph % (Auto) [place] % (Auto) Eos % (Auto) Baso % (Auto) Neut # (Auto) Lymph # (Auto) [place] # (Auto) Eos # (Auto) Baso # (Auto) Sodium Potassium Chloride Carbon Dioxide BUN Creatinine Estimated GFR BUN/Creatinine Ratio Glucose Calcium Total Bilirubin AST ALT Alkaline Phosphatase Ammonia Total Protein Albumin Globulin Albumin/Globulin Ratio Prolactin 16.1 Urine Color Urine Appearance Urine pH Ur Specific [place] Urine Protein Urine Glucose (UA) Urine Ketones Urine Occult Blood Urine Nitrate Urine Bilirubin Urine Urobilinogen Ur Leukocyte Esterase Urine RBC Urine WBC Ur Squamous Epith Cells Ur Renal Epithelial Cell Urine Bacteria Ur Culture Indicated? U Opiates 300ng/mL cut Ur Oxycodone Screen Urine Methadone Screen Ur Barbiturates Screen U Tricyclic Antidepress Ur Phencyclidine Scrn Ur Amphetamines Screen U Methamphetamines Scrn Ur MDMA Scrn (Ecstasy) U Benzodiazepines Scrn Urine Cocaine Screen U Marijuana (THC) Screen Ethyl Alcohol < 10 Chlamy pneumoniae PCR Adenovirus (PCR) B. pertussis DNA (PCR) B.parapertussis DNA PCR Coronavirus OC43 (PCR) Coronavirus HKU1 (PCR) Coronavirus 229E (PCR) SARS-CoV-2 (PCR) Coronavirus NL63 (PCR) Human Metapneumovir PCR Influenza Type A (PCR) Influenza Type B (PCR) M. pneumoniae (PCR) Parainfluenza 1 (PCR) Parainfluenza 2 (PCR) Parainfluenza 3 (PCR) Parainfluenza 4 (PCR) RSV (PCR) Entero/Rhino (PCR) Assessment & Plan Assessment & Plan narrative: Vicenta Jacobsen is admitted to the inpatient service for acute metabolic encephopathy likely secondary to and SAMRA, and seizure workup. 1.? Acute metabolic encephalopathy, present on admission.? * Creatinine is 2.4, eGFR of 19.6 and phosphorus of 5.7 * Likely secondary to acute kidney injury and suspected UTI * renal ultrasound is ordered * Recommend outside consultation w/Dr. Stark if her renal functions do not improve overnight. 2. UTI, unknown if present on admission * UA was not sent for culture however she did return 1 blood culture bottle with positive for Gram-negative rods, so will continue treating her for urinary tract infection with IV ceftriaxone. * Second blood culture bottle is pending and if that is negative will day escalate the antibiotics as in that case will likely be contaminated. 3. Witnessed seizure, acute * The patient was started on low-dose Lexapro about 4-6 weeks ago it is possible that this might be the cause of her seizure. It is known to lower the seizure threshold. Recommend consulting with pharmacy and/or psychiatryregarding this. * Seizure precautions 4.? Acute kidney injury, present on admission. * Likely multifactorial secondary to medications including hydrochlorothiazide possibly poor p.o. intake of fluids. * continue to monitor renal function daily. * avoid nephrotoxic agents 5.? Diabetes mellitus type 2, insulin using, present on admission well controlled with an A1c of 5.7 * Patient will have glargine 64 units b.i.d. and prandial insulin of 5 units b.i.d. with meals * Carb controlled diet low-sodium with fluid restriction of 1200 cc, continue to monitor blood glucose ACHS. 6.? Hypothyroidism, chronic, TSH is low, she may be being over-replaced * Free T-4 is pending * Decreased levothyroxine from 250 mcg to 150 mcg 7.? History of atrial fibrillation, CHF and coronary artery disease.? Stable. * Chads vasc2 score of 7 * Continue home doses of isosorbide mononitrate, carvelilol, and atorvastatin. VTE Prophylaxis: Wells risk score 1.5 Enoxaparin 40 mg subQ once daily Patient is admitted to the inpatient service due to the severity of disease, risks of further disease progression and this stay is expected to exceed 2 midnights. FEN: IV fluids: saline lock, diet: low sodium carb control w/1200 ml/fluid restriction, labs: CBC, C/BMP, liver enzymes, [facility] [] None [] care and involvement in the patient?s care is appreciated. Dispo: Probable discharge to home Code status: Full Code as discussed with Sg who is her surrogate and POA. [X] I have utilized all available immediate resources to obtain, update, or review of the patient's current medications COVID-19 COVID-19 status: Negative Result date/Date tested (Pos, Neg/Pending): 05/09/21 Time Spent With Patient Critical Care time: I spent a total of [] minutes of critical care time on this patient's care today; this time is exclusive of procedural time. Scores CHADS-VASc Congestive heart failure: yes Hypertension: yes Age 75 years or older: yes Diabetes mellitus: yes Stroke, TIA, or TE: no Vascular disease: yes Age 65 to 74 years: no Sex category (female): Female CHADS-VASc Score: 7 Wells' Criteria for PE Clinical signs and symptoms of DVT: No PE is #1 Dx or equally likely: No Heart rate > 100: No Immobilization at least 3 days or surg in previous 4 weeks: Yes History of PE or DVT: No Hemoptysis: No Malignancy w/Treatment within 6 months or palliative: No Wells' PE Score total: 1.5 Quality VTE Deep Vein Thrombosis/Pulmonary Embolism Present on Admission: No MIPS - Admit I confirm the patient?s Advance Care Plan is present, Code status is documented, Surrogate decision maker is in patient?s record [If Yes, STOP here]: Yes MIPS - DC The patient has current or prior documentation of left ventricular ejection fraction (LVEF) less than 40%, or moderate or severely depressed left ventricular systolic function.: No
[2021-05-09 19:41] LABS: Hemoglobin A1C% w Est Avg Glu 5.7 % (4.0-6.0)
[2021-05-09] MEDS: carvediloL 12.5 MG TABLET 37.5 MG PO (20:59)
[2021-05-09] MEDS: OXYBUTYNIN 5 MG TABLET PO (20:59)
[2021-05-09] MEDS: FERROUS SULFATE 325 MG TABLET PO (21:00)
[2021-05-09] MEDS: PANTOPRAZOLE DR 40 MG TABLET PO (21:00)
[2021-05-09] MEDS: ATORVASTATIN 20 MG TABLET 40 MG PO (21:00)
[2021-05-09] MEDS: HEPARIN 5,000 UNIT/ML VIAL 5000 UNIT SUBCUT (21:00)
[2021-05-09] MEDS: INSULIN LISPRO 100 UNIT/ML 3ML VIAL SUBCUT (21:01)
[2021-05-09 22:14] LABS: Magnesium 1.9 mg/dL (1.6-2.3); Phosphorous 5.7 mg/dL (2.8-4.1)
[2021-05-09 22:19] LABS: Thyroid Stimulating Hormone < 0.015 uIU/mL (0.47-4.68)
[2021-05-10 01:18] LABS: Free T4, Direct Thyroxine 1.81 ng/dL (0.78-2.19)
[2021-05-10 01:19] LABS: Procalcitonin 0.08 ng/mL (<0.5)
[2021-05-10 02:27] VITALS: BP 146/38; PULSE 59; RESP 16; TEMP 37.1; O2SAT 97
[2021-05-10 03:50] LABS: Acinetobacter baumannii Not Detected (Not Detect); Candida albicans Not Detected (Not Detect); Candida glabrata Not Detected (Not Detect); Candida krusei Not Detected (Not Detect); Candida parapsilosis Not Detected (Not Detect); Candida tropicalis Not Detected (Not Detect); E. coli Detected (Not Detect); Enterobacter cloacae complex Not Detected (Not Detect); Enterobacteriaceae species Detected (Not Detect); Enterococcus species Not Detected (Not Detect); Haemophilus influenzae Not Detected (Not Detect); KPC (carbapenem-resist gene) Not Detected (Not Detect); Listeria monocytogenes Not Detected (Not Detect); Neisseria meningitidis Not Detected (Not Detect); Proteus species Not Detected (Not Detect); Pseudomonas aeruginosa Not Detected (Not Detect); Serratia marcescens Not Detected (Not Detect); Staphylococcus species Not Detected (Not Detect); Streptococcus agalactiae (Gr B Not Detected (Not Detect); Streptococcus pneumonia Not Detected (Not Detect); Streptococcus pyogenes (Gr A) Not Detected (Not Detect); Streptococcus species Not Detected (Not Detect)
[2021-05-10 05:55] VITALS: BP 174/43; PULSE 79; RESP 17; TEMP 36.8; O2SAT 96
[2021-05-10 06:08] LABS: Add Manual Diff / Slide Review NO; Basophils Absolute Auto 0 /uL (0-100); Basophils Percent Auto 0.6 % (0-2); Eosinophils Absolute Auto 200 /uL (0-450); Eosinophils Percent Auto 3.1 % (2-4); Hematocrit 32.5 % (36-46); Hemoglobin 10.9 g/dL (12.0-16.0); Lymphocytes Absolute Auto 1100 /uL (1100-4500); Mean Corpuscular HGB Conc 33.6 % (30-36); Mean Corpuscular Hemoglobin 31.1 PG (26-34); Mean Corpuscular Volume 92.6 fL (80-100); Monocytes Absolute Auto 600 /uL (0-900); Monocytes Percent Auto 8.7 % (3-14); Neutrophils Absolute Auto 5100 /uL (1500-7000); Neutrophils Percent Auto 71.6 % (50-75); Platelet Count 152 X10^3/uL (150-400); Red Blood Cell Count 3.51 X10^6/uL (4.0-5.2); Red Cell Distribution Width 14.1 % (11.6-14.8); White Blood Cell Count 7.1 X10^3/uL (4.5-11.0)
[2021-05-10] MEDS: ISOSORBIDE MONONITRATE ER 30 MG TABLET PO (06:14)
[2021-05-10] MEDS: LEVOTHYROXINE 150 MCG TABLET PO (06:14)
[2021-05-10 06:22] LABS: BUN Creatinine Ratio 27.7 (6-22); Blood Urea Nitrogen 69 mg/dL (7-17); Calcium 8.5 mg/dL (8.4-10.2); Carbon Dioxide 16 mmol/L (22-32); Chloride 117 mmol/L (98-107); Estimated Glomerular Filt Rate 18.8 mL/min (>60); Glucose 173 mg/dL (80-110); HEMOLYSIS < 15 (0-50); Magnesium 2.1 mg/dL (1.6-2.3); Sodium 143 mmol/L (137-145)
[2021-05-10 08:00] VITALS: BP 159/46; PULSE 54; RESP 20; TEMP 36.7; O2SAT 96
--- NOTE | 2021-05-10 08:00 | DI.US.S_ITS ---
PROCEDURE: US RENAL COMPLETE INDICATIONS: ACUTE KIDNEY INJURY STAGE IV CHRONIC KIDNEY DISEASE TECHNIQUE: Real-time scanning was performed of the kidneys and bladder, with image documentation. COMPARISON: [facility], CT, CT ABD PELVIS WO CON, 05/11/2016, 6:05. FINDINGS: Kidneys: Left kidney is not visualized. Sub optimal visualization of right kidney. Right kidney measures 9.0 cm with cortical thickness of 1.7 cm. No renal stone or hydronephrosis. Bladder: Pre-void bladder volume is 68 mL. The patient was unable to void. Pre-void images demonstrate no intraluminal masses or stones. On pre-void images, neither ureteral jets are noted with color Doppler interrogation. (Of note, ureteral jets may not be detectable in up to 25% of cases due to insufficient differences in specific gravity between ureteral and bladder urine). Miscellaneous: No free pelvic fluid. IMPRESSION: Limited examination due to overlying bowel gas. The left kidney is not visualized. Right kidney is suboptimally visualized. No right hydronephrosis. Dictated by: Tino Rowe M.D. on 05/10/2021 at 11:20 Approved by: Tino Rowe M.D. on 05/10/2021 at 11:23
--- NOTE | 2021-05-10 08:38 | PC.NURSE ---
Day shift: HR [address] Marsk that Pt takes Coreg this AM.
[2021-05-10] MEDS: INSULIN LISPRO 100 UNIT/ML 3ML VIAL SUBCUT ×4 (08:44→21:41)
[2021-05-10] MEDS: HEPARIN 5,000 UNIT/ML VIAL 5000 UNIT SUBCUT ×2 (08:45→21:41)
[2021-05-10 08:49] VITALS: BP 145/51; PULSE 58
[2021-05-10] MEDS: ASPIRIN EC 81 MG TABLET PO (08:49)
[2021-05-10] MEDS: PANTOPRAZOLE DR 40 MG TABLET PO ×2 (08:49→21:40)
[2021-05-10] MEDS: OXYBUTYNIN 5 MG TABLET PO ×2 (08:49→21:40)
[2021-05-10] MEDS: carvediloL 12.5 MG TABLET 37.5 MG PO ×2 (08:49→21:40)
[2021-05-10] MEDS: LOSARTAN 25 MG TABLET PO (08:49)
[2021-05-10] MEDS: FERROUS SULFATE 325 MG TABLET PO ×2 (08:50→21:41)
[2021-05-10] MEDS: INSULIN GLARGINE 100 UNIT/ML 3ML PEN 64 UNIT SUBCUT (09:56)
--- NOTE | 2021-05-10 10:48 | PT.IIE ---
Current Diagnoses Metabolic encephalopathy (05/09/21) Medical History (Last Reviewed 05/10/21 @ 00:24 by ALEX Hidalgo) Anemia Atrial fibrillation CHF (congestive heart failure) Diabetes History of GI bleed Physical Therapy Inpatient Evaluation/Re-Eval M1 PT/OT-IP Prior Functional Status Start: 05/10/21 14:25 Freq: NEEDED Status: Active Protocol: Document 05/10/21 10:48 AB (Rec: 05/10/21 14:46 AB [email or web address]) Medical Review Prior Functional Status Medical History Reviewed Yes Communication with confusion; spouse in room and answered questions Mobility and Gait per spouse: he has been assisting pt for the last 4 months since pt had her RLE angioplasty. stated that pt is only able to ambulate indoors with 40 ft max distance and uses a w/c for outdoor mobility. spouse stated that he assists pt with all tasks but pt is able to ambulate from the bed to the toilet using a 4WW initially only with SBA but lately has been requiring more assistance Social History Household Members spouse Living Arrangements House Number of Floors (Floors) One Floor Number of Stairs To Enter/Railing? no steps; ramp to enter Home Environment High Toilet,Walk in Shower, Ramp,Bidet Home Equipment Four Wheel Walker,Shower Seat without Backrest,Hand Held Shower,Lift Recliner,Grab Bars Near Toilet,Grab Bars In Shower Additional Social History Comment pt sleeps on a lift chair M2 PT-IP Current Condition Start: 05/10/21 14:25 Freq: NEEDED Status: Active Protocol: Document 05/10/21 10:48 AB (Rec: 05/10/21 14:46 AB [email or web address]) Physical Therapy Current Condition Current Condition Evaluation Date 05/10/21 Treatment Diagnosis UTI; altered mental status; difficulty in walking Onset Date 05/09/21 M3 PT-IP Subjective Start: 05/10/21 14:25 Freq: NEEDED Status: Active Protocol: Document 05/10/21 10:48 AB (Rec: 05/10/21 14:46 AB [email or web address]) Subjective Physical Therapy Visit Type Type Initial Evaluation Visit Start Time 10:48 Visit Stop Time 11:25 Total Visit Minutes 37 Number of PUG MACHINE OPERATOR Visits 0 Physical Therapy Visit Comments Patient Comments initially refusing PT; spouse encouraged pt and assisted pt Therapy Pain Assessment Pain When Pain Assessed At Rest Pain Present Pain Present Pain Reported Location Generalized Scale Used pain scale not stated M4 PT-IP Mobility and Gait Start: 05/10/21 14:25 Freq: NEEDED Status: Active Protocol: Document 05/10/21 10:48 AB (Rec: 05/10/21 14:46 AB [email or web address]) PT-Bed Mobility Assessment Supine to Sit Supine to Sit Maximum Assistance,1 Person Assistance,2 Person Assistance ,Bedrails PT-Transfer Assessment Sit to and From Stand Sit to and from Stand Maximum Assistance,1 Person Assistance,2 Person Assistance ,Use of Upper Extremities Equipment Transfer Assistive Device Gait Belt,Front Wheeled Walker Orthotic/Prosthetic Devices or Brace: No Transfers Transfer Destination Chair Transfer Technique Stand Step Pivot Transfer Ability Level of Assist Maximum Assistance,1 Person Assistance,2 Person Assistance ,Use of Upper Extremities Comments Mobility Comments spouse in room with pt. pt initially refusing PT. spouse in room and encouraged pt to get out of the bed and assisted pt with supine to sit . PT also assisted. pt completed supine to sit HOB elevated max Ax 1-2 and max cues. pt is more agreeable with spouse in room. pt completed sit to stand max A x 1-2 and max cues and completed step transfer to chair max A x 1-2 and max cues . instructed pt with sit to stand again to position cushion on chair. pt completed sit to stand max Ax 1-2 and max cues. NAC positioned cushion. positioned pt on chair. call light and table placed within reach. left pt with spouse in room. Gait Assessment Comments Gait Comments unable at this time PT-Balance Assessment Sitting Balance and Reactions Static Sitting Balance Ability Fair Dynamic Sitting Balance Ability Fair Standing Balance and Reactions Static Standing Balance Ability Poor Dynamic Standing Balance Ability Poor Device Used FWW M5 PT-IP Objective Assessments Start: 05/10/21 14:25 Freq: NEEDED Status: Active Protocol: Document 05/10/21 10:48 AB (Rec: 05/10/21 14:46 AB [email or web address]) Orientation Orientation/Cognition Level of Alertness Confusional State Safety Awareness Decreased Safety Awareness Memory Description Short Term Impaired Strength Lower Extremity Strength Assessment Bilaterally Impaired Hip 3-/5 Knee 3+/5 Muscle Tone Muscle Tone WNL Yes M6 PT-IP Treatment Start: 05/10/21 14:25 Freq: NEEDED Status: Active Protocol: Document 05/10/21 10:48 AB (Rec: 05/10/21 14:46 AB [id number]) Physical Therapy Treatment Education Education Provided Safety M7 PT-IP Assessment and Plan Start: 05/10/21 14:25 Freq: NEEDED Status: Active Protocol: Document 05/10/21 10:48 AB (Rec: 05/10/21 14:46 AB [email or web address]) PT Summary Assessment and Plan Potential Rehabilitation Potential Fair Status of Condition at Evaluation Evolving Summary Impairments Pain,ROM,Strength,Balance, Coordination,Sensation,Tone, Cognition,Bed Mobility, Transfers,Gait,Activity Tolerance Assessment Summary pt requiring max A x 1-2 and max cues. d/c plan depending on progress. will conduct caregiver training when appropriate. spouse has been assisting pt at home but pt with progressive decline in strength affecting mobility. will continue to assess progress for safe d/c plan. pt will need 24/7 available to safely d/c home and HHPT. Goals Bed Mobility Goal Contact Guard Assistance Transfer Goal Contact Guard Assistance,Front Wheeled Walker Gait Goal Contact Guard Assistance,Front Wheel Walker Gait Distance 40 Other Goals improve bed mobility, transfers to SBA improve ambulation using FWW/ 4WW 75 ft SBA Days to Meet Goals 10 Frequency of Treatment Frequency Of Treatment Once a Day Treatment Plan Physical Therapy Treatment Plan Bed Mobility Training,Transfer Training,Gait Training, Therapeutic Exercise,Balance Retraining,Discharge Planning, Hot or Cold Pack,Neuromuscular Re-ed,Coordination Retraining Precautions Other Precautions falls Recommendations To Nursing Amount of Assist Needed 2 Person Assist Discharge Recommendations PT Discharge Recommendations Home with 24/7 Assist Available,Home Health,SNF Rehab,Home vs SNF Equipment Needed for Home Before FWW if not safe with 4WW Discharge Transportation Needs at Discharge Private Vehicle,Wheelchair/ Cabulance
--- NOTE | 2021-05-10 13:54 | CM.IDA ---
Initial DCP Assessment Note Pt is a 75 yo female, resident of [place], presents after a witnessed seizure by spouse at their home. Found to have a UTI, extensive PMH to include : chronic kidney disease, history of breast cancer, diabetes, coronary artery disease with stents, hypothyroidism and obstructive sleep apnea PCP: Ad Colunga Payer: [facility] Reviewed chart, met w/patient and spouse Sg, introduced role. Patient sleeping most of this visit, spouse provides all history summarized below: Patient and spouse live together, dtr and CHARLES live across the street from them. 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 Spouse outlines patient's decline over the last 7 years s/p CABGx3, breast cancer, and multiple surgeries. Currently, spouse is patient's primary and only long term care phlebotomist. Dtr available to assist as needed but has been very worried about transmitting COVID-19 to her parents. Currently, on a good day patient is A+O and getting around their household w/her walker w/seat for rest breaks. Alternatively, on a bad day spouse has to coax patient out of bed or recliner to get to the BR or living room and will quickly return to sleep for most of the day and night. Discussed advanced directives; spouse states he and patient have discussed and patient is very strong and although exhausted, has wanted continued treatment/medical management for the last 10 years. Spouse feels patient will make the decision re home w/hospice when it needs to be made Discussed DCP options to include: SNF, Home w/HH (w/or w/o caregivers), Home w/Hospice, and/or Respite care/RETIREMENT (private payment). Spouse very hopeful to take patient back home, states patient does not want HH PT any longer...appreciates this visit and states he will need to speak w/this HOME ECONOMIST again after mtg w/Dr Herbert re: medical POC Following closely MADDY Escalera Discharge Planning/Care Management CM Discharge Assessment Start: 05/10/21 13:47 Freq: Status: Active Protocol: Document 05/10/21 13:47 PRASHANT (Rec: 05/10/21 13:54 PRASHANT [id number]) Discharge Planning Assessment Assigned Neurodiagnostic Tech MADDY Landry DPOA/Assigned Designee Name Sg Jacobsen, spouse Contact Information [phone], Advance Directives? No Advance Directives on File No History Provided By Significant Other,Medical Record Prior Living Arrangements House Household Members spouse Type of transportation used prior to Relies on Others admit Independent with ADL's Yes Is patient alert and oriented? Yes: If not too lethargic Needs Assistance With Bathing,Grooming,Meal Prep, Toileting,Managing Medications ,Home Chores / Shopping Comment electric scooter, lift recliner Patient/Family Preference Shelter Facility,Home with Home Health Barriers to Discharge Yes Comment Patient sleeping most of the day, both here and has been at home 70% of the day per spouse. Transportation Arrangement Spouse to provide transportation if patient discharges home when medically stable. Additional Comment Pending on how patient does in the hospital.
[2021-05-10] MEDS: cefTRIAXone 1,000 MG in SODIUM CHLORIDE 0.9% 100 ML IV (14:05)
[2021-05-10] MEDS: CLOPIDOGREL 75 MG TABLET PO (16:35)
--- NOTE | 2021-05-10 17:49 | P.PN_ITS ---
Subjective Subjective Date Patient Seen: 05/10/21 Interval history: The patient is a 75-year-old female who was admitted to the hospital for urinary tract infection. She has a complicated history to include chronic kidney disease, iron deficiency anemia, paroxysmal atrial fibrillation, diabetes and coronary disease. Patient is more awake and alert today. She has no specific complaints. She denies any pain or shortness of breath. She was able to eat her diet, and she is anxious to return home. Exam Vital Signs (past 8 hours): Oxygen Delivery Method Room Air Oxygen Flow Rate 0 Narrative Exam Narrative: Pleasant female lying in bed Resp Other: Lungs clear to auscultation Cardio Other: Cardiac exam: Regular rate rhythm normal S1-S2 GI Other: Abdomen soft and nontender Skin Other: Extremity no edema Objective Labs Result Diagrams: 05/10/21 05:51 05/10/21 05:51 Labs: Laboratory Results - last 24 hr 05/09/21 05/09/21 05/09/21 12:41 12:41 12:41 WBC RBC Hgb Hct MCV MCH MCHC RDW Plt Count Neut % (Auto) Lymph % (Auto) Jones % (Auto) Eos % (Auto) Baso % (Auto) Neut # (Auto) Lymph # (Auto) Jones # (Auto) Eos # (Auto) Baso # (Auto) Sodium Potassium Chloride Carbon Dioxide BUN Creatinine Estimated GFR BUN/Creatinine Ratio Glucose Hemoglobin A1c 5.7 Calcium Phosphorus 5.7 H Magnesium 1.9 Procalcitonin TSH < 0.015 L Free T4 A. baumannii (PCR) Montse albicans (PCR) C. glabrata (PCR) C. krusei (PCR) C. parapsilosis (PCR) C. tropicalis (PCR) Enterobacteriac sp PCR E. cloacae complex PCR Enterococcus sp PCR E. coli (PCR) H. influenzae (PCR) Klebsiella oxytoca PCR Klebsiella pneumoniae List. monocytogenes PCR N. meningitidis (PCR) Proteus species (PCR) Serratia marcescens PCR Staphylococcus sp PCR Staph aureus (PCR) mecA-Methicil Res Gene Streptococcus sp PCR Group A Strep (PCR) Strep agalactiae (PCR) Strep pneumoniae (PCR) P. aeruginosa (PCR) Nahum/B-Vanco Res Genes KPC-Carbap Res Gene PCR 05/09/21 05/09/21 05/09/21 12:41 13:00 13:20 WBC RBC Hgb Hct MCV MCH MCHC RDW Plt Count Neut % (Auto) Lymph % (Auto) Jones % (Auto) Eos % (Auto) Baso % (Auto) Neut # (Auto) Lymph # (Auto) Jones # (Auto) Eos # (Auto) Baso # (Auto) Sodium Potassium Chloride Carbon Dioxide BUN Creatinine Estimated GFR BUN/Creatinine Ratio Glucose Hemoglobin A1c Calcium Phosphorus Magnesium Procalcitonin 0.08 TSH Free T4 1.81 A. baumannii (PCR) Not detected Montse albicans (PCR) Not detected C. glabrata (PCR) Not detected C. krusei (PCR) Not detected C. parapsilosis (PCR) Not detected C. tropicalis (PCR) Not detected Enterobacteriac sp PCR Detected H E. cloacae complex PCR Not detected Enterococcus sp PCR Not detected E. coli (PCR) Detected H H. influenzae (PCR) Not detected Klebsiella oxytoca PCR Not detected Klebsiella pneumoniae Not detected List. monocytogenes PCR Not detected N. meningitidis (PCR) Not detected Proteus species (PCR) Not detected Serratia marcescens PCR Not detected Staphylococcus sp PCR Not detected Staph aureus (PCR) Not detected mecA-Methicil Res Gene Not Reportable Streptococcus sp PCR Not detected Group A Strep (PCR) Not detected Strep agalactiae (PCR) Not detected Strep pneumoniae (PCR) Not detected P. aeruginosa (PCR) Not detected Nahum/B-Vanco Res Genes Not Reportable KPC-Carbap Res Gene PCR Not detected 05/10/21 05/10/21 05:51 05:51 WBC 7.1 RBC 3.51 L Hgb 10.9 L Hct 32.5 L MCV 92.6 MCH 31.1 MCHC 33.6 RDW 14.1 Plt Count 152 Neut % (Auto) 71.6 Lymph % (Auto) 16.0 L Jones % (Auto) 8.7 Eos % (Auto) 3.1 Baso % (Auto) 0.6 Neut # (Auto) 5100 Lymph # (Auto) 1100 Jones # (Auto) 600 Eos # (Auto) 200 Baso # (Auto) 0 Sodium 143 Potassium 4.0 Chloride 117 H Carbon Dioxide 16 L BUN 69 H Creatinine 2.49 H Estimated GFR 18.8 L BUN/Creatinine Ratio 27.7 H Glucose 173 H Hemoglobin A1c Calcium 8.5 Phosphorus Magnesium 2.1 Procalcitonin TSH Free T4 A. baumannii (PCR) Montse albicans (PCR) C. glabrata (PCR) C. krusei (PCR) C. parapsilosis (PCR) C. tropicalis (PCR) Enterobacteriac sp PCR E. cloacae complex PCR Enterococcus sp PCR E. coli (PCR) H. influenzae (PCR) Klebsiella oxytoca PCR Klebsiella pneumoniae List. monocytogenes PCR N. meningitidis (PCR) Proteus species (PCR) Serratia marcescens PCR Staphylococcus sp PCR Staph aureus (PCR) mecA-Methicil Res Gene Streptococcus sp PCR Group A Strep (PCR) Strep agalactiae (PCR) Strep pneumoniae (PCR) P. aeruginosa (PCR) Nahum/B-Vanco Res Genes KPC-Carbap Res Gene PCR PFSH Medical History (Updated 05/10/21 @ 00:27 by ALEX Hidalgo) Anemia Atrial fibrillation CHF (congestive heart failure) Diabetes History of GI bleed Surgical History (Updated 05/10/21 @ 00:27 by ALEX Hidalgo) History of cholecystectomy History of hysterectomy History of mastectomy S/P CABG x 3 Family History Mother No problems noted. Social History household members: spouse Smoking Status: Former smoker alcohol intake: never substance use type: does not use Assessment & Plan Assessment & Plan narrative: ?Acute metabolic encephalopathy, present on admission.? * Creatinine is 2.4, eGFR of 19.6 and phosphorus of 5.7 * Likely secondary to acute kidney injury and suspected UTI * renal ultrasound is ordered, imited examination due to overlying bowel gas.? The left kidney is not visualized.? Right kidney is suboptimally visualized.? No right hydronephrosis. ? * Recommend outside consultation w/Dr. Stark if her renal functions do not improve overnight., no indication for consult, excellent urine output, electrolytes normal, need to avoid nephrotoxic agents 2. UTI, unknown if present on admission * UA was not sent for culture however she did return 1 blood culture bottle with positive for Gram-negative rods, so will continue treating her for urinary tract infection with IV ceftriaxone. * Second blood culture bottle is pending and if that is negative will day escalate the antibiotics as in that case will likely be contaminated. * URine culture growing ECOLI , sensitivity pending 3. Witnessed seizure, acute * The patient was started on low-dose Lexapro about 4-6 weeks ago it is possible that this might be the cause of her seizure.? It is known to lower the seizure threshold.? Recommend consulting with pharmacy and/or psychiatryregarding this. * Seizure precautions * Not sure she had a seizure or that lexapro is a cause, in the setting of UTI, will follow 4.? Acute kidney injury, present on admission. * Likely multifactorial secondary to medications including hydrochlorothiazide possibly poor p.o. intake of fluids. * continue to monitor renal function daily. * avoid nephrotoxic agents * Suspect renal function is at baseline, last renal studies are from 2 years ago. * 5.? Diabetes mellitus type 2, insulin using, present on admission well controlled with an A1c of 5.7 * Patient will have glargine 64 units b.i.d. and prandial insulin of 5 units b.i.d. with meals * Carb controlled diet low-sodium with fluid restriction of 1200 cc, continue to monitor blood glucose ACHS. 6.? Hypothyroidism, chronic, TSH is low, she may be being over-replaced * Free T-4 is pending * Decreased levothyroxine from 250 mcg to 150 mcg 7.? History of atrial fibrillation, CHF and coronary artery disease.? Stable. * Chads vasc2 score of 7, this would imply need for anticoagulation, not sure why she is not on A/C, will discus * Continue home doses of isosorbide mononitrate, carvelilol, and atorvastatin. VTE Prophylaxis: Wells risk score 1.5 Enoxaparin 40 mg subQ once daily Time Spent With Patient Critical Care time: I spent a total of [] minutes of critical care time on this patient's care today; this time is exclusive of procedural time. Quality VTE Deep Vein Thrombosis/Pulmonary Embolism Present on Admission: No
[2021-05-10 20:08] VITALS: BP 172/48; PULSE 61; RESP 20; TEMP 36.3; O2SAT 98
[2021-05-10 21:40] VITALS: BP 194/60; PULSE 62
[2021-05-10] MEDS: ATORVASTATIN 20 MG TABLET 40 MG PO (21:41)
[2021-05-10] MEDS: INSULIN GLARGINE 100 UNIT/ML 3ML PEN 40 UNIT SUBCUT (21:42)
[2021-05-11] VITALS (9 sets, daily range): BP systolic 136–210; BP diastolic 61–75; PULSE 62–99; RESP 16–24; TEMP 36.5–37.3; O2SAT 97–99
[2021-05-11 05:35] LABS: BUN Creatinine Ratio 32.9 (6-22); Blood Urea Nitrogen 75 mg/dL (7-17); Calcium 8.8 mg/dL (8.4-10.2); Carbon Dioxide 19 mmol/L (22-32); Chloride 116 mmol/L (98-107); Estimated Glomerular Filt Rate 20.8 mL/min (>60); Glucose 254 mg/dL (80-110); HEMOLYSIS < 15 (0-50); Magnesium 2.2 mg/dL (1.6-2.3); Potassium 4.2 mmol/L (3.4-5.1); Sodium 143 mmol/L (137-145)
[2021-05-11 05:40] LABS: Add Manual Diff / Slide Review NO; Basophils Absolute Auto 0 /uL (0-100); Basophils Percent Auto 0.5 % (0-2); Eosinophils Absolute Auto 300 /uL (0-450); Eosinophils Percent Auto 3.9 % (2-4); Hematocrit 33.7 % (36-46); Hemoglobin 11.4 g/dL (12.0-16.0); Lymphocytes Absolute Auto 1100 /uL (1100-4500); Lymphocytes Percent Auto 12.9 % (25-40); Mean Corpuscular HGB Conc 33.9 % (30-36); Mean Corpuscular Volume 91.4 fL (80-100); Monocytes Absolute Auto 600 /uL (0-900); Monocytes Percent Auto 7.7 % (3-14); Neutrophils Absolute Auto 6100 /uL (1500-7000); Platelet Count 141 X10^3/uL (150-400); Red Blood Cell Count 3.69 X10^6/uL (4.0-5.2); Red Cell Distribution Width 13.5 % (11.6-14.8); White Blood Cell Count 8.2 X10^3/uL (4.5-11.0)
[2021-05-11] MEDS: LEVOTHYROXINE 150 MCG TABLET PO (06:16)
[2021-05-11] MEDS: ISOSORBIDE MONONITRATE ER 30 MG TABLET PO (06:16)
--- NOTE | 2021-05-11 07:33 | PC.NURSE ---
Day shift: Pt with run of Afib this AM [address] informed.
[2021-05-11] MEDS: INSULIN GLARGINE 100 UNIT/ML 3ML PEN 40 UNIT SUBCUT ×2 (08:38→21:50)
[2021-05-11] MEDS: INSULIN LISPRO 100 UNIT/ML 3ML VIAL SUBCUT ×4 (08:39→21:49)
[2021-05-11] MEDS: FERROUS SULFATE 325 MG TABLET PO ×2 (08:45→21:52)
[2021-05-11] MEDS: PANTOPRAZOLE DR 40 MG TABLET PO ×2 (08:45→21:52)
[2021-05-11] MEDS: LOSARTAN 25 MG TABLET PO (08:45)
[2021-05-11] MEDS: OXYBUTYNIN 5 MG TABLET PO ×2 (08:45→21:52)
[2021-05-11] MEDS: ASPIRIN EC 81 MG TABLET PO (08:45)
[2021-05-11] MEDS: carvediloL 12.5 MG TABLET 37.5 MG PO ×2 (08:46→21:51)
[2021-05-11] MEDS: HEPARIN 5,000 UNIT/ML VIAL 5000 UNIT SUBCUT ×2 (08:50→21:50)
--- NOTE | 2021-05-11 10:45 | PT.IPTN ---
Current Diagnoses Metabolic encephalopathy (05/09/21) Physical Therapy Treatment Note M2 PT-IP Current Condition Start: 05/10/21 14:25 Freq: NEEDED Status: Active Protocol: Document 05/10/21 10:48 AB (Rec: 05/10/21 14:46 AB [email or web address]) Physical Therapy Current Condition Current Condition Evaluation Date 05/10/21 Treatment Diagnosis UTI; altered mental status; difficulty in walking Onset Date 05/09/21 M3 PT-IP Subjective Start: 05/10/21 14:25 Freq: NEEDED Status: Active Protocol: Document 05/11/21 10:45 AB (Rec: 05/11/21 12:21 AB [email or web address]) Subjective Physical Therapy Visit Type Type Treatment Note Visit Start Time 10:45 Visit Stop Time 11:08 Total Visit Minutes 23 Number of AWS DEVELOPER Visits 0 Physical Therapy Visit Comments Patient Comments pt is agreeable to do PT; spouse present M4 PT-IP Mobility and Gait Start: 05/10/21 14:25 Freq: NEEDED Status: Active Protocol: Document 05/11/21 10:45 AB (Rec: 05/11/21 12:21 AB [id number]) PT-Bed Mobility Assessment Supine to Sit Supine to Sit Maximum Assistance PT-Transfer Assessment Sit to and From Stand Sit to and from Stand Maximum Assistance,1 Person Assistance,Use of Upper Extremities Equipment Transfer Assistive Device Gait Belt,Front Wheeled Walker Transfers Transfer Destination Chair Transfer Technique Stand Step Pivot Transfer Ability Level of Assist Moderate Assistance,1 Person Assistance,Use of Upper Extremities Comments Mobility Comments pt agreeable to do PT. pt is more alert and with less confusion today. completed supine to sit max A and cues with HOB elevated. required max A to scoot to EOB. completed sit to stand max A and cues and step transfer to chair using FWW max A. (+) SOB . O2 sat at room air 97% HR 118. pt rested and wants to ambulate. completed sit to stand from chair max A and ambulated ~ 25 ft using FWW mod A. (+) SOB and slight nausea. O2 sat 96% HR: 136 but decreased to 94 after 10- 15 sec of rest and nausea dissipated. Spouse stated that this is typical for pt to get nauseated when she over exerts herself. pt agreed to stay up on chair. positioned pt on chair. call light and table placed within reach. chair alarm on. spouse will bring pt's 4WW tomorrow for safety assessment at pt prefers to use her 4WW. Gait Assessment Gait Gait Assistance Required: Moderate Assistance,1 Person Assist Distance (Feet) 25 Able to Maintain Weight Bearing Status Yes During Gait Assistive Devices Assistive Device Gait Belt,Front Wheeled Walker Orthotic/Prosthetic Devices or Brace: No Gait Deviations General Gait Pattern Antalgic,Decreased Stride Length,Decreased Feet Clearance,Lateral Trunk Lean Factors Limiting Gait Function Factors Limiting Gait Function Decreased Activity Tolerance, Decreased Strength,Poor Balance,Poor Safety Awareness M5 PT-IP Objective Assessments Start: 05/10/21 14:25 Freq: NEEDED Status: Active Protocol: Document 05/10/21 10:48 AB (Rec: 05/10/21 14:46 AB [email or web address]) Orientation Orientation/Cognition Level of Alertness Confusional State Safety Awareness Decreased Safety Awareness Memory Description Short Term Impaired Strength Lower Extremity Strength Assessment Bilaterally Impaired Hip 3-/5 Knee 3+/5 Muscle Tone Muscle Tone WNL Yes M6 PT-IP Treatment Start: 05/10/21 14:25 Freq: NEEDED Status: Active Protocol: Document 05/11/21 10:45 AB (Rec: 05/11/21 12:21 AB [id number]) Physical Therapy Treatment Education Education Provided Safety M7 PT-IP Assessment and Plan Start: 05/10/21 14:25 Freq: NEEDED Status: Active Protocol: Document 05/11/21 10:45 AB (Rec: 05/11/21 12:21 AB [id number]) PT Summary Assessment and Plan Potential Rehabilitation Potential Fair Summary Impairments Pain,ROM,Strength,Balance, Coordination,Sensation,Tone, Cognition,Bed Mobility, Transfers,Gait,Activity Tolerance Progress Towards Goals Slow Progress due to Medical Issues,Slow Progress due to Activity Tolerance Assessment Summary pt improving slowly and was able to ambulate today using FWW mod A. spouse has been assisting pt at home and is aware of pt's limitations. pt is equiped at home. Pt plans to go home with spouse to assist. will continue to assess progress. Goals Bed Mobility Goal Contact Guard Assistance Transfer Goal Contact Guard Assistance,Front Wheeled Walker Gait Goal Contact Guard Assistance,Front Wheel Walker Gait Distance 40 Other Goals improve bed mobility, transfers to SBA improve ambulation using FWW/ 4WW 75 ft SBA Days to Meet Goals 10 Frequency of Treatment Frequency Of Treatment Once a Day Treatment Plan Physical Therapy Treatment Plan Bed Mobility Training,Transfer Training,Gait Training, Therapeutic Exercise,Balance Retraining,Discharge Planning, Hot or Cold Pack,Neuromuscular Re-ed,Coordination Retraining Other Recommendations and Next Treatment ambulation using 4WW; Focus caregiver training when appropriate Precautions Other Precautions falls Recommendations To Nursing Amount of Assist Needed 1 Person Assist Discharge Recommendations PT Discharge Recommendations Home with 24/ Assist Available,Home Health Transportation Needs at Discharge Private Vehicle,Wheelchair/ Cabulance
[2021-05-11] MEDS: cefTRIAXone 1,000 MG in SODIUM CHLORIDE 0.9% 100 ML IV (14:05)
--- NOTE | 2021-05-11 15:03 | DIET.CONS ---
Addendum entered by Rosalia Alvarado 05/11/21 15:15: Discussed diet order change with pt. If she is amenable, cont Renal diet with sodium restriction in addition to CCD. Original Note: Dietary Consultation Note Admission Date: 05/09/2021 15:25 Assessment: 75 y/o F admitted for UTI. PMH: CKD, iron anemia, afib, DM, CAD. GFR: 20.8, Cr: 2.28, Phos: 5.7. Currently on CCD. Would benefit from renal diet as well. Well managed Dm with HgA1c of 5.7%. Iris endorses 40oz water per day at home. She is aware of her CKD and low GFR, but denies any education on restricting salt or aiming for adequate fluids. We discussed rationale for reducing sodium and staying well hydrated for kidney health. Her daughter often cooks for them and eating out is limited to once per month. During our visit she was asking for salt packets for her meals. States he has intentionally lost 20# by cutting back food intake. Ht: 167.64 cm Wt: 96.7 kg BMI: 36.3 Last BM: 05/08/21 (05/09/21 17:06) MNA: 9 Frank Score: 18 Diet: 05/10/21 Breakfast Carbohydrate Consistent Diet Diet Modifications: low sodium Carbohydrate level: Large (4 CHO) Bedtime snack: No Nutrition Percent Meal Consumed 75% 05/10/21 13:20 Percent Meal Consumed 75% 05/10/21 09:00 Labs: RBC 3.69 X10^6/uL (4.0-5.2) L 05/11/21 04:36 Hgb 11.4 g/dL (12.0-16.0) L 05/11/21 04:36 Hct 33.7 % (36-46) L 05/11/21 04:36 Creatinine 2.28 mg/dL (0.52-1.04) H 05/11/21 04:36 Hemoglobin A1c 5.7 % (4.0-6.0) 05/09/21 12:41 Nutrition Diagnosis: Altered nutrition labs r/t chronic kidney disease aeb 20.8 GFR and 2.28 Cr. Interventions: Add renal diet to ccd, General CKD nutrition education provided. Monitoring/Evaluations: consult prn Electronically Signed by: Rosalia Alvarado 05/11/21 15:03 Clinical Dietitian [address] [address]
[2021-05-11] MEDS: CLOPIDOGREL 75 MG TABLET PO (17:22)
--- NOTE | 2021-05-11 17:50 | P.PN_ITS ---
Subjective Subjective Date Patient Seen: 05/11/21 Interval history: 75-year-old female admitted to the hospital for confusion and urinary tract infection. Patient's urine is growing E coli, awaiting final sensitivity. She was able to ambulate with physical therapy today. Both she and her feel strongly that she likely will be able to return home. Patient reports no bowel movement for the past several days Exam Vital Signs (past 8 hours): Oxygen Delivery Method Room Air Oxygen Flow Rate 0 Narrative Exam Narrative: Pleasant female in no acute distress Resp Other: Lungs clear to auscultation Cardio Other: Cardiac exam: Regular rate rhythm normal S1-S2 GI Other: Abdomen soft and nontender Extrem Other: Extremity 1+ edema Objective Labs Result Diagrams: 05/11/21 04:36 05/11/21 04:36 Labs: Laboratory Results - last 24 hr 05/11/21 05/11/21 04:36 04:36 WBC 8.2 RBC 3.69 L Hgb 11.4 L Hct 33.7 L MCV 91.4 MCH 31.0 MCHC 33.9 RDW 13.5 Plt Count 141 L Neut % (Auto) 75.0 Lymph % (Auto) 12.9 L [place] % (Auto) 7.7 Eos % (Auto) 3.9 Baso % (Auto) 0.5 Neut # (Auto) 6100 Lymph # (Auto) 1100 [place] # (Auto) 600 Eos # (Auto) 300 Baso # (Auto) 0 Sodium 143 Potassium 4.2 Chloride 116 H Carbon Dioxide 19 L BUN 75 H Creatinine 2.28 H Estimated GFR 20.8 L BUN/Creatinine Ratio 32.9 H Glucose 254 H Calcium 8.8 Magnesium 2.2 PFSH Medical History (Updated 05/10/21 @ 00:27 by ALEX Hidalgo) Anemia Atrial fibrillation CHF (congestive heart failure) Diabetes History of GI bleed Surgical History (Updated 05/10/21 @ 00:27 by ALEX Hidalgo) History of cholecystectomy History of hysterectomy History of mastectomy S/P CABG x 3 Family History Mother No problems noted. Social History household members: spouse Smoking Status: Former smoker alcohol intake: never substance use type: does not use Assessment & Plan Assessment & Plan narrative: Acute metabolic encephalopathy, present on admission.? * Creatinine is 2.4, eGFR of 19.6 and phosphorus of 5.7 * Likely secondary to acute kidney injury and suspected UTI * renal ultrasound is ordered,?imited examination due to overlying bowel gas.? Ultrasound results: The left kidney is notvisualized.? Right kidney is sub optimally visualized.? No right hydronephrosis. ? * Recommend outside consultation w/Dr. Stark if her renal functions do not improve overnight., no indication for consult, excellent urine output, electrolytes normal, need to avoid nephrotoxic agents * 2. UTI, unknown if present on admission * UA was not sent for culture however she did return 1 blood culture bottle with positive for Gram-negative rods, so will continue treating her for urinary tract infection with IV ceftriaxone. * Second blood culture bottle is pending and if that is negative will day escalate the antibiotics as in that case will likely be contaminated. * URine culture growing ECOLI , pansensitive g * 3. Witnessed seizure, acute * The patient was started on low-dose Lexapro about 4-6 weeks ago it is possible that this might be the cause of her seizure.? It is known to lower the seizure threshold.? Recommend consulting with pharmacy and/or psychiatryregarding this. * Seizure precautions * Not sure she had a seizure or that lexapro is a cause, in the setting of UTI, will follow4.? Acute kidney injury, present on admission. * Likely multifactorial secondary to medications including hydrochlorothiazide possibly poor p.o. intake of fluids. * continue to monitor renal function daily. * avoid nephrotoxic agents * Suspect renal function is at baseline, last renal studies are from 2 years ago. * 5.? Diabetes mellitus type 2, insulin using, present on admission well controlled with an A1c of 5.7 * Patient will have glargine 64 units b.i.d. and prandial insulin of 5 units b.i.d. with meals * Carb controlled diet low-sodium with fluid restriction of 1200 cc, continue to monitor blood glucose ACHS.6.? Hypothyroidism, chronic, TSH is low, she may be being over-replaced * Free T-4 is pending * Decreased levothyroxine from 250 mcg to 150 mcg7.? History of atrial fibrillation, CHF and coronary artery disease.? Stable. * Chads vasc2 score of 7, this would imply need for anticoagulation, not sure why she is not on A/C, will discus * Continue home doses of isosorbide mononitrate, carvelilol, and atorvastatin. * Stool program Time Spent With Patient Critical Care time: I spent a total of [] minutes of critical care time on this patient's care today; this time is exclusive of procedural time. Quality VTE Deep Vein Thrombosis/Pulmonary Embolism Present on Admission: No
[2021-05-11] MEDS: ATORVASTATIN 20 MG TABLET 40 MG PO (21:51)
[2021-05-11] MEDS: SENNOSIDES 8.6 MG TABLET 17.2 MG PO (21:53)
[2021-05-12 06:00] VITALS: BP 164/68; PULSE 75; RESP 18; TEMP 36.1; O2SAT 97
[2021-05-12 07:30] VITALS: BP 184/80; PULSE 85; RESP 15; TEMP 36.3; O2SAT 96
[2021-05-12] MEDS: INSULIN LISPRO 100 UNIT/ML 3ML VIAL SUBCUT ×2 (08:30→12:04)
[2021-05-12] MEDS: INSULIN GLARGINE 100 UNIT/ML 3ML PEN 40 UNIT SUBCUT (08:31)
[2021-05-12] MEDS: SENNOSIDES 8.6 MG TABLET 17.2 MG PO (08:32)
[2021-05-12] MEDS: ASPIRIN EC 81 MG TABLET PO (08:32)
[2021-05-12] MEDS: LOSARTAN 25 MG TABLET PO (08:33)
[2021-05-12] MEDS: carvediloL 12.5 MG TABLET 37.5 MG PO (08:33)
[2021-05-12] MEDS: LEVOTHYROXINE 150 MCG TABLET PO (08:33)
[2021-05-12] MEDS: OXYBUTYNIN 5 MG TABLET PO (08:33)
[2021-05-12] MEDS: PANTOPRAZOLE DR 40 MG TABLET PO (08:33)
[2021-05-12] MEDS: FERROUS SULFATE 325 MG TABLET PO (08:34)
[2021-05-12] MEDS: HEPARIN 5,000 UNIT/ML VIAL 5000 UNIT SUBCUT (08:34)
--- NOTE | 2021-05-12 08:44 | P.DS_ITS ---
History of Present Illness History of Present Illness Date Patient Seen: 05/12/21 Chief complaint: Witnessed seizure, UTI, newly started on lexapro Narrative: Vicenta Jacobsen is a 75-year-old female with an extensive history consisting of chronic kidney disease, iron deficiency, paroxysmal atrial fibrillation, history of broached cancer, diabetes, coronary artery disease with stents, hypoth yroidism and obstructive sleep apnea presented with what was believed to be a seizure that happened at noon on 04/28 2.? Her Sg, provides much of the history is the patient is very lethargic and not wanting to speak much.? He states that she has been getting progressively weaker over the past day.? He when out and then apparently that he stated that she has been unable to get up to urinate and has been sitting quite a bit in a recliner chair during the day only getting up twice a day to urinate.? She did complain of feeling pain and he said her urine was quite cloudy. stated she was started on a new antidepressant, now confirmed to be lexapro 5 mg daily and states it has very much helped her moods. Her states she sees Dr. Figueroa, Cardiology in [place] and Dr. Stark, publications editor. He stated she was admitted in 2018, sustained an acute kidney injury almost necessitating dialysis and taking baclofen was the culprit. He stated she was removed off all nephrotoxic medications and her renal function has improved. Chest x-ray ordered in the ED was negative for any acute cardiopulmonary process, head CT indicated new areas of chronic ischemic changes in the deep davis and cortical davis matter that appeared since being scanned in the past.? Patient is afebrile, blood pressure 117/63 though it was ranging from 145-200 systolic prior to her arrival the floor.? Heart rate 69, respiratory rate 19, oxygen saturation 99% on room air, she weighs 102 kg with a BMI of 36.3.? WBC was 7.8 RBC 3.67 hemoglobin 11.4 hematocrit 34.1 platelet count 174, sodium 141, potassium 4.3, chloride 114, bicarb 15, BUN 64, creatinine 2.40 which is higher than her normal baseline, GFR is 19.6, glucose 203, hemoglobin A1c is 5.7, phosphorus is 5.7, magnesium 1.9, AST 44, ALT 18, TSH is 0.015, prolactin was normal, urine was positive multitude of bacteria likely contamination and is not indicated for culture, COVID 19 and viral PCR are all negative. Discharge Providers Provider Date of admission: 05/09/21 15:25 Discharge Date: 05/12/21 Primary care physician: Ad Colunga MD Consults: 05/09/21 17:16 Consult to Dietitian, Adult Routine Comment: Reason For Exam: diabetic diet, recent weight loose but intintional 05/09/21 18:55 Consult to Physical Therapy Evaluate & Treat Comment: Frequent falls Physician Instructions: Evaluate and Treat Discharge provider: Rimma Herbert MD Summary Hospital Course Discharge Diagnosis: 1. Acute metabolic encephalopathy 2. E coli bacteremia 3. E coli urinary tract infection 4. Hypertension 5. Hyperlipidemia 6. Type 2 diabetes 7. Hypothyroidism 8. GERD 9. Sacral decubitus ulcer stage I 10. Right groin open lesion, 11. Chronic kidney disease stage 3 12. Paroxysmal atrial fibrillation 13. Obstructive sleep apnea Hospital Course: Patient is a 75-year-old female who was admitted to the hospital with acute metabolic encephalopathy. There was concern that the patient may have had a sei zure. Patient was found to have a urinary tract infection due to E coli, she was treated with IV ceftriaxone. Patient was initially febrile to 99.8 but defervesced nicely with IV antibiotics. Her urine culture grew E coli, blood culture grew E coli as well. The patient was more alert and awake, she had no episodes of seizure-type activity, patient remained somewhat weak, however she was seen by physical therapy and occupational therapy and making improvement. Although she was somewhat weak in her lower extremity she and her were against inpatient rehab. Patient was found to have a sacral decubitus ulcer on the buttock. It was 7 x 4 cm on the right, 4 x 3 cm on the left, likely stage I. In addition in the right groin there was a 1 cm tunneling open lesion. The patient had no shortness of breath or chest pain. She made slow but steady progress. She was awake and alert. Patient was afebrile. She was deemed appropriate for discharge and arrangements were made for her to discharge home. Status at Discharge Cognitive/behavioral status at discharge: oriented Functional status at discharge: uses cane/walker Overall status at discharge: patient is progressing back to baseline Exam Vital Signs (past 8 hours): - 05/12/21 06:00 Temperature 96.9 F L Pulse Rate 75 Respiratory Rate 18 Blood Pressure 164/68 H Pulse Oximetry 97 Oxygen Delivery Method Room Air Oxygen Flow Rate 0 Narrative Exam Narrative: Pleasant female lying in bed in no obvious distress Resp Other: Lungs clear to auscultation Cardio Other: Cardiac exam: Irregularly irregular, normal S1-S2 GI Other: Abdomen: Soft nontender nondistended, no hepatosplenomegaly Other: Right groin, 1 cm tunneling open lesion, no erythema or exudate Skin Other: Sacral area, right buttock reveals a 7 x 4 cm stage I decubitus, there is no skin breakdown, there is bruising, and erythema on the left buttock there is a 4 x 3 cm erythematous lesion with no evidence of breakdown, likely a stage I ulcer as well Extrem Other: No edema Objective Labs Result Diagrams: 05/11/21 04:36 05/11/21 04:36 [facility] Medical History (Updated 05/10/21 @ 00:27 by ALEX Hidalgo) Anemia Atrial fibrillation CHF (congestive heart failure) Diabetes History of GI bleed Surgical History (Updated 05/10/21 @ 00:27 by ALEX Hidalgo) History of cholecystectomy History of hysterectomy History of mastectomy S/P CABG x 3 Family History Mother No problems noted. Social History household members: spouse Smoking Status: Former smoker alcohol intake: never substance use type: does not use Discharge Assessment & Plan Assessment and Plan Assessment: 1. Acute metabolic encephalopathy 2. E coli bacteremia 3. E coli urinary tract infection 4. Hypertension 5. Hyperlipidemia 6. Type 2 diabetes 7. Hypothyroidism 8. GERD 9. Sacral decubitus ulcer stage I 10. Right groin open lesion, 11. Chronic kidney disease stage 3 12. Paroxysmal atrial fibrillation 13. Obstructive sleep apnea Plan of Treatment: Medications as prescribed Home health offered to the patient and her which they have declined She will follow-up with her PCP, Dr. Elmore in 1-2 weeks Discharge Plan Discharge Plan Patient Disposition: Home Discharge orders & Medications Prescriptions: New levofloxacin 250 mg tablet 250 mg PO DAILY Qty: 7 0RF losartan 50 mg tablet 50 mg PO DAILY Qty: 30 0RF Continued vitamin B complex [B Complex-Vitamin B12] 1 EACH tablet 1 tab PO DAILY Qty: 0 0RF hydrocodone-acetaminophen [Loyal] 10 MG/325 MG tablet 1 tab PO Q6H PRN (Reason: pain) Qty: 0 0RF fluticasone propionate 16 GM spray,suspension 1 spray Intranasal BID Qty: 0 0RF atorvastatin 40 MG tablet 40 mg PO BEDTIME Qty: 0 0RF calcium carbonate-vitamin D3 [Calcium 600 with Vitamin D3] 600 MG/200 IU capsule 1 cap PO BID Qty: 0 0RF potassium chloride 10 MEQ capsule, extended release 10 meq PO BID Qty: 0 0RF pantoprazole [Protonix] 40 MG tablet,delayed release (DR/EC) 40 mg PO BID Qty: 0 0RF ondansetron HCl [Zofran] 4 MG tablet 4 mg PO Q8H PRN (Reason: Nausea) Qty: 0 0RF isosorbide mononitrate 30 MG tablet extended release 24 hr 30 mg PO QAM Qty: 0 0RF vitamin E 400 UNIT capsule 400 unit PO DAILY Qty: 0 0RF clopidogrel 75 mg tablet 75 mg PO QPM 0RF levothyroxine 125 mcg tablet 250 mcg PO DAILY 0RF Novolin 70/30 U-100 Insulin 100 unit/mL (70-30) Suspension 40 units subcut BID 0RF Novolin R Regular U-100 Insuln 100 unit/mL Solution 1 dose subcut BID PRN (Reason: sliding scale) 0RF nitroglycerin [Nitrostat] 0.4 mg Tablet, Sublingual 0.4 mg SUBLINGUAL PRN PRN (Reason: Chest Pain) 0RF [place]-3 Fish Oil 500 mg capsule 500 mg PO BID 0RF polyethylene glycol 3350 [Miralax] 17 gram Powder In Packet 17 g PO DAILY PRN (Reason: stool softener) 0RF oxybutynin chloride 5 mg tablet 5 mg PO BID 0RF ropinirole [Requip] 0.5 mg tablet 0.5 mg PO TID Qty: 30 0RF ferrous sulfate [iron] 325 mg (65 mg iron) Tablet 325 mg PO BID 0RF nystatin 100,000 unit/gram Powder 1 applic TOPICAL BID PRN (Reason: rash) 0RF torsemide 20 MG tablet 20 mg PO QDAYP PRN (Reason: Edema) Qty: 0 0RF hydrochlorothiazide 25 mg tablet 25 mg PO BID 0RF aspirin [Adult Aspirin EC Low Strength] 81 mg Tablet,Delayed Release (Dr/Ec) 81 mg PO DAILY 0RF clotrimazole 1 % cream 1 applic TOPICAL BID PRN (Reason: Rash) 0RF Label Comments: APPLY CREAM TOPICALLY TO AFFECTED AREA TWICE DAILY carvedilol 25 mg Tablet 37.5 mg PO BID 0RF Rx Instructions: must administer with a meal/food docusate sodium 100 mg Tablet 100 mg PO BID PRN (Reason: Constipation) 0RF escitalopram oxalate 5 mg tablet 5 mg PO DAILY 0RF Label Comments: TAKE 1 TABLET BY MOUTH ONCE DAILY Discontinued diphenhydramine HCl 50 MG capsule 25 mg PO Q6HPRN PRN (Reason: Itching) Qty: 0 0RF losartan 25 mg Tablet 25 mg PO DAILY 0RF Follow up/Referrals: Ad Colunga MD [Primary Care Provider] - Discharge Health Status Multidrug resistant organism: No MDRO Diet/Activity/Treatments Diet: Low-sodium and Low-cholesterol Skin/Wound/Dressing Care Report to your healthcare provider any signs of infection, such as:: chills, fever Discharge Data Primary Care Provider: Ad Colunga Quality VTE Deep Vein Thrombosis/Pulmonary Embolism Present on Admission: No
[2021-05-12 09:11] VITALS: O2SAT 97
--- NOTE | 2021-05-12 10:41 | PT.IPTN ---
Current Diagnoses Metabolic encephalopathy (05/09/21) Physical Therapy Treatment Note M2 PT-IP Current Condition Start: 05/10/21 14:25 Freq: NEEDED Status: Active Protocol: Document 05/10/21 10:48 AB (Rec: 05/10/21 14:46 AB [id number]) Physical Therapy Current Condition Current Condition Evaluation Date 05/10/21 Treatment Diagnosis UTI; altered mental status; difficulty in walking Onset Date 05/09/21 M3 PT-IP Subjective Start: 05/10/21 14:25 Freq: NEEDED Status: Active Protocol: Document 05/12/21 10:15 KS (Rec: 05/12/21 12:19 KS [id number]) Subjective Physical Therapy Visit Type Type Treatment Note Visit Start Time 10:15 Visit Stop Time 10:41 Total Visit Minutes 26 Number of TOOL GRINDER Visits 1 Physical Therapy Visit Comments Patient Comments pt is agreeable to do PT; spouse present M4 PT-IP Mobility and Gait Start: 05/10/21 14:25 Freq: NEEDED Status: Active Protocol: Document 05/12/21 10:15 KS (Rec: 05/12/21 12:19 KS [id number]) PT-Bed Mobility Assessment Supine to Sit Supine to Sit Moderate Assistance,1 Person Assistance,Bedrails Sit to Supine Sit to Supine Moderate Assistance Scooting Scooting to Edge of Bed Minimal Assistance PT-Transfer Assessment Sit to and From Stand Sit to and from Stand Moderate Assistance,1 Person Assistance,Use of Upper Extremities Equipment Transfer Assistive Device Gait Belt,Front Wheeled Walker Transfers Transfer Destination Bed Transfer Technique Pt ambulated w/ FWW Transfer Ability Level of Assist Moderate Assistance,1 Person Assistance,Use of Upper Extremities Comments Mobility Comments Pt in bed and fatigued upon arrival but willing to perform mobility w/ to see if safe to go home. Pts provided all assist throughout treatment. Mod A for sup<>sit , Min A scooting EOB, Mod A sit<>Stand. Demonstrated gait belt application to pts . Pt and ambulated ~15 ft w/ FWW and Min A for FWW management. Pt returned to bed and needed Mod A to return to bed. Pts was able to provide appropriate assist and cues. Left in bed w/ all needs in reach. Gait Assessment Gait Gait Assistance Required: Minimum Assistance,1 Person Assist Distance (Feet) 15 Able to Maintain Weight Bearing Status Yes During Gait Assistive Devices Assistive Device Gait Belt,Front Wheeled Walker Orthotic/Prosthetic Devices or Brace: No Gait Deviations General Gait Pattern Antalgic,Decreased Stride Length,Decreased Feet Clearance,Lateral Trunk Lean Factors Limiting Gait Function Factors Limiting Gait Function Decreased Activity Tolerance, Decreased Strength,Poor Balance,Poor Safety Awareness Comments Gait Comments Pt needing Min A mostly for FWW management. Pts states he will not allow pt to ambulate w/o himself to assist her. PT-Balance Assessment Sitting Balance and Reactions Static Sitting Balance Ability Fair Dynamic Sitting Balance Ability Fair Standing Balance and Reactions Static Standing Balance Ability Poor Dynamic Standing Balance Ability Poor Device Used FWW M5 PT-IP Objective Assessments Start: 05/10/21 14:25 Freq: NEEDED Status: Active Protocol: Document 05/10/21 10:48 AB (Rec: 05/10/21 14:46 AB [id number]) Orientation Orientation/Cognition Level of Alertness Confusional State Safety Awareness Decreased Safety Awareness Memory Description Short Term Impaired Strength Lower Extremity Strength Assessment Bilaterally Impaired Hip 3-/5 Knee 3+/5 Muscle Tone Muscle Tone WNL Yes M6 PT-IP Treatment Start: 05/10/21 14:25 Freq: NEEDED Status: Active Protocol: Document 05/12/21 10:15 KS (Rec: 05/12/21 12:19 KS [id number]) Physical Therapy Treatment Education Education Provided Safety Other Treatments Other Treatment Performed Completed caregiver training w / pts M7 PT-IP Assessment and Plan Start: 05/10/21 14:25 Freq: NEEDED Status: Active Protocol: Document 05/12/21 10:15 KS (Rec: 05/12/21 12:19 KS [id number]) PT Summary Assessment and Plan Potential Rehabilitation Potential Fair Summary Impairments Pain,ROM,Strength,Balance, Coordination,Sensation,Tone, Cognition,Bed Mobility, Transfers,Gait,Activity Tolerance Progress Towards Goals Slow Progress due to Medical Issues,Slow Progress due to Activity Tolerance Assessment Summary Pt still requiring Mod A w/ most mobility, but was able to ambulate Min A w/ FWW. Pts was able to safely apply gait belt and provide assistance and cues appropriately throughout treatment. Pt and spouse state they feel safe to go home. Encouraged spuse to seek additional caregivers for assistance and HH. Goals Bed Mobility Goal Contact Guard Assistance Transfer Goal Contact Guard Assistance,Front Wheeled Walker Gait Goal Contact Guard Assistance,Front Wheel Walker Gait Distance 40 Other Goals improve bed mobility, transfers to SBA improve ambulation using FWW/ 4WW 75 ft SBA Days to Meet Goals 10 Frequency of Treatment Frequency Of Treatment Once a Day Treatment Plan Physical Therapy Treatment Plan Bed Mobility Training,Transfer Training,Gait Training, Therapeutic Exercise,Balance Retraining,Discharge Planning, Hot or Cold Pack,Neuromuscular Re-ed,Coordination Retraining Other Recommendations and Next Treatment ambulation using 4WW; Focus caregiver training when appropriate Precautions Other Precautions falls Recommendations To Nursing Amount of Assist Needed 1 Person Assist Discharge Recommendations PT Discharge Recommendations Home with 24/ Assist Available,Home Health Transportation Needs at Discharge Private Vehicle,Wheelchair/ Cabulance
--- NOTE | 2021-05-12 12:51 | CM.DPNOTE ---
DC Note According to Dr Herbert, patient is discharged today; home w/spouse and close outpatient f/u for patient's ongoing medical needs. Patient/spouse deny the need for HH services at this time; no further needs from this SPECIAL DELIVERY CLERK JW
--- NOTE | 2021-05-12 13:31 | PC.NURSE ---
Assumed care of pt at 0700. Pt resting in bed during hand-off. Briefs changed, Drsg applied to R. Groin. Packed with Iodoform gauze, covered with telfa and secured with Tape. Provider okayed drsg application plan. Instructed Spouse on drsg change instructions. Provided supplies. Discharge to home ordered. Pt and spouse verbalized understanding of all d/c instructions. Pt dressed, escorted off unit via w/c with all personal belongings. Pt left in stable condition.
== END 2021-05-12 13:30 | disposition home or self-care (01) | DRG 689 ==
LOC: ED 15:00 → AC 15:25
PROVIDERS: Nurse Practitioner Family; Admitting Provider Internal Medicine; Emergency Provider Emergency Medicine; Family Provider Internal Medicine; PCP Internal Medicine; Referring Provider Emergency Medicine; Visit Provider Internal Medicine
DX: N39.0 Urinary tract infection, site not specified (principal); G93.41 Metabolic encephalopathy; N17.9 Acute kidney failure, unspecified; G40.89 Other seizures; R78.81 Bacteremia; I48.0 Paroxysmal atrial fibrillation; L89.151 Pressure ulcer of sacral region, stage 1; E03.9 Hypothyroidism, unspecified; I25.10 Atherosclerotic heart disease of native coronary artery without angina pectoris; B96.20 Unspecified Escherichia coli [E. coli] as the cause of diseases classified elsewhere; E11.22 Type 2 diabetes mellitus with diabetic chronic kidney disease; N18.30 Chronic kidney disease, stage 3 unspecified; E78.5 Hyperlipidemia, unspecified; K21.9 Gastro-esophageal reflux disease without esophagitis; Z79.01 Long term (current) use of anticoagulants; Z95.5 Presence of coronary angioplasty implant and graft; Z87.891 Personal history of nicotine dependence; Z20.822 Contact with and (suspected) exposure to COVID-19; Z79.4 Long term (current) use of insulin; R03.0 Elevated blood-pressure reading, without diagnosis of hypertension
CPT/HCPCS: 36415; 51701; 70450; 71045; 76770; 80048; 80053; 80305; 80320; 81001; 82140; 82962; 83036; 83735; 84100; 84145; 84146; 84439; 84443; 85025; 87040; 87077; 87086; 87150; 87186; 87205; 87633; 93005; 93010; 94762; 96361; 96365; 96375; 97116; 97162; 97530; 99284; 99285; J0696; J1644; J1815; J2405

== ENCOUNTER 2021-09-25 10:31 | Inpatient (IN) | payer OTHER, SELFPAY ==
[2021-05-09 17:06] VITALS: BMI 36.3
[2021-09-25] VITALS (13 sets, daily range): BP systolic 160–193; BP diastolic 73–79; PULSE 90–122; RESP 16–28; TEMP 36.9–37.6; O2SAT 96–99; BMI 38.4
--- NOTE | 2021-09-25 11:01 | DI.RAD.S_ITS ---
PROCEDURE: XR CHEST 1V INDICATIONS: weakness/fatigue TECHNIQUE: One view of the chest was acquired. COMPARISON: [facility], CR, XR CHEST 1V, 05/09/2021, 12:51. FINDINGS: Surgical changes and devices: Patient is status post median sternotomy and CABG. Lungs and pleura: Lungs are clear. No pleural effusions or pneumothorax. Mediastinum: Mediastinal contours appear normal. Heart size is enlarged. Scattered atheromatous calcifications are present within the aortic arch. Bones and chest wall: No suspicious bony lesions. Overlying soft tissues appear unremarkable. IMPRESSION: Unchanged cardiomegaly. No acute pulmonary findings. Dictated by: Kelly Flores M.D. on 09/25/2021 at 12:04 Approved by: Kelly Flores M.D. on 09/25/2021 at 12:04
--- NOTE | 2021-09-25 11:03 | ED.SEIZURE ---
HPI - Seizure General Chief Complaint: Seizure Stated Complaint: Seizure Time Seen by Provider: 09/25/21 10:31 Source: EMS Mode of arrival: EMS History of Present Illness HPI Narrative: 76F former smoker with extensive medical history including chronic renal failure, cardiac disease, CHF and at least one prior seizure presents by EMS for evaluation of a seizure. She was at home with a caregiver and her and had been attempting to bathe herself when she developed what sounds like a 1-2 minute seizure involving largely her upper extremities that had resolved prior to EMS arrival. She has had a postictal phase and is slowly improving over the course of the transport time. She had 1 prior seizure that resulted in the hospitalization and no other reports of seizure, she takes no anti epileptics. She has been in her normal state of health otherwise and denies any fever or chills, no headaches, vomiting or diarrhea. She has had no change in medications or diet Related Data Home Medications Medication Instructions Recorded Confirmed vitamin B complex (B 1 tab PO DAILY #0 04/26/16 05/09/21 Complex-Vitamin B12) fluticasone propionate 50 1 spray INTRANASAL BID #0 05/22/16 05/09/21 mcg/actuation nasal spray,suspension hydrocodone 10 mg-acetaminophen 1 tab PO Q6H PRN #0 05/22/16 05/09/21 325 mg tablet ([place]) atorvastatin 40 mg tablet 40 mg PO BEDTIME #0 11/08/16 05/09/21 calcium carbonate 600 mg-vitamin 1 cap PO BID #0 11/08/16 05/09/21 D3 10 mcg (400 unit) capsule (Calcium 600 with Vitamin D3) ondansetron HCl 4 mg tablet 4 mg PO Q8H PRN #0 11/08/16 05/09/21 (Zofran) pantoprazole 40 mg tablet,delayed 40 mg PO BID #0 11/08/16 05/09/21 release (Protonix) potassium chloride 10 mEq 10 meq PO BID #0 11/08/16 05/09/21 capsule,extended release isosorbide mononitrate 30 mg 30 mg PO QAM #0 01/27/17 05/09/21 tablet,extended release 24 hr vitamin E 400 unit capsule 400 unit PO DAILY #0 07/04/17 05/09/21 [place]-3 Fish Oil 500 mg PO BID 04/09/18 05/09/21 clopidogrel 75 mg tablet 75 mg PO QPM 04/09/18 05/09/21 insulin human U-100 NPH-regulr 40 units SUBCUT BID 04/09/18 05/11/21 70-30 mix 100 unit/mL subcutaneous susp (Novolin 70/30 U-100 Insulin) insulin regular human 100 unit/mL 1 dose SUBCUT BID PRN 04/09/18 05/11/21 injection solution (Novolin R Regular U-100 Insulin) levothyroxine 125 mcg tablet 250 mcg PO DAILY 04/09/18 05/09/21 nitroglycerin 0.4 mg sublingual 0.4 mg SUBLINGUAL PRN PRN 04/09/18 05/09/21 tablet (Nitrostat) oxybutynin chloride 5 mg tablet 5 mg PO BID 04/09/18 05/09/21 polyethylene glycol 3350 17 gram 17 g PO DAILY PRN 04/09/18 05/09/21 oral powder packet (Miralax) ferrous sulfate 325 mg (65 mg 325 mg PO BID 04/14/18 05/09/21 iron) tablet (iron) nystatin 100,000 unit/gram topical 1 applic TOPICAL BID PRN 04/14/18 05/09/21 powder aspirin 81 mg tablet,delayed 81 mg PO DAILY 05/09/21 05/09/21 release carvedilol 25 mg tablet 37.5 mg PO BID 05/09/21 05/09/21 clotrimazole 1 % topical cream 1 applic TOPICAL BID PRN 05/09/21 05/09/21 docusate sodium 100 mg tablet 100 mg PO BID PRN 05/09/21 05/09/21 hydrochlorothiazide 25 mg tablet 25 mg PO BID 05/09/21 05/09/21 escitalopram oxalate 5 mg tablet 5 mg PO DAILY 05/10/21 05/10/21 Previous Rx's Medication Instructions Recorded ropinirole 0.5 mg tablet (Requip) 0.5 mg PO TID #30 tab 04/10/18 torsemide 20 mg tablet 20 mg PO QDAYP PRN #0 tab 04/18/18 levofloxacin 250 mg tablet 250 mg PO DAILY #7 tab 05/12/21 losartan 50 mg tablet 50 mg PO DAILY #30 tab 05/12/21 Allergies Allergy/AdvReac Type Severity Reaction Status Date / Time meperidine [From DARLEENL] Allergy Severe NAUSEA/VOMI Verified 09/25/21 10:41 TTING Review of Systems Review of Systems Narrative: GENERAL: Denies chills, fatigue, malaise, fever, sweats. HEENT: Denies sinus pain, ear pain, sore throat, difficulty swallowing, dizziness. RESPIRATORY: Denies dyspnea, cough, wheezing, hemoptysis, sputum. CARDIOVASCULAR: Denies chest pain, palpitations, orthopnea, edema, GASTROINTESTINAL: Denies nausea, vomiting, abdominal pain, diarrhea, constipation, melena. : Denies dysuria, frequency, incontinence, hematuria, urinary retention. MUSCULOSKELETAL: denies weakness, joint pain, or bony pain SKIN: Denies rash, skin lesions, or other NEUROLOGIC: See HPI PSYCHIATRIC: No concerning psychosocial issues. 12 point review of systems is negative except for those stated above Patient History Medical History Anemia Atrial fibrillation CHF (congestive heart failure) Diabetes History of GI bleed Surgical History History of cholecystectomy History of hysterectomy History of mastectomy S/P CABG x 3 Family History Mother No problems noted. Social History household members: spouse Smoking Status: Former smoker alcohol intake: never substance use type: does not use Smoking Status: Former smoker Substance Use Type: does not use Exam Narrative Exam Narrative: GENERAL: [76] year old patient appears stated age. Well-developed patient, in mild distress.Still confused and likely postictal (GCS 14) HEAD: Atraumatic. Normocephalic. EYES: Pupils equal round and reactive. Extraocular motions intact. No scleral icterus. No injection or drainage. ENT: Nose without bleeding, purulent drainage. Throat without erythema, tonsillar hypertrophy or exudate. Airway patent. NECK: Trachea midline. Non tender CARDIOVASCULAR: Regular rate and rhythm without murmurs, gallops, or rubs. RESPIRATORY: Clear to auscultation. Breath sounds equal bilaterally. No wheezes, rales, or rhonchi. GASTROINTESTINAL: Abdomen soft, non-tender, nondistended. EXTREMITIES: No edema or joint tenderness. BACK: NCN II-XII grossly intact SKIN: No rash or erythema of visible areas Initial Vital Signs Initial Vital Signs: Vital Signs Temperature 98.4 F 09/25/21 10:38 Pulse Rate 101 H 09/25/21 10:38 Respiratory Rate 16 09/25/21 10:38 Blood Pressure 163/75 H 09/25/21 10:38 Pulse Oximetry 98 09/25/21 10:38 Course Orders Ordered: Hydrocodone Bitart/Acetaminophen (Hydrocodone/Acet 5/325 Tablet) 1 tab PO Q4HR PRN PRN Reason: Pain, Moderate (4-6) Last Admin: 09/26/21 05:30 Dose: 1 tab Documented by: Admin: 09/26/21 01:41 Dose: 1 tab Documented by: SASCHA Aspirin (Aspirin Ec 81 Mg Tablet) 81 mg PO DAILY COUNTS INCLUDE 234 BEDS AT THE [facility] Atorvastatin Calcium (Atorvastatin 20 Mg Tablet) 40 mg PO BEDTIME COUNTS INCLUDE 234 BEDS AT THE [facility] Last Admin: 09/25/21 21:14 Dose: 40 mg Documented by: SASCHA Calcium Carbonate/Cholecalciferol (Calcium Carb/Vit D3 500/200 Tablet) 1 each PO BID COUNTS INCLUDE 234 BEDS AT THE [facility] Last Admin: 09/25/21 21:51 Dose: 1 each Documented by: SASCHA Carvedilol (Carvedilol 12.5 Mg Tablet) 37.5 mg PO BID COUNTS INCLUDE 234 BEDS AT THE [facility] Last Admin: 09/25/21 21:12 Dose: 37.5 mg Documented by: SASCHA Clopidogrel Bisulfate (Clopidogrel 75 Mg Tablet) 75 mg PO QPM COUNTS INCLUDE 234 BEDS AT THE [facility] Last Admin: 09/25/21 19:09 Dose: 75 mg Documented by: MEGAN Clotrimazole (Clotrimazole 1% Crm 30 Gm) 1 applic TOP BID PRN PRN Reason: Rash Last Admin: 09/26/21 01:44 Dose: 1 applic Documented by: SASCHA Diphenhydramine HCl (Diphenhydramine 25 Mg Tablet) 25 mg PO Q6HR PRN PRN Reason: Itching Last Admin: 09/26/21 05:30 Dose: 25 mg Documented by: Admin: 09/25/21 22:40 Dose: 25 mg Documented by: SASCHA Docusate Sodium (Docusate 100 Mg Capsule) 100 mg PO BID PRN PRN Reason: Constipation Ferrous Sulfate (Ferrous Sulfate 325 Mg Tablet) 325 mg PO BID COUNTS INCLUDE 234 BEDS AT THE [facility] Last Admin: 09/25/21 21:14 Dose: 325 mg Documented by: SASCHA Fish Oil (Fish Oil 1,000 Mg Capsule) 1,000 mg PO DAILY COUNTS INCLUDE 234 BEDS AT THE [facility] Fluticasone Propionate (Fluticasone 120 [place]/16 Gm [place].Susp) 1 spray NASAL BID COUNTS INCLUDE 234 BEDS AT THE [facility] Last Admin: 09/25/21 21:15 Dose: 1 spray Documented by: SASCHA Hydrochlorothiazide (Hydrochlorothiazide 25 Mg Tablet) 25 mg PO BID COUNTS INCLUDE 234 BEDS AT THE [facility] Last Admin: 09/25/21 21:14 Dose: 25 mg Documented by: SASCHA DILTIAZEM (Diltiazem 125 Mg/125 Ml-D5w) 125 mg in 125 mls @ 5 mls/hr IV TITRATE COUNTS INCLUDE 234 BEDS AT THE [facility]; Protocol Last Admin: 09/25/21 16:46 Dose: Not Given Documented by: MEGAN Dextrose (D10w) 250 mls @ 999 mls/hr IV PRN PRN PRN Reason: Hypoglycemia Insulin Human Isoph/Insulin Regular (Insulin Nph/Reg 70-30 100 Unit/Ml 3ml Vial) 30 unit SUBCUT BIDAC COUNTS INCLUDE 234 BEDS AT THE [facility] Last Admin: 09/25/21 19:10 Dose: 30 unit Documented by: MEGAN Cosigned by: JOSE RAUL Insulin Human Lispro (Insulin Lispro 100 Unit/Ml 3ml Vial) 0 unit SUBCUT ACHS COUNTS INCLUDE 234 BEDS AT THE [facility]; Protocol Last Admin: 09/25/21 21:45 Dose: 1 unit Documented by: SASCHA Cosigned by: RFUENT Isosorbide Mononitrate (Isosorbide Mononitrate Er 30 Mg Tablet) 30 mg PO 0700 COUNTS INCLUDE 234 BEDS AT THE [facility] Levothyroxine Sodium (Levothyroxine 125 Mcg Tablet) 250 mcg PO 0600 COUNTS INCLUDE 234 BEDS AT THE [facility] Last Admin: 09/26/21 05:03 Dose: 250 mcg Documented by: SASCHA Losartan Potassium (Losartan 50 Mg Tablet) 50 mg PO DAILY COUNTS INCLUDE 234 BEDS AT THE [facility] Nitroglycerin (Nitroglycerin 0.4 Mg Sl Tab) 0.4 mg SL PRN PRN PRN Reason: Chest Pain Nystatin (Nystatin Powder 15gm) 1 applic TOP BID PRN PRN Reason: rash Ondansetron HCl (Ondansetron 4 Mg Odt) 4 mg PO Q8H PRN PRN Reason: Nausea Oxybutynin (Oxybutynin 5 Mg Tablet) 5 mg PO BID COUNTS INCLUDE 234 BEDS AT THE [facility] Last Admin: 09/25/21 21:51 Dose: 5 mg Documented by: SASCHA Pantoprazole Sodium (Pantoprazole Dr 40 Mg Tablet) 40 mg PO 0700,2100 COUNTS INCLUDE 234 BEDS AT THE [facility] Last Admin: 09/25/21 22:33 Dose: 40 mg Documented by: SASCHA Polyethylene Glycol (Polyethylene Glycol 3350 17 Gm Powd.Pack) 17 gm PO DAILY PRN PRN Reason: stool softener Potassium Chloride (Potassium Chloride 10 Meq Tab) 10 meq PO BID COUNTS INCLUDE 234 BEDS AT THE [facility] Last Admin: 09/25/21 21:14 Dose: 10 meq Documented by: SASCHA Ropinirole HCl (Ropinirole 0.25 Mg Tablet) 0.5 mg PO TID COUNTS INCLUDE 234 BEDS AT THE [facility] Last Admin: 09/25/21 21:13 Dose: 0.5 mg Documented by: SASCHA Vitamin E (Vitamin E 400 Unit Capsule) 400 unit PO DAILY REJI Discontinued Medications Carvedilol (Carvedilol 12.5 Mg Tablet) 37.5 mg PO NOW ONE Stop: 09/25/21 13:24 Last Admin: 09/25/21 13:52 Dose: 37.5 mg Documented by: SHAKEEL Diltiazem HCl (Diltiazem 5 Mg/Ml Sdv) 10 mg IV NOW ONE Stop: 09/25/21 14:56 Last Admin: 09/25/21 16:46 Dose: Not Given Documented by: MEGAN Diphenhydramine HCl (Diphenhydramine 50 Mg/Ml Vial) 25 mg IV Q6HR PRN PRN Reason: Itching Escitalopram Oxalate (Escitalopram 10 Mg Tablet) 5 mg PO DAILY COUNTS INCLUDE 234 BEDS AT THE [facility] Sodium Chloride (Normal Saline 0.9%) 1,000 mls @ 1,000 mls/hr IV BOLUS ONE Stop: 09/25/21 11:59 Last Infusion: 09/25/21 15:46 Dose: 1,000 mls/hr Documented by: Admin: 09/25/21 12:12 Dose: 1,000 mls/hr Documented by: ROSI Insulin Human Regular (Insulin Regular 100 Unit/Ml 3 Ml Vial) 0 unit SUBCUT ACHS REJI; Protocol Non-Formulary Medication (Vitamin B Complex [B Complex-Vitamin B12]) 1 tab PO DAILY COUNTS INCLUDE 234 BEDS AT THE [facility] Vital Signs Vital signs: Vital Signs - 8 hr 09/25/21 10:38 09/25/21 10:57 09/25/21 11:00 Temperature 98.4 F Pulse Rate 101 H 90 94 H Respiratory Rate 16 20 21 Blood Pressure 163/75 H 180/76 H Pulse Oximetry 98 98 98 09/25/21 11:30 09/25/21 12:00 09/25/21 12:02 Temperature Pulse Rate 96 H 107 H 112 H Respiratory Rate 24 20 21 Blood Pressure 193/79 H Pulse Oximetry 98 97 98 09/25/21 12:30 09/25/21 13:00 09/25/21 13:30 Temperature Pulse Rate 99 H 102 H 119 H Respiratory Rate 23 24 18 Blood Pressure Pulse Oximetry 98 97 99 09/25/21 13:52 09/25/21 14:00 Temperature Pulse Rate 119 H 122 H Respiratory Rate 24 Blood Pressure 193/79 H Pulse Oximetry MDM - Seizure Lab Data Result diagrams: 09/25/21 11:09 09/25/21 11:09 Labs: Lab Results 09/25/21 09/25/21 Range/Units 11:09 11:09 WBC 7.5 (4.5-11.0) X10^3/uL RBC 3.61 L (4.0-5.2) X10^6/uL Hgb 11.3 L (12.0-16.0) g/dL Hct 33.3 L (36-46) % MCV 92.3 (80-100) fL MCH 31.2 (26-34) PG MCHC 33.8 (30-36) % RDW 14.5 (11.6-14.8) % Plt Count 168 (150-400) X10^3/uL Neut % (Auto) 77.6 H (50-75) % Lymph % (Auto) 11.1 L (25-40) % [place] % (Auto) 7.5 (3-14) % Eos % (Auto) 3.1 (2-4) % Baso % (Auto) 0.7 (0-2) % Neut # (Auto) 5800 (5227-4176) /uL Lymph # (Auto) 800 L (8906-8524) /uL [place] # (Auto) 600 (0-900) /uL Eos # (Auto) 200 (0-450) /uL Baso # (Auto) 100 (0-100) /uL Sodium 142 (137-145) mmol/L Potassium 5.2 H (3.4-5.1) mmol/L Chloride 111 H (98-107) mmol/L Carbon Dioxide 19 L (22-32) mmol/L BUN 58 H (7-17) mg/dL Creatinine 2.09 H (0.52-1.04) mg/dL Estimated GFR 24 L (>60) mL/min BUN/Creatinine Ratio 27.8 H (6-22) Glucose 168 H (80-110) mg/dL Calcium 8.8 (8.4-10.2) mg/dL Magnesium 2.4 H (1.6-2.3) mg/dL Total Bilirubin 0.5 (0.2-1.3) mg/dL AST 25 (14-36) IU/L ALT 18 (<35) IU/L Alkaline Phosphatase 99 (38-126) U/L Total Creatine Kinase 44 (30-135) U/L CK-MB (CK-2) TNP CK-MB (CK-2) Rel Index TNP Troponin I < 0.012 (0.01-0.034) ng/mL NT-Pro-B Natriuret Pep 4830 H (<450) pg/mL Total Protein 7.0 (6.3-8.2) g/dL Albumin 4.0 (3.5-5.0) g/dL Globulin 3.0 (1.7-4.1) g/dL Albumin/Globulin Ratio 1.3 (1.0-2.8) Lipase 27 (23-300) U/L Point of Care Testing Glucose POC 151 Discharge Plan Departure Patient Disposition: Admitted As Inpatient Clinical Impression: Atrial fibrillation with rapid ventricular response, Weakness, Syncope Admit Date/Time: 09/25/21 14:58 Admit Provider: Vicki Wallace
[2021-09-25 11:16] LABS: Add Manual Diff / Slide Review NO; Basophils Absolute Auto 100 /uL (0-100); Basophils Percent Auto 0.7 % (0-2); Eosinophils Absolute Auto 200 /uL (0-450); Eosinophils Percent Auto 3.1 % (2-4); Hematocrit 33.3 % (36-46); Hemoglobin 11.3 g/dL (12.0-16.0); Lymphocytes Absolute Auto 800 /uL (1100-4500); Lymphocytes Percent Auto 11.1 % (25-40); Mean Corpuscular HGB Conc 33.8 % (30-36); Mean Corpuscular Hemoglobin 31.2 PG (26-34); Mean Corpuscular Volume 92.3 fL (80-100); Monocytes Absolute Auto 600 /uL (0-900); Monocytes Percent Auto 7.5 % (3-14); Neutrophils Absolute Auto 5800 /uL (1500-7000); Neutrophils Percent Auto 77.6 % (50-75); Platelet Count 168 X10^3/uL (150-400); Red Blood Cell Count 3.61 X10^6/uL (4.0-5.2); Red Cell Distribution Width 14.5 % (11.6-14.8); White Blood Cell Count 7.5 X10^3/uL (4.5-11.0)
[2021-09-25 11:28] LABS: Alanine Aminotransferase 18 IU/L (<35); Albumin Globulin Ratio 1.3 (1.0-2.8); Alkaline Phosphatase 99 U/L (38-126); Aspartate Aminotransferase 25 IU/L (14-36); BUN Creatinine Ratio 27.8 (6-22); Bilirubin Total 0.5 mg/dL (0.2-1.3); Blood Urea Nitrogen 58 mg/dL (7-17); Calcium 8.8 mg/dL (8.4-10.2); Carbon Dioxide 19 mmol/L (22-32); Chloride 111 mmol/L (98-107); Creatine Kinase 44 U/L (30-135); Estimated Glomerular Filt Rate 24 mL/min (>60); Glucose 168 mg/dL (80-110); HEMOLYSIS < 15 (0-50); Lipase 27 U/L (23-300); Magnesium 2.4 mg/dL (1.6-2.3); Potassium 5.2 mmol/L (3.4-5.1); Sodium 142 mmol/L (137-145)
[2021-09-25 11:40] LABS: NT-proBNP (BNP-Adult 18+) 4830 pg/mL (<450); Troponin I < 0.012 ng/mL (0.01-0.034)
[2021-09-25] MEDS: SODIUM CHLORIDE 0.9% 1,000 ML 1000 ML IV (12:12)
[2021-09-25] MEDS: carvediloL 12.5 MG TABLET 37.5 MG PO ×2 (13:52→21:12)
[2021-09-25 15:36] LABS: COVID19 -Nasal RAPID Negative (Negative)
--- NOTE | 2021-09-25 17:18 | P.HP_ITS ---
History of Present Illness History of Present Illness Date Patient Seen: 09/25/21 Chief complaint: Seizure Narrative: Substitute decision maker is her : Jose Armando Jacobsen. Patient herself dose not think she had a seizure. She thinks she fainted however this 76 y.o. Female, former smoker with extensive medical history including chronic renal failure, cardiac disease, CHF, atrial fibrillation and at least one prior seizure presents by EMS for evaluation of a seizure.? She was at home with a caregiver and her and had been attempting to bathe herself when she developed what sounds like a 1-2 minute seizure involving largely her upper extremities that had resolved prior to EMS arrival or as the patient thinks a syncopal episode with shaking of the arms.?She did have what appeared tp be a postictal phase and is slowly improved over the course of the transport time to ER.? She had 1 prior seizure that resulted in the hospitalization and no other reports of seizure, she takes no anti epileptics.? She has been in her normal state of health otherwise and denies any fever or chills, no headaches, vomiting or diarrhea.? She has had no change in medications or diet. In the ER, patient atrail fib rate was high and this was treated with diltiazem. Pateint has been admitted to ICU. Patient History Medical History Anemia Atrial fibrillation CHF (congestive heart failure) Diabetes History of GI bleed Surgical History History of cholecystectomy History of hysterectomy History of mastectomy S/P CABG x 3 Family & Social History Family History Mother No problems noted. Social History: household members spouse Prior Living Arrangements House Safety & Behavioral: Feels Safe in Current Yes Environment Been Physically Hurt or No Threatened By a Person Tobacco & Substance use: Tobacco type cigarettes Smoking Status Former smoker alcohol intake never Substance Use Type does not use Meds Home Medications and Allergies Home Medications Medication Instructions Recorded Confirmed Type vitamin B complex (B 1 tab PO DAILY #0 04/26/16 05/09/21 History Complex-Vitamin B12) fluticasone propionate 50 1 spray INTRANASAL BID #0 05/22/16 05/09/21 History mcg/actuation nasal spray,suspension hydrocodone 10 mg-acetaminophen 1 tab PO Q6H PRN #0 05/22/16 05/09/21 History 325 mg tablet ([place]) atorvastatin 40 mg tablet 40 mg PO BEDTIME #0 11/08/16 05/09/21 History calcium carbonate 600 mg-vitamin 1 cap PO BID #0 11/08/16 05/09/21 History D3 10 mcg (400 unit) capsule (Calcium 600 with Vitamin D3) ondansetron HCl 4 mg tablet 4 mg PO Q8H PRN #0 11/08/16 05/09/21 History (Zofran) pantoprazole 40 mg tablet,delayed 40 mg PO BID #0 11/08/16 05/09/21 History release (Protonix) potassium chloride 10 mEq 10 meq PO BID #0 11/08/16 05/09/21 History capsule,extended release isosorbide mononitrate 30 mg 30 mg PO QAM #0 01/27/17 05/09/21 History tablet,extended release 24 hr vitamin E 400 unit capsule 400 unit PO DAILY #0 07/04/17 05/09/21 History [place]-3 Fish Oil 500 mg PO BID 04/09/18 05/09/21 History clopidogrel 75 mg tablet 75 mg PO QPM 04/09/18 05/09/21 History insulin human U-100 NPH-regulr 40 units SUBCUT BID 04/09/18 05/11/21 History 70-30 mix 100 unit/mL subcutaneous susp (Novolin 70/30 U-100 Insulin) insulin regular human 100 unit/mL 1 dose SUBCUT BID PRN 04/09/18 05/11/21 History injection solution (Novolin R Regular U-100 Insulin) levothyroxine 125 mcg tablet 250 mcg PO DAILY 04/09/18 05/09/21 History nitroglycerin 0.4 mg sublingual 0.4 mg SUBLINGUAL PRN PRN 04/09/18 05/09/21 History tablet (Nitrostat) oxybutynin chloride 5 mg tablet 5 mg PO BID 04/09/18 05/09/21 History polyethylene glycol 3350 17 gram 17 g PO DAILY PRN 04/09/18 05/09/21 History oral powder packet (Miralax) ropinirole 0.5 mg tablet (Requip) 0.5 mg PO TID #30 tab 04/10/18 05/09/21 Rx ferrous sulfate 325 mg (65 mg 325 mg PO BID 04/14/18 05/09/21 History iron) tablet (iron) nystatin 100,000 unit/gram topical 1 applic TOPICAL BID PRN 04/14/18 05/09/21 History powder torsemide 20 mg tablet 20 mg PO QDAYP PRN #0 tab 04/18/18 05/09/21 Rx aspirin 81 mg tablet,delayed 81 mg PO DAILY 05/09/21 05/09/21 History release carvedilol 25 mg tablet 37.5 mg PO BID 05/09/21 05/09/21 History clotrimazole 1 % topical cream 1 applic TOPICAL BID PRN 05/09/21 05/09/21 History docusate sodium 100 mg tablet 100 mg PO BID PRN 05/09/21 05/09/21 History hydrochlorothiazide 25 mg tablet 25 mg PO BID 05/09/21 05/09/21 History escitalopram oxalate 5 mg tablet 5 mg PO DAILY 05/10/21 05/10/21 History levofloxacin 250 mg tablet 250 mg PO DAILY #7 tab 05/12/21 Rx losartan 50 mg tablet 50 mg PO DAILY #30 tab 05/12/21 Rx Allergies Allergy/AdvReac Type Severity Reaction Status Date / Time meperidine [From DEMEROL] Allergy Severe NAUSEA/VOMI Verified 09/25/21 10:41 TTING Review of Systems Constitutional Comments: No new complaint prior the episode of presentation. Cardiovascular Comments: has atrial fib but patient not complaining of any new symptoms with this. Respiratory Comments: no compalints Gastrointestinal Comments: no complaints Genitourinary Comments: no complaints Musculoskeletal Comments: uses a walker for ambulation has right great toe injury from incident in shower Integumentary/Breasts Comments: previous right breast removal. can get yeast overgrowth rashes on skin Neurologic Comments: no new symptoms Psychiatric Comments: takes medication for mood Endocrine Comments: no complaints Exam Vital Signs (past 8 hours): - 09/25/21 10:38 09/25/21 10:57 09/25/21 11:00 Temperature 98.4 F Pulse Rate 101 H 90 94 H Respiratory Rate 16 20 21 Blood Pressure 163/75 H 180/76 H Pulse Oximetry 98 98 98 09/25/21 11:30 09/25/21 12:00 09/25/21 12:02 Temperature Pulse Rate 96 H 107 H 112 H Respiratory Rate 24 20 21 Blood Pressure 193/79 H Pulse Oximetry 98 97 98 09/25/21 12:30 09/25/21 13:00 09/25/21 13:30 Temperature Pulse Rate 99 H 102 H 119 H Respiratory Rate 23 24 18 Blood Pressure Pulse Oximetry 98 97 99 09/25/21 13:52 09/25/21 14:00 Temperature Pulse Rate 119 H 122 H Respiratory Rate 24 Blood Pressure 193/79 H Pulse Oximetry Oxygen Delivery Method Room Air Narrative Exam Narrative: GENERAL: [76] year old patient appears stated age. Well-developed patient, in mild distress. No confusion. HEAD: Atraumatic. Normocephalic. EYES: Pupils equal round and reactive. Extraocular motions intact. No scleral icterus. No injection or drainage. ENT: Nose without bleeding, purulent drainage. Throat without erythema, tonsillar hypertrophy or exudate. Airway patent. NECK: Trachea midline. Non tender CARDIOVASCULAR: Regular rate and rhythm without murmurs, gallops, or rubs. RESPIRATORY: Clear to auscultation. Breath sounds equal bilaterally. No wheezes, rales, or rhonchi.? GASTROINTESTINAL: Abdomen soft, non-tender, nondistended. EXTREMITIES: No edema or joint tenderness. Bloody right great toe from stubbing injury. BACK: NCN II-XII grossly intact SKIN: No rash or erythema of visible areas Objective Labs Result Diagrams: 09/25/21 11:09 09/25/21 11:09 Labs: Laboratory Results - last 24 hr 09/25/21 09/25/21 09/25/21 11:09 11:09 15:10 WBC 7.5 RBC 3.61 L Hgb 11.3 L Hct 33.3 L MCV 92.3 MCH 31.2 MCHC 33.8 RDW 14.5 Plt Count 168 Neut % (Auto) 77.6 H Lymph % (Auto) 11.1 L [place] % (Auto) 7.5 Eos % (Auto) 3.1 Baso % (Auto) 0.7 Neut # (Auto) 5800 Lymph # (Auto) 800 L [place] # (Auto) 600 Eos # (Auto) 200 Baso # (Auto) 100 Sodium 142 Potassium 5.2 H Chloride 111 H Carbon Dioxide 19 L BUN 58 H Creatinine 2.09 H Estimated GFR 24 L BUN/Creatinine Ratio 27.8 H Glucose 168 H Calcium 8.8 Magnesium 2.4 H Total Bilirubin 0.5 AST 25 ALT 18 Alkaline Phosphatase 99 Total Creatine Kinase 44 CK-MB (CK-2) TNP CK-MB (CK-2) Rel Index TNP Troponin I < 0.012 NT-Pro-B Natriuret Pep 4830 H Total Protein 7.0 Albumin 4.0 Globulin 3.0 Albumin/Globulin Ratio 1.3 Lipase 27 SARS-CoV-2 (PCR) Negative Assessment & Plan Assessment & Plan narrative: 1. Concern for seizure or syncopal episode with shaking arms during process. U ncontrolled rate of atrial fibrillation may favor syncope. Patient herself thinks she fainted. 2. Atrial fibrillation with tachycardia. Diltiazem intitiated in ER. Rate is improving. Maintain anticoagulation. 3.CAD , maintain regular medication. 4. HTN. Maintain regular medication. 5. CKD. Monitor labs and follow. 6. Toe injury. Daily wound care. 7. CHF history. Assess daily and adjust medication as needed. 8. Mobility. PT to assess and treat. Follow clinically and labs. Time Spent With Patient Critical Care time: I spent a total of [] minutes of critical care time on this patient's care today; this time is exclusive of procedural time. Quality VTE Deep Vein Thrombosis/Pulmonary Embolism Present on Admission: No
--- NOTE | 2021-09-25 17:43 | PC.NURSE ---
1550: Pt arrived to unit. Wounds noted to BLE; cleansed with NS, dried, and dry dressings applied. Coccyx and isidro area reddened secondary to urinary incontinence. Cleansed, barrier cream and brief applied. Wound nurse to stefany 09/26. A&O x4, denies pain/complaints. Breath sounds clear and diminished. HR 110s, afib. Oriented to room and unit procedures. Bed in low and locked position, seizure precautions in place, call light in reach.
[2021-09-25] MEDS: CLOPIDOGREL 75 MG TABLET PO (19:09)
[2021-09-25] MEDS: INSULIN NPH/REG 70-30 100 UNIT/ML 3ML VIAL 30 UNIT SUBCUT (19:10)
[2021-09-25] MEDS: ROPINIROLE 0.25 MG TABLET 0.5 MG PO (21:13)
[2021-09-25] MEDS: ATORVASTATIN 20 MG TABLET 40 MG PO (21:14)
[2021-09-25] MEDS: POTASSIUM CHLORIDE 10 MEQ TAB PO (21:14)
[2021-09-25] MEDS: hydroCHLOROthiazide 25 MG TABLET PO (21:14)
[2021-09-25] MEDS: FERROUS SULFATE 325 MG TABLET PO (21:14)
[2021-09-25] MEDS: FLUTICASONE 120 SPRAY/16 GM SPRAY.SUSP NASAL (21:15)
[2021-09-25] MEDS: INSULIN LISPRO 100 UNIT/ML 3ML VIAL SUBCUT (21:45)
[2021-09-25] MEDS: CALCIUM CARB/VIT D3 500/200 TABLET 1 EACH PO (21:51)
[2021-09-25] MEDS: OXYBUTYNIN 5 MG TABLET PO (21:51)
[2021-09-25] MEDS: PANTOPRAZOLE DR 40 MG TABLET PO (22:33)
[2021-09-25] MEDS: diphenhydrAMINE 25 MG TABLET PO (22:40)
[2021-09-26] VITALS (7 sets, daily range): BP systolic 131–153; BP diastolic 59–74; PULSE 76–89; RESP 16–21; TEMP 36.5–37.7; O2SAT 95–99
[2021-09-26] MEDS: HYDROCODONE/ACET 5/325 TABLET 1 TAB PO ×3 (01:41→21:53)
[2021-09-26] MEDS: CLOTRIMAZOLE 1% CRM 30 GM 1 APPLIC TOP (01:44)
[2021-09-26] MEDS: LEVOTHYROXINE 125 MCG TABLET 250 MCG PO (05:03)
--- NOTE | 2021-09-26 05:09 | PC.NURSE ---
Patient c/o itching over body. Patient's relates that patient has c/o itching at home for the last two weeks. Dr. Patel, hospitalist, notified of patient's c/o itching and request for Diphenhdramine. Order received for same and given per EMAR. Clotrimazol cream applied to back after cleansing. Pt c/o back pain 5/10 and medicated with Vicodin. Patient slept at short intervals. Patient with chronic incontinence. Radha care given with barrier cream applied to buttocks and [place] urinary incontinence device applied with collection of urine. Waffle cushion applied under buttocks for off-loading and heels floated. Wound care nurse to see patient for wounds to LLE anterior leg and L heel. BLE floating on pillows.
[2021-09-26] MEDS: diphenhydrAMINE 25 MG TABLET PO (05:30)
[2021-09-26] MEDS: FLUTICASONE 120 SPRAY/16 GM SPRAY.SUSP NASAL (08:57)
[2021-09-26] MEDS: INSULIN LISPRO 100 UNIT/ML 3ML VIAL SUBCUT ×2 (08:57→12:53)
[2021-09-26] MEDS: INSULIN NPH/REG 70-30 100 UNIT/ML 3ML VIAL 30 UNIT SUBCUT ×2 (08:59→17:47)
[2021-09-26] MEDS: VITAMIN E 400 UNIT CAPSULE PO (09:00)
[2021-09-26] MEDS: FERROUS SULFATE 325 MG TABLET PO ×2 (09:01→21:04)
[2021-09-26] MEDS: LOSARTAN 50 MG TABLET PO (09:01)
[2021-09-26] MEDS: hydroCHLOROthiazide 25 MG TABLET PO ×2 (09:01→21:03)
[2021-09-26] MEDS: CALCIUM CARB/VIT D3 500/200 TABLET 1 EACH PO (09:01)
[2021-09-26] MEDS: ISOSORBIDE MONONITRATE ER 30 MG TABLET PO (09:01)
[2021-09-26] MEDS: FISH OIL 1,000 MG CAPSULE 1000 MG PO (09:01)
[2021-09-26] MEDS: carvediloL 12.5 MG TABLET 37.5 MG PO ×2 (09:01→21:04)
[2021-09-26] MEDS: ROPINIROLE 0.25 MG TABLET 0.5 MG PO ×2 (09:05→21:04)
[2021-09-26] MEDS: PANTOPRAZOLE DR 40 MG TABLET PO ×2 (09:05→21:42)
--- NOTE | 2021-09-26 09:10 | PM.PN.1 ---
Subjective Subjective Interval history: Patient herself dose not think she had a seizure. She thinks she fainted however this 76 y.o. Female,? former smoker with extensive medical history including chronic renal failure, cardiac disease, CHF, atrial fibrillation and at least one prior seizure presents by EMS for evaluation of a seizure.? She was at home with a caregiver and her and had been attempting to bathe herself when she developed what sounds like a 1-2 minute seizure involving largely her upper extremities that had resolved prior to EMS arrival or as the patient thinks a syncopal episode with shaking of the arms.?She did have what appeared tp be a postictal phase and is slowly improved over the course of the transport time to ER.? She had 1 prior seizure that resulted in the hospitalization and no other reports of seizure, she takes no anti epileptics.? She has been in her normal state of health otherwise and denies any fever or chills, no headaches, vomiting or diarrhea.? She has had no change in medications or diet. In the ER, patient atrial fib rate was high and this was treated with diltiazem. present today and based on discussion with him, it is more clear that patient did have a seizure on both occasions with arm jerking,gurgling sound from mouth and heavy intense breathing both times. First time was when just sitting in chair and second time on this occasion when going to get a shower. Also, patient recently taken off oxybutinin and atorvastatin. Will discontinue those. No further seizures, can take off precautions. Off Diltiazem. Can discontinue order for infusion. Exam Vital Signs (past 8 hours): - 09/26/21 03:50 Pulse Rate 81 Respiratory Rate 16 Blood Pressure 139/63 Pulse Oximetry 95 Oxygen Delivery Method Room Air Oxygen Flow Rate 0 Const General: cooperative and comfortable HENMT Head: normal to inspection Eyes Pupils: PERRL EOM: EOM intact bilaterally Resp Auscultation: clear to auscultation bilaterally Cardio Rhythm: abnormal rhythm Heart Sounds: S1 normal and S2 normal Pulses: normal peripheral pulses Other: normal rate atrial fibrillation GI Inspection: normal to inspection Palpation: soft Neuro General: patient oriented x3 Sensory Exam: no sensory deficits noted Pupils: Normal pupillary reactivity/response: bilateral Extrem Other: has right great toe injury Objective Labs Result Diagrams: 09/25/21 11:09 09/25/21 11:09 Labs: Laboratory Results - last 24 hr 09/25/21 09/25/21 09/25/21 11:09 11:09 15:10 WBC 7.5 RBC 3.61 L Hgb 11.3 L Hct 33.3 L MCV 92.3 MCH 31.2 MCHC 33.8 RDW 14.5 Plt Count 168 Neut % (Auto) 77.6 H Lymph % (Auto) 11.[address] [place] % (Auto) 7.5 Eos % (Auto) 3.1 Baso % (Auto) 0.7 Neut # (Auto) 5800 Lymph # (Auto) [address] [place] # (Auto) 600 Eos # (Auto) 200 Baso # (Auto) 100 Sodium 142 Potassium 5.2 H Chloride 111 H Carbon Dioxide 19 L BUN 58 H Creatinine 2.09 H Estimated GFR 24 L BUN/Creatinine Ratio 27.8 H Glucose 168 H Calcium 8.8 Magnesium 2.4 H Total Bilirubin 0.5 AST 25 ALT 18 Alkaline Phosphatase 99 Total Creatine Kinase 44 CK-MB (CK-2) TNP CK-MB (CK-2) Rel Index TNP Troponin I < 0.012 NT-Pro-B Natriuret Pep 4830 H Total Protein 7.0 Albumin 4.0 Globulin 3.0 Albumin/Globulin Ratio 1.3 Lipase 27 SARS-CoV-2 (PCR) Negative [facility] Medical History Anemia Atrial fibrillation CHF (congestive heart failure) Diabetes History of GI bleed Surgical History History of cholecystectomy History of hysterectomy History of mastectomy S/P CABG x 3 Family History Mother No problems noted. Social History household members: spouse Smoking Status: Former smoker alcohol intake: never substance use type: does not use Assessment & Plan Assessment & Plan narrative: 1. Concern for seizure or syncopal episode with shaking arms during process. Uncontrolled rate of atrial fibrillation may favor syncope. Patient herself thinks she fainted. However on talking with is more clear that it was a seizure. ? cause being lack of blood supply due to rapid atrial fib?? Will discuss with Neurology. 2. Atrial fibrillation with tachycardia. Diltiazem intitiated in ER. Rate is improving. Maintain anticoagulation. Now off diltiazem infusion. On regular meds for atrial fib and heart rate controlled. 3.CAD , maintain regular medication. 4. HTN. Maintain regular medication. 5. CKD. Monitor labs and follow. Provide IV NaCl. Repeat labs now and follow tomorrow. 6. Toe injury. Daily wound care. 7. CHF history. Assess daily and adjust medication as needed. 8. Mobility. PT to assess and treat. Follow clinically and labs. Time Spent With Patient Critical Care time: I spent a total of [] minutes of critical care time on this patient's care today; this time is exclusive of procedural time. Quality VTE Deep Vein Thrombosis/Pulmonary Embolism Present on Admission: No
[2021-09-26] MEDS: SODIUM CHLORIDE 0.9% 1,000 ML 50 ML IV (09:33)
[2021-09-26 10:17] LABS: Albumin 3.7 g/dL (3.5-5.0); BUN Creatinine Ratio 28.1 (6-22); Blood Urea Nitrogen 59 mg/dL (7-17); Calcium 8.2 mg/dL (8.4-10.2); Carbon Dioxide 21 mmol/L (22-32); Chloride 111 mmol/L (98-107); Estimated Glomerular Filt Rate 24 mL/min (>60); Glucose 222 mg/dL (80-110); HEMOLYSIS < 15 (0-50); Phosphorous 4.1 mg/dL (2.8-4.1); Potassium 4.9 mmol/L (3.4-5.1); Sodium 140 mmol/L (137-145)
--- NOTE | 2021-09-26 11:15 | PT.IIE ---
Medical History (Last Reviewed 09/25/21 @ 17:24 by Vicki Wallace MD) Anemia Atrial fibrillation CHF (congestive heart failure) Diabetes History of GI bleed Physical Therapy Inpatient Evaluation/Re-Eval M1 PT/OT-IP Prior Functional Status Start: 09/26/21 14:45 Freq: NEEDED Status: Active Protocol: Document 09/26/21 11:15 AB (Rec: 09/26/21 15:00 AB [email or web address]) Medical Review Prior Functional Status Medical History Reviewed Yes Communication requires repetitions with instructions; EEK Mobility and Gait Spouse assists pt when needed; pt usually able to ambulate using a 4WW but very limited. spouse stated that pt easily gets SOB even just doing toilet transfers. pt uses an electric w/c and sometimes a manual w/c mostly outdoors but stated that she uses a w/c indoors if needed. Social History Household Members spouse Living Arrangements House Number of Floors (Floors) One Floor Number of Stairs To Enter/Railing? ramp to enter Home Environment High Toilet,Walk in Shower, Ramp Home Equipment Four Wheel Walker,Manual Wheelchair,Power Wheelchair/ Scooter,Shower Seat without Backrest,Hand Held Shower,Lift Recliner,Grab Bars Near Toilet,Grab Bars In Shower Additional Social History Comment pt sleeps on a lift recliner has a bidet at home pt has an adjustable bed at home M2 PT-IP Current Condition Start: 09/26/21 14:45 Freq: NEEDED Status: Active Protocol: Document 09/26/21 11:15 AB (Rec: 09/26/21 15:00 AB [email or web address]) Physical Therapy Current Condition Current Condition Evaluation Date 09/26/21 Treatment Diagnosis seizure; A-fib; difficulty in walking Onset Date 09/25/21 M3 PT-IP Subjective Start: 09/26/21 14:45 Freq: NEEDED Status: Active Protocol: Document 09/26/21 11:15 AB (Rec: 09/26/21 15:00 AB [email or web address]) Subjective Physical Therapy Visit Type Type Initial Evaluation Visit Start Time 11:15 Visit Stop Time 11:50 Total Visit Minutes 35 Number of PATTERN CLERK Visits 0 Physical Therapy Visit Comments Patient Comments agreeable to do PT M4 PT-IP Mobility and Gait Start: 09/26/21 14:45 Freq: NEEDED Status: Active Protocol: Document 09/26/21 11:15 AB (Rec: 09/26/21 15:00 AB [email or web address]) PT-Bed Mobility Assessment Supine to Sit Supine to Sit Maximum Assistance,1 Person Assistance,2 Person Assistance ,Head of Bed Elevated,Bedrails PT-Transfer Assessment Sit to and From Stand Sit to and from Stand Maximum Assistance,1 Person Assistance,Use of Upper Extremities Equipment Transfer Assistive Device Gait Belt,Front Wheeled Walker Orthotic/Prosthetic Devices or Brace: No Transfers Transfer Destination Chair Transfer Technique Stand Step Pivot Transfer Ability Level of Assist Minimal Assistance,Moderate Assistance,1 Person Assistance ,Use of Upper Extremities Comments Mobility Comments pt completed supine to sit max A x 1-2 with HOB elevated and pt used bed rail. pt sleeps on a lift chair at home. pt completed sit to stand max A and completed step transfer to chair using FWW min to mod A and cues. pt refused ambulation. positioned pt on the chair. call light and table placed within reach. spouse in room and stated that he has been assisting pt at home. pt stated that her feet hurts and cannot ambulate. PT-Balance Assessment Sitting Balance and Reactions Static Sitting Balance Ability Good Dynamic Sitting Balance Ability Good Standing Balance and Reactions Static Standing Balance Ability Fair Dynamic Standing Balance Ability Poor Device Used FWW M5 PT-IP Objective Assessments Start: 09/26/21 14:45 Freq: NEEDED Status: Active Protocol: Document 09/26/21 11:15 AB (Rec: 09/26/21 15:00 AB [email or web address]) Orientation Orientation/Cognition Level of Alertness Alert Orientation Name,Situation Language Function Ability Hard of Hearing Safety Awareness Decreased Safety Awareness Memory Description Short Term Impaired Strength Lower Extremity Strength Assessment Bilaterally Impaired Hip 3+/5 Knee 3+/5 Muscle Tone Muscle Tone WNL Yes M6 PT-IP Treatment Start: 09/26/21 14:45 Freq: NEEDED Status: Active Protocol: Document 09/26/21 11:15 AB (Rec: 09/26/21 15:00 AB [email or web address]) Physical Therapy Treatment Education Education Provided Safety M7 PT-IP Assessment and Plan Start: 09/26/21 14:45 Freq: NEEDED Status: Active Protocol: Document 09/26/21 11:15 AB (Rec: 09/26/21 15:00 AB [email or web address]) PT Summary Assessment and Plan Potential Rehabilitation Potential Fair Status of Condition at Evaluation Evolving Summary Impairments Pain,ROM,Strength,Balance, Coordination,Sensation,Tone, Cognition,Bed Mobility, Transfers,Gait,Activity Tolerance Assessment Summary pt requiriing max A with sit to stand and min to mod A with transfers using FWW. d/c plan depending on progress. Pt's spouse usually assist pt at home and if spouse will continue to be able to assist pt at home, pt may go home with services. will continue to assess progress. Goals Bed Mobility Goal Minimal Assistance Transfer Goal Standby Assistance,Front Wheeled Walker,Four Wheeled Walker Gait Goal Standby Assistance,Front Wheel Walker,Four Wheel Walker Gait Distance 50 Days to Meet Goals 10 Frequency of Treatment Frequency Of Treatment Once a Day Treatment Plan Physical Therapy Treatment Plan Bed Mobility Training,Transfer Training,Gait Training, Therapeutic Exercise,Balance Retraining,Discharge Planning, Hot or Cold Pack,Neuromuscular Re-ed,Coordination Retraining ,Manual Therapy Recommendations To Nursing Amount of Assist Needed 1 Person Assist Discharge Recommendations PT Discharge Recommendations Home with 18/11 Assist Available,Home Health Transportation Needs at Discharge Private Vehicle,Wheelchair/ Cabulance
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
--- NOTE | 2021-09-26 15:51 | CM.DANOTE ---
Patient is a 76 yo female who was admitted on 09/25/21 for Seizure. Pt has [employer] for insurance and her PCP is Ad Colunga. EMR was reviewed. Per MD, pt with chronic renal failure, CHF, and AFIB at baseline and admitted for syncope vs seizure. MD attempting to consult with Neurologist. Per PT, pt close to baseline and recommending d/c home with spouse assist and possible HH. SW met bedside with pt and spouse and explained role and they confirm they still live in [place] and spouse is pt's primary CG as she needs assist with some of her ADL's due to her limited mobility. They also have a friend who helps with bathing and assists when needed but no formal PP CG agency involved. Pt has a hx of [facility] and pt and spouse did not feel HH was helpful and more a waste of time and insurance money and decline the need for HH at this time. Preference is to d/c home with spouse and follow up with Ortho for ongoing knee/hip/spinal stenosis and attempting to get a referral to Neurologist as spouse has frustrations with lack of dx for seizure type activity and feels there is an underlying cause that is not diagnosed yet. Pt and spouse state their adult Dtr lives right across the street and visits regularly and also available for assist if needed. Plan: SW to follow to confirm safe plan of home with spouse assist and private caregiver and Dtr support and any further identified needs. MADDY Menendez Discharge Planning/Care Management CM Discharge Assessment Start: 09/26/21 15:49 Freq: Status: Active Protocol: Document 09/26/21 15:49 BF (Rec: 09/26/21 15:51 BF [id number]) Discharge Planning Assessment Assigned Serials Librarian MADDY Kaur DPOA/Assigned Designee Name spouse Sg Advance Directives? No Advance Directives on File No History Provided By Patient,Medical Record Has Patient been admitted in last 30 No days? Comment last admission in Apr 2021 this year, discharged home Prior Living Arrangements House Household Members spouse Type of transporation used prior to Relies on Others admit Independent with ADL's No Is patient alert and oriented? Yes Needs Assistance With Bathing,Home Chores / Shopping Caregiver for Another No DME Already Rented / Owned FWW / Walker Comment electric scooter, lift recliner Barriers to Discharge No Comment Patient sleeping most of the day, both here and has been at home 70% of the day per spouse. Discharge Plan Home Transportation Arrangement Spouse to provide transportation if patient discharges home when medically stable. Referrals Initiated None needed Additional Comment attempting to get referral to Neurologist Whiteboard Updated in Patient Room with Yes name and ext. # of Serials Librarian Review Status In Process Please Provide Date Initial DC 09/26/21 Assessment Was Performed Next Review Type Continued Stay Review
[2021-09-26] MEDS: DOCUSATE 100 MG CAPSULE PO (17:48)
[2021-09-26] MEDS: CLOPIDOGREL 75 MG TABLET PO (17:48)
--- NOTE | 2021-09-26 18:22 | PC.NURSE ---
Day Shift Note Alert and oriented x3. Seizure precautions d/c'd per MD order. Pt up to chair and to bathroom 1 person min assist FWW, slow but steady and and pt report at baseline. Denies pain, denies nausea. Brittni supply chain technician saw pt this afternoon, no changes to dressings at this time, dressings C/D/I to left simmons and left posterior ankle. Buttocks blanchable erythema, pt on waffle cushion with q2h position changes, pt able to assist in position changes. IActive external collection device changed after mobility this afternoon and is patent and connected to suction. Call light within reach, using appropriately to make needs known.
[2021-09-26] MEDS: SODIUM CHLORIDE 0.9% FLUSH 10 ML IV (21:03)
[2021-09-27] VITALS (7 sets, daily range): BP systolic 133–147; BP diastolic 60–68; PULSE 79–89; RESP 17–22; TEMP 35.9–37; O2SAT 94–99
[2021-09-27] MEDS: LEVOTHYROXINE 125 MCG TABLET 250 MCG PO (06:19)
[2021-09-27] MEDS: ISOSORBIDE MONONITRATE ER 30 MG TABLET PO (06:19)
[2021-09-27] MEDS: PANTOPRAZOLE DR 40 MG TABLET PO ×2 (06:19→21:02)
--- NOTE | 2021-09-27 08:15 | PC.RNWOUND ---
Patient resting in bed, spouse at bedside. Lower extremity wounds are visualized and appear to be healing as measurements are smaller today- left lateral lower leg now 1 x 1 x 0.05cm and periwound appears to be epithelializing well. Dressings are clean, dry, intact with no drainage noted. Left great toe hemorrhagic area skin is intact.
[2021-09-27] MEDS: LOSARTAN 50 MG TABLET PO (08:31)
[2021-09-27] MEDS: ROPINIROLE 0.25 MG TABLET 0.5 MG PO ×3 (08:31→21:00)
[2021-09-27] MEDS: carvediloL 12.5 MG TABLET 37.5 MG PO ×2 (08:31→20:59)
[2021-09-27] MEDS: FUROSEMIDE 20 MG TABLET PO (08:31)
[2021-09-27] MEDS: FISH OIL 1,000 MG CAPSULE 1000 MG PO (08:32)
[2021-09-27] MEDS: hydroCHLOROthiazide 25 MG TABLET PO ×2 (08:32→21:05)
[2021-09-27] MEDS: FERROUS SULFATE 325 MG TABLET PO ×2 (08:32→20:59)
[2021-09-27] MEDS: SODIUM CHLORIDE 0.9% FLUSH 10 ML IV ×2 (08:35→22:10)
[2021-09-27] MEDS: INSULIN NPH/REG 70-30 100 UNIT/ML 3ML VIAL 30 UNIT SUBCUT ×2 (08:36→16:43)
[2021-09-27] MEDS: VITAMIN E 400 UNIT CAPSULE PO (08:37)
[2021-09-27] MEDS: CALCIUM CARB/VIT D3 500/200 TABLET 1 EACH PO (08:39)
--- NOTE | 2021-09-27 11:42 | PT.IPTN ---
Current Diagnoses Unspecified atrial fibrillation (09/25/21) Physical Therapy Treatment Note M2 PT-IP Current Condition Start: 09/26/21 14:45 Freq: NEEDED Status: Active Protocol: Document 09/26/21 11:15 AB (Rec: 09/26/21 15:00 AB [id number]) Physical Therapy Current Condition Current Condition Evaluation Date 09/26/21 Treatment Diagnosis seizure; A-fib; difficulty in walking Onset Date 09/25/21 M3 PT-IP Subjective Start: 09/26/21 14:45 Freq: NEEDED Status: Active Protocol: Document 09/27/21 11:18 KS (Rec: 09/27/21 13:09 KS [id number]) Subjective Physical Therapy Visit Type Type Treatment Note Visit Start Time 11:18 Visit Stop Time 11:42 Total Visit Minutes 24 Notes Pts present Number of OCCUPATIONAL ANALYST Visits 1 Physical Therapy Visit Comments Patient Comments agreeable to do PT M4 PT-IP Mobility and Gait Start: 09/26/21 14:45 Freq: NEEDED Status: Active Protocol: Document 09/27/21 11:18 KS (Rec: 09/27/21 13:09 KS [id number]) PT-Bed Mobility Assessment Supine to Sit Supine to Sit Moderate Assistance,1 Person Assistance,Head of Bed Elevated Scooting Scooting to Edge of Bed Moderate Assistance PT-Transfer Assessment Sit to and From Stand Sit to and from Stand Moderate Assistance,1 Person Assistance,Use of Upper Extremities Equipment Transfer Assistive Device Gait Belt,Front Wheeled Walker Orthotic/Prosthetic Devices or Brace: No Transfers Transfer Destination Chair Transfer Technique Stand Step Pivot Transfer Ability Level of Assist Minimal Assistance,1 Person Assistance,Use of Upper Extremities Comments Mobility Comments Pt in bed upon arrival and hesitant to participate due to fatigue but agreeable w/ husbands encouragement. Pts provided all assist throughout treatment. Mod A for sup<>Sit and scooting EOB. Mod A for sit<>Stand w/ FWW and Min A for stand step pivot to chair. Pt provided appropriate assist and cues. Discussed at home safety and pts seems to have good knowledge of how to assist pt safely and is very encouraging to pt to get stronger. Pt left in chair w/ RN in room. Gait Assessment Gait Gait Assistance Required: Minimum Assistance,1 Person Assist Distance (Feet) 4 Assistive Devices Assistive Device Gait Belt,Front Wheeled Walker Gait Deviations General Gait Pattern Antalgic,Decreased Stride Length,Decreased Feet Clearance,Flexed Trunk Factors Limiting Gait Function Factors Limiting Gait Function Decreased Activity Tolerance, Decreased Sensation,Decreased Strength,Incoordination,Pain, Poor Balance Comments Gait Comments Stand step pivot to chair - pt w/ quick approach to fatigue. PT-Balance Assessment Sitting Balance and Reactions Static Sitting Balance Ability Good Dynamic Sitting Balance Ability Good Standing Balance and Reactions Static Standing Balance Ability Fair Dynamic Standing Balance Ability Fair Device Used FWW M5 PT-IP Objective Assessments Start: 09/26/21 14:45 Freq: NEEDED Status: Active Protocol: Document 09/26/21 11:15 AB (Rec: 09/26/21 15:00 AB [id number]) Orientation Orientation/Cognition Level of Alertness Alert Orientation Name,Situation Language Function Ability Hard of Hearing Safety Awareness Decreased Safety Awareness Memory Description Short Term Impaired Strength Lower Extremity Strength Assessment Bilaterally Impaired Hip 3+/5 Knee 3+/5 Muscle Tone Muscle Tone WNL Yes M6 PT-IP Treatment Start: 09/26/21 14:45 Freq: NEEDED Status: Active Protocol: Document 09/27/21 11:18 KS (Rec: 09/27/21 13:09 KS [id number]) Physical Therapy Treatment Exercises Exercises Ankle Pumps Education Education Provided Safety Other Treatments Other Treatment Performed Discussed plan for home and at home safety. They are not agreeable to HHPT due to poor experience previously. M7 PT-IP Assessment and Plan Start: 09/26/21 14:45 Freq: NEEDED Status: Active Protocol: Document 09/27/21 11:18 KS (Rec: 09/27/21 13:09 KS [id number]) PT Summary Assessment and Plan Potential Rehabilitation Potential Fair Status of Condition at Evaluation Evolving Summary Impairments Pain,ROM,Strength,Balance, Coordination,Sensation,Tone, Cognition,Bed Mobility, Transfers,Gait,Activity Tolerance Assessment Summary Pts hsuabnd provided all assist and cues throughout treatment today and confirms he is comfortable assisting pt at home and has everything set up to be safest and easiest for her. Mod A for bed mobility and Min/Mod for sit< >Stand and Min A for stand step pivot w/ FWW from bed to chair. Pt not agreeable to home health, however would benefit. She feels safe to go home w/ spouse assisting and he was able to assist her safely today. Goals Bed Mobility Goal Minimal Assistance Transfer Goal Standby Assistance,Front Wheeled Walker,Four Wheeled Walker Gait Goal Standby Assistance,Front Wheel Walker,Four Wheel Walker Gait Distance 50 Days to Meet Goals 10 Frequency of Treatment Frequency Of Treatment Once a Day Treatment Plan Physical Therapy Treatment Plan Bed Mobility Training,Transfer Training,Gait Training, Therapeutic Exercise,Balance Retraining,Discharge Planning, Hot or Cold Pack,Neuromuscular Re-ed,Coordination Retraining ,Manual Therapy Recommendations To Nursing Amount of Assist Needed 1 Person Assist Discharge Recommendations PT Discharge Recommendations Home with 18/11 Assist Available,Home Health Transportation Needs at Discharge Private Vehicle,Wheelchair/ Cabulance
[2021-09-27] MEDS: levETIRAcetam 250 MG TABLET 500 MG PO ×2 (11:51→21:00)
--- NOTE | 2021-09-27 16:09 | P.PN_ITS ---
Subjective Subjective Interval history: Daily hospitalist visit. Patient has no new complaints. No symptoms of syncope or any seizures noted. The patient feels well and is eager to go home when she can. Exam Vital Signs (past 8 hours): - 09/27/21 12:00 Temperature 98.6 F Pulse Rate 84 Respiratory Rate 21 Blood Pressure 140/63 Pulse Oximetry 99 Oxygen Delivery Method Room Air Oxygen Flow Rate 0 Narrative Exam Narrative: Patient is alert. Oriented but often has to be directed. Vital signs stable. HEENT: Pupils equal reactive to light. Extraocular movements normal. Cardiovascular: Heart sounds S1 and S2 Respiratory: Adequate air entry throughout the lung boucher no wheezes or crackles. Gastrointestinal: Abdomen is soft. Nontender. Bowel sounds normal. Genital rectal: not done Musculoskeletal: Able to move all extremities fully. No localized joint def icits. Neural: Normal sensation of all extremities. Skin: Has venous stasis changes of her lower extremities with some skin ulceration left lower leg as well as injuries to the right great toe from the fall at home. Wound care in the hospital is following. Objective ECG Impression: 1. Concern for seizure or syncopal episode with shaking arms during process. Uncontrolled rate of atrial fibrillation may favor syncope. Patient herself thinks she fainted. However on talking with is more clear that it was a seizure. ? cause being lack of blood supply due to rapid atrial fib?? Discussed with Neuro- Hospitalist, Dr. Coronado at [facility] in effort. Based on the explanation that there was a distinct. There appeared to be postictal on both of the episodes that the patient has had, the neurologist's is favoring that the patient does have a seizure disorder and needs to be treated. She feels that the seizure itself may have triggered the rapid rate of the atrial fibrillation. She is recommending that the patient start on Keppra 500 mg b.i.d. with no loading dose. This needs to be continued on discharging and the patient needs outpatient follow-up with Neurology for assessment and EEG. We will recommend referral to Dr. Senthil Wright in [place], [place]. 2. Atrial fibrillation with tachycardia. Diltiazem intitiated in ER. Rate is controlled now.. Maintain anticoagulation.? On regular meds for atrial fib and heart rate controlled. 3.CAD , maintain regular medication. 4. HTN. Maintain regular medication. Reasonable control of hypertension. 5. CKD. Monitor labs and follow. Provide IV NaCl. Repeat labs now and follow tomorrow. 6. Toe injury. Daily wound care for the right great toe injury and the skin breakdown left lower extremity from the venous stasis/peripheral edema. Has some venous stasis changes of the lower extremity. When lower extremity edema is controlled with her congestive heart failure, this venous stasis/peripheral edema improves and the wounds improved. 7. CHF history. Assess daily and adjust medication as needed. 8. Mobility. PT to assess and treat. If patient remains stable on Keppra tomorrow, will plan for discharge. Labs Result Diagrams: 09/25/21 11:09 09/26/21 09:40 [facility] Medical History Anemia Atrial fibrillation CHF (congestive heart failure) Diabetes History of GI bleed Surgical History History of cholecystectomy History of hysterectomy History of mastectomy S/P CABG x 3 Family History Mother No problems noted. Social History household members: spouse Smoking Status: Former smoker alcohol intake: never substance use type: does not use Assessment & Plan Time Spent With Patient Critical Care time: I spent a total of [] minutes of critical care time on this patient's care today; this time is exclusive of procedural time. Quality VTE Deep Vein Thrombosis/Pulmonary Embolism Present on Admission: No
[2021-09-27] MEDS: CLOPIDOGREL 75 MG TABLET PO (16:42)
[2021-09-27] MEDS: INSULIN LISPRO 100 UNIT/ML 3ML VIAL SUBCUT (16:51)
--- NOTE | 2021-09-27 20:13 | PC.NURSE ---
Addendum entered by Sola Bianchi R.N. 09/28/21 06:46: 0630- Patient took 2100 dose of Keppra. Patient slept well through the night and states she feels good this AM. Patient BNP elevated today. UOP over night 250 but patient had decreased po intake due to increased groggy feeling from medication. Will monitor. Original Note: 1999- Patient put her light on. states she is feeling odd and not talking right. Patient states she feels like her body is not right. Patient vitals are stable and once sitting up patient was able to discuss her feeling more clearly. She is groggy and feels like her brain is not working well. Explained to patient that Keppra can cause these side effects when first started but they will subside once she acclimates to the medication. Patient and patient will let me know if they wish to continue taking this medication.
[2021-09-27] MEDS: HYDROCODONE/ACET 5/325 TABLET 1 TAB PO (21:02)
[2021-09-28 04:00] VITALS: BP 142/63; PULSE 69; RESP 18; TEMP 37.2; O2SAT 97
[2021-09-28 05:53] LABS: NT-proBNP (BNP-Adult 18+) 5580 pg/mL (<450)
[2021-09-28] MEDS: ISOSORBIDE MONONITRATE ER 30 MG TABLET PO (06:27)
[2021-09-28] MEDS: INSULIN NPH/REG 70-30 100 UNIT/ML 3ML VIAL 30 UNIT SUBCUT (06:27)
[2021-09-28] MEDS: LEVOTHYROXINE 125 MCG TABLET 250 MCG PO (06:27)
[2021-09-28] MEDS: PANTOPRAZOLE DR 40 MG TABLET PO (06:30)
[2021-09-28 08:00] VITALS: BP 148/66; PULSE 80; RESP 17; TEMP 37.2; O2SAT 96
[2021-09-28 08:43] VITALS: BP 148/66; PULSE 99
[2021-09-28] MEDS: LOSARTAN 50 MG TABLET PO (08:43)
[2021-09-28] MEDS: hydroCHLOROthiazide 25 MG TABLET PO (08:43)
[2021-09-28] MEDS: FUROSEMIDE 20 MG TABLET PO (08:43)
[2021-09-28] MEDS: levETIRAcetam 250 MG TABLET 500 MG PO (08:43)
[2021-09-28 08:45] VITALS: BP 148/66; PULSE 99
[2021-09-28] MEDS: carvediloL 12.5 MG TABLET 37.5 MG PO (08:45)
[2021-09-28] MEDS: SODIUM CHLORIDE 0.9% FLUSH 10 ML IV (08:46)
[2021-09-28] MEDS: FERROUS SULFATE 325 MG TABLET PO (08:46)
[2021-09-28] MEDS: VITAMIN E 400 UNIT CAPSULE PO (08:47)
[2021-09-28] MEDS: ROPINIROLE 0.25 MG TABLET 0.5 MG PO (08:50)
[2021-09-28] MEDS: FISH OIL 1,000 MG CAPSULE 1000 MG PO (08:50)
--- NOTE | 2021-09-28 11:02 | PT-IP ANOTE ---
Attempted to see pt at 11:02, pt asleep but awakes easily. Pt refused PT due to fatigue and in room and both state they feel safe to go home w/ providing assistance. Pt safely provided all assist during tx yesterday.
--- NOTE | 2021-09-28 12:21 | CM.DPC ---
DCP cont: Per MD, pt is medically stable for discharge today. DCP spoke with pt and pt spouse at bedside before leaving hospital to confirm safe plan and per spouse, they decline any HH and he states he has it covered. Pt has a bath aid and assistance via a friend who comes to the house when needed. DCP verbalized understanding. P: Pt to discharge home today via spouse POV. Pt and pt spouse declines HH or any other resources. Radha Madrid RN/GRAHAMP
--- NOTE | 2021-09-28 20:38 | PM.DS.1 ---
History of Present Illness History of Present Illness Chief complaint: Seizure Narrative: Substitute decision maker is her : Jose Armando Jacobsen. Patient herself dose not think she had a seizure. She thinks she fainted however this 76 y.o. Female, former smoker with extensive medical history including chronic renal failure, cardiac disease, CHF, atrial fibrillation and at least one prior seizure presents by EMS for evaluation of a seizure.? She was at home with a caregiver and her and had been attempting to bathe herself when she developed what sounds like a 1-2 minute seizure involving largely her upper extremities that had resolved prior to EMS arrival or as the patient thinks a syncopal episode with shaking of the arms.?She did have what appeared tp be a postictal phase and is slowly improved over the course of the transport time to ER.? She had 1 prior seizure that resulted in the hospitalization and no other reports of seizure, she takes no anti epileptics.? She has been in her normal state of health otherwise and denies any fever or chills, no headaches, vomiting or diarrhea.? She has had no change in medications or diet. In the ER, patient atrail fib rate was high and this was treated with diltiazem. Pateint has been admitted to ICU. Discharge Providers Provider Date of admission: 09/25/21 14:58 Discharge Date: 09/28/21 Primary care physician: Ad Colunga MD Consults: 09/25/21 15:48 Consult to Inpatient Wound Care Nurse Routine Comment: Reason for consultation: open areas on BLE, reddened coccyx/isidro area Has provider been notified: Yes 09/25/21 16:36 Consult to [employer] Torch Operator Routine Comment: 09/26/21 09:09 Consult to Physical Therapy Evaluate & Treat Comment: Physician Instructions: Evaluate and Treat Discharge provider: Vicki Wallace MD Summary Hospital Course Discharge Diagnosis: Seizures. Initiated on Keppra. Hospital Course: Patient presented with a possible seizure or syncope. Due to the fact that the patient has a very definite postictal phase and that this was similar to a previous episode approximately 1 year ago, the Neurology hospitalist at [facility] was consulted and based on their opinion the patient was initiated on Keppra the 500 mg p.o. b.i.d. patient was stable during the hospital stay without further seizures. Patient was discharged with a goal of continued on the Keppra and follow up with Neurology consult and EEG to further evaluate. Patient was discharged in a stable condition. Status at Discharge Cognitive/behavioral status at discharge: at baseline, oriented Functional status at discharge: uses cane/walker Overall status at discharge: patient is back to baseline Exam Vital Signs (past 8 hours): Oxygen Delivery Method Room Air Oxygen Flow Rate 0 Narrative Exam Narrative: Patient alert and in no apparent distress. HEENT: Pupils equal react to light. Extraocular movements normal. Cardiovascular: Heart sounds are normal. Respiratory: Chest clear to auscultation Gastrointestinal: Abdomen soft nontender bowel sounds normal Musculoskeletal: He has a walker for ambulation. Able to move all extremities volitionally. Objective Labs Result Diagrams: 09/25/21 11:09 09/26/21 09:40 Labs: Laboratory Results - last 24 hr 09/28/21 05:11 NT-Pro-B Natriuret Pep 5580 H [facility] Medical History Anemia Atrial fibrillation CHF (congestive heart failure) Diabetes History of GI bleed Surgical History History of cholecystectomy History of hysterectomy History of mastectomy S/P CABG x 3 Family History Mother No problems noted. Social History household members: spouse Smoking Status: Former smoker alcohol intake: never substance use type: does not use Discharge Assessment & Plan Assessment and Plan Assessment: Newly diagnosed seizure disorder. Plan of Treatment: Continue on Keppra 500 mg p.o. b.i.d. following discharge. Follow-up with neurologist. Discharge Plan Discharge Plan Patient Disposition: Home Provider Discharge Comment: Patient is a newly being treated for seizure disorder. Has been started on Keppra 500 mg b.i.d. as advised by Neurology Hospitalist at [facility]. As well patient needs to make a follow-up appointment with the Neurology in the community. Both her and her would like to see a neurologist in [place]. It is recommended that the patient has a referral to Dr. Senthil Wright MD neurologist in [place]. She needs to be on 500 mg b.i.d. of Keppra until assessed by Neurology and EEG completed. Any discontinuation of the Keppra should be made at the decision of the neurologist. As well, the patient's BNP has been elevated. Furosemide was started on the patient at a low dose. Patient needs to be monitored closely for BNP and lower extremity edema to see if further increases in furosemide as necessary. Close monitoring of renal function and potassium should also be undertaken. Discharge orders & Medications Prescriptions: New furosemide 20 mg Tablet 20 mg PO DAILY 30 Days Qty: 30 0RF levetiracetam 250 mg Tablet 500 mg PO BID 30 Days Qty: 120 0RF Continued vitamin B complex [B Complex-Vitamin B12] 1 EACH tablet 1 tab PO DAILY Qty: 0 0RF hydrocodone-acetaminophen [[place]] 10 MG/325 MG tablet 1 tab PO Q6H PRN (Reason: pain) Qty: 0 0RF fluticasone propionate 16 GM spray,suspension 1 spray Intranasal BID Qty: 0 0RF calcium carbonate-vitamin D3 [Calcium 600 with Vitamin D3] 600 MG/200 IU capsule 1 cap PO BID Qty: 0 0RF pantoprazole [Protonix] 40 MG tablet,delayed release (DR/EC) 40 mg PO BID Qty: 0 0RF ondansetron HCl [Zofran] 4 MG tablet 4 mg PO Q6H PRN (Reason: Nausea) Qty: 0 0RF isosorbide mononitrate 30 MG tablet extended release 24 hr 30 mg PO QAM Qty: 0 0RF vitamin E 400 UNIT capsule 400 unit PO DAILY Qty: 0 0RF clopidogrel 75 mg tablet 75 mg PO QPM 0RF levothyroxine 125 mcg tablet 250 mcg PO DAILY 0RF Novolin 70/30 U-100 Insulin 100 unit/mL (70-30) Suspension 40 units subcut BID 0RF Novolin R Regular U-100 Insuln 100 unit/mL Solution 1 dose subcut BID PRN (Reason: sliding scale) 0RF nitroglycerin [Nitrostat] 0.4 mg Tablet, Sublingual 0.4 mg SUBLINGUAL PRN PRN (Reason: Chest Pain) 0RF [place]-3 Fish Oil 500 mg capsule 500 mg PO BID 0RF polyethylene glycol 3350 [Miralax] 17 gram Powder In Packet 17 g PO DAILY PRN (Reason: stool softener) 0RF losartan 50 mg Tablet 50 mg PO QPM 0RF ropinirole 0.5 mg Tablet 0.5 mg PO BID 0RF torsemide 20 mg Tablet 20 mg PO DAILY PRN (Reason: Shortness Of Breath) 0RF chlorzoxazone 500 mg Tablet 250 mg PO BID PRN (Reason: Pain (Scale Score 4-6)) 0RF ferrous sulfate [iron] 325 mg (65 mg iron) Tablet 325 mg PO BID 0RF nystatin 100,000 unit/gram Powder 1 applic TOPICAL BID PRN (Reason: rash) 0RF hydrochlorothiazide 25 mg tablet 25 mg PO DAILY 0RF clotrimazole 1 % cream 1 applic TOPICAL BID PRN (Reason: Rash) 0RF Label Comments: APPLY CREAM TOPICALLY TO AFFECTED AREA TWICE DAILY carvedilol 25 mg Tablet 37.5 mg PO BID 0RF Rx Instructions: must administer with a meal/food docusate sodium 100 mg Tablet 100 mg PO BID PRN (Reason: Constipation) 0RF Follow up/Referrals: Ad Colunga MD [Primary Care Provider] - Discharge Data Primary Care Provider: Ad Colunga Quality VTE Deep Vein Thrombosis/Pulmonary Embolism Present on Admission: No
--- NOTE | 2021-09-28 21:02 | PM.PN.1 ---
Exam Vital Signs (past 8 hours): Oxygen Delivery Method Room Air Oxygen Flow Rate 0 Objective Labs Result Diagrams: 09/25/21 11:09 09/26/21 09:40 Labs: Laboratory Results - last 24 hr 09/28/21 05:11 NT-Pro-B Natriuret Pep 5580 H [facility] Medical History Anemia Atrial fibrillation CHF (congestive heart failure) Diabetes History of GI bleed Surgical History History of cholecystectomy History of hysterectomy History of mastectomy S/P CABG x 3 Family History Mother No problems noted. Social History household members: spouse Smoking Status: Former smoker alcohol intake: never substance use type: does not use Assessment & Plan Assessment & Plan narrative: Patient demonstrated chronic renal failure during her hospital stay. It did improve during the hospital stay however prior to discharge her best renal function demonstrated creatinine of 2.10 and GFR of 24. This is consistent with stage IV chronic kidney disease. Time Spent With Patient Critical Care time: I spent a total of [] minutes of critical care time on this patient's care today; this time is exclusive of procedural time. Quality VTE Deep Vein Thrombosis/Pulmonary Embolism Present on Admission: No
== END 2021-09-28 12:30 | disposition home or self-care (01) | DRG 101 ==
LOC: ED 14:28 → AC 14:59 → ICU 09-26 09:02 → AC 10-19 14:46
PROVIDERS: Admitting Provider Neuromusculoskeletal Medicine, Sports Medicine; Emergency Provider Emergency Medicine; Family Provider Internal Medicine; PCP Internal Medicine; Referring Provider Emergency Medicine; Visit Provider Neuromusculoskeletal Medicine, Sports Medicine
DX: R56.9 Unspecified convulsions (principal); N18.4 Chronic kidney disease, stage 4 (severe); I48.91 Unspecified atrial fibrillation; I25.10 Atherosclerotic heart disease of native coronary artery without angina pectoris; E11.22 Type 2 diabetes mellitus with diabetic chronic kidney disease; I12.9 Hypertensive chronic kidney disease with stage 1 through stage 4 chronic kidney disease, or unspecified chronic kidney disease; D64.9 Anemia, unspecified; S91.101A Unspecified open wound of right great toe without damage to nail, initial encounter; X58.XXXA Exposure to other specified factors, initial encounter; Z79.4 Long term (current) use of insulin; Z95.1 Presence of aortocoronary bypass graft; Z87.891 Personal history of nicotine dependence; Z79.01 Long term (current) use of anticoagulants; Z20.822 Contact with and (suspected) exposure to COVID-19
CPT/HCPCS: 36415; 71045; 80053; 80069; 82550; 82962; 83690; 83735; 83880; 84484; 85025; 87635; 93005; 97162; 97530; 99284; C9803; G0378; A9270; J1815

== ENCOUNTER → 2022-02-19 12:34 | Outpatient (CLI) | payer OTHER, SELFPAY ==
[2021-09-25 15:06] VITALS: BMI 38.4
--- NOTE | 2022-02-19 12:38 | DI.MRI.S_ITS ---
PROCEDURE: MR HEAD/BRAIN WO CON INDICATIONS: Unspecified convulsions TECHNIQUE: Non-contrast axial T1 spin echo, axial T2 fast spin echo, sagittal and axial FLAIR, coronal T2 fast spin echo, axial gradient echo, axial diffusion and ADC through the brain. COMPARISON: [facility], CT, CT HEAD/BRAIN WO CON, 09/22/2017, 7:55. [facility], CT, CT HEAD/BRAIN WO CON, 05/09/2021, 13:25. [facility], CT, CT HEAD/BRAIN WO CON, 04/14/2018, 11:48. FINDINGS: Image quality: Secondary to the patient's kyphosis, the standard brain coils could not be used. This examination is limited by involuntary motion artifact. CSF spaces: There is ex vacuo dilatation seen involving the posterior horn of the left lateral ventricle. Basal cisterns are patent. No extra-axial fluid collections. Brain: No intracranial bleeds or mass effects. There is cerebral volume loss for age. There are periventricular and deep white matter chronic small vessel ischemic changes. Brainstem appears normal. Diffusion-weighted images show no acute ischemic insults. Areas of encephalomalacia and volume loss can be seen involving the left frontal lobe, the left temporal occipital region, and the right occipital region. Normal intravascular flow voids are present. Skull and face: Calvarial bone marrow is normal in signal. Orbits are normal. Note is made of bilateral lens replacements. Sinuses: Sinuses and mastoids are clear. IMPRESSION: No imaging explanation is found for this patient's presenting symptoms. On this highly limited study, there is generalized brain parenchymal volume loss and chronic small vessel ischemic change. Areas of prior ischemia can be seen, which are overall worst involving the left temporal occipital region, where there is ex vacuo dilatation of the posterior horn of the left lateral ventricle. No findings of acute or subacute infarction can be seen. Dictated by: Sean Parish M.D. on 02/20/2022 at 8:47 Approved by: Sean Parish M.D. on 02/20/2022 at 8:52
== END ==
PROVIDERS: Family Provider Internal Medicine; PCP Internal Medicine; Referring Provider Psychiatry & Neurology Neurology; Visit Provider Psychiatry & Neurology Neurology
DX: R56.9 Unspecified convulsions (principal)
CPT/HCPCS: 70551